=== PATIENT | male | born 1995 | race Caucasian/White ===

== ENCOUNTER 2018-07-16 12:59 | Emergency (ER) | payer OTHER ==
[2018-07-16 13:05] VITALS: BP 148/98; PULSE 117; TEMP 98.6; BMI 25.8
[2018-07-16] MEDS ORDERED: DEXAMETHASONE SOD PHOSPHATE 10 MG/1 ML VIAL IM ONE (13:27)
[2018-07-16] MEDS ORDERED: DEXAMETHASONE SOD PHOSPHATE 10 MG/1 ML VIAL ONE (13:30)
--- NOTE | 2018-07-16 13:31 | PDOC ---
History of Present Illness - General Chief Complaint: Allergic Reaction Stated Complaint: ALLERGIC REACTION Time Seen by Provider: 07/16/18 13:17 History Source: Patient Exam Limitations: Clinical Condition - History of Present Illness Initial Comments: 07/16/18 13:28 Patient with history of anxiety and insomnia present for evaluation of rash to bilateral upper arms, stomach and back status post being prescribed Seroquel and given Seroquel injection s/p presented [facility] for anxiety and insomnia 2 days ago. Patient reports that he started developing rash 24 hours after taking the medication. Patient denies choking sensation, tongue swelling or shortness of breath. Patient reported itchiness to the rash areas. She denies any other symptoms Timing/Duration: other (2 days) Past History - Past Medical History Allergies/Adverse Reactions: Allergies Allergy/AdvReac Type Severity Reaction Status Date / Time peanut Allergy Verified 07/16/18 13:05 Penicillins Allergy Verified 07/16/18 13:05 Home Medications: Ambulatory Orders Famotidine [Pepcid] 20 mg PO BID 5 Days #10 tablet 07/16/18 Hydrocortisone 2.5% Topical Cr [Anusol-Hc -] 1 applic TP BID PRN #1 tube predniSONE [Deltasone -] 20 mg PO BID 5 Days #10 tablet 07/16/18 COPD: No Psychiatric Problems: Yes (shizophrenia) - Immunization History Immunization Up to Date: Yes - Suicide/Smoking/Psychosocial Hx Smoking History: Never smoked Number of Cigarettes Smoked Daily: 0 Hx Alcohol Use: No Substance Use Type: None Review of Systems - Review of Systems Constitutional: No: Weakness HEENTM: Yes: See HPI. No: Double Vision, Throat Swelling, Mouth Swelling Respiratory: No: Symptoms reported, See HPI, Cough, Orthopnea, Shortness of Breath, SOB with Exertion, SOB at Rest, Stridor, Wheezing, Productive cough, Hemoptysis, Other Cardiac (ROS): No: Symptoms Reported, See HPI, Chest Pain, Edema, Irregular Heart Rate, Lightheadedness, Palpitations, Syncope, Chest Tightness, Other ABD/GI: No: Symptoms Reported, See HPI, Abdominal Distended, Abd. Pain w/ defecation, Blood Streaked Bowels, Constipated, Diarrhea, Difficulty Swallowing , Nausea, Poor Appetite, Poor Fluid Intake, Rectal Bleeding, Vomiting, Indigestion, Abdominal cramping, Tarry Stools, Other Integumentary: Yes: Pruritus (over rash area), Rash (b/l upper arm, chest and upper back) All Other Systems: Reviewed and Negative *Physical Exam - Vital Signs Last Vital Signs Temp Pulse Resp BP Pulse Ox 98.6 F 117 H 20 148/98 100 07/16/18 13:02 07/16/18 13:02 07/16/18 13:02 07/16/18 13:02 07/16/18 13:02 - Physical Exam Comments: 07/16/18 13:32 GENERAL: Well developed, well nourished. Awake and alert. No acute distress. HEENT: Normocephalic, atraumatic. PERRLA, EOMI. No conjunctival pallor. Sclera are non- icteric. Moist mucous membranes. Oropharynx is clear. NECK: Supple. Full ROM. No JVD. Carotid pulses 2+ and symmetric, without bruits. No thyromegaly. No lymphadenopathy. CARDIOVASCULAR: Regular rate and rhythm. No murmurs, rubs, or gallops. Distal pulses are 2+ and symmetric. PULMONARY: No evidence of respiratory distress. Lungs clear to auscultation bilaterally. No wheezing, rales or rhonchi. ABDOMINAL: Soft. Non-tender. Non-distended. No rebound or guarding. No organomegaly. Normoactive bowel sounds. SKIN: multiple urticarial rash to b/l UE, left side of abdomen and upper back w/ o excoriations. NEUROLOGICAL: Alert, awake, appropriate. PSYCHIATRIC: Cooperative. Good eye contact. Appropriate mood and affect. General Appearance: Yes: Nourished, Appropriately Dressed. No: Apparent Distress Medical Decision Making - Medical Decision Making 07/16/18 13:33 Patient with history of insomnia and anxiety disorder present with complaint of red itchy rash to bilateral upper arms, anterior chest and upper back area for 2 days status post taking Seroquel medication 2 days ago. Exam significant for multiple urticarial rash to bilateral upper extremities, a left lower abdomen and upper chest area. Decadron 10 mg IM given. Patient be discharged on prednisone and Pepcid with ENT follow-up as needed for dermatitis. Patient be referred to psychiatry for anxiety and insomnia. *DC/Admit/Observation/Transfer Diagnosis at time of Disposition: Allergic dermatitis, Rash Insomnia Qualifiers: Insomnia type: unspecified Qualified Code(s): G47.00 - Insomnia, unspecified - Discharge Dispostion Disposition: HOME Condition at time of disposition: Stable Decision to Admit order: No - Prescriptions Prescriptions: Famotidine [Pepcid] 20 mg PO BID 5 Days #10 tablet Hydrocortisone 2.5% Topical Cr [Anusol-Hc -] 1 applic TP BID PRN #1 tube PRN Reason: rash predniSONE [Deltasone -] 20 mg PO BID 5 Days #10 tablet - Referrals Referrals: Clayton Osorio MD [Primary Care Provider] - Lynn Bal MD [Staff Physician] - Trenton Pate MD [Non Staff, Medical] - - Patient Instructions Printed Discharge Instructions: DI for Adverse Drug Reaction -- Allergic Additional Instructions: take medications as prescribed. follow-up with referred Psychiatrdonell Bal for anxiety and insomnia. follow-up with referred Dermatology as needed for rash - Post Discharge Activity
[2018-07-16] MEDS ORDERED: diphenhydrAMINE HCL 25 MG CAPSULE (FP) PO ONE ×2 (13:45→13:49)
== END 2018-07-16 14:13 | disposition home or self-care (01) ==
LOC: JERFT 12:59
PROC: 3E0233Z Introduction of Anti-inflammatory into Muscle, Percutaneous Approach (ICD-10-PCS; principal; 2018-07-16)
DX: L23.9 Allergic contact dermatitis, unspecified cause (principal); G47.00 Insomnia, unspecified; Z88.0 Allergy status to penicillin; Z91.010 Allergy to peanuts
CPT/HCPCS: 96372; 99281-25; J1100

== ENCOUNTER 2018-07-20 11:00 | Emergency (ER) | payer OTHER ==
[2018-07-20 11:22] VITALS: BP 148/87; PULSE 112; TEMP 98.2; BMI 25.8
--- NOTE | 2018-07-20 12:02 | PDOC ---
History of Present Illness - General Chief Complaint: Psychiatric Stated Complaint: ANXIETY Time Seen by Provider: 07/20/18 12:01 History Source: Patient Exam Limitations: Clinical Condition Past History - Past Medical History Allergies/Adverse Reactions: Allergies Allergy/AdvReac Type Severity Reaction Status Date / Time peanut Allergy Verified 07/20/18 11:18 Penicillins Allergy Verified 07/20/18 11:18 shrimp Allergy Verified 07/20/18 11:18 Home Medications: Ambulatory Orders Famotidine [Pepcid] 20 mg PO BID 5 Days #10 tablet 07/16/18 Hydrocortisone 2.5% Topical Cr [Anusol-Hc -] 1 applic TP BID PRN #1 tube predniSONE [Deltasone -] 20 mg PO BID 5 Days #10 tablet 07/16/18 Benztropine Mesylate [Cogentin -] 0.5 mg PO BID #30 tablet 07/20/18 Haloperidol [Haldol -] 0.5 mg PO BID #30 tablet 07/20/18 COPD: No Psychiatric Problems: Yes (shizophrenia) - Immunization History Immunization Up to Date: Yes - Suicide/Smoking/Psychosocial Hx Smoking History: Never smoked Number of Cigarettes Smoked Daily: 0 Information on smoking cessation initiated: No Hx Alcohol Use: No Drug/Substance Use Hx: No Substance Use Type: None *Physical Exam - Vital Signs Last Vital Signs Temp Pulse Resp BP Pulse Ox 98.2 F 112 H 18 148/87 98 07/20/18 11:19 18 11:19 07/20/18 11:19 07/20/18 11:19 07/20/18 11:19 Medical Decision Making - Medical Decision Making Pt was seen at bedside, also will be seen by attending [ ]. Pt presenting with PE showed [] Considering [vs vs] Ordered work-up including [labs] and [imaging]. Provided [interventions/meds] for improvement of [pain/symptom control]. Will continue to reassess pt and monitor for symptomatic improvement. 07/20/18 12:[address] Mcdonald office ([phone]) to attempt to schedule a sooner appointment (current appointment scheduled for 07/31). Pt takes 100 mg haldol shot once per month, wellbutrin, and .5 mg cogentin BID. Will provide Haldol PO (.5 mg) first dose in the ER, and a short prescription for haldol and cogentin until the pt can see his psychiatrist. 07/20/18 12:43 Sent .5 mg PO haldol BID x15 days and .5 mg PO cogentin BID x15 days to pt pharmacy. 07/20/18 12:53 Provided pt with additional 1 mg ativan for anxiety, as pt stated he is still feeling very anxious. Pt can be discharged to home with follow-up. Pt advised to follow-up with PCP in 1-2 days and has been referred to [referrals]. Strict return precautions provided with pt understanding. 07/20/18 13:53 *DC/Admit/Observation/Transfer Diagnosis at time of Disposition: Anxiety Schizophrenia Qualifiers: Schizophrenia type: unspecified Qualified Code(s): F20.9 - Schizophrenia, unspecified - Discharge Dispostion Disposition: HOME Condition at time of disposition: Improved Decision to Admit order: No - Prescriptions Prescriptions: Benztropine Mesylate [Cogentin -] 0.5 mg PO BID #30 tablet Haloperidol [Haldol -] 0.5 mg PO BID #30 tablet - Referrals Referrals: Robby Mcdonald MD [Non Staff, Medical] - - Patient Instructions Printed Discharge Instructions: DI for Schizophrenia Additional Instructions: You were seen in the ER today for anxiety. Please follow-up with your psychiatrist, Dr. Mcdonald ([phone]) and your primary care doctor within 1-2 days to discuss your visit and make sure your symptoms have improved. Please call Dr. Mcdonald office on Tuesday to confirm your appointment. I have sent Haldol 0.5 mg twice per day, and Cogentin .5 mg twice per day to your pharmacy. Please pick this up after you leave the ER. You received your first dose of Haldol in the ER, so you only need to take it once per night. Please return to the ER if you have any worsening agitation, any thoughts of hurting yourself or others, development of fevers or chills, loss of consciousness, inability to tolerate food or fluids, or any other concerns. - Post Discharge Activity
--- NOTE | 2018-07-20 12:04 | PDOC ---
Attending Attestation - Resident Resident Name: Kristi Owens - HPI HPI: 07/20/18 13:06 Pt presents to the ED complaining of anxiety and insomnia similar to his chronic anxiety. ashwin has a history of schizophrenia and depression and has been lost to psychiatric follow up since December. Has not taken medication for weeks. Was seen at [facility] and started on seroquel. Seen here in the ED for rash after starting seroquel. Now is on no medications. Has attempted to make appointment with his psychiatrist--has appointment for 07/31. Denies HI, SI or active hallucinations. Admits to ETOH use, but states that he is drinking one beer every other day. - Physicial Exam PE: 07/20/18 13:21 Agree with resident exam. Patient is alert and oriented x 3 and in no acute distress. Appears mildly anxious, but able to give complete history, although he is slightly tangential. Appears to have fair to good insight and judgement and is well groomed. No tremor or tongue fasiculations. Tachycardia resolved . - Medical Decision Making 07/20/18 13:24 Pt presents to the ED complaining of anxiety and lack of his chronic psychiatric medications. No active psychotic symptoms. Attempted to obtain earlier psychiatric follow up, but Psychiatrist does not work on . Voicemail left with the clinic. Medication history obtained from the clinic. Will treat with PO haldol and cogentin until psychiatric follow up on 07/31. Patient instructed to return immediately to the Ed for SI, HI, hallucinations, other worsening symptoms/.
[2018-07-20] MEDS ORDERED: diphenhydrAMINE HCL 25 MG CAPSULE (FP) PO ONE ×2 (12:19→12:30)
[2018-07-20] MEDS ORDERED: SODIUM CHLORIDE 1,000 ML IV STA (12:32)
[2018-07-20] MEDS ORDERED: HALOPERIDOL 1 MG TABLET (FP) PO ONE (12:46)
[2018-07-20] MEDS ORDERED: LORazepam 0.5 MG TABLET PO ONE (13:20)
[2018-07-20] MEDS ORDERED: LORazepam 1 MG TABLET PO ONE (13:22)
[2018-07-20] MEDS ORDERED: LORazepam 0.5 MG TABLET ONE (13:23)
--- NOTE | 2018-07-20 14:14 | EKG ---
Test Reason : Blood Pressure : / mmHG Vent. Rate : 092 BPM Atrial Rate : 092 BPM P-R Int : 146 ms QRS Dur : 094 ms QT Int : 334 ms P-R-T Axes : 015 017 023 degrees QTc Int : 413 ms NORMAL SINUS RHYTHM WITH SINUS ARRHYTHMIA POSSIBLE LEFT ATRIAL ENLARGEMENT SEPTAL INFARCT , AGE UNDETERMINED ABNORMAL ECG NO PREVIOUS ECGS AVAILABLE Confirmed by CEZAR HAAS MD ([id number]) on 07/20/2018 2:13:39 PM Referred By: Confirmed By:CEZAR HAAS MD
== END 2018-07-20 14:01 | disposition home or self-care (01) ==
LOC: JER 11:00
DX: F41.9 Anxiety disorder, unspecified (principal); F20.9 Schizophrenia, unspecified
CPT/HCPCS: 93005; 93010; 99282-25

== ENCOUNTER 2018-08-31 11:56 | Emergency (ER) | payer OTHER ==
[2018-08-31 12:05] VITALS: BP 152/89; PULSE 119; TEMP 98.6; BMI 24.3
--- NOTE | 2018-08-31 14:42 | PDOC ---
History of Present Illness - General Chief Complaint: Chest Pain Stated Complaint: CHEST PAIN Time Seen by Provider: 08/31/18 14:27 History Source: Patient Exam Limitations: No Limitations - History of Present Illness Initial Comments: 23 yo M with a hx of schizophrenia and depression presents to the emergency department with 1.5 months of intermittent chest pain described as a "discomfort ". Per the patient, the pain has random onset, feels like a prickling sensation , 10/10, lasts for approximately 1 second before termination with random onset and termination on its own. Denies worsening of pain with exertion and denies the following associative symptoms: diaphoresis, nausea, vomiting, SOB, and radiation of pain to his neck, back, and arms. Concurrently, he complains of a mental fog and has not been compliant with his haldol medication. Denies SI, HI , AH/VH/tactile hallucinations, and ideas of self harm. Denies the following: fever, chills, visual changes, headache, ears/nose/throat pain, abdominal pain, dysuria, hematuria, stiffening of muscles, ataxia, diarrhea, hematochezia, and leg pain/swelling. Pmhx: Refer to above Meds: haldol Allergies: PCN (anaphylaxis) Past History - Past Medical History Allergies/Adverse Reactions: Allergies Allergy/AdvReac Type Severity Reaction Status Date / Time peanut Allergy Verified 08/31/18 12:02 Penicillins Allergy Verified 08/31/18 12:02 shrimp Allergy Verified 08/31/18 12:02 Home Medications: Ambulatory Orders Famotidine [Pepcid] 20 mg PO BID 5 Days #10 tablet 07/16/18 Hydrocortisone 2.5% Topical Cr [Anusol-Hc -] 1 applic TP BID PRN #1 tube predniSONE [Deltasone -] 20 mg PO BID 5 Days #10 tablet 07/16/18 Benztropine Mesylate [Cogentin -] 0.5 mg PO BID #30 tablet 07/20/18 Haloperidol [Haldol -] 0.5 mg PO BID #30 tablet 07/20/18 Cardiac Disorders: No COPD: No Diabetes: No HTN: No Hypercholesterolemia: No Psychiatric Problems: Yes (shizophrenia, depression, anxiety, insomnia) - Surgical History Abdominal Surgery: No Appendectomy: Yes Cardiac Surgery: No - Immunization History Immunization Up to Date: Yes - Suicide/Smoking/Psychosocial Hx Smoking History: Former smoker Have you smoked in the past 12 months: Yes Number of Cigarettes Smoked Daily: 0 If you are a former smoker, when did you quit?: 2 months ago Information on smoking cessation initiated: No Hx Alcohol Use: No Drug/Substance Use Hx: No Substance Use Type: None Review of Systems - Review of Systems Able to Perform ROS?: Yes Is the patient limited Faroese proficient: No Constitutional: No: Chills, Diaphoresis, Fever HEENTM: No: Blurred Vision, Recent change in vision, Ear Pain, Nose Pain, Throat Pain, Mouth Pain Respiratory: No: Cough, Shortness of Breath, SOB with Exertion, Hemoptysis Cardiac (ROS): Yes: Chest Pain. No: Lightheadedness, Palpitations, Syncope, Chest Tightness ABD/GI: No: Constipated, Diarrhea, Nausea, Poor Appetite, Poor Fluid Intake, Rectal Bleeding, Vomiting, Indigestion, Tarry Stools : No: Burning, Dysuria, Urgency Musculoskeletal: No: Back Pain, Joint Pain, Neck Pain Integumentary: No: Bruising, Change in Color, Flushing, Lesions, Lumps, Rash, Sweating Neurological: No: Headache, Numbness, Tingling, Tremors, Ataxia, Dizziness Psychiatric: Yes: Depression, Stressors Endocrine: No: Unexplained Weight Gain Hematologic/Lymphatic: No: Anemia *Physical Exam - Vital Signs Last Vital Signs Temp Pulse Resp BP Pulse Ox 98.6 F 119 H 18 152/89 95 08/31/18 12:03 08/31/18 12:03 08/31/18 12:03 08/31/18 12:03 08/31/18 12:03 - Physical Exam General Appearance: Yes: Nourished, Appropriately Dressed. No: Apparent Distress, Intoxicated HEENT: positive: EOMI, DEBORAH, Normal Voice, Symmetrical, Pharynx Normal, Hearing Grossly Normal. negative: Pale Conjunctivae, Scleral Icterus (R), Scleral Icterus (L), Muffled/Hoarse voice, Nasal Congestion, Sinus Tenderness, Excessive drooling Neck: positive: Trachea midline. negative: Tender, Lymphadenopathy (R), Lymphadenopathy (L), Tender lateral, Tender midline Respiratory/Chest: positive: Lungs Clear, Normal Breath Sounds. negative: Chest Tender, Respiratory Distress, Accessory Muscle Use, Paradoxal Breathing, Crackles, Rales, Rhonchi, Stridor, Wheezing Cardiovascular: positive: Regular Rhythm, S1, S2, Tachycardia. negative: Systolic Murmur Gastrointestinal/Abdominal: positive: Normal Bowel Sounds, Flat, Soft. negative : Tender Lymphatic: negative: Adenopathy Musculoskeletal: positive: Normal Inspection. negative: CVA Tenderness, Vertebral Tenderness Extremity: positive: Normal Capillary Refill, Normal Inspection, Normal Range of Motion. negative: Tender Integumentary: positive: Normal Color, Dry, Warm. negative: Rash, Swelling Neurologic: positive: lab pack chemist II-XII NML intact, Fully Oriented, Alert, Normal Response, Motor Strength 5/5, Depressed Affect Moderate Sedation - Procedure Monitoring Vital Signs: Procedure Monitoring Vital Signs Temperature 98.6 F 08/31/18 12:03 Pulse Rate 119 H 08/31/18 12:03 Respiratory Rate 18 08/31/18 12:03 Blood Pressure 152/89 08/31/18 12:03 O2 Sat by Pulse Oximetry (%) 95 08/31/18 12:03 ED Treatment Course - LABORATORY CBC & Chemistry Diagram: 08/31/18 15:09 08/31/18 15:09 Medical Decision Making - Medical Decision Making 23 yo M with a hx of schizophrenia and depression presents to the emergency department with 1.5 months of intermittent chest pain described as a "discomfort ". Initial vitals: Initial Vital Signs Temp Pulse Resp BP Pulse Ox 98.6 F 119 H 18 152/89 95 08/31/18 12:03 08/31/18 12:03 08/31/18 12:03 08/31/18 12:03 08/31/18 12:03 work up: aCS for atypical chest pain work up. EKG did not show arrhythmia, ST elevations or depressions. Tachycardia sinus. will order trops, cbc, cmp, cxr to rule out ACS causes and acute pathologies (PNA) in the chest. Laboratory Tests 08/31/18 08/31/18 15:09 15:09 WBC 7.6 RBC 5.81 H Hgb 17.3 H Hct 52.7 H MCV 90.7 MCH 29.7 MCHC 32.8 RDW 12.7 Plt Count 390 MPV 7.4 L Absolute Neuts (auto) 4.7 Neutrophils % 62.2 Lymphocytes % 28.7 Monocytes % 7.7 Eosinophils % 0.7 Basophils % 0.7 Nucleated RBC % 0 Sodium 140 Potassium 4.1 Chloride 105 Carbon Dioxide 27 Anion Gap 9 BUN 7 Creatinine 0.7 Creat Clearance w eGFR > 60 Random Glucose 83 Calcium 9.3 Total Bilirubin 0.8 AST 15 ALT 37 Alkaline Phosphatase 74 Creatine Kinase 69 Troponin I < 0.02 Total Protein 7.4 Albumin 4.1 TSH 1.05 Free T4 1.10 CXR shows no acute pathologies. given 1 L of NS and 5 mg of haldol (his home dose). has improvement in pain and his heart rate prior to discharge was 98 bpm. agreed for outpatient follow up with is pMD and psychiatrist within 24-72 hours. I discussed the physical exam findings, ancillary test results, and final diagnoses with the patient. I answered all of the patients questions to their satisfaction. The patient was satisfied with the care received and felt comfortable with the discussed discharge and treatment plan and accepted it. They agreed to follow up with their primary medical physical physician within 24 -72 hours after discharge for follow up care and management. Dispo: Discharge *DC/Admit/Observation/Transfer Diagnosis at time of Disposition: Chest pain Qualifiers: Chest pain type: unspecified Qualified Code(s): R07.9 - Chest pain, unspecified - Discharge Dispostion Disposition: HOME Decision to Admit order: No - Referrals Referrals: Clayton Osorio MD [Primary Care Provider] - Lynn Bal MD [Staff Physician] - - Patient Instructions Printed Discharge Instructions: DI for Atypical Chest Pain Additional Instructions: you were seen in the emergency department for the evaluation of your chest pain. your labs were within normal limits and your chest xray did not show acute pathologies. please follow up with your primary medical doctor within 3 days after discharge. follow up with your psychiatrist within 3 days after discharge for follow up care and management. please return to the emergency department if you have worsening symptoms or new concerning symptoms such as shortness of breath, chest pain with exertion, and passing out. thank you. - Post Discharge Activity
[2018-08-31] MEDS ORDERED: SODIUM CHLORIDE 1,000 ML IV STA (14:45)
[2018-08-31] MEDS ORDERED: HALOPERIDOL LACTATE 5 MG/ML IM ONE (14:45)
[2018-08-31] MEDS ORDERED: HALOPERIDOL LACTATE 5 MG/ML ONE (15:15)
[2018-08-31 15:23] LABS: BASO % 0.7 % (0-2.0); EOS % 0.7 % (0-4.5); HEMATOCRIT 52.7 % (35.4-49); HEMOGLOBIN 17.3 GM/dL (11.7-16.9); LYMPH % 28.7 % (8-40); MCH 29.7 pg (25.7-33.7); MCHC 32.8 g/dl (32.0-35.9); MEAN CELL VOLUME 90.7 fl (80-96); MEAN PLT VOLUME 7.4 fl (7.5-11.1); MONO % 7.7 % (3.8-10.2); NEUT % 62.2 % (42.8-82.8); PLATELET COUNT 390 K/MM3 (134-434); RBC 5.81 M/mm3 (4.00-5.60); RDW 12.7 % (11.9-15.9); WHITE BLOOD COUNT 7.6 K/mm3 (4.0-10.0)
--- NOTE | 2018-08-31 15:33 | PDOC ---
Attending Attestation - HPI HPI: 08/31/18 15:35 The patient is a 23 year old male, with a significant PMH of schizophrenia, depression, who presents to the emergency department with 1 month of intermittent chest discomfort. The patient states the intermittent chest pain is described as a prickly sensation, rated 10/10, last for 1 second before resolving on its own, with no exacerbating or alleviating factors. The patient also states he has not been compliant with his Haldol medication. The patient denies any homicidal ideations, suicidal ideations or hallucinations. The patient denies shortness of breath, headache and dizziness. Denies fever, chills, nausea, vomit, diarrhea and constipation. Denies dysuria, frequency, urgency and hematuria. Allergies: peanut, penicillins, shrimps Documentation prepared by Gideon Rodas, acting as medical appointment scheduler for Sony Reeves MD. - Physicial Exam PE: 08/31/18 15:35 Vitals: Triage Vital signs reviewed General Appearance: no acute distress, well nourished well developed, Neck: Supple; No Nuchal rigidity Chest Wall: Nontender Cardiac: Regular rate and rhythm, no murmurs, no rubs, no gallops, Lungs: Clear to auscultation bilateral, good air movement bilaterally, Abdomen: Soft, nondistended, normal bowel sounds, nontender to palpation Rectal: Exam deferred Extremities: Full range of motion to all extremities, no cyanosis, clubbing, or edema Skin: Warm and dry, no rashes or lesions, no petechiae Psych: (+) Odd affect <Gideon Rodas - Last Filed: 08/31/18 15:34> - Resident Resident Name: Ellis Hutchinson - ED Attending Attestation I have performed the following: I have examined & evaluated the patient, The case was reviewed & discussed with the resident, I agree w/resident's findings & plan, Exceptions are as noted - Medical Decision Making 08/31/18 16:08 Very atypical chest discomfort patient noncompliant with his psychiatric medications however denies any suicidal ideation homicidal ideation or auditory or visual hallucinations does not appear to be acute harm to himself or others EKG nonischemic demonstrates sinus tachycardia no ST elevations or T-wave inversions Status post Haldol IV fluids patient feels much better laboratory analysis within normal limits troponin negative heart score 1. Patient stable for outpatient follow-up with psychiatry as well as in our clinic. <Sony Reeves - Last Filed: 08/31/18 16:08> Heart Score/ECG Review - History History: Slightly suspicious - Electrocardiogram EKG: Normal - Age Age: </= 45 - Risk Factors Based on the list above the patient has:: No risk factors known - Troponin Troponin: </= normal limit - Score Heart Score - Total: 0 <Sony Reeves - Last Filed: 08/31/18 16:08>
[2018-08-31 15:47] LABS: ALBUMIN 4.1 g/dl (3.4-5.0); ALK PHOS 74 U/L (45-117); ANION GAP 9 MMOL/L (8-16); BILIRUBIN,TOTAL 0.8 mg/dL (0.2-1); BLOOD UREA NITROGEN 7 mg/dL (7-18); CALCIUM 9.3 mg/dL (8.5-10.1); CHLORIDE 105 mmol/L (98-107); CO2 27 mmol/L (21-32); CREATININE 0.7 mg/dL (0.55-1.3); GLUCOSE,RANDOM 83 mg/dL (74-106); POTASSIUM 4.1 mmol/L (3.5-5.1); SGOT/AST 15 U/L (15-37); SGPT/ALT 37 U/L (13-61); SODIUM 140 mmol/L (136-145); TOT PROT 7.4 g/dl (6.4-8.2)
--- NOTE | 2018-09-04 16:33 | EKG ---
Test Reason : Blood Pressure : / mmHG Vent. Rate : 106 BPM Atrial Rate : 106 BPM P-R Int : 130 ms QRS Dur : 082 ms QT Int : 312 ms P-R-T Axes : 052 030 027 degrees QTc Int : 414 ms SINUS TACHYCARDIA POSSIBLE LEFT ATRIAL ENLARGEMENT SEPTAL INFARCT (CITED ON OR BEFORE 20-JUL-2018) ABNORMAL ECG WHEN COMPARED WITH ECG OF 20-JUL-2018 12:26, NO SIGNIFICANT CHANGE WAS FOUND Confirmed by DONALDO SANCHEZ, ANGELIQUE ([id number]) on 09/04/2018 4:32:27 PM Referred By: Confirmed By:ANGELIQUE FULTON MD
== END 2018-08-31 16:51 | disposition home or self-care (01) ==
LOC: JER 11:56
PROC: 3E0337Z Introduction of Electrolytic and Water Balance Substance into Peripheral Vein, Percutaneous Approach (ICD-10-PCS; principal; 2018-08-31)
PROC: 3E023GC Introduction of Other Therapeutic Substance into Muscle, Percutaneous Approach (ICD-10-PCS; 2018-08-31)
DX: R07.9 Chest pain, unspecified (principal); F20.9 Schizophrenia, unspecified; F32.9 Major depressive disorder, single episode, unspecified; F41.9 Anxiety disorder, unspecified; G47.00 Insomnia, unspecified; Z91.14 Patient's other noncompliance with medication regimen
CPT/HCPCS: 36415; 71045-TC-FY; 80053; 82550; 84439; 84443; 84484; 85025; 93005; 93010; 99282-25; J7030

== ENCOUNTER 2018-09-02 04:04 | Emergency (ER) | payer OTHER ==
[2018-09-02 04:26] VITALS: TEMP 98.3; BMI 24.3
--- NOTE | 2018-09-02 04:39 | PDOC ---
History of Present Illness - General Chief Complaint: Chest Pain Stated Complaint: CHEST DISCOMFORT Time Seen by Provider: 09/02/18 04:21 History Source: Patient Exam Limitations: No Limitations - History of Present Illness Initial Comments: 09/02/18 04:34 23 YOM with h/o schizophrenia and depression non-adherent to medication regimen , who was BIBEMS for sharp stabbing left anterior chest pain which is non- radiating, occurs in episodes a few times a day and lasts seconds-minutes, ongoing for the past 1-2 months. Was seen here as recently as 08/31/18 for the same thing, had negative cardiac w/u including labs. 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 This provoked him to call 911. He did not take any medications for the symptoms. Has been having similar milder symptoms for the past 1-2 months but not prior to that. He has been having some struggles with his schizophrenia and states the voices he hears in his head are somewhat troubling. He does follow with a regular outpatient doctor for his schizophrenia and is able to make an appointment with them for Tuesday. Denies suicidal or homicidal ideation. States he was drinking tonight. Past History - Past Medical History Allergies/Adverse Reactions: Allergies Allergy/AdvReac Type Severity Reaction Status Date / Time peanut Allergy Verified 09/02/18 04:56 Penicillins Allergy Verified 09/02/18 04:56 shrimp Allergy Verified 09/02/18 04:56 Home Medications: Ambulatory Orders NK [No Known Home Medication] 09/02/18 Cardiac Disorders: No COPD: No Diabetes: No HTN: No Hypercholesterolemia: No Psychiatric Problems: Yes (shizophrenia, depression, anxiety, insomnia) - Surgical History Abdominal Surgery: No Appendectomy: Yes Cardiac Surgery: No - Immunization History Immunization Up to Date: Yes - Suicide/Smoking/Psychosocial Hx Smoking History: Never smoked Have you smoked in the past 12 months: Yes Number of Cigarettes Smoked Daily: 0 If you are a former smoker, when did you quit?: 2 months ago Hx Alcohol Use: Yes (1 bottle cognac/3-4 beers per day) Drug/Substance Use Hx: No Substance Use Type: None Review of Systems - Review of Systems Able to Perform ROS?: Yes Comments:: 09/02/18 04:37 GEN: no fever, chills, malaise, generalized weakness, or weight change HEENT: no ear pain, sore throat, vision change, or eye pain CV: chest pain, no palpitations, lightheadedness, syncope, or edema RESP: no cough, wheezing, or SOB GI: nausea, vomiting, no abdominal pain, diarrhea, constipation, or white/black/ bloody stool : no dysuria, hematuria, incontinence, retention, bleeding, or discharge MSK: no neck/back pain, muscle weakness/pain, or joint swelling/pain NEURO: no headache, seizure, vertigo, numbness, tingling, or focal weakness PSYCH: alcohol use, no other substance use, visual hallucinations, no SI, no HI SKIN: no jaundice, no rash ROS otherwise negative except as noted in HPI *Physical Exam - Vital Signs Last Vital Signs Temp Pulse Resp BP Pulse Ox 98.3 F 105 H 19 143/85 100 09/02/18 04:15 09/02/18 04:15 09/02/18 04:15 09/02/18 04:15 09/02/18 04:15 09/02/18 04:38 GENERAL: flat affect, well-appearing young adult male, A/Ox4, no distress, answers questions appropriately, does not appear intoxicated HEENT: PERRLA, EOMI, moist mucous membranes NECK/BACK: no midline ttp, no spinal stepoff or deformity, no hematoma, full ROM , neck supple CARDIOVASCULAR: slightly tachycardic at the tiem of my exam, normal S1S2, no MGR , strong peripheral pulses, capillary refill <2 seconds, extremities wwp, no edema LUNGS/RESPIRATORY: no respiratory distress, CTAB GI/ABDOMEN: symmetric [id number], normoactive BS, soft, no ttp, no midline pulsatile masses : no CVA tenderness EXTREMITIES: no muscle atrophy, no acute deformity, no edema SKIN: warm and dry, no pallor, no jaundice, no rash, no bruising, no skin breakdown, no cuts, no lesions NEUROLOGICAL: GCS 15, CN II-XII grossly intact, 5/5 strength proximally and distally, no facial droop Heart Score/ECG Review #1 09/02/18 05:30 Sinus rhythm, rate 99, normal axis and intervals, no pathologic ST-T changes Moderate Sedation - Procedure Monitoring Vital Signs: Procedure Monitoring Vital Signs Temperature 98.3 F 09/02/18 04:15 Pulse Rate 105 H 09/02/18 04:15 Respiratory Rate 19 09/02/18 04:15 Blood Pressure 143/85 09/02/18 04:15 O2 Sat by Pulse Oximetry (%) 100 09/02/18 04:15 ED Treatment Course - RADIOLOGY Radiology Studies Ordered: Category Date Time Status CHEST PA & LAT [RAD] Stat Radiology 09/02/18 04:33 Taken Medical Decision Making - Medical Decision Making 09/02/18 04:40 Adult Pt p/w chest pain. Initial Vital Signs Temp Pulse Resp BP Pulse Ox 98.3 F 105 H 19 143/85 100 09/02/18 04:15 09/02/18 04:15 09/02/18 04:15 09/02/18 04:15 09/02/18 04:15 Exam: As noted in Physical Exam section. DDX IBNLT: most likely precordial catch. Less likely any of the following as this has been episodic and ongoing for >1 month: ACS, pericarditis, PTX, PE, gastritis, PUD, pancreatitis, cholecystitis, cholangitis, colitis, bowel perforation, PNA/bronchitis, pleurisy, pleuritis, MVP, musculoskeletal, panic/ anxiety, etc. W/U ordered: EKG CXR TX ordered: None (patient does not want meds at this time) EKG: Reviewed; results as noted in ECG Review section. CXR: Nothing acute 09/02/18 07:00 Patient states he drinks EtOH daily, want to go to detox. Patient to be driven to [facility] by security at 8 am. On last reassessment VS are stable, Pts pain is resolved, and exam is benign. The Pts HEART score indicates they are low risk and do not require admission currently. The Pt is appropriate for discharge with close outpatient follow up. They are comfortable with this plan and will follow up with their primary care provider in 1-3 days. Referral information given for psychiatry clinic. Specific return precautions are discussed and they will come back to the ER if necessary. *DC/Admit/Observation/Transfer Diagnosis at time of Disposition: Chest pain Qualifiers: Chest pain type: unspecified Qualified Code(s): R07.9 - Chest pain, unspecified Schizophrenia Qualifiers: Schizophrenia type: other Qualified Code(s): F20.89 - Other schizophrenia - Discharge Dispostion Disposition: HOME Condition at time of disposition: Stable Decision to Admit order: No - Referrals Referrals: Clayton Osorio MD [Primary Care Provider] - Lynn Bal MD [Staff Physician] - Samuel Moody NP [Nurse Practitioner] - - Patient Instructions Printed Discharge Instructions: DI for Chest Pain Additional Instructions: You were seen in the ER for chest pain. We did an electrocardiogram and a chest x-ray, and we did not find any concerning abnormalities. After our assessment, we do not believe you are having a medical emergency at this time, and we believe you are safe to go home. Take over the counter pain medications for your pain, as instructed on the medication label. Please follow up with your primary care provider in 1-3 days. Call their clinic as soon as possible, tell them you were seen in the ER, and tell them you need an appointment. We are giving you referral information for our psychiatry clinic, and we think they may be able to help you as well if you are looking for a new psychiatrist. If you have any new or worsening symptoms, especially worsening chest pain, jaw pain, shoulder/arm pain, shortness of breath, sweats, nausea, loss of consciousness, palpitations, or other symptoms, please come back to the ER at any time (24 hours a day). If you are having severe or life threatening symptoms , or symptoms that make it unsafe to drive or have someone drive you, please call 911. Please go to [facility] for Detox, this morning at 8 am. - Post Discharge Activity
[2018-09-02] MEDS ORDERED: MAG HYDROX/AL HYDROX/SIMETH 30 ML UNIT-DOSE CUP PO ONE (06:20)
--- NOTE | 2018-09-02 06:25 | PDOC ---
Attending Attestation - Resident Resident Name: SalesTeri - ED Attending Attestation I have performed the following: I have examined & evaluated the patient, The case was reviewed & discussed with the resident, I agree w/resident's findings & plan - HPI HPI: 09/02/18 06:23 Pt is schizophrenic. He tells me that he self medicates daily with alcohol, and that he doesn't eat/ Pt has no job; he completed one year of college and has no job. He lives off of his mother. He is stressed at home. - Physicial Exam PE: 09/02/18 06:25 Agree with resident exam. - Medical Decision Making 09/02/18 06:25 Pt is willing to try detox; he is tachycardic in the ER, likely due to alcohol withdrawal. [place] [facility] [place] their detox program at 8[place].
[2018-09-02] MEDS ORDERED: MAG HYDROX/AL HYDROX/SIMETH 30 ML UNIT-DOSE CUP ONE (07:03)
[2018-09-02 07:40] VITALS: BP 136/60; PULSE 92
--- NOTE | 2018-09-02 13:26 | EKG ---
Test Reason : Blood Pressure : / mmHG Vent. Rate : 099 BPM Atrial Rate : 099 BPM P-R Int : 142 ms QRS Dur : 088 ms QT Int : 322 ms P-R-T Axes : 051 025 023 degrees QTc Int : 413 ms NORMAL SINUS RHYTHM SEPTAL INFARCT (CITED ON OR BEFORE 20-JUL-2018) ABNORMAL ECG WHEN COMPARED WITH ECG OF 31-AUG-2018 12:07, NO SIGNIFICANT CHANGE WAS FOUND Confirmed by SAMINA SANCHEZ, CEZAR ([id number]) on 09/02/2018 1:25:52 PM Referred By: Confirmed By:CEZAR HAAS MD
== END 2018-09-02 07:39 | disposition home or self-care (01) ==
LOC: JER 04:04
DX: R07.9 Chest pain, unspecified (principal); F10.10 Alcohol abuse, uncomplicated; F20.89 Other schizophrenia; F32.9 Major depressive disorder, single episode, unspecified; G47.00 Insomnia, unspecified
CPT/HCPCS: 71046-TC-FY; 93005; 93010; 99282-25

== ENCOUNTER 2018-11-25 14:15 | Emergency (ER) | payer OTHER ==
[2018-11-25 14:31] VITALS: BP 104/68; PULSE 103; TEMP 99.5; BMI 26.4
[2018-11-25] MEDS ORDERED: ACETAMINOPHEN 500 MG TABLET (FP) PO ONE (14:47)
--- NOTE | 2018-11-25 14:49 | PDOC ---
History of Present Illness - General Chief Complaint: Cold Symptoms Stated Complaint: FLU SYMPTOMS Time Seen by Provider: 11/25/18 14:42 - History of Present Illness Initial Comments: 11/25/18 14:46 23-year-old male with flulike symptoms 2 days he has a history of depression. Past History - Past Medical History Allergies/Adverse Reactions: Allergies Allergy/AdvReac Type Severity Reaction Status Date / Time peanut Allergy Verified 11/25/18 14:26 Penicillins Allergy Verified 11/25/18 14:26 shrimp Allergy Verified 11/25/18 14:26 Home Medications: Ambulatory Orders Oseltamivir Phosphate [Tamiflu] 75 mg PO BID #10 capsule 11/25/18 Cardiac Disorders: No COPD: No Diabetes: No HTN: No Hypercholesterolemia: No Psychiatric Problems: Yes (shizophrenia, depression, anxiety, insomnia) - Surgical History Abdominal Surgery: No Appendectomy: Yes Cardiac Surgery: No - Immunization History Immunization Up to Date: Yes - Suicide/Smoking/Psychosocial Hx Smoking History: Current every day smoker Have you smoked in the past 12 months: Yes Number of Cigarettes Smoked Daily: 10 If you are a former smoker, when did you quit?: 2 months ago Information on smoking cessation initiated: No Hx Alcohol Use: No Drug/Substance Use Hx: No Substance Use Type: None Review of Systems - Review of Systems Constitutional: Yes: See HPI, Chills, Fever, Malaise, Night Sweats HEENTM: Yes: Nose Congestion Respiratory: Yes: Cough *Physical Exam - Vital Signs Last Vital Signs Temp Pulse Resp BP Pulse Ox 99.5 F 103 H 16 104/68 97 11/25/18 14:26 11/25/18 14:26 11/25/18 14:26 11/25/18 14:26 11/25/18 14:26 - Physical Exam Comments: 11/25/18 14:47 HEAD: NC/AT EYES: Conjuntiva clear Ears: Canals and TM's normal NOSE: No d/c THROAT: Moist mucous membrances, oral pharanx clear, uvula midline NECK: Supple without adenopathy CARDIAC: S1 S2 LUNGS: CTA Full and Equal breath sounds ABDOMEN: Soft NT ND MS: Full ROM in all joints without edema NEUROLOGIC: No gross sensory or motor deficits, NVID SKIN: Normal color and temperature no lesions or rashes Moderate Sedation - Procedure Monitoring Vital Signs: Procedure Monitoring Vital Signs Temperature 99.5 F 11/25/18 14:26 Pulse Rate 103 H 11/25/18 14:26 Respiratory Rate 16 11/25/18 14:26 Blood Pressure 104/68 11/25/18 14:26 O2 Sat by Pulse Oximetry (%) 97 11/25/18 14:26 Medical Decision Making - Medical Decision Making 11/25/18 14:48 We'll treat for influenza based on symptoms *DC/Admit/Observation/Transfer Diagnosis at time of Disposition: Influenza - Discharge Dispostion Disposition: HOME Condition at time of disposition: Stable Decision to Admit order: No - Prescriptions Prescriptions: Oseltamivir Phosphate [Tamiflu] 75 mg PO BID #10 capsule - Referrals Referrals: Karthikeyan Leal [Non Staff, Medical] - - Patient Instructions Printed Discharge Instructions: Influenza Additional Instructions: Tylenol and Motrin as directed for pain and fever. Follow-up with primary care physician in one to 2 days for further evaluation and treatment options and return to the emergency room for worsening symptoms. Please take the Tamiflu as directed - Post Discharge Activity
== END 2018-11-25 14:52 | disposition home or self-care (01) ==
LOC: JERFT 14:15
DX: J11.1 Influenza due to unidentified influenza virus with other respiratory manifestations (principal); F20.9 Schizophrenia, unspecified; F41.9 Anxiety disorder, unspecified; F32.9 Major depressive disorder, single episode, unspecified; G47.00 Insomnia, unspecified
CPT/HCPCS: 99281-25

== ENCOUNTER 2019-02-16 14:20 | Emergency (ER) | payer OTHER ==
--- NOTE | 2019-02-16 14:44 | PDOC ---
Rapid Medical Evaluation Time Seen by Provider: 02/16/19 14:40 Medical Evaluation: Allergies Allergy/AdvReac Type Severity Reaction Status Date / Time peanut Allergy Verified 11/25/18 14:26 Penicillins Allergy Verified 11/25/18 14:26 shrimp Allergy Verified 11/25/18 14:26 02/16/19 14:41 Patient complaints of: heavy drinking, not taking psych meds, denies si/hi Patient on brief exam: vss, good eye contact, normal body language, mouth appears dry Patient ordered for: labs, ivf, ua, drug tox Patient to proceed to the ED Discharge Disposition - Diagnosis Schizophrenia - Referrals - Patient Instructions - Post Discharge Activity
[2019-02-16] MEDS ORDERED: SODIUM CHLORIDE 1,000 ML IV STA (14:45)
[2019-02-16 14:53] VITALS: BP 122/85; PULSE 81; TEMP 98; BMI 25.8
[2019-02-16] MEDS ORDERED: HALOPERIDOL 5 MG TABLET (FP) PO ONE (15:18)
[2019-02-16] MEDS ORDERED: ALPRAZolam 0.25 MG TABLET PO ONE (15:18)
[2019-02-16] MEDS ORDERED: ALPRAZolam 0.25 MG TABLET ONE (15:24)
--- NOTE | 2019-02-16 15:26 | PDOC ---
History of Present Illness - General Chief Complaint: Psychiatric Stated Complaint: DOESNT FEEL GOOD Time Seen by Provider: 02/16/19 14:40 - History of Present Illness Initial Comments: 02/16/19 15:26 CHIEF COMPLAINT: "I don't feel good" HISTORY OF PRESENT ILLNESS: This is a 24-year-old male with a history of bipolar disorder and schizophrenia, usually on lithium and Haldol although he has not taken them for about 3 days. He reports that he has been drinking more than usual, and had sonny and [employer] last night. Since then, he is been feeling generally ill at ease. He denies suicidal or self harming ideation, homicidal ideation, auditory or visual hallucinations, or any other symptoms. He does not have any specific physical complaints. He does follow with a psychiatrist at [facility] in [place], and saw him 2 days ago. The patient has a supply of medications, but reports that he does not feel there working well for him. He lives with and is accompanied by his mother. REVIEW OF SYSTEMS: GENERAL/CONSTITUTIONAL: No fever or chills. No weakness. No weight change. HEAD, EYES, EARS, NOSE AND THROAT: No change in vision. No ear pain or discharge. No sore throat. CARDIOVASCULAR: No chest pain or palpitations. RESPIRATORY: No cough, wheezing, or shortness of breath. GASTROINTESTINAL: No nausea, vomiting, diarrhea or constipation. GENITOURINARY: No dysuria, frequency, or change in urination. MUSCULOSKELETAL: No joint or muscle swelling or pain. No neck or back pain. SKIN: No rash or easy bruising. NEUROLOGIC: No headache, vertigo, loss of consciousness, or loss of sensation. PSYCHIATRIC: Anxiety, history of BPD/schizophrenia. No SI/HI/age/pH. ENDOCRINE: No increased thirst. No abnormal weight change. HEMATOLOGIC/LYMPHATIC: No anemia, easy bleeding, or history of blood clots. ALLERGIC/IMMUNOLOGIC: No hives or skin allergy. No latex allergy. PHYSICAL EXAM: GENERAL: The patient is awake, alert, and fully oriented, in no acute distress. HEAD: Normal with no signs of trauma. ENT: Pupils equal, round and reactive to light, extraocular movements intact, sclera anicteric, conjunctiva clear. Neck supple. LUNGS: Clear to auscultation bilaterally. Normal excursion. No respiratory distress or use of accessory muscles. CV: RRR, S1/S2, no MRG. Cap refill < 2 sec. ABDOMEN: Soft, non-distended, non-tender. EXTREMITIES: Normal range of motion, no edema. NEUROLOGICAL: Normal speech, normal gait. CN II-XII grossly intact. PSYCH: Normal mood, normal affect. Normal insight and judgment. Answers questions appropriately. SKIN: Warm, dry, normal turgor, no rashes or lesions noted. Past History - Past Medical History Allergies/Adverse Reactions: Allergies Allergy/AdvReac Type Severity Reaction Status Date / Time peanut Allergy Verified 11/25/18 14:26 Penicillins Allergy Verified 11/25/18 14:26 shrimp Allergy Verified 11/25/18 14:26 Home Medications: Ambulatory Orders Haloperidol [Haldol -] 0 mg PO ASDIR 02/16/19 [place] Carbonate [Eskalith -] 0 mg PO ASDIR 02/16/19 Cardiac Disorders: No COPD: No Diabetes: No HTN: No Hypercholesterolemia: No Psychiatric Problems: Yes (shizophrenia, depression, anxiety, insomnia) Other medical history: bipolar - Surgical History Abdominal Surgery: No Appendectomy: Yes Cardiac Surgery: No - Immunization History Immunization Up to Date: Yes - Suicide/Smoking/Psychosocial Hx Smoking History: Current every day smoker Have you smoked in the past 12 months: Yes Number of Cigarettes Smoked Daily: 10 If you are a former smoker, when did you quit?: 2 months ago Information on smoking cessation initiated: Yes Hx Alcohol Use: Yes (daily) Drug/Substance Use Hx: No Substance Use Type: None *Physical Exam - Vital Signs Last Vital Signs Temp Pulse Resp BP Pulse Ox 98 F 81 20 122/85 96 02/16/19 14:40 02/16/19 14:40 02/16/19 14:40 02/16/19 14:40 02/16/19 14:40 ED Treatment Course - LABORATORY CBC & Chemistry Diagram: 02/16/19 15:00 02/16/19 15:00 Medical Decision Making - Medical Decision Making 02/16/19 15:39 A/P: 24-year-old male with history of BPD/schizophrenia, noncompliant with medications for 3 days and experiencing anxiety/malaise after binge drinking. No suicidal ideation or other alarming symptoms or behaviors. 1. Basic labs, urine toxicology 2. Haldol 5 mg PO (home dose) and alprazolam 0.25 mg PO 3. IV fluids 4. Reevaluate Discussed alcohol detox/rehabilitation with patient and he is unwilling to pursue that at this time. 02/16/19 16:42 Patient states that he is feeling much better. Again denies suicidal or self harming ideations. Agrees to follow up with his psychiatrist and discussed medication regimen, and to resume lithium/Haldol in the meantime. Will discharge home accompanied by his mother. Follow-up instructions and return precautions reviewed. *DC/Admit/Observation/Transfer Diagnosis at time of Disposition: Schizophrenia, Bipolar disorder - Discharge Dispostion Disposition: HOME Condition at time of disposition: Improved Decision to Admit order: No - Referrals - Patient Instructions Printed Discharge Instructions: DI for Bipolar Disorder, DI for Schizophrenia Additional Instructions: Resume your [place] and Haldol as discussed. You are being given a very short-term prescription for alprazolam, which your may take as needed for anxiety. You may not use any alcohol with this medication. Follow-up with your psychiatrist at [facility] as soon as possible to discuss your medication regimen. Return here for suicidal thoughts or any other concerning symptoms. - Post Discharge Activity
[2019-02-16 15:33] LABS: BASO % 0.9 % (0-2.0); EOS % 3.9 % (0-4.5); HEMATOCRIT 50.8 % (35.4-49); HEMOGLOBIN 17.6 GM/dL (11.7-16.9); LYMPH % 32.9 % (8-40); MCH 31.5 pg (25.7-33.7); MCHC 34.6 g/dl (32.0-35.9); MEAN PLT VOLUME 7.9 fl (7.5-11.1); MONO % 5.9 % (3.8-10.2); NEUT % 56.4 % (42.8-82.8); PLATELET COUNT 319 K/MM3 (134-434); RBC 5.58 M/mm3 (4.00-5.60); RDW 13.5 % (11.9-15.9); WHITE BLOOD COUNT 5.3 K/mm3 (4.0-10.0)
[2019-02-16 16:01] LABS: EPI CELLS 0.9 /HPF (0-5/HPF); HYALINE CASTS 9 /lpf (0-8); PH,URINE 7.5 (5.0-8.0); URINE APPEARANCE CLEAR; URINE BACTERIA 5.1 /hpf (NEGATIVE); URINE BILIRUBIN NEGATIVE (NEGATIVE); URINE COLOR YELLOW; URINE GLUCOSE (UA) NEGATIVE (NEGATIVE); URINE KETONE NEGATIVE (NEGATIVE); URINE LEUK ESTERASE NEGATIVE (NEGATIVE); URINE NITRITE NEGATIVE (NEGATIVE); URINE PROTEIN 1+ (NEGATIVE); URINE RBC 1 /hpf (0-4); URINE WBC 1 /hpf (0-5)
[2019-02-16 16:29] LABS: ALBUMIN 4.2 g/dl (3.4-5.0); BILIRUBIN,TOTAL 0.7 mg/dL (0.2-1); BLOOD UREA NITROGEN 8.2 mg/dL (7-18); CALCIUM 9.3 mg/dL (8.5-10.1); CREATININE 0.8 mg/dL (0.55-1.3); MAGNESIUM 1.9 mg/dL (1.8-2.4); POTASSIUM 3.9 mmol/L (3.5-5.1); TOT PROT 7.8 g/dl (6.4-8.2)
[2019-02-16 17:19] LABS: COCAINE, UR NEGATIVE ng/ml (CUTOFF=300); METHADONE, UR NEGATIVE ng/ml (CUTOFF=300); OPIATES, URI NEGATIVE ng/ml (CUTOFF=300); PHENCYCLIDINE,URINE NEGATIVE ng/ml (CUTOFF=25); URINE AMPHETAMINES NEGATIVE ng/ml (CUTOFF=500); URINE BARBITURATES NEGATIVE ng/ml (CUTOFF=200); URINE BENZODIAZEPINES NEGATIVE ng/ml (CUTOFF=200)
== END 2019-02-16 17:01 | disposition home or self-care (01) ==
LOC: JER 14:20
PROC: 3E0337Z Introduction of Electrolytic and Water Balance Substance into Peripheral Vein, Percutaneous Approach (ICD-10-PCS; principal; 2019-02-16)
DX: F10.10 Alcohol abuse, uncomplicated (principal); F20.9 Schizophrenia, unspecified; F31.9 Bipolar disorder, unspecified; F41.9 Anxiety disorder, unspecified; Z91.14 Patient's other noncompliance with medication regimen
CPT/HCPCS: 36415; 80053; 80307; 81003; 83735; 85025; 96360; 99283-25; J7030

== ENCOUNTER 2019-02-23 16:14 | Emergency (ER) | payer OTHER ==
[2019-02-23 16:25] VITALS: BP 139/83; PULSE 99; TEMP 98.6; BMI 26.6
--- NOTE | 2019-02-23 16:25 | PDOC ---
Rapid Medical Evaluation Chief Complaint: Psychiatric Time Seen by Provider: 02/23/19 16:21 Medical Evaluation: Allergies Allergy/AdvReac Type Severity Reaction Status Date / Time peanut Allergy Verified 02/23/19 16:21 Penicillins Allergy Verified 02/23/19 16:21 shrimp Allergy Verified 02/23/19 16:21 02/23/19 16:22 I have performed a brief in-person evaluation of this patient. The patient presents with a chief complaint of: Anxiety. H/o schizophrenia, depression and anxiety. Currently on haldol and lithium. No longer has xanax at home. No SI/HI. Admits to "drinking a lot" last night Pertinent physical exam findings: Stable and in NAD I have ordered the following:nothing The patient will proceed to the ED for further evaluation. Discharge Disposition - Diagnosis Anxiety - Referrals - Patient Instructions - Post Discharge Activity
--- NOTE | 2019-02-23 16:34 | PDOC ---
History of Present Illness - General Chief Complaint: Psychiatric Stated Complaint: ANXIETY Time Seen by Provider: 02/23/19 16:21 History Source: Patient Exam Limitations: No Limitations - History of Present Illness Initial Comments: 02/23/19 17:08 Chief complaint: Anxiety Patient 24-year-old male with a history of bipolar, schizophrenia, drinks alcohol daily who states that he has a job interview tomorrow and he is anxious about it. Patient sees psychiatrist at [facility], once monthly but feels he is getting anxious recently. Patient denies feeling suicidal or depressed. Patient denies drinking today, last drank last night. Patient does not appear in any distress. Patient states he takes his medications but he states that he doesn't take them every day. This is been going on for a long time. Patient was recently here last week for similar complaint. GENERAL/CONSTITUTIONAL: No fever, weakness. dizziness HEAD, EYES, EARS, NOSE AND THROAT: No change in vision. No ear pain or discharge. No sore throat. CARDIOVASCULAR: No chest pain RESPIRATORY: No shortness of breath or cough GASTROINTESTINAL: No pain, nausea, vomiting, diarrhea or constipation GENITOURINARY: No dysuria MUSCULOSKELETAL: No neck or back pain SKIN: No rash NEUROLOGIC: No headache, vertigo, loss of consciousness, or loss of sensation. PSYCHIATRIC: no depression or suicidal, +anxiety GENERAL: The patient is awake, alert, and fully oriented, in no acute distress. HEAD: Normal with no signs of trauma. EYES: Pupils equal, round and reactive to light, sclera anicteric, conjunctiva clear. ENT: pharynx: no erythema, no exudate, uvula midline NECK: supple CHEST: clear, nontender, rr ABD: soft, nontender EXTREMITIES: Normal range of motion, no edema. NEUROLOGICAL: normal speech, normal gait. Cranial Nerves II through XII grossly intact, no gross focal abnormalities SKIN: Warm, Dry Past History - Past Medical History Allergies/Adverse Reactions: Allergies Allergy/AdvReac Type Severity Reaction Status Date / Time peanut Allergy Verified 02/23/19 16:21 Penicillins Allergy Verified 02/23/19 16:21 shrimp Allergy Verified 02/23/19 16:21 Home Medications: Ambulatory Orders Haloperidol [Haldol -] 5 mg PO ASDIR 02/16/19 [place] Carbonate [Eskalith -] 300 mg PO ASDIR 02/16/19 Alprazolam [Xanax] 0.25 mg PO ONCE #1 tablet MDD 1 02/23/19 Alprazolam [Xanax] 0.25 mg PO Q8H PRN 02/23/19 Cardiac Disorders: No COPD: No Diabetes: No HTN: No Hypercholesterolemia: No Psychiatric Problems: Yes (shizophrenia, depression, anxiety, insomnia) - Surgical History Abdominal Surgery: No Appendectomy: Yes Cardiac Surgery: No - Immunization History Immunization Up to Date: Yes - Suicide/Smoking/Psychosocial Hx Smoking History: Current every day smoker Have you smoked in the past 12 months: Yes Number of Cigarettes Smoked Daily: 10 If you are a former smoker, when did you quit?: 2 months ago Information on smoking cessation initiated: No Hx Alcohol Use: Yes Drug/Substance Use Hx: No Substance Use Type: None *Physical Exam - Vital Signs Last Vital Signs Temp Pulse Resp BP Pulse Ox 98.6 F 99 H 18 139/83 98 02/23/19 16:22 02/23/19 16:22 02/23/19 16:22 02/23/19 16:22 02/23/19 16:22 Medical Decision Making - Medical Decision Making 02/23/19 17:12 24-year-old male with history of bipolar, schizophrenia, under the care of [facility], seen once a month who came in stating that he is anxious regarding a job interview tomorrow. Patient was here last week for anxiety, given a small prescription for Xanax. Patient last sore his psychiatrist one week prior to his last visit and has not seen him since. Patient appears calm and in control. No signs of withdrawal. Discussed with patient. Will give him 1 pill, patient requesting that he get it for tomorrow morning, prescription sent. Patient given information regarding [facility] and the ability to speak or visit them even if he doesn't have an appointment for any further evaluations. Discussed issues, findings, results, applicable medications and treatments and follow-up. All these were understood and all questions were answered *DC/Admit/Observation/Transfer Diagnosis at time of Disposition: Anxiety - Discharge Dispostion Disposition: HOME - Prescriptions Prescriptions: Alprazolam [Xanax] 0.25 mg PO ONCE #1 tablet MDD 1 - Referrals - Patient Instructions Additional Instructions: you have been given 1 tablet of xanax to take as directed tomorrow follow up with your psychiatrist at [facility] as recommended on Tuesday. you can call there to discuss follow up anytime. return to the er if feeling sick do not drink alcohol. - Post Discharge Activity
== END 2019-02-23 16:50 | disposition home or self-care (01) ==
LOC: JERFT 16:14
DX: F41.9 Anxiety disorder, unspecified (principal); F32.9 Major depressive disorder, single episode, unspecified; F20.9 Schizophrenia, unspecified; F31.9 Bipolar disorder, unspecified
CPT/HCPCS: 99281-25

== ENCOUNTER 2019-09-22 14:22 | Emergency (ER) | payer OTHER ==
[2019-09-22 14:27] VITALS: BMI 27.3
--- NOTE | 2019-09-22 15:26 | PDOC ---
History of Present Illness - General Chief Complaint: Vomiting Blood Stated Complaint: VOMITING BLOOD Time Seen by Provider: 09/22/19 14:52 History Source: Patient Exam Limitations: Clinical Condition - History of Present Illness Initial Comments: 09/22/19 15:24 Patient with past medical history of schizophrenia and bipolar noncompliant with meds and alcohol abuse presented with complaint of blood-tinged vomit since this morning status post drinking 1 pint of vodka last night. Patient reported chronic alcohol abuse and drinks every day. Patient also reported daily marijuana use. Patient reported he was supposed to be taking medication for schizophrenia and bipolar but has not been taking for a while due to marijuana help with his symptoms. Patient reported vomiting 6 times this morning upon week. Denies abdominal pain now, nausea now, shortness of breath, dizziness, palpitation, blurry vision or change in vision. Patient report vomiting this morning and had small tiny blood in the vomit so he called 911 for ambulance to bring him to the emergency room due to not having money for transportation. Denies history of liver problem or vomiting blood. Denies any other symptoms Is this a multiple visit Asthma Patient?: No Timing/Duration: 4-6 hours Past History - Past Medical History Allergies/Adverse Reactions: Allergies Allergy/AdvReac Type Severity Reaction Status Date / Time peanut Allergy Verified 09/22/19 14:26 Penicillins Allergy Verified 09/22/19 14:26 shrimp Allergy Verified 09/22/19 14:26 Home Medications: Ambulatory Orders NK [No Known Home Medication] 09/22/19 Cardiac Disorders: No COPD: No Diabetes: No HTN: No Hypercholesterolemia: No Psychiatric Problems: Yes (shizophrenia, depression, anxiety, insomnia) - Surgical History Abdominal Surgery: No Appendectomy: Yes Cardiac Surgery: No - Immunization History Immunization Up to Date: Yes - Psycho Social/Smoking Cessation Hx Smoking History: Current every day smoker Have you smoked in the past 12 months: Yes Number of Cigarettes Smoked Daily: 10 If you are a former smoker, when did you quit?: 2 months ago Information on smoking cessation initiated: No Hx Alcohol Use: Yes Drug/Substance Use Hx: Yes (MARIJUANA) Substance Use Type: None Review of Systems - Review of Systems Able to Perform ROS?: Yes Is the patient limited Colombian proficient: No Constitutional: No: Chills, Fever, Weakness HEENTM: No: Symptoms Reported, See HPI, Eye Pain, Blurred Vision, Tearing, Recent change in vision, Double Vision, Cataracts, Ear Pain, Ocular Prothesis, Ear Discharge, Nose Pain, Nose Congestion, Tinnitus, Nose Bleeding, Hearing Loss , Throat Pain, Throat Swelling, Mouth Pain, Dental Problems, Difficulty Swallowing, Mouth Swelling, Other Respiratory: No: Symptoms reported, See HPI, Cough, Orthopnea, Shortness of Breath, SOB with Exertion, SOB at Rest, Stridor, Wheezing, Productive cough, Hemoptysis, Other Cardiac (ROS): No: Symptoms Reported, See HPI, Chest Pain, Edema, Irregular Heart Rate, Lightheadedness, Palpitations, Syncope, Chest Tightness, Other ABD/GI: Yes: Symptoms Reported, See HPI, Nausea, Vomiting. No: Blood Streaked Bowels, Constipated, Diarrhea, Difficulty Swallowing, Poor Appetite, Rectal Bleeding, Indigestion, Abdominal cramping : No: Symptoms Reported Musculoskeletal: No: Symptoms Reported Integumentary: No: Symptoms Reported, Bruising Neurological: No: Symptoms reported, Headache, Weakness, Unsteady Gait, Ataxia, Dizziness All Other Systems: Reviewed and Negative *Physical Exam - Vital Signs Last Vital Signs Temp Pulse Resp BP Pulse Ox 98 F 98 H 18 126/87 99 09/22/19 14:23 09/22/19 14:23 09/22/19 14:23 09/22/19 14:23 09/22/19 14:23 - Physical Exam 09/22/19 15:28 GENERAL: Well developed, well nourished. Awake and alert. No acute distress. HEENT: Normocephalic, atraumatic. PERRLA, EOMI. No conjunctival pallor. Sclera are non-icteric. Moist mucous membranes. Oropharynx is clear. NECK: Supple. Full ROM. CARDIOVASCULAR: Regular rate and rhythm. No murmurs, rubs, or gallops. Distal pulses are 2+ and symmetric. PULMONARY: No evidence of respiratory distress. Lungs clear to auscultation bilaterally. No wheezing, rales or rhonchi. ABDOMINAL: Soft. Non-tender. Non-distended. No rebound or guarding. No organomegaly. Normoactive bowel sounds. MUSCULOSKELETAL Normal range of motion at all joints. SKIN: Warm and dry. Normal capillary refill. No rashes. No jaundice. NEUROLOGICAL: Alert, awake, appropriate. Gait is normal without ataxia. PSYCHIATRIC: Cooperative. Good eye contact. Appropriate mood General Appearance: Yes: Nourished, Appropriately Dressed. No: Apparent Distress ED Treatment Course - LABORATORY CBC & Chemistry Diagram: 09/22/19 15:31 09/22/19 15:31 Medical Decision Making - Medical Decision Making 09/22/19 15:26 Patient with past medical history of schizophrenia and bipolar noncompliant with meds and alcohol abuse presented with complaint of blood-tinged vomit since this morning status post drinking 1 pint of vodka last night. Patient reported chronic alcohol abuse and drinks every day. Patient also reported daily marijuana use. Patient reported he was supposed to be taking medication for schizophrenia and bipolar but has not been taking for a while due to marijuana help with his symptoms. Patient reported vomiting 6 times this morning upon week. Denies abdominal pain now, nausea now, shortness of breath, dizziness, palpitation, blurry vision or change in vision. Patient report vomiting this morning and had small tiny blood in the vomit so he called 911 for ambulance to bring him to the emergency room due to not having money for transportation. Denies history of liver problem or vomiting blood. Denies any other symptoms Clinical exam unremarkable with no abdominal tenderness and normal cardio and lung exam. Patient in no acute distress. Normal neuro exam. 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 Basic lab ordered to rule out liver failure acute pathology. Patient requesting water as he feels thirsty. A cup of water given patient and will be used as a p.o. challenge Discharge - Discharge Information Problems reviewed: Yes Clinical Impression/Diagnosis: Christina-Pagan syndrome, Alcohol abuse Condition: Stable Disposition: HOME - Admission No - Follow up/Referral Referrals: Adam Olvera MD [Staff Physician] - - Patient Discharge Instructions Patient Printed Discharge Instructions: DI for Alcohol Abuse, DI for Christina- Pagan Syndrome, Heavy Alcohol Use May Increase Risk Cancer Additional Instructions: Your blood work is normal. Your symptoms was likely caused by tiny blood vessels in the throat from vomiting. Refrain from drinking too much alcohol as it is not good for your health. Increase fluid intake. Follow-up referred alcohol detox and rehab center to help with alcohol abuse - Post Discharge Activity
[2019-09-22 15:51] LABS: BASO % 0.7 % (0-2.0); HEMATOCRIT 56.7 % (35.4-49); HEMOGLOBIN 19.1 GM/dL (11.7-16.9); LYMPH % 34.8 % (8-40); MCH 31.7 pg (25.7-33.7); MCHC 33.7 g/dl (32.0-35.9); MEAN CELL VOLUME 94.1 fl (80-96); MEAN PLT VOLUME 7.9 fl (7.5-11.1); MONO % 6.1 % (3.8-10.2); NEUT % 56.4 % (42.8-82.8); PLATELET COUNT 304 K/MM3 (134-434); RBC 6.02 M/mm3 (4.00-5.60); RDW 13.6 % (11.9-15.9); WHITE BLOOD COUNT 5.3 K/mm3 (4.0-10.0)
[2019-09-22 16:06] LABS: INR 1.08 (0.83-1.09); PROTHROMBIN TIME (PATIENT) 12.8 SEC (9.7-13.0)
--- NOTE | 2019-09-22 16:06 | PDOC ---
*Physical Exam - Vital Signs Last Vital Signs Temp Pulse Resp BP Pulse Ox 98 F 98 H 18 126/87 99 09/22/19 14:23 09/22/19 14:23 09/22/19 14:23 09/22/19 14:23 09/22/19 14:23 - Physical Exam General Appearance: Yes: Nourished, Appropriately Dressed. No: Apparent Distress Gastrointestinal/Abdominal: positive: Normal Bowel Sounds, Flat, Soft. negative : Tender Neurologic: positive: Fully Oriented, Alert, Normal Mood/Affect, Normal Response ED Treatment Course - LABORATORY CBC & Chemistry Diagram: 09/22/19 15:31 09/22/19 15:31 - ADDITIONAL ORDERS Additional order review: Laboratory Results 09/22/19 15:31 PT with INR 12.80 INR 1.08 09/22/19 15:31 RBC 6.02 H MCV 94.1 MCHC 33.7 RDW 13.6 MPV 7.9 Neutrophils % 56.4 Lymphocytes % 34.8 Monocytes % 6.1 Eosinophils % 2.0 Basophils % 0.7 Medical Decision Making - Medical Decision Making 09/22/19 16:26 Sign out received from ANN Drew; patient pending lab results for discharge. Hemoglobin is concentrated indicative of dehydration. Electrolytes are within normal limits. Patient reports feeling better and has no pain at this time. Likely Christina-Pagan tear. Discharge home with supportive therapy I discussed the physical exam findings, ancillary test results and final diagnoses with the patient. I answered all of the patient's questions. The patient was satisfied with the care received and felt comfortable with the discharge plan and treatment plan. The Patient agrees to follow up with the primary care physician/specialist within 24-72 hours. Return precautions were given. Discharge - Discharge Information Problems reviewed: Yes Clinical Impression/Diagnosis: Christina-Pagan syndrome, Alcohol abuse Condition: Stable Disposition: HOME - Follow up/Referral Referrals: Adam Olvera MD [Staff Physician] - - Patient Discharge Instructions Patient Printed Discharge Instructions: DI for Alcohol Abuse, DI for Christina- Pagan Syndrome, Heavy Alcohol Use May Increase Risk Cancer Additional Instructions: Your blood work is normal. Your symptoms was likely caused by tiny blood vessels in the throat from vomiting. Refrain from drinking too much alcohol as it is not good for your health. Increase fluid intake. Follow-up referred alcohol detox and rehab center to help with alcohol abuse - Post Discharge Activity
[2019-09-22 16:08] LABS: ACTIVATED PTT 38.3 SECONDS (25.2-36.5)
[2019-09-22 16:16] LABS: ALBUMIN 4.6 g/dl (3.4-5.0); BILIRUBIN,TOTAL 0.5 mg/dL (0.2-1); BLOOD UREA NITROGEN 6.7 mg/dL (7-18); CALCIUM 10.1 mg/dL (8.5-10.1); CREATININE 0.8 mg/dL (0.55-1.3); POTASSIUM 4.3 mmol/L (3.5-5.1); TOT PROT 8.6 g/dl (6.4-8.2)
[2019-09-22 16:39] VITALS: BP 138/81; PULSE 92; TEMP 97.9
== END 2019-09-22 16:38 | disposition home or self-care (01) ==
LOC: JER 14:22
DX: K22.6 Gastro-esophageal laceration-hemorrhage syndrome (principal); F10.120 Alcohol abuse with intoxication, uncomplicated; F20.9 Schizophrenia, unspecified; F31.9 Bipolar disorder, unspecified; Z91.14 Patient's other noncompliance with medication regimen; F41.9 Anxiety disorder, unspecified; G47.00 Insomnia, unspecified; Z88.0 Allergy status to penicillin; Z91.013 Allergy to seafood; Z91.010 Allergy to peanuts; Y90.9 Presence of alcohol in blood, level not specified
CPT/HCPCS: 36415; 80053; 85025; 85610; 85730; 99283-25

== ENCOUNTER 2019-10-01 09:13 | Emergency (ER) | payer OTHER ==
[2019-10-01 09:48] VITALS: BP 142/96; PULSE 87; TEMP 98.4; BMI 27.3
--- NOTE | 2019-10-01 10:40 | PDOC ---
History of Present Illness - General History Source: Patient - History of Present Illness Initial Comments: 10/01/19 10:38 Patient is a 24-year-old male with a history of schizophrenia and EtOH abuse who presents to the ED with complaint of hearing voices and wanting psychiatric intervention. The patient states he took lithium 300 mg, naltrexone 50 mg and Haldol 10 mg this morning which she has not taken in a year. He states he only took 1 of each medication. He states since he started hearing voices again he decided to take his medications. He denies any suicidal or homicidal ideations. He states the voices are not telling him to hurt himself or others. He states that the voices are reading his thoughts and are being very critical of him. He denies any fevers or chills. He denies any vomiting or diarrhea. He states his medications initially made him feel lousy but now he feels fine. He would like to establish care with a psychiatrist and that is why he came to the ED today. <Christel Flores - Last Filed: 10/01/19 11:19> <Sony Reeves - Last Filed: 10/01/19 14:16> - General Chief Complaint: Vomiting/Diarrhea Stated Complaint: N/V/D Time Seen by Provider: 10/01/19 10:03 Past History - Past Medical History Cardiac Disorders: No COPD: No Diabetes: No HTN: No Hypercholesterolemia: No Psychiatric Problems: Yes (shizophrenia, depression, anxiety, insomnia) - Surgical History Abdominal Surgery: No Appendectomy: Yes Cardiac Surgery: No - Immunization History Immunization Up to Date: Yes - Psycho Social/Smoking Cessation Hx Smoking History: Current every day smoker Have you smoked in the past 12 months: Yes Number of Cigarettes Smoked Daily: 10 If you are a former smoker, when did you quit?: 2 months ago Information on smoking cessation initiated: No Hx Alcohol Use: Yes (weed 2 days ago) Drug/Substance Use Hx: Yes (last time this morning) Substance Use Type: None <Christel Flores - Last Filed: 10/01/19 11:19> <Sony Reeves - Last Filed: 10/01/19 14:16> - Past Medical History Allergies/Adverse Reactions: Allergies Allergy/AdvReac Type Severity Reaction Status Date / Time peanut Allergy Verified 09/22/19 14:26 Penicillins Allergy Verified 09/22/19 14:26 shrimp Allergy Verified 09/22/19 14:26 Home Medications: Ambulatory Orders NK [No Known Home Medication] 09/22/19 Review of Systems - Review of Systems Comments:: 10/01/19 10:40 - Review of Systems Able to Perform ROS?: Yes Constitutional: No: Fever, Chills, Loss of Appetite, Night Sweats, Weakness HEENTM: No: Eye Pain, Vision changes, Ear Pain, Throat Pain, Throat Swelling, Mouth Pain, Difficulty Swallowing Respiratory: No: Cough, Shortness of Breath, Wheezing, Sputum Production Cardiac (ROS): No: Chest Pain, Chest Tightness, Palpitations, Irregular Heart Beat, Edema ABD/GI: No: Nausea, Vomiting, Abdominal Pain, Diarrhea : No Dysuria, No Hematuria, No Frequency, No Urgency, No Vaginal Discharge/ Pain, No Penile Discharge/Pain Musculoskeletal: No: Muscle Pain, Back Pain, Joint Pain, Muscle Weakness, Neck Pain Integumentary: No: Lesions, Rash Neurological: No: Headache, Numbness, Tingling, Weakness, Speech Difficulties Psych: + auditory hallucinations, + h/o schizophrenia, No homicidal or suicidal ideations, + etoh abuse, + marijuana use <Christel Flores - Last Filed: 10/01/19 11:19> *Physical Exam - Vital Signs Last Vital Signs Temp Pulse Resp BP Pulse Ox 98.4 F 87 16 142/96 96 10/01/19 09:44 10/01/19 09:44 10/01/19 09:44 10/01/19 09:44 10/01/19 09:44 - Physical Exam 10/01/19 10:41 - Physical Exam General Appearance: Nourished, Appropriately Dressed, No Distress HEENT: EOMI, Normal Voice, No Pharyngeal Erythema, No Muffled/Hoarse voice, No Tonsillar Exudate, No Tonsillar Erythema, No Nasal Congestion, No Rhinorrhea, Hearing Grossly Normal, TMs Normal, No TM Bulging, No TM Dullness, No TM Erythema Neck: Supple, No Lymphadenopathy (R), No Lymphadenopathy (L), No Rigidity, No Decreased range of motion Respiratory/Chest: Lungs Clear, Normal Breath Sounds. No Respiratory Distress, No Accessory Muscle Use Cardiovascular: Regular Rhythm, Regular Rate, S1, S2 Gastrointestinal/Abdominal: Normal Bowel Sounds, Soft. Non-tender, No Guarding , No Rebound, No Rigidity Musculoskeletal: Normal Inspection. No Decreased Range of Motion Extremity: Normal Capillary Refill, Normal Inspection Integumentary: Normal Color, Dry. No Rash Neurologic: superintendent storage area II-XII NML intact, Fully Oriented, Alert, Normal Mood/Affect, Normal Response Psych: slightly flat affect, no scattered thoughts with a linear thought process , pt is making sense and answering questions appropriately. <Christel Flores - Last Filed: 10/01/19 11:19> - Vital Signs Last Vital Signs Temp Pulse Resp BP Pulse Ox 98.4 F 87 16 142/96 96 10/01/19 09:44 10/01/19 09:44 10/01/19 09:44 10/01/19 09:44 10/01/19 09:44 <Sony Reeves - Last Filed: 10/01/19 14:16> Medical Decision Making - Medical Decision Making 10/01/19 10:35 I have spoken with the ED social service assistant and she will come speak with the patient regarding referral to a psychiatrist. The patient agrees with following up as an outpatient and states he believes this is the best route for him. The patient is a 24-year-old male with a history of schizophrenia who took a dose of his lithium 300 mg, naltrexone 50 milligrams and Haldol 10 mg this morning. He states he would like to be evaluated by a psychiatrist which she has not done in about a year. He is not having any suicidal or homicidal ideations. He is having auditory hallucinations but states they are not telling him to hurt himself or anybody else. The auditory hallucinations are being very critical of him and reading his thoughts. Patient continues to drink a pint of rum daily and he has already this morning. He also smokes marijuana. He smokes cigarettes. At this time, I do not believe the patient requires admission for his schizophrenia. The social service assistant will see him and refer him for outpatient psychiatry. The patient understands and agrees with this treatment and plan and he is stable for discharge. 10/01/19 11:13 The patient may have eloped from the ED prior to speaking with social work. The social service assistant will attempt to call him to help with a referral to psychiatry. 10/01/19 11:20 We have attempted to call the patient many times and have not been able to locate him again. He has eloped from the ED. <Christel Flores - Last Filed: 10/01/19 11:19> - Medical Decision Making 10/01/19 14:15 I reviewed the case of the mid-level practitioner and was available for consultation while in the emergency department <Snoy Reeves - Last Filed: 10/01/19 14:16> Discharge - Discharge Information Problems reviewed: Yes <Christel Flores - Last Filed: 10/01/19 11:19> <Sony Reeves - Last Filed: 10/01/19 14:16> - Discharge Information Clinical Impression/Diagnosis: Auditory hallucinations Condition: Stable Disposition: ELOPED
== END 2019-10-01 11:59 | disposition left against medical advice (07) ==
LOC: JER 09:13
DX: F20.9 Schizophrenia, unspecified (principal); F32.9 Major depressive disorder, single episode, unspecified; F41.8 Other specified anxiety disorders; G47.00 Insomnia, unspecified; F17.210 Nicotine dependence, cigarettes, uncomplicated
CPT/HCPCS: 99281-25

== ENCOUNTER 2019-10-12 10:51 | Emergency (ER) | payer OTHER ==
[2019-10-12 11:05] VITALS: BMI 26.6
[2019-10-12] MEDS ORDERED: ONDANSETRON *ODT* 4 MG TABLET SL ONE (11:15)
[2019-10-12] MEDS ORDERED: ONDANSETRON *ODT* 4 MG TABLET ONE (11:23)
[2019-10-12 11:31] LABS: BASO % 0.6 % (0-2.0); HEMATOCRIT 55.4 % (35.4-49); HEMOGLOBIN 19.1 GM/dL (11.7-16.9); LYMPH % 27.2 % (8-40); MCH 32.2 pg (25.7-33.7); MCHC 34.4 g/dl (32.0-35.9); MEAN CELL VOLUME 93.4 fl (80-96); MEAN PLT VOLUME 7.7 fl (7.5-11.1); MONO % 8.3 % (3.8-10.2); NEUT % 60.9 % (42.8-82.8); PLATELET COUNT 283 K/MM3 (134-434); RBC 5.93 M/mm3 (4.00-5.60); WHITE BLOOD COUNT 5.6 K/mm3 (4.0-10.0)
--- NOTE | 2019-10-12 11:35 | PDOC ---
History of Present Illness - General History Source: Patient Exam Limitations: Clinical Condition - History of Present Illness Initial Comments: 10/12/19 11:31 Patient with past medical history of alcohol abuse seen here multiple times for nausea and vomiting from drinking overnight present with complaint of vomiting green bile this morning. Patient has been seen 3 times the past month for same symptoms and advised on alcohol cessation and referred to GI but patient never follows up. Patient report drinking 2 bottles of alcohol yesterday. Reported no alcohol this morning. Patient reported woke up with vomiting unable to keep food down and has not been eating and has only been drinking alcohol. Patient has been given referral to detox center but patient never follows up. Denies fever, chills, chest pain, palpitation, shortness of breath. Denies any other symptoms Is this a multiple visit Asthma Patient?: No Timing/Duration: intermittent <Renzo Drew - Last Filed: 10/12/19 12:20> <Bipin Magaña - Last Filed: 10/13/19 09:43> - General Chief Complaint: Nausea/Vomiting Stated Complaint: NAUSEA/VOMITING Time Seen by Provider: 10/12/19 11:12 Past History - Past Medical History Cardiac Disorders: No COPD: No Diabetes: No HTN: No Hypercholesterolemia: No Psychiatric Problems: Yes (shizophrenia, depression, anxiety, insomnia) - Surgical History Abdominal Surgery: No Appendectomy: Yes Cardiac Surgery: No - Immunization History Immunization Up to Date: Yes - Psycho Social/Smoking Cessation Hx Smoking History: Current every day smoker Have you smoked in the past 12 months: Yes Number of Cigarettes Smoked Daily: 20 If you are a former smoker, when did you quit?: 2 months ago Information on smoking cessation initiated: No Hx Alcohol Use: Yes (DAILY) [facility] Substance Use Type: None <Renzo Drew - Last Filed: 10/12/19 12:20> <Bipin Magaña - Last Filed: 10/13/19 09:43> - Past Medical History Allergies/Adverse Reactions: Allergies Allergy/AdvReac Type Severity Reaction Status Date / Time peanut Allergy Verified 10/12/19 11:00 Penicillins Allergy Verified 10/12/19 11:00 shrimp Allergy Verified 10/12/19 11:00 Home Medications: Ambulatory Orders Ondansetron [Zofran *Odt*] 4 mg SL Q8H PRN #21 od.tablet 10/12/19 Review of Systems - Review of Systems Able to Perform ROS?: Yes Is the patient limited Grenadian proficient: No Constitutional: No: Chills, Fever, Malaise HEENTM: No: Symptoms Reported, See HPI, Eye Pain, Blurred Vision, Tearing, Recent change in vision, Double Vision, Cataracts, Ear Pain, Ocular Prothesis, Ear Discharge, Nose Pain, Nose Congestion, Tinnitus, Nose Bleeding, Hearing Loss , Throat Pain, Throat Swelling, Mouth Pain, Dental Problems, Difficulty Swallowing, Mouth Swelling, Other Respiratory: No: Symptoms reported, See HPI, Cough, Orthopnea, Shortness of Breath, SOB with Exertion, SOB at Rest, Stridor, Wheezing, Productive cough, Hemoptysis, Other Cardiac (ROS): No: Symptoms Reported, See HPI, Chest Pain, Edema, Irregular Heart Rate, Lightheadedness, Palpitations, Syncope, Chest Tightness, Other ABD/GI: Yes: Symptoms Reported, See HPI, Diarrhea, Nausea, Vomiting, Abdominal cramping (epigastric pain). No: Abdominal Distended, Abd. Pain w/ defecation, Blood Streaked Bowels, Difficulty Swallowing, Poor Appetite, Rectal Bleeding, Indigestion : No: Symptoms Reported Musculoskeletal: No: Symptoms Reported Integumentary: No: Symptoms Reported Neurological: No: Symptoms reported, Headache, Numbness, Weakness, Dizziness All Other Systems: Reviewed and Negative <Renzo Drew - Last Filed: 10/12/19 12:20> *Physical Exam - Vital Signs Last Vital Signs Temp Pulse Resp BP Pulse Ox 98.3 F 108 H 18 134/95 97 10/12/19 11:01 10/12/19 11:01 10/12/19 11:01 10/12/19 11:01 10/12/19 11:01 - Physical Exam 10/12/19 11:34 GENERAL: Well developed, well nourished. Awake and alert. No acute distress. HEENT: Normocephalic, atraumatic. PERRLA, EOMI. No conjunctival pallor. Sclera are non-icteric. Moist mucous membranes. Oropharynx is clear. NECK: Supple. Full ROM. CARDIOVASCULAR: Regular rate and rhythm. No murmurs, rubs, or gallops. Distal pulses are 2+ and symmetric. PULMONARY: No evidence of respiratory distress. Lungs clear to auscultation bilaterally. No wheezing, rales or rhonchi. ABDOMINAL: Soft. Mild tenderness to palpate the epigastric region. Non-distended. No rebound or guarding. No organomegaly. Normoactive bowel sounds. MUSCULOSKELETAL Normal range of motion at all joints. SKIN: Warm and dry. Normal capillary refill. No rashes. No jaundice. No cyanosis NEUROLOGICAL: Alert, awake, appropriate. Gait is normal without ataxia. PSYCHIATRIC: Cooperative. Good eye contact. Appropriate mood General Appearance: Yes: Nourished, Appropriately Dressed. No: Apparent Distress <Renzo Drew - Last Filed: 10/12/19 12:20> - Vital Signs Last Vital Signs Temp Pulse Resp BP Pulse Ox 98.4 F 103 H 16 136/93 99 10/12/19 12:21 10/12/19 12:21 10/12/19 12:21 10/12/19 12:21 10/12/19 12:21 <Bipin Magaña - Last Filed: 10/13/19 09:43> ED Treatment Course - LABORATORY CBC & Chemistry Diagram: 10/12/19 11:23 10/12/19 11:23 <Renzo Drew - Last Filed: 10/12/19 12:20> - LABORATORY CBC & Chemistry Diagram: 10/12/19 11:23 10/12/19 11:23 - ADDITIONAL ORDERS Additional order review: 10/12/19 11:23 RBC 5.93 H MCV 93.4 MCHC 34.4 RDW 13.0 MPV 7.7 Neutrophils % 60.9 Lymphocytes % 27.2 D Monocytes % 8.3 Eosinophils % 3.0 Basophils % 0.6 - Medications Given in the ED: ED Medications Discontinued Medications Generic Name Dose Route Start Last Admin Trade Name Freq PRN Reason Stop Dose Admin Ondansetron HCl 4 mg 10/12/19 11:15 10/12/19 11:44 Zofran Odt - SL 10/12/19 11:16 4 mg ONCE ONE Administration <Bipin Magaña - Last Filed: 10/13/19 09:43> Medical Decision Making - Medical Decision Making 10/12/19 11:32 Patient with past medical history of alcohol abuse seen here multiple times for nausea and vomiting from drinking overnight present with complaint of vomiting green bile this morning. Patient has been seen 3 times the past month for same symptoms and advised on alcohol cessation and referred to GI but patient never follows up. Patient report drinking 2 bottles of alcohol yesterday. Reported no alcohol this morning. Patient reported woke up with vomiting unable to keep food down and has not been eating and has only been drinking alcohol. Patient has been given referral to detox center but patient never follows up. Denies fever, chills, chest pain, palpitation, shortness of breath. Denies any other symptoms Exam significant for patient vomited once while being evaluated with no acute distress. Mild tenderness epigastric region without guarding or rebound. Patient afebrile. Patient not cyanotic even though mildly tachycardic. Patient symptoms likely hangover from alcohol last night. Will do basic labs CBC and chemistry to rule acute abnormality. Zofran 4 mg sublingual ordered for nausea and vomiting. Patient given water to drink to help with hydration. Treat based on lab results 10/12/19 12:16 CBC is unremarkable. Chemistry lab showed mildly elevated AST which is likely caused by patient alcoholic behavior. Patient stable for discharge with GI follow-up. Patient declines referral to alcohol rehab. Patient reports feeling better request to be discharged home. Patient stable for discharge <Renzo Drew - Last Filed: 10/12/19 12:20> - Medical Decision Making The patient was seen and evaluated in conjunction with ANN Drew under my direct supervision, ancillary studies were reviewed. I independently interviewed and evaluated the patient and I agree with the plan as outlined by ANN Drew. 24y M hx of ETOH abuse presents with n/v. Pt endorses several epsiodes of this in carmen past, there was no hemetemsis or melena/bpr. pt noted mildly tachycaric. the pts labs were reviewed and noted for mildly elevated lfts. pt treated symptomatically with zofran PO and tolerating oral intake. Pt feeling improved and was dc with outpatient management. pt counsoled on etoh abuse and declines rehab. <Bipin Magaña - Last Filed: 10/13/19 09:43> Discharge - Discharge Information Problems reviewed: Yes - Admission No <Renzo Drew - Last Filed: 10/12/19 12:20> <Bipin Magaña - Last Filed: 10/13/19 09:43> - Discharge Information Clinical Impression/Diagnosis: Alcohol abuse, Epigastric burning sensation Nausea & vomiting Qualifiers: Vomiting type: bilious vomiting Qualified Code(s): R11.14 - Bilious vomiting Condition: Stable Disposition: HOME - Additional Discharge Information Prescriptions: Ondansetron [Zofran *Odt*] 4 mg SL Q8H PRN #21 od.tablet PRN Reason: vomiting - Follow up/Referral Referrals: Akira Zepeda MD [Staff Physician] - - Patient Discharge Instructions Patient Printed Discharge Instructions: DI for Alcohol Abuse Additional Instructions: Your blood work shows no acute abnormality. Take prescribed indications prescribed for vomiting. Increase fluid intake. Follow-up with referred GI doctor as discussed as it is important you follow-up as instructed
[2019-10-12 11:58] LABS: BILIRUBIN,TOTAL 0.6 mg/dL (0.2-1); BLOOD UREA NITROGEN 4.3 mg/dL (7-18); CALCIUM 9.7 mg/dL (8.5-10.1); CREATININE 0.8 mg/dL (0.55-1.3)
[2019-10-12 12:22] VITALS: BP 136/93; PULSE 103; TEMP 98.4
== END 2019-10-12 12:29 | disposition home or self-care (01) ==
LOC: JER 10:51
DX: R10.13 Epigastric pain (principal); F10.10 Alcohol abuse, uncomplicated; R11.14 Bilious vomiting; Z88.0 Allergy status to penicillin; Z91.013 Allergy to seafood; Z91.010 Allergy to peanuts
CPT/HCPCS: 36415; 80053; 83690; 85025; 99282-25; Q0162

== ENCOUNTER 2019-10-24 11:00 | Emergency (ER) | payer OTHER ==
[2019-10-24 11:17] VITALS: BP 147/90; PULSE 88; TEMP 98.6; BMI 26.6
[2019-10-24] MEDS ORDERED: ALPRAZolam 1 MG TABLET PO PRN (12:31)
--- NOTE | 2019-10-24 12:37 | PDOC ---
History of Present Illness - General History Source: Patient Exam Limitations: No Limitations - History of Present Illness Initial Comments: 10/24/19 12:32 Patient is a 24-year-old male who presents to the ED stating that he felt very anxious this morning. He states his anxiety was very high earlier today. The patient has a history of anxiety and schizophrenia. He states that he was having trouble calming down and that is why he came to the emergency department. He denies auditory or visual hallucinations. He denies homicidal or suicidal ideations. The patient has a history of EtOH abuse and drinks about a pint of Bacardi daily. He states he drank yesterday and drink a pint of Bacardi and of 40 ounce of beer. He states he only had one regular sized peer today. He does admit to feeling much better at this time. <Christel Flores - Last Filed: 10/24/19 12:32> <Sony Reeves - Last Filed: 10/24/19 15:30> - General Chief Complaint: Lightheaded Stated Complaint: FEVER/VOMITING Time Seen by Provider: 10/24/19 12:14 Past History - Past Medical History Cardiac Disorders: No COPD: No Diabetes: No HTN: No Hypercholesterolemia: No Psychiatric Problems: Yes (shizophrenia, depression, anxiety, insomnia) - Surgical History Abdominal Surgery: No Appendectomy: Yes Cardiac Surgery: No - Immunization History Immunization Up to Date: Yes - Psycho Social/Smoking Cessation Hx Smoking History: Current every day smoker Have you smoked in the past 12 months: Yes Number of Cigarettes Smoked Daily: 7 If you are a former smoker, when did you quit?: 2 months ago Information on smoking cessation initiated: No Hx Alcohol Use: Yes Drug/Substance Use Hx: No Substance Use Type: None <Christel Flores - Last Filed: 10/24/19 12:32> <Sony Reeves - Last Filed: 10/24/19 15:30> - Past Medical History Allergies/Adverse Reactions: Allergies Allergy/AdvReac Type Severity Reaction Status Date / Time peanut Allergy Verified 10/24/19 11:17 Penicillins Allergy Verified 10/24/19 11:17 shrimp Allergy Verified 10/24/19 11:17 Home Medications: Ambulatory Orders NK [No Known Home Medication] 10/24/19 Review of Systems - Review of Systems Comments:: 10/24/19 12:33 - Review of Systems Able to Perform ROS?: Yes Constitutional: No: Fever, Chills, Loss of Appetite, Night Sweats, Weakness HEENTM: No: Eye Pain, Vision changes, Ear Pain, Throat Pain, Throat Swelling, Mouth Pain, Difficulty Swallowing Respiratory: No: Cough, Shortness of Breath, Wheezing, Sputum Production Cardiac (ROS): No: Chest Pain, Chest Tightness, Palpitations, Irregular Heart Beat, Edema ABD/GI: No: Nausea, Vomiting, Abdominal Pain, Diarrhea : No Dysuria, No Hematuria, No Frequency, No Urgency, No Vaginal Discharge/ Pain, No Penile Discharge/Pain Musculoskeletal: No: Muscle Pain, Back Pain, Joint Pain, Muscle Weakness, Neck Pain Integumentary: No: Lesions, Rash Psych: Positive anxiety, positive schizophrenia, no visual or auditory hallucinations, no homicidal or suicidal ideations. Neurological: No: Headache, Numbness, Tingling, Weakness, Speech Difficulties <Christel Flores - Last Filed: 10/24/19 12:32> *Physical Exam - Vital Signs Last Vital Signs Temp Pulse Resp BP Pulse Ox 98.6 F 88 16 147/90 95 10/24/19 11:14 10/24/19 11:14 10/24/19 11:14 10/24/19 11:14 10/24/19 11:14 - Physical Exam 10/24/19 12:34 - Physical Exam General Appearance: Nourished, Appropriately Dressed, No Distress HEENT: EOMI, Normal Voice, No Pharyngeal Erythema, No Muffled/Hoarse voice, No Tonsillar Exudate, No Tonsillar Erythema, No Nasal Congestion, No Rhinorrhea, Hearing Grossly Normal, TMs Normal, No TM Bulging, No TM Dullness, No TM Erythema Neck: Supple, No Lymphadenopathy (R), No Lymphadenopathy (L), No Rigidity, No Decreased range of motion Respiratory/Chest: Lungs Clear, Normal Breath Sounds. No Respiratory Distress, No Accessory Muscle Use Cardiovascular: Regular Rhythm, Regular Rate, S1, S2 Gastrointestinal/Abdominal: Normal Bowel Sounds, Soft. Non-tender, No Guarding , No Rebound, No Rigidity Musculoskeletal: Normal Inspection. No Decreased Range of Motion Extremity: Normal Capillary Refill, Normal Inspection Integumentary: Normal Color, Dry. No Rash Psych: Patient having fluid and clear sentences. He is speaking to me with his head down and having trouble making eye contact. The patient appears anxious in the ED. The patient's making sense and following commands appropriately. Neurologic: chip separator II-XII NML intact, Fully Oriented, Alert, Normal Mood/Affect, Normal Response <Christel Flores - Last Filed: 10/24/19 12:32> - Vital Signs Last Vital Signs Temp Pulse Resp BP Pulse Ox 98.6 F 88 16 147/90 95 10/24/19 11:14 10/24/19 11:14 10/24/19 11:14 10/24/19 11:14 10/24/19 11:14 <Sony Reeves - Last Filed: 10/24/19 15:30> ED Treatment Course - Medications Given in the ED: ED Medications Discontinued Medications Generic Name Dose Route Start Last Admin Trade Name Freq PRN Reason Stop Dose Admin Alprazolam 0.5 mg 10/24/19 12:31 10/24/19 12:50 Xanax PO 0.5 mg ONCE PRN Administration ANXIETY <Sony Reeves - Last Filed: 10/24/19 15:30> Medical Decision Making - Medical Decision Making 10/24/19 12:36 Assessment: Patient is a 24-year-old male with an acute anxiety attack. Plan: The patient has a history of schizophrenia but is not having any auditory or visual hallucinations. He is not homicidal or suicidal. I have offered the patient detox for his EtOH abuse but he has declined at this time. The patient was referred to psychiatry at his last ER visit but states he never followed up because he was doing okay. I have encouraged the patient to again follow-up with psychiatry and he states he understands and he will. The patient was given a low dose of Xanax in the emergency department to help with his anxiety. He has been encouraged to follow-up with his primary doctor within 1 to 2 days for repeat evaluation. The patient is stable for discharge and he understands and agrees with this treatment plan. <Christel Flores - Last Filed: 10/24/19 12:32> - Medical Decision Making 10/24/19 15:30 I reviewed the case of the mid-level practitioner and was available for consultation while in the emergency department <Sony Reeves - Last Filed: 10/24/19 15:30> Discharge - Discharge Information Problems reviewed: Yes <Christel Flores - Last Filed: 10/24/19 12:32> <Sony Reeves - Last Filed: 10/24/19 15:30> - Discharge Information Clinical Impression/Diagnosis: Anxiety Condition: Stable Disposition: HOME - Follow up/Referral Referrals: Clayton Osorio MD [Primary Care Provider] - 2 Days - Patient Discharge Instructions Patient Printed Discharge Instructions: DI for Anxiety -- Adult Additional Instructions: Get plenty of rest and drink plenty of fluids. You should consider detox for your alcohol abuse. If at any point you are feeling like you want to hurt yourself or anyone else return to the emergency department immediately. If you begin to have visual or auditory hallucinations return to the emergency department immediately. Follow-up with your primary doctor within 1 to 2 days for repeat evaluation. Follow-up with psychiatry as soon as possible. - Post Discharge Activity
[2019-10-24] MEDS ORDERED: ALPRAZolam 0.25 MG TABLET ONE (12:47)
--- NOTE | 2019-10-24 15:36 | EKG ---
Test Reason : Blood Pressure : / mmHG Vent. Rate : 091 BPM Atrial Rate : 091 BPM P-R Int : 128 ms QRS Dur : 094 ms QT Int : 350 ms P-R-T Axes : 040 006 024 degrees QTc Int : 430 ms NORMAL SINUS RHYTHM SEPTAL INFARCT (CITED ON OR BEFORE 20-JUL-2018) ABNORMAL ECG Confirmed by MD KEVEN, JORDAN ([id number]) on 10/24/2019 3:35:51 PM Referred By: Confirmed By:JORDAN BACA MD
== END 2019-10-24 12:50 | disposition home or self-care (01) ==
LOC: JER 11:00
DX: F41.9 Anxiety disorder, unspecified (principal); F10.10 Alcohol abuse, uncomplicated; F20.9 Schizophrenia, unspecified; Z88.0 Allergy status to penicillin; Z91.013 Allergy to seafood; Z91.010 Allergy to peanuts
CPT/HCPCS: 93005; 93010; 99283-25

== ENCOUNTER 2019-11-08 08:43 | Emergency (ER) | payer OTHER ==
[2019-11-08 08:50] VITALS: BP 147/91; PULSE 114; TEMP 98.4; BMI 26.6
--- NOTE | 2019-11-08 09:10 | PDOC ---
History of Present Illness - General Chief Complaint: Pain, Acute Stated Complaint: CHEST/ABD PAIN Time Seen by Provider: 11/08/19 09:09 History Source: Patient Exam Limitations: No Limitations - History of Present Illness Initial Comments: 24 year old male with PMH schizophrenia, anxiety, depression, ETOH use presented to ED for chest pain siunce 0800 AM today and hematemesis x2 months. He reported his pain is left sided, sharp, nonpleuritic, no alleviating or aggravating fac tors. He reported he increased his ETOH intake for the pain without relief of symptoms. He also complain of epigastric pain and 15 episodes of brown/blood vomiting daily over the last couple of months. Pt also complained of chronic diarrhea. Pt last drank x1 hour ago. Pt reported he is not interested in Detox today or in psychiatric evaluation. Pt denied lower extremity swelling, calf pain, recent travel, recent surgery, hx malignancy, hx DVT/PE, hemoptysis. Pt reported intermittent dark stools x2 months. ETOH - Bacardi (every day, 1 gallon of bacardi over 2 days, "until I black out"). Drugs - admitted to marijuana daily use ROS General: denied fever, chills, generalized weakness. HEENT: denied sore throat, rhinorrhea, ear pain. Cardiovascular: admitted to chest pain. denied palpitations, syncope, diaphoresis. Respiratory: denied shortness of breath, cough, sputum production, hemoptysis. Gastrointestinal: admitted to nausea, vomiting, diarrhea, blood in stool. denied abdominal pain, constipation. Genitourinary: denied dysuria, increased urinary frequency, hematuria, urinary incontinence, flank pain. Back: denied back pain. Musculoskeletal: denied joint pain, muscle pain, joint swelling. Neurological: denied dizziness, numbness, tingling, weakness. Integumentary: denied rash, laceration, abrasion. Hematologic/Lymphatic: denied bruising or bleeding. PE Constitutional: Well-nourished, Well-developed, appearing stated age. clean. well kept. HEENT: head is normocephalic, atraumatic. EOMI. PERRLA. Neck: supple. Full ROM. Cardiovascular: tachycardic. regular heart rhythm. Normal S1 and S2. no murmurs. no pericardial friction rub. Respiratory: clear to auscultation bilaterally. no crackles, rhonchi or wheezing. no stridor. Gastrointestinal: soft, flat, nontender. normal bowel sounds. no rebound, guarding, or masses. mcdaniel negative. Extremities: peripheral pulses intact and equal. no lower extremity edema noted. Neurological: CN 2-12 grossly intact. moves all four extremities. Psych: awake, alert, oriented x3. follows commands. answers questions appropriately. Past History - Past Medical History Allergies/Adverse Reactions: Allergies Allergy/AdvReac Type Severity Reaction Status Date / Time peanut Allergy Verified 11/08/19 10:04 Penicillins Allergy Verified 11/08/19 10:04 shrimp Allergy Verified 11/08/19 10:04 Home Medications: Ambulatory Orders Famotidine [Pepcid -] 20 mg PO BID #14 tablet 11/08/19 - Surgical History Abdominal Surgery: No Appendectomy: Yes Cardiac Surgery: No - Immunization History Immunization Up to Date: Yes - Psycho Social/Smoking Cessation Hx Smoking History: Current every day smoker Have you smoked in the past 12 months: No Number of Cigarettes Smoked Daily: 7 If you are a former smoker, when did you quit?: 2 months ago Information on smoking cessation initiated: No Hx Alcohol Use: Yes Drug/Substance Use Hx: Yes Substance Use Type: None *Physical Exam - Vital Signs Last Vital Signs Temp Pulse Resp BP Pulse Ox 98.4 F 114 H 18 147/91 100 11/08/19 08:45 11/08/19 08:45 11/08/19 08:45 11/08/19 08:45 11/08/19 08:45 ED Treatment Course - LABORATORY CBC & Chemistry Diagram: 11/08/19 09:50 11/08/19 09:50 Medical Decision Making - Medical Decision Making 24 year old male with above PMH presented to ED for left sided chest pain since 0800 AM today. Initial Vital Signs Temp Pulse Resp BP Pulse Ox 98.4 F 114 H 18 147/91 100 11/08/19 08:45 11/08/19 08:45 11/08/19 08:45 11/08/19 08:45 11/08/19 08:45 Afebrile. Tachycardic. No tachypnea. Hypertensive. No hypoxia on room air. Labs ordered: CBC, CMP, coags, T&S, troponin, lipase Imaging ordered: CXR Medications ordered: normal saline bolus 1000 cc once, pepcid 20 mg IV once, zofran 4 mg IV once EKG: rate 92, regular rhythm, normal axis, normal intervals, no acute ST changes. CXR report: Carole Dhaliwal Name: [facility] Phys: Shayla Presley RESIDENT : 1995 Age: 24 Sex: M [facility] Acct: [id number] Loc: [address] Exam Date: 11/08/19 Status: LIZA Perez [id number] Unit Number: [id number] EXAM#: TYPE/EXAM: RESULT: [id number] RAD/CHEST X-RAY PORTABLE* Chest: Chest pain. Hematemesis A single view of the chest is been submitted. Since 09/02/2018 there is no change of an adverse nature. There are clear lungs, normal mediastinum sharp angles. The bones and soft tissues are intact. An acute process is not seen. Impression: No acute chest pathology. No significant change since 09/02/2018. Reported By: Seng Jenkins MD 11/08/1933 11/08/19 11:05 Pt reported resolution of chest pain. 11/08/19 11:43 Laboratory Last Values WBC 3.8 K/mm3 (4.0-10.0) L 11/08/19 09:50 RBC 5.59 M/mm3 (4.00-5.60) 11/08/19 09:50 Hgb 17.5 GM/dL (11.7-16.9) H 11/08/19 09:50 Hct 51.1 % (35.4-49) H 11/08/19 09:50 MCV 91.4 fl (80-96) 11/08/19 09:50 MCH 31.4 pg (25.7-33.7) 11/08/19 09:50 MCHC 34.3 g/dl (32.0-35.9) 11/08/19 09:50 RDW 13.3 % (11.9-15.9) 11/08/19 09:50 Plt Count 298 K/MM3 (134-434) 11/08/19 09:50 MPV 7.6 fl (7.5-11.1) 03/05/20 09:50 Absolute Neuts (auto) 2.0 K/mm3 (1.5-8.0) 11/08/19 09:50 Neutrophils % 53.5 % (42.8-82.8) 11/08/19 09:50 Lymphocytes % 34.5 % (8-40) D 11/08/19 09:50 Monocytes % 7.8 % (3.8-10.2) 11/08/19 09:50 Eosinophils % 2.6 % (0-4.5) 11/08/19 09:50 Basophils % 1.6 % (0-2.0) 11/08/19 09:50 Nucleated RBC % 0 % (0-0) 11/08/19 09:50 PT with INR 12.00 SEC (9.7-13.0) 11/08/19 09:50 INR 1.02 (0.83-1.09) 11/08/19 09:50 PTT (Actin FS) 34.4 SECONDS (25.2-36.5) 11/08/19 09:50 VBG pH 7.43 (7.31-7.41) H 11/08/19 09:50 POC VBG pCO2 44.5 mmHg (38-52) 11/08/19 09:50 POC VBG pO2 < 49 mmHg (28-48) H 11/08/19 09:50 VBG HCO3 29.0 mmol/L (23-29) 11/08/19 09:50 VBG O2 Sat (Harriet) 75.0 % (70-80) 11/08/19 09:50 VBG Base Excess 4.3 meq/l (-2-2) H 11/08/19 09:50 Sodium 137 mmol/L (136-145) 11/08/19 09:50 Potassium 4.3 mmol/L (3.5-5.1) 11/08/19 09:50 Chloride 100 mmol/L (98-107) 11/08/19 09:50 Carbon Dioxide 29 mmol/L (21-32) 11/08/19 09:50 Anion Gap 9 MMOL/L (8-16) 11/08/19 09:50 BUN 6.4 mg/dL (7-18) L 11/08/19 09:50 Creatinine 0.7 mg/dL (0.55-1.3) 11/08/19 09:50 Est GFR (CKD-EPI)AfAm 153.09 11/08/19 09:50 Est GFR (CKD-EPI)NonAf 132.09 11/08/19 09:50 Random Glucose 98 mg/dL (74-106) 11/08/19 09:50 Calcium 9.3 mg/dL (8.5-10.1) 11/08/19 09:50 Total Bilirubin 0.7 mg/dL (0.2-1) 11/08/19 09:50 AST 157 U/L (15-37) H 11/08/19 09:50 ALT 88 U/L (13-61) H 11/08/19 09:50 Alkaline Phosphatase 109 U/L (45-117) 11/08/19 09:50 Troponin I < 0.02 ng/ml (0.00-0.05) 11/08/19 09:50 Total Protein 7.9 g/dl (6.4-8.2) 11/08/19 09:50 Albumin 4.0 g/dl (3.4-5.0) 11/08/19 09:50 Lipase 137 U/L (73-393) 11/08/19 09:50 Beta-Hydroxybutyrate 1.3 mg/dL (0.2-2.8) 11/08/19 09:50 Salicylates < 1.7 mg/dL (2.8-20) L 11/08/19 09:50 Acetaminophen --noresult-- 11/08/19 09:50 Alcohol, Quantitative 178.9 mg/dL (0.0-5.0) H 11/08/19 09:50 No leukocytosis. Hemoconcentration -IVF given No acidosis No electrolyte abnormalities No CELSO Mild transaminitis, consistent with ETOH use, AST?ALT Troponin undetectable ETOH positive Lipase negative, epigastrium nontender Pt reported complete resolution of symptoms. Pt unable to provide stool sample, refused guiaic. Pt requesting discharge. Pt to be discharged with pepcid prescription. Pt refused detox. Pt reported he has outpatient psychiatrist. Discharge - Discharge Information Problems reviewed: Yes Clinical Impression/Diagnosis: Chest pain Condition: Improved Disposition: HOME - Admission No - Additional Discharge Information Prescriptions: Famotidine [Pepcid -] 20 mg PO BID #14 tablet - Follow up/Referral Referrals: Clayton Osorio MD [Primary Care Provider] - - Patient Discharge Instructions Patient Printed Discharge Instructions: DI for Gastroesophageal Reflux Disease (GERD), DI for Alcohol Abuse, GERD Diet Additional Instructions: Follow up with your primary care doctor within 3 days regarding your ER visit. Your care is not complete until you follow up. Bring all paperwork given to you today. Bring all medication bottles you are taking. I have prescribed you pepcid to decrease your stomach acid. Take as advised on label. Follow the GERD diet - educational information included in discharge paperwork. Please seek psychiatric evaluation. Please seek detox or rehab services for your alcohol use. If you stop using alcohol on your own cold turkey you could become very sick or even . Please detox with professional help. Return to the Emergency Department for increasing pain, chest pain, shortness of breath, intractable vomiting, fever, lightheadedness, seizures or any other new, worsening or concerning symptoms. [facility] is a [facility] in [place], [place] -Address: [address] [place] [address], [id number] - -Intake Line: -Website: [email or web address] - Post Discharge Activity Work/Back to School Note: Back to Work
[2019-11-08] MEDS ORDERED: SODIUM CHLORIDE 1,000 ML IV STA (09:15)
[2019-11-08] MEDS ORDERED: ONDANSETRON 4 MG/2 ML VIAL IVPUSH ONE (09:34)
[2019-11-08] MEDS ORDERED: FAMOTIDINE 20 MG/50 ML IVPB 20 MG/50 ML MG IVPB ONE ×2 (09:34→10:16)
[2019-11-08 10:16] LABS: VENOUS PC02 44.5 mmHg (38-52); VENOUS PH 7.43 (7.31-7.41)
[2019-11-08] MEDS ORDERED: ONDANSETRON 4 MG/2 ML VIAL ONE (10:16)
[2019-11-08 10:18] LABS: VENOUS PO2 < 49 mmHg (28-48)
[2019-11-08 10:19] LABS: BASO % 1.6 % (0-2.0); EOS % 2.6 % (0-4.5); HEMATOCRIT 51.1 % (35.4-49); HEMOGLOBIN 17.5 GM/dL (11.7-16.9); LYMPH % 34.5 % (8-40); MCH 31.4 pg (25.7-33.7); MCHC 34.3 g/dl (32.0-35.9); MEAN CELL VOLUME 91.4 fl (80-96); MEAN PLT VOLUME 7.6 fl (7.5-11.1); MONO % 7.8 % (3.8-10.2); NEUT % 53.5 % (42.8-82.8); PLATELET COUNT 298 K/MM3 (134-434); RBC 5.59 M/mm3 (4.00-5.60); RDW 13.3 % (11.9-15.9); WHITE BLOOD COUNT 3.8 K/mm3 (4.0-10.0)
[2019-11-08 10:32] LABS: INR 1.02 (0.83-1.09)
--- NOTE | 2019-11-08 10:34 | PDOC ---
Documentation entered by Zaina Verdin SCRIBE, acting as scribe for Bipin Magaña MD. Bipin Magaña MD: This documentation has been prepared by the Velvet bryant Nirvannie, SCRIBE, under my direction and personally reviewed by me in its entirety. I confirm that the documentation accurately reflects all work, treatment, procedures, and medical decision making performed by me. Attending Attestation - Resident Resident Name: Shayla Presley - ED Attending Attestation I have performed the following: I have examined & evaluated the patient, The case was reviewed & discussed with the resident, I agree w/resident's findings & plan, Exceptions are as noted - HPI HPI: 11/08/19 09:33 The patient is a 24 year old male, with a significant past medical history of schizophrenia, anxiety, depression, ETOH abuse (last use this morning), who presents to the emergency department with 1.5 hours of sharp, left-sided chest pain/epigastric pain - Patient notes that the pain feels like somebody poking him constantly. Patient notes increased alcohol consumption without, relief prompting his arrival to the ED. Patient notes an associated chronic (last couple of months) epigastric discomfort, 15 episodes of brownish/blood emesis and diarrhea. Pt notes sometimes the stool is brown sometimes black. He denies any palpitations, diaphoresis, fevers, jenkins, or chills. He denies any recent dysuria, frequency, urgency or hematuria. Allergies: Peanut, penicillins, shrimp Social History: pack a day smoker, marijuana, etoh - 1L of Bacardi / day Primary Care Physician: Dr. Osorio - Physicial Exam PE: 11/08/19 10:31 GENERAL: The patient is awake, alert, and fully oriented, Nontoxic - in no acute distress. HEAD: Normocephalic, atraumatic. EYES: extraocular movements intact, sclera anicteric, conjunctiva clear. ENT: Normal voice, Moist mucous membranes. atremulous NECK: Normal range of motion, supple LUNGS: Breath sounds equal, clear to auscultation bilaterally. No wheezes, no rhonchi, no rales. HEART: Slightly tachycardic, normal S1 and S2 without murmur, rub or gallop. ABDOMEN: Soft, nontender, No guarding, no rebound. No CVA tenderness EXTREMITIES: Normal range of motion, no edema. NEUROLOGICAL: No facial assymetry, Normal speech, PSYCH: Normal mood, normal affect. SKIN: Warm, Dry, normal turgor, - Medical Decision Making 11/08/19 09:30 Differential for the patient's symptoms includes alcohol withdrawal, pancreatitis, gastritis, AKA Will obtain blood work, will hydrate the patient will give Pepcid, Maalox Will reassess 11/08/19 12:30 pts labs reviewed pt was ao x 3, ambulatory with normal gait, feeling better and eloped prior to discharge Heart Score/ECG Review - ECG Impressions Comment:: 11/08/19 10:32 Twelve-lead EKG was performed and reviewed by me. There is normal sinus rhythm with a normal rate. Rate of 92 The axis is normal. The intervals are normal. There is normal R wave progression There are no ST or T wave abnormalities. Impression: Normal twelve-lead EKG
[2019-11-08 10:35] LABS: ACTIVATED PTT 34.4 SECONDS (25.2-36.5)
[2019-11-08 11:42] LABS: ALK PHOS 109 U/L (45-117); ANION GAP 9 MMOL/L (8-16); BILIRUBIN,TOTAL 0.7 mg/dL (0.2-1); BLOOD UREA NITROGEN 6.4 mg/dL (7-18); CALCIUM 9.3 mg/dL (8.5-10.1); CHLORIDE 100 mmol/L (98-107); CO2 29 mmol/L (21-32); CREATININE 0.7 mg/dL (0.55-1.3); GLUCOSE,RANDOM 98 mg/dL (74-106); LIPASE 137 U/L (73-393); POTASSIUM 4.3 mmol/L (3.5-5.1); SGOT/AST 157 U/L (15-37); SGPT/ALT 88 U/L (13-61); SODIUM 137 mmol/L (136-145); TOT PROT 7.9 g/dl (6.4-8.2)
--- NOTE | 2019-11-08 13:59 | EKG ---
Test Reason : Blood Pressure : / mmHG Vent. Rate : 092 BPM Atrial Rate : 092 BPM P-R Int : 146 ms QRS Dur : 092 ms QT Int : 340 ms P-R-T Axes : -06 021 032 degrees QTc Int : 420 ms NORMAL SINUS RHYTHM NORMAL ECG WHEN COMPARED WITH ECG OF 24-OCT-2019 11:22, NO SIGNIFICANT CHANGE WAS FOUND Confirmed by CEZAR HAAS MD ([id number]) on 11/08/2019 1:58:37 PM Referred By: Confirmed By:CEZAR HAAS MD
== END 2019-11-08 12:13 | disposition home or self-care (01) ==
LOC: JER 08:43
PROC: 3E0337Z Introduction of Electrolytic and Water Balance Substance into Peripheral Vein, Percutaneous Approach (ICD-10-PCS; principal; 2019-11-08)
PROC: 3E033GC Introduction of Other Therapeutic Substance into Peripheral Vein, Percutaneous Approach (ICD-10-PCS; 2019-11-08)
PROC: 3E033GC Introduction of Other Therapeutic Substance into Peripheral Vein, Percutaneous Approach (ICD-10-PCS; 2019-11-08)
DX: R07.9 Chest pain, unspecified (principal); F10.10 Alcohol abuse, uncomplicated; F41.8 Other specified anxiety disorders; F32.9 Major depressive disorder, single episode, unspecified; F20.9 Schizophrenia, unspecified; F12.90 Cannabis use, unspecified, uncomplicated; R19.7 Diarrhea, unspecified; Z88.0 Allergy status to penicillin; Z91.013 Allergy to seafood; Z91.010 Allergy to peanuts
CPT/HCPCS: 36415; 71045-TC-FY; 80053; 80307; 82010; 82803; 83690; 84484; 85025; 85610; 85730; 86850; 86900; 86901; 93005; 93010; 96361; 96365; 96375; 99285-25; J7030

== ENCOUNTER 2020-10-08 10:46 | Emergency (ER) | payer OTHER ==
[2020-10-08 11:04] VITALS: BP 133/91; PULSE 88; BMI 29.5
[2020-10-08 11:08] VITALS: TEMP 98.3
[2020-10-08] MEDS ORDERED: risperiDONE 2 MG TABLET PO ONE (14:10)
[2020-10-08] MEDS ORDERED: risperiDONE 0.5 MG TABLET ONE (14:18)
[2020-10-08 14:37] LABS: COCAINE, UR NEGATIVE ng/ml (CUTOFF=300); OPIATES, URI NEGATIVE ng/ml (CUTOFF=300); PHENCYCLIDINE,URINE NEGATIVE ng/ml (CUTOFF=25); URINE AMPHETAMINES NEGATIVE ng/ml (CUTOFF=500); URINE BARBITURATES NEGATIVE ng/ml (CUTOFF=200); URINE BENZODIAZEPINES NEGATIVE ng/ml (CUTOFF=200)
[2020-10-08 14:47] LABS: METHADONE, UR NEGATIVE ng/ml (CUTOFF=300)
== END 2020-10-08 15:06 | disposition home or self-care (01) ==
LOC: JER 10:46
DX: F20.9 Schizophrenia, unspecified (principal)
CPT/HCPCS: 80307; 99283-25

== ENCOUNTER 2020-12-10 02:06 | Emergency (ER) | payer OTHER ==
[2020-12-10 02:17] VITALS: BP 131/82; PULSE 100; TEMP 98.3; BMI 30.4
[2020-12-10] MEDS ORDERED: LACTATED RINGERS SOLUTION 1000 ML INFUS.BAG IV ONE (02:30)
[2020-12-10 03:03] LABS: BASO % 0.7 % (0-2.0); EOS % 3.9 % (0-4.5); HEMATOCRIT 52.4 % (35.4-49); HEMOGLOBIN 17.7 GM/dL (11.7-16.9); LYMPH % 43.4 % (8-40); MCHC 33.7 g/dl (32.0-35.9); MEAN PLT VOLUME 7.7 fl (7.5-11.1); MONO % 7.2 % (3.8-10.2); NEUT % 44.8 % (42.8-82.8); PLATELET COUNT 383 K/MM3 (134-434); RBC 5.88 M/mm3 (4.00-5.60); RDW 15.8 % (11.9-15.9); WHITE BLOOD COUNT 5.6 K/mm3 (4.0-10.0)
[2020-12-10 03:23] LABS: CHLORIDE 100 mmol/L (98-107); SODIUM 121 mmol/L (136-145)
[2020-12-10 03:25] LABS: ALBUMIN 3.7 g/dl (3.4-5.0); BLOOD UREA NITROGEN 6.1 mg/dL (7-18); CALCIUM 8.4 mg/dL (8.5-10.1); CO2 28 mmol/L (21-32); GLUCOSE,RANDOM 107 mg/dL (74-106); MAGNESIUM 2.6 mg/dL (1.8-2.4)
[2020-12-10 03:28] LABS: CREATININE 0.8 mg/dL (0.55-1.3); PHOSPHOROUS 4.5 mg/dL (2.5-4.9)
[2020-12-10 03:30] LABS: TOT PROT 9.5 g/dl (6.4-8.2)
[2020-12-10 03:31] LABS: ALK PHOS 125 U/L (45-117)
[2020-12-10 04:26] LABS: ANION GAP -8 MMOL/L (8-16)
[2020-12-10 04:49] LABS: CALCIUM 8.9 mg/dL (8.5-10.1)
[2020-12-10 04:50] LABS: ALBUMIN 3.5 g/dl (3.4-5.0); BLOOD UREA NITROGEN 6.2 mg/dL (7-18)
[2020-12-10 04:53] LABS: CREATININE 0.7 mg/dL (0.55-1.3)
[2020-12-10 04:54] LABS: BILIRUBIN,TOTAL 0.8 mg/dL (0.2-1)
[2020-12-10 05:49] LABS: TOT PROT 7.2 g/dl (6.4-8.2)
== END 2020-12-10 06:23 | disposition home or self-care (01) ==
LOC: JER 02:06
DX: F20.9 Schizophrenia, unspecified (principal); F10.10 Alcohol abuse, uncomplicated
CPT/HCPCS: 36415; 80053; 80307; 83735; 84100; 85025; 99283-25

== ENCOUNTER 2020-12-13 19:05 | Emergency (ER) | payer OTHER ==
[2020-12-13 19:56] VITALS: BP 141/95; PULSE 108; TEMP 98.8; BMI 29.6
[2020-12-13 21:37] LABS: BASO % 0.8 % (0-2.0); EOS % 5.2 % (0-4.5); HEMATOCRIT 48.2 % (35.4-49); HEMOGLOBIN 16.4 GM/dL (11.7-16.9); LYMPH % 29.8 % (8-40); MCH 30.3 pg (25.7-33.7); MEAN PLT VOLUME 8.1 fl (7.5-11.1); MONO % 6.9 % (3.8-10.2); NEUT % 57.3 % (42.8-82.8); PLATELET COUNT 350 K/MM3 (134-434); RBC 5.42 M/mm3 (4.00-5.60); RDW 14.5 % (11.9-15.9); WHITE BLOOD COUNT 8.7 K/mm3 (4.0-10.0)
[2020-12-13 21:57] LABS: CHLORIDE 98 mmol/L (98-107); POTASSIUM 3.3 mmol/L (3.5-5.1); SODIUM 134 mmol/L (136-145)
[2020-12-13 21:58] LABS: ALBUMIN 4.1 g/dl (3.4-5.0)
[2020-12-13 21:59] LABS: ANION GAP 8 MMOL/L (8-16); BLOOD UREA NITROGEN 4.4 mg/dL (7-18); CO2 28 mmol/L (21-32); GLUCOSE,RANDOM 121 mg/dL (74-106); LIPASE 74 U/L (73-393)
[2020-12-13 22:02] LABS: SGOT/AST 51 U/L (15-37); SGPT/ALT 40 U/L (13-61)
[2020-12-13 22:03] LABS: BILIRUBIN,TOTAL 1.4 mg/dL (0.2-1); CREATININE 0.7 mg/dL (0.55-1.3)
[2020-12-13 22:04] LABS: ALK PHOS 117 U/L (45-117)
[2020-12-13] MEDS ORDERED: POTASSIUM CHLORIDE TABS 20 MEQ TABLET.ER (FP) PO ONE ×2 (22:17→22:28)
[2020-12-13] MEDS ORDERED: SODIUM CHLORIDE 0.9% 500 ML INFUS.BAG IV ONE (22:21)
[2020-12-13] MEDS ORDERED: MAGNESIUM SULF 50% (8.12 MEQ/2 ML-1 GM VIAL) IVPB ONE (22:22)
[2020-12-13] MEDS ORDERED: MAGNESIUM SULFATE IN WATER 2 GM/50 ML IVPB IVPB ONE (22:27)
== END 2020-12-13 23:37 | disposition home or self-care (01) ==
LOC: JER 19:05
PROC: 3E033GC Introduction of Other Therapeutic Substance into Peripheral Vein, Percutaneous Approach (ICD-10-PCS; principal; 2020-12-13)
DX: E80.6 Other disorders of bilirubin metabolism (principal); F10.10 Alcohol abuse, uncomplicated
CPT/HCPCS: 36415; 71046-TC-FY; 80053; 80307; 83690; 85025; 93005; 93010; 99285-25; C9803; U0003; U0005

== ENCOUNTER 2021-03-06 05:44 | Emergency (ER) | payer OTHER ==
[2021-03-06 06:06] VITALS: BMI 27.7
[2021-03-06 07:53] VITALS: BP 133/91; PULSE 93; TEMP 98.2
== END 2021-03-06 09:19 | disposition home or self-care (01) ==
LOC: JER 05:44
DX: F10.10 Alcohol abuse, uncomplicated (principal)
CPT/HCPCS: 99282-25

== ENCOUNTER 2021-03-06 09:21 | Inpatient (IN) | payer OTHER ==
[2021-03-06 10:44] VITALS: BMI 28.7
[2021-03-06] MEDS ORDERED: METHOCARBAMOL 500 MG TABLET PO PRN (12:17)
[2021-03-06] MEDS ORDERED: MENTHOL/PHENOL 1 EACH UD MM PRN (12:17)
[2021-03-06] MEDS ORDERED: ONDANSETRON *ODT* 4 MG TABLET SL PRN (12:17)
[2021-03-06] MEDS ORDERED: MAGNESIUM CITRATE 300 ML BOTTLE PO PRN (12:17)
[2021-03-06] MEDS ORDERED: BISMUTH SUBSALICYLATE 524 MG/30 ML PO PRN (12:17)
[2021-03-06] MEDS ORDERED: MAGNESIUM HYDROX 2400MG/30ML ORAL SUSPENSION 30 ML CUP PO PRN (12:17)
[2021-03-06] MEDS ORDERED: diazePAM 5 MG TABLET PO PRN (12:17)
[2021-03-06] MEDS ORDERED: IBUPROFEN 400 MG TABLET (FP) PO PRN (12:17)
[2021-03-06] MEDS ORDERED: MAG HYDROX/AL HYDROX/SIMETH 30 ML UNIT-DOSE CUP PO PRN (12:17)
[2021-03-06] MEDS ORDERED: ACETAMINOPHEN 325 MG TABLET (FP) PO PRN ×2 (12:17)
[2021-03-06] MEDS: hydrOXYzine PAMOATE 25 MG CAPSULE (FP) PO SCH ×3 (14:35→22:17)
[2021-03-06] MEDS: PRENATAL VITAMINS W/ FOLIC ACID TABLET (FP) PO SCH (14:43)
[2021-03-06] MEDS: diazePAM 5 MG TABLET PO SCH ×3 (14:43→22:17)
[2021-03-06] MEDS ORDERED: MELATONIN 5 MG TABLETS PO PRN (15:09)
[2021-03-06] MEDS: NICOTINE POLACRILEX 2 MG GUM BUC PRN (16:22)
[2021-03-06] MEDS ORDERED: MELATONIN 5 MG TABLETS PO SCH (22:00)
[2021-03-06] MEDS ORDERED: THIAMINE HCL 100 MG TABLET (FP) PO SCH (22:00)
[2021-03-07] MEDS: diazePAM 5 MG TABLET PO SCH ×2 (06:22→10:29)
[2021-03-07] MEDS: hydrOXYzine PAMOATE 25 MG CAPSULE (FP) PO SCH ×3 (06:22→13:16)
[2021-03-07 09:28] VITALS: BP 123/78; PULSE 72; TEMP 97.3
[2021-03-07] MEDS ORDERED: NICOTINE 14 MG/24 HOURS TOPICAL PATCH TD SCH (10:00)
[2021-03-07] MEDS: PRENATAL VITAMINS W/ FOLIC ACID TABLET (FP) PO SCH (10:29)
[2021-03-07] MEDS: NICOTINE POLACRILEX 2 MG GUM BUC PRN (10:30)
[2021-03-08] MEDS ORDERED: diazePAM 5 MG TABLET PO SCH (06:00)
[2021-03-09] MEDS ORDERED: diazePAM 5 MG TABLET PO SCH (06:00)
[2021-03-10] MEDS ORDERED: diazePAM 5 MG TABLET PO ONE (06:00)
== END 2021-03-07 13:36 | disposition left against medical advice (07) | DRG 951 ==
LOC: YASAS 09:21 → Y3N 12:29
PROVIDERS: ADMIT Allergy & Immunology; ATTEND Allergy & Immunology
PROC: HZ2ZZZZ Detoxification Services for Substance Abuse Treatment (ICD-10-PCS; principal; 2021-03-06)
DX: F17.210 Nicotine dependence, cigarettes, uncomplicated (principal); F41.9 Anxiety disorder, unspecified; F32.9 Major depressive disorder, single episode, unspecified; F43.20 Adjustment disorder, unspecified; F19.24 Other psychoactive substance dependence with psychoactive substance-induced mood disorder; R00.0 Tachycardia, unspecified; Z88.8 Allergy status to other drugs, medicaments and biological substances; Z91.010 Allergy to peanuts; Z91.013 Allergy to seafood
CPT/HCPCS: 93005; 93010; C9803; U0003; U0005

== ENCOUNTER 2021-03-15 23:49 | Emergency (ER) | payer OTHER ==
[2021-03-16 00:44] VITALS: BP 141/89; PULSE 105; TEMP 97.9; BMI 28.5
[2021-03-16] MEDS ORDERED: ONDANSETRON 4 MG/2 ML VIAL IVPUSH ONE (01:24)
[2021-03-16] MEDS ORDERED: SODIUM CHLORIDE 0.9% 500 ML INFUS.BAG IV ONE (01:24)
[2021-03-16] MEDS ORDERED: ONDANSETRON 4 MG/2 ML VIAL ONE (01:56)
[2021-03-16 02:01] LABS: BASO % 1.8 % (0-2.0); EOS % 3.5 % (0-4.5); HEMATOCRIT 46.4 % (35.4-49); HEMOGLOBIN 16.1 GM/dL (11.7-16.9); LYMPH % 44.8 % (8-40); MCHC 34.6 g/dl (32.0-35.9); MEAN CELL VOLUME 92.5 fl (80-96); MEAN PLT VOLUME 7.1 fl (7.5-11.1); NEUT % 45.9 % (42.8-82.8); PLATELET COUNT 351 10^3/uL (134-434); RBC 5.01 M/mm3 (4.00-5.60); RDW 13.9 % (11.9-15.9); WHITE BLOOD COUNT 6.1 K/mm3 (4.0-10.0)
[2021-03-16 02:22] LABS: CALCIUM 8.8 mg/dL (8.5-10.1)
[2021-03-16 02:23] LABS: ALBUMIN 3.6 g/dl (3.4-5.0)
[2021-03-16 02:26] LABS: CREATININE 0.6 mg/dL (0.55-1.3)
[2021-03-16 02:27] LABS: BILIRUBIN,TOTAL 0.5 mg/dL (0.2-1)
[2021-03-16 02:28] LABS: TOT PROT 7.1 g/dl (6.4-8.2)
[2021-03-16] MEDS ORDERED: chlordiazePOXIDE HCL 25 MG CAPSULE PO ONE (04:12)
[2021-03-16] MEDS ORDERED: chlordiazePOXIDE HCL 10 MG CAPSULE ONE (04:16)
[2021-03-16] MEDS ORDERED: chlordiazePOXIDE 5 MG CAPSULE ONE (04:16)
[2021-03-16] MEDS ORDERED: LORazepam 0.5 MG TABLET PO ONE (04:17)
[2021-03-16] MEDS ORDERED: LORazepam 0.5 MG TABLET ONE (04:19)
== END 2021-03-16 05:16 | disposition home or self-care (01) ==
LOC: JER 23:49
PROC: 3E033GC Introduction of Other Therapeutic Substance into Peripheral Vein, Percutaneous Approach (ICD-10-PCS; principal; 2021-03-15)
DX: F10.920 Alcohol use, unspecified with intoxication, uncomplicated (principal); R11.2 Nausea with vomiting, unspecified
CPT/HCPCS: 36415; 80053; 85025; 93005; 93010; 99284-25

== ENCOUNTER 2021-03-18 16:49 | Emergency (ER) | payer OTHER ==
[2021-03-18 17:23] VITALS: TEMP 98.6; BMI 27.7
[2021-03-18] MEDS ORDERED: SODIUM CHLORIDE 1,000 ML IV STA (18:31)
[2021-03-18] MEDS ORDERED: ONDANSETRON 4 MG/2 ML VIAL IVPUSH ONE (18:31)
[2021-03-18] MEDS ORDERED: FOLIC ACID INJECTION - 1 MG, THIAMINE HCL 100 MG, MULTIVIT INJECTION ADULT 10 ML in SOD... IVPB ONE (18:31)
[2021-03-18] MEDS ORDERED: ONDANSETRON 4 MG/2 ML VIAL ONE (18:37)
[2021-03-18 19:11] LABS: EOS % 3.6 % (0-4.5); HEMATOCRIT 46.2 % (35.4-49); HEMOGLOBIN 15.9 GM/dL (11.7-16.9); LYMPH % 36.4 % (8-40); MCH 31.9 pg (25.7-33.7); MCHC 34.4 g/dl (32.0-35.9); MEAN PLT VOLUME 7.5 fl (7.5-11.1); MONO % 5.3 % (3.8-10.2); NEUT % 53.7 % (42.8-82.8); PLATELET COUNT 333 10^3/uL (134-434); RBC 4.97 M/mm3 (4.00-5.60); RDW 13.9 % (11.9-15.9); WHITE BLOOD COUNT 5.7 K/mm3 (4.0-10.0)
[2021-03-18 19:28] LABS: CHLORIDE 104 mmol/L (98-107); SODIUM 139 mmol/L (136-145)
[2021-03-18 19:30] LABS: CALCIUM 8.9 mg/dL (8.5-10.1)
[2021-03-18 19:31] LABS: ALBUMIN 3.7 g/dl (3.4-5.0); ANION GAP 8 MMOL/L (8-16); CO2 28 mmol/L (21-32); GLUCOSE,RANDOM 105 mg/dL (74-106)
[2021-03-18 19:34] LABS: CREATININE 0.6 mg/dL (0.55-1.3); SGOT/AST 51 U/L (15-37); SGPT/ALT 48 U/L (13-61)
[2021-03-18 19:35] LABS: BILIRUBIN,TOTAL 0.5 mg/dL (0.2-1); TOT PROT 7.1 g/dl (6.4-8.2)
[2021-03-18 19:37] LABS: ALK PHOS 101 U/L (45-117)
[2021-03-18] MEDS ORDERED: chlordiazePOXIDE HCL 25 MG CAPSULE PO ONE (20:21)
[2021-03-18] MEDS ORDERED: chlordiazePOXIDE 5 MG CAPSULE ONE (20:25)
[2021-03-18] MEDS ORDERED: chlordiazePOXIDE HCL 10 MG CAPSULE ONE (20:26)
[2021-03-18 20:59] VITALS: BP 130/95; PULSE 98
== END 2021-03-18 20:59 | disposition home or self-care (01) ==
LOC: JER 16:49
PROC: 3E033GC Introduction of Other Therapeutic Substance into Peripheral Vein, Percutaneous Approach (ICD-10-PCS; principal; 2021-03-18)
PROC: 3E033GC Introduction of Other Therapeutic Substance into Peripheral Vein, Percutaneous Approach (ICD-10-PCS; 2021-03-18)
PROC: 3E0337Z Introduction of Electrolytic and Water Balance Substance into Peripheral Vein, Percutaneous Approach (ICD-10-PCS; 2021-03-18)
DX: F10.10 Alcohol abuse, uncomplicated (principal)
CPT/HCPCS: 36415; 80053; 80307; 85025; 99284-25

== ENCOUNTER 2021-03-28 11:17 | Emergency (ER) | payer OTHER ==
[2021-03-28 11:28] VITALS: BP 128/92; PULSE 96; TEMP 98.3; BMI 27.7
[2021-03-28] MEDS ORDERED: SODIUM CHLORIDE 0.9% 500 ML INFUS.BAG IV ONE (11:36)
[2021-03-28] MEDS ORDERED: FAMOTIDINE 20 MG TABLET PO ONE (11:49)
[2021-03-28] MEDS ORDERED: MAG HYDROX/AL HYDROX/SIMETH 30 ML UNIT-DOSE CUP PO ONE (11:50)
[2021-03-28] MEDS ORDERED: ONDANSETRON 4 MG/2 ML VIAL IVPUSH ONE (11:51)
[2021-03-28] MEDS ORDERED: FAMOTIDINE 20 MG TABLET ONE (12:02)
[2021-03-28] MEDS ORDERED: MAG HYDROX/AL HYDROX/SIMETH 30 ML UNIT-DOSE CUP ONE (12:02)
[2021-03-28] MEDS ORDERED: ONDANSETRON 4 MG/2 ML VIAL ONE (12:03)
[2021-03-28 12:11] LABS: BASO % 1.1 % (0-2.0); EOS % 4.7 % (0-4.5); HEMOGLOBIN 16.5 GM/dL (11.7-16.9); LYMPH % 45.6 % (8-40); MCH 32.6 pg (25.7-33.7); MCHC 34.5 g/dl (32.0-35.9); MEAN CELL VOLUME 94.6 fl (80-96); MEAN PLT VOLUME 7.4 fl (7.5-11.1); MONO % 5.7 % (3.8-10.2); NEUT % 42.9 % (42.8-82.8); PLATELET COUNT 343 10^3/uL (134-434); RBC 5.07 M/mm3 (4.00-5.60); RDW 13.3 % (11.9-15.9); WHITE BLOOD COUNT 5.3 K/mm3 (4.0-10.0)
[2021-03-28 12:18] LABS: ALBUMIN 3.5 g/dl (3.4-5.0); BLOOD UREA NITROGEN 5.8 mg/dL (7-18); CALCIUM 8.8 mg/dL (8.5-10.1)
[2021-03-28 12:21] LABS: CREATININE 0.7 mg/dL (0.55-1.3)
[2021-03-28 12:22] LABS: BILIRUBIN,TOTAL 0.4 mg/dL (0.2-1)
[2021-03-28 12:23] LABS: TOT PROT 6.9 g/dl (6.4-8.2)
== END 2021-03-28 13:10 | disposition home or self-care (01) ==
LOC: JER 11:17
DX: F10.10 Alcohol abuse, uncomplicated (principal); R11.10 Vomiting, unspecified
CPT/HCPCS: 36415; 80053; 83690; 85025; 93005; 93010; 99284-25; C9803; U0003; U0005

== ENCOUNTER 2021-03-28 14:02 | Inpatient (IN) | payer OTHER ==
[2021-03-28 16:04] VITALS: BMI 27.7
[2021-03-28] MEDS ORDERED: ACETAMINOPHEN 325 MG TABLET (FP) PO PRN ×2 (17:32)
[2021-03-28] MEDS ORDERED: MENTHOL/PHENOL 1 EACH UD MM PRN (17:32)
[2021-03-28] MEDS ORDERED: IBUPROFEN 400 MG TABLET (FP) PO PRN (17:32)
[2021-03-28] MEDS ORDERED: BISMUTH SUBSALICYLATE 524 MG/30 ML PO PRN (17:32)
[2021-03-28] MEDS ORDERED: ONDANSETRON *ODT* 4 MG TABLET SL PRN (17:32)
[2021-03-28] MEDS ORDERED: MAGNESIUM HYDROX 2400MG/30ML ORAL SUSPENSION 30 ML CUP PO PRN (17:32)
[2021-03-28] MEDS ORDERED: MAGNESIUM CITRATE 300 ML BOTTLE PO PRN (17:32)
[2021-03-28] MEDS ORDERED: MAG HYDROX/AL HYDROX/SIMETH 30 ML UNIT-DOSE CUP PO PRN (17:32)
[2021-03-28] MEDS: diazePAM 5 MG TABLET PO PRN (19:39)
[2021-03-28] MEDS: hydrOXYzine PAMOATE 25 MG CAPSULE (FP) PO SCH ×2 (19:40→22:12)
[2021-03-28] MEDS: NICOTINE POLACRILEX 2 MG GUM BUC PRN (19:50)
[2021-03-28] MEDS ORDERED: MELATONIN 5 MG TABLETS PO SCH (22:00)
[2021-03-28] MEDS ORDERED: THIAMINE HCL 100 MG TABLET (FP) PO SCH (22:00)
[2021-03-28] MEDS: diazePAM 5 MG TABLET PO SCH (22:12)
[2021-03-28] MEDS: METHOCARBAMOL 500 MG TABLET PO PRN (22:47)
[2021-03-29] MEDS: diazePAM 5 MG TABLET PO PRN ×2 (02:48→14:34)
[2021-03-29] MEDS: hydrOXYzine PAMOATE 25 MG CAPSULE (FP) PO SCH ×3 (06:34→14:34)
[2021-03-29] MEDS: diazePAM 5 MG TABLET PO SCH ×2 (06:34→10:24)
[2021-03-29] MEDS: NICOTINE POLACRILEX 2 MG GUM BUC PRN (09:27)
[2021-03-29] MEDS: METHOCARBAMOL 500 MG TABLET PO PRN (09:30)
[2021-03-29] MEDS ORDERED: NICOTINE 7 MG/24 HOURS TOPICAL PATCH TD SCH (10:00)
[2021-03-29] MEDS ORDERED: PRENATAL VITAMINS W/ FOLIC ACID TABLET (FP) PO SCH (10:00)
[2021-03-29 14:58] LABS: HEMATOCRIT 44.6 % (35.4-49); HEMOGLOBIN 15.3 GM/dL (11.7-16.9); MCH 32.6 pg (25.7-33.7); MCHC 34.3 g/dl (32.0-35.9); MEAN CELL VOLUME 95.1 fl (80-96); MEAN PLT VOLUME 8.4 fl (7.5-11.1); PLATELET COUNT 305 10^3/uL (134-434); RBC 4.69 M/mm3 (4.00-5.60); RDW 13.4 % (11.9-15.9); WHITE BLOOD COUNT 5.8 K/mm3 (4.0-10.0)
[2021-03-29 15:02] LABS: CALCIUM 9.2 mg/dL (8.5-10.1)
[2021-03-29 15:03] LABS: ALBUMIN 3.2 g/dl (3.4-5.0); BLOOD UREA NITROGEN 3.5 mg/dL (7-18)
[2021-03-29 15:06] LABS: CREATININE 0.7 mg/dL (0.55-1.3)
[2021-03-29 15:07] LABS: BILIRUBIN,TOTAL 0.7 mg/dL (0.2-1)
[2021-03-29 15:08] LABS: TOT PROT 6.4 g/dl (6.4-8.2)
[2021-03-29 16:18] LABS: HIV INTERPRETATION NEGATIVE (NEGATIVE)
[2021-03-29 18:58] VITALS: BP 133/91; PULSE 84; TEMP 97.1
[2021-03-30] MEDS ORDERED: diazePAM 5 MG TABLET PO SCH (06:00)
[2021-03-31] MEDS ORDERED: diazePAM 5 MG TABLET PO SCH (06:00)
[2021-04-01] MEDS ORDERED: diazePAM 5 MG TABLET PO ONE (06:00)
== END 2021-03-29 18:20 | disposition left against medical advice (07) | DRG 894 ==
LOC: YASAS 14:02 → Y3N 18:05
PROVIDERS: ADMIT Allergy & Immunology; ATTEND Allergy & Immunology
PROC: HZ2ZZZZ Detoxification Services for Substance Abuse Treatment (ICD-10-PCS; principal; 2021-03-28)
DX: F10.230 Alcohol dependence with withdrawal, uncomplicated (principal); F17.210 Nicotine dependence, cigarettes, uncomplicated; F25.9 Schizoaffective disorder, unspecified; F10.282 Alcohol dependence with alcohol-induced sleep disorder; F19.24 Other psychoactive substance dependence with psychoactive substance-induced mood disorder; F32.9 Major depressive disorder, single episode, unspecified; F41.9 Anxiety disorder, unspecified; G47.00 Insomnia, unspecified; Z88.0 Allergy status to penicillin; Z91.013 Allergy to seafood
CPT/HCPCS: 36415; 80053; 85027; 86780; 87389; C9803; Q0162; U0003; U0005

== ENCOUNTER 2021-08-10 09:44 | Emergency (ER) | payer OTHER ==
[2021-08-10 09:59] VITALS: TEMP 97.5; BMI 27.7
[2021-08-10] MEDS ORDERED: LACTATED RINGERS SOLUTION 1000 ML INFUS.BAG IV ONE ×2 (11:18→12:58)
[2021-08-10] MEDS ORDERED: ACETAMINOPHEN 1000 MG/100 ML VIAL IVPB ONE (11:18)
[2021-08-10] MEDS ORDERED: ONDANSETRON 4 MG/2 ML VIAL IVPUSH ONE (11:18)
[2021-08-10] MEDS ORDERED: FAMOTIDINE 20 MG/50 ML IVPB 20 MG/50 ML MG IVPB ONE (11:19)
[2021-08-10] MEDS ORDERED: MAG HYDROX/AL HYDROX/SIMETH 30 ML UNIT-DOSE CUP PO ONE (11:19)
[2021-08-10] MEDS ORDERED: ACETAMINOPHEN INJECTION 100 ML IVPB ONE (11:39)
[2021-08-10] MEDS ORDERED: ONDANSETRON 4 MG/2 ML VIAL ONE (11:39)
[2021-08-10] MEDS ORDERED: MAG HYDROX/AL HYDROX/SIMETH 30 ML UNIT-DOSE CUP ONE (11:39)
[2021-08-10 12:06] LABS: HEMATOCRIT 52.7 % (35.4-49); HEMOGLOBIN 17.7 GM/dL (11.7-16.9); LYMPH % 24.6 % (8-40); MCH 28.3 pg (25.7-33.7); MCHC 33.6 g/dl (32.0-35.9); MEAN CELL VOLUME 84.4 fl (80-96); MEAN PLT VOLUME 7.5 fl (7.5-11.1); MONO % 9.5 % (3.8-10.2); NEUT % 59.9 % (42.8-82.8); PLATELET COUNT 362 10^3/uL (134-434); RBC 6.25 M/mm3 (4.00-5.60); RDW 17.3 % (11.9-15.9); WHITE BLOOD COUNT 5.3 K/mm3 (4.0-10.0)
[2021-08-10 12:23] LABS: CALCIUM 9.9 mg/dL (8.5-10.1)
[2021-08-10 12:24] LABS: ALBUMIN 4.1 g/dl (3.4-5.0); BLOOD UREA NITROGEN 8.3 mg/dL (7-18)
[2021-08-10 12:27] LABS: CREATININE 0.8 mg/dL (0.55-1.3)
[2021-08-10 12:29] LABS: BILIRUBIN,TOTAL 2.2 mg/dL (0.2-1); TOT PROT 8.1 g/dl (6.4-8.2)
[2021-08-10] MEDS ORDERED: FAMOTIDINE 20 MG TABLET ONE (12:45)
[2021-08-10] MEDS ORDERED: FAMOTIDINE 10 MG TABLET PO ONE (12:45)
[2021-08-10 13:26] VITALS: BP 134/95; PULSE 87
== END 2021-08-10 13:40 | disposition home or self-care (01) ==
LOC: JER 09:44
PROC: 3E0333Z Introduction of Anti-inflammatory into Peripheral Vein, Percutaneous Approach (ICD-10-PCS; principal; 2021-08-10)
PROC: 3E033GC Introduction of Other Therapeutic Substance into Peripheral Vein, Percutaneous Approach (ICD-10-PCS; 2021-08-10)
DX: R11.2 Nausea with vomiting, unspecified (principal)
CPT/HCPCS: 36415; 80053; 83690; 85025; 93005; 93010; 99284-25; J0131

== ENCOUNTER 2021-10-14 17:03 | Emergency (ER) | payer OTHER ==
[2021-10-14 17:30] VITALS: BP 136/87; TEMP 98; BMI 21.4
[2021-10-14] MEDS ORDERED: SODIUM CHLORIDE 1,000 ML IV STA (17:52)
[2021-10-14] MEDS ORDERED: FAMOTIDINE 20 MG TABLET PO ONE (17:52)
[2021-10-14] MEDS ORDERED: FAMOTIDINE 20 MG TABLET ONE (17:59)
[2021-10-14] MEDS ORDERED: ONDANSETRON 4 MG/2 ML VIAL IVPUSH ONE (18:10)
[2021-10-14] MEDS ORDERED: ACETAMINOPHEN 1000 MG/100 ML BAG IVPB ONE (18:10)
[2021-10-14] MEDS ORDERED: ACETAMINOPHEN INJECTION 100 ML IVPB ONE (18:13)
[2021-10-14] MEDS ORDERED: ONDANSETRON 4 MG/2 ML VIAL ONE (18:13)
[2021-10-14 18:38] LABS: EOS % 7.2 % (0-4.5); HEMATOCRIT 52.7 % (35.4-49); LYMPH % 30.2 % (8-40); MCH 30.3 pg (25.7-33.7); MCHC 34.2 g/dl (32.0-35.9); MEAN CELL VOLUME 88.5 fl (80-96); MEAN PLT VOLUME 7.5 fl (7.5-11.1); MONO % 8.3 % (3.8-10.2); NEUT % 53.3 % (42.8-82.8); PLATELET COUNT 302 10^3/uL (134-434); RBC 5.96 M/mm3 (4.00-5.60); RDW 16.8 % (11.9-15.9); WHITE BLOOD COUNT 4.5 K/mm3 (4.0-10.0)
[2021-10-14 19:01] LABS: BLOOD UREA NITROGEN 4.6 mg/dL (7-18); CALCIUM 9.4 mg/dL (8.5-10.1)
[2021-10-14 19:04] LABS: CREATININE 0.7 mg/dL (0.55-1.3)
[2021-10-14 19:06] LABS: BILIRUBIN,TOTAL 1.1 mg/dL (0.2-1); TOT PROT 7.7 g/dl (6.4-8.2)
[2021-10-14] MEDS ORDERED: diazePAM CARPU-JECT 10 MG/2 ML DISP.SYRIN IVPUSH ONE (19:15)
[2021-10-14] MEDS ORDERED: LORazepam 2 MG/ML SDV VIAL IVPUSH ONE (19:28)
[2021-10-14 20:27] LABS: EPI CELLS 11 /uL (0-25.1); HYALINE CASTS 3 /uL (0-3.1); PH,URINE 8.5 (5.0-8.0); URINE APPEARANCE CLEAR; URINE BACTERIA 9 /uL (0-1359); URINE BILIRUBIN 1+ (NEGATIVE); URINE COLOR DK YELLOW; URINE GLUCOSE (UA) NEGATIVE (NEGATIVE); URINE KETONE TRACE (NEGATIVE); URINE LEUK ESTERASE NEGATIVE (NEGATIVE); URINE NITRITE NEGATIVE (NEGATIVE); URINE PROTEIN 2+ (NEGATIVE); URINE RBC 3 /uL (0-23.9); URINE WBC 5 /uL (0-25.8)
[2021-10-14 20:45] VITALS: PULSE 106
[2021-10-14 21:17] LABS: COCAINE, UR NEGATIVE (NEGATIVE); METHADONE, UR NEGATIVE (NEGATIVE); OPIATES, URI NEGATIVE (NEGATIVE); PHENCYCLIDINE,URINE NEGATIVE (NEGATIVE); URINE AMPHETAMINES NEGATIVE (NEGATIVE); URINE BARBITURATES NEGATIVE (NEGATIVE); URINE BENZODIAZEPINES NEGATIVE (NEGATIVE)
== END 2021-10-14 20:48 | disposition home or self-care (01) ==
LOC: JER 17:03
PROC: 3E033NZ Introduction of Analgesics, Hypnotics, Sedatives into Peripheral Vein, Percutaneous Approach (ICD-10-PCS; principal; 2021-10-14)
PROC: 3E0337Z Introduction of Electrolytic and Water Balance Substance into Peripheral Vein, Percutaneous Approach (ICD-10-PCS; 2021-10-14)
PROC: 3E033GC Introduction of Other Therapeutic Substance into Peripheral Vein, Percutaneous Approach (ICD-10-PCS; 2021-10-14)
PROC: 3E033GC Introduction of Other Therapeutic Substance into Peripheral Vein, Percutaneous Approach (ICD-10-PCS; 2021-10-14)
PROC: 3E033GC Introduction of Other Therapeutic Substance into Peripheral Vein, Percutaneous Approach (ICD-10-PCS; 2021-10-14)
DX: F10.10 Alcohol abuse, uncomplicated (principal); E86.0 Dehydration
CPT/HCPCS: 36415; 80053; 80307; 81003; 83690; 85025; 96365; 96374; 96375; 99285-25

== ENCOUNTER 2021-11-18 22:10 | Inpatient (IN) | payer OTHER ==
[2021-11-19] MEDS ORDERED: FAMOTIDINE 20 MG/50 ML IVPB 20 MG/50 ML MG IVPB ONE ×2 (00:21→00:33)
[2021-11-19] MEDS ORDERED: LORazepam 2 MG/ML SDV VIAL IVPUSH ONE (00:21)
[2021-11-19] MEDS ORDERED: SODIUM CHLORIDE 0.9% 500 ML INFUS.BAG IV ONE (00:41)
[2021-11-19] MEDS ORDERED: ONDANSETRON 4 MG/2 ML VIAL IVPUSH ONE (00:42)
[2021-11-19] MEDS ORDERED: KETOROLAC TROMETHAMINE 30 MG/1 ML VIAL IVPUSH ONE (00:47)
[2021-11-19] MEDS ORDERED: KETOROLAC TROMETHAMINE 30 MG/1 ML VIAL ONE (00:58)
[2021-11-19] MEDS ORDERED: ONDANSETRON 4 MG/2 ML VIAL ONE (00:58)
[2021-11-19 01:06] LABS: EPI CELLS 32 /uL (0-25.1); HYALINE CASTS 66 /uL (0-3.1); PH,URINE 5.5 (5.0-8.0); URINE APPEARANCE CLOUDY; URINE BACTERIA 8 /uL (0-1359); URINE BILIRUBIN 2+ (NEGATIVE); URINE COLOR DK YELLOW; URINE GLUCOSE (UA) NEGATIVE (NEGATIVE); URINE KETONE 4+ (NEGATIVE); URINE LEUK ESTERASE TRACE (NEGATIVE); URINE NITRITE NEGATIVE (NEGATIVE); URINE PROTEIN 2+ (NEGATIVE); URINE RBC 2 /uL (0-23.9); URINE WBC 15 /uL (0-25.8)
[2021-11-19 01:26] LABS: CHLORIDE 93 mmol/L (98-107); SODIUM 127 mmol/L (136-145)
[2021-11-19 01:28] LABS: BASO % 0.3 % (0-2.0); CALCIUM 9.9 mg/dL (8.5-10.1); EOS % 3.6 % (0-4.5); GLUCOSE,RANDOM 117 mg/dL (74-106); HEMATOCRIT 51.1 % (35.4-49); HEMOGLOBIN 17.6 GM/dL (11.7-16.9); LYMPH % 25.9 % (8-40); MCHC 34.4 g/dl (32.0-35.9); MEAN CELL VOLUME 90.2 fl (80-96); MEAN PLT VOLUME 8.5 fl (7.5-11.1); MONO % 6.5 % (3.8-10.2); NEUT % 63.7 % (42.8-82.8); PLATELET COUNT 265 10^3/uL (134-434); RBC 5.67 M/mm3 (4.00-5.60); RDW 14.8 % (11.9-15.9); WHITE BLOOD COUNT 6.8 K/mm3 (4.0-10.0)
[2021-11-19 01:29] LABS: ALBUMIN 4.2 g/dl (3.4-5.0); BLOOD UREA NITROGEN 13.2 mg/dL (7-18); CO2 26 mmol/L (21-32)
[2021-11-19 01:32] LABS: CREATININE 1.1 mg/dL (0.55-1.3)
[2021-11-19 01:33] LABS: BILIRUBIN,TOTAL 1.8 mg/dL (0.2-1); TOT PROT 9.2 g/dl (6.4-8.2)
[2021-11-19 01:34] LABS: ALK PHOS 104 U/L (45-117)
[2021-11-19 01:38] LABS: ANION GAP 8 MMOL/L (8-16); LIPASE 1802 U/L (73-393); SGOT/AST 136 U/L (15-37); SGPT/ALT 48 U/L (13-61)
[2021-11-19 02:26] LABS: CALCIUM 9.7 mg/dL (8.5-10.1)
[2021-11-19 02:27] LABS: ALBUMIN 4.4 g/dl (3.4-5.0); BLOOD UREA NITROGEN 13.7 mg/dL (7-18)
[2021-11-19 02:31] LABS: BILIRUBIN,TOTAL 1.7 mg/dL (0.2-1); TOT PROT 8.1 g/dl (6.4-8.2)
[2021-11-19] MEDS ORDERED: morphine SULFATE 4 MG/ML VIAL IVPUSH PRN (03:16)
[2021-11-19] MEDS ORDERED: TRIMETHOBENZAMIDE HCL 200MG/2ML INJ IM PRN (03:19)
[2021-11-19] MEDS ORDERED: oxyCODONE HCL 5 MG TABLET PO SCH (03:30)
[2021-11-19] MEDS ORDERED: oxyCODONE HCL 5 MG TABLET ONE (04:20)
[2021-11-19] MEDS ORDERED: oxyCODONE HCL 5 MG TABLET PO PRN (04:28)
[2021-11-19] MEDS: LACTATED RINGERS SOLUTION 1,000 ML/1,000 ML INFUS.BAG IV SCH ×4 (04:30→21:40)
[2021-11-19] MEDS ORDERED: LORazepam 1 MG TABLET PO PRN (04:33)
[2021-11-19] MEDS ORDERED: LORazepam 1 MG TABLET ONE (05:21)
[2021-11-19] MEDS: LORazepam 1 MG TABLET PO SCH ×4 (05:35→22:45)
[2021-11-19 06:48] VITALS: BMI 23.8
[2021-11-19 07:18] LABS: BASO % 0.4 % (0-2.0); EOS % 6.8 % (0-4.5); HEMATOCRIT 46.2 % (35.4-49); LYMPH % 28.1 % (8-40); MCH 31.6 pg (25.7-33.7); MCHC 34.8 g/dl (32.0-35.9); MEAN CELL VOLUME 90.9 fl (80-96); MEAN PLT VOLUME 8.3 fl (7.5-11.1); NEUT % 57.7 % (42.8-82.8); PLATELET COUNT 203 10^3/uL (134-434); RBC 5.08 M/mm3 (4.00-5.60); RDW 14.8 % (11.9-15.9); WHITE BLOOD COUNT 6.7 K/mm3 (4.0-10.0)
[2021-11-19 07:37] LABS: CALCIUM 9.2 mg/dL (8.5-10.1)
[2021-11-19 07:38] LABS: ALBUMIN 3.8 g/dl (3.4-5.0); BLOOD UREA NITROGEN 13.2 mg/dL (7-18); MAGNESIUM 2.2 mg/dL (1.8-2.4)
[2021-11-19 07:41] LABS: CREATININE 0.8 mg/dL (0.55-1.3); PHOSPHOROUS 3.8 mg/dL (2.5-4.9)
[2021-11-19 07:42] LABS: BILIRUBIN,TOTAL 1.6 mg/dL (0.2-1)
[2021-11-19] MEDS: ENOXAPARIN NA (PORCINE) 40 MG/0.4 ML DISP.SYRIN SQ SCH (09:58)
[2021-11-19] MEDS: THIAMINE HCL 100 MG TABLET (FP) PO SCH (09:58)
[2021-11-19] MEDS: FOLIC ACID 1 MG TABLET (FP) PO SCH (09:58)
[2021-11-19] MEDS: NYSTATIN 500,000 UNITS/5 ML SUSPENSION PO SCH ×2 (12:01→17:39)
[2021-11-19] MEDS: NICOTINE 7 MG/24 HOURS TOPICAL PATCH TD SCH (13:22)
[2021-11-19 14:55] LABS: HIV INTERPRETATION NEGATIVE (NEGATIVE)
[2021-11-20] MEDS: NYSTATIN 500,000 UNITS/5 ML SUSPENSION PO SCH ×3 (00:49→11:25)
[2021-11-20] MEDS: LACTATED RINGERS SOLUTION 1,000 ML/1,000 ML INFUS.BAG IV SCH ×4 (02:14→15:50)
[2021-11-20] MEDS: LORazepam 1 MG TABLET PO SCH ×4 (05:55→22:14)
[2021-11-20 09:43] LABS: HEMATOCRIT 41.9 % (35.4-49); HEMOGLOBIN 14.5 GM/dL (11.7-16.9); MCH 31.5 pg (25.7-33.7); MCHC 34.6 g/dl (32.0-35.9); MEAN CELL VOLUME 90.9 fl (80-96); MEAN PLT VOLUME 8.5 fl (7.5-11.1); PLATELET COUNT 164 10^3/uL (134-434); RBC 4.61 M/mm3 (4.00-5.60); RDW 14.5 % (11.9-15.9); WHITE BLOOD COUNT 5.5 K/mm3 (4.0-10.0)
[2021-11-20] MEDS: FOLIC ACID 1 MG TABLET (FP) PO SCH (10:08)
[2021-11-20] MEDS: ENOXAPARIN NA (PORCINE) 40 MG/0.4 ML DISP.SYRIN SQ SCH (10:08)
[2021-11-20] MEDS: THIAMINE HCL 100 MG TABLET (FP) PO SCH (10:08)
[2021-11-20] MEDS: NICOTINE 7 MG/24 HOURS TOPICAL PATCH TD SCH (10:09)
[2021-11-20 10:24] LABS: CALCIUM 8.8 mg/dL (8.5-10.1)
[2021-11-20 10:25] LABS: ALBUMIN 3.2 g/dl (3.4-5.0); BLOOD UREA NITROGEN 3.6 mg/dL (7-18)
[2021-11-20 10:28] LABS: CREATININE 0.5 mg/dL (0.55-1.3)
[2021-11-20 10:29] LABS: TOT PROT 5.9 g/dl (6.4-8.2)
[2021-11-20 10:30] LABS: BILIRUBIN,TOTAL 1.2 mg/dL (0.2-1)
[2021-11-20] MEDS ORDERED: POTASSIUM CHLORIDE TABS 20 MEQ TABLET.ER (FP) PO ONE (11:30)
[2021-11-20] MEDS ORDERED: NICOTINE POLACRILEX 2 MG GUM BUC PRN (16:25)
[2021-11-20] MEDS ORDERED: oxyCODONE HCL 5 MG TABLET PO PRN (17:21)
[2021-11-21] MEDS ORDERED: LORazepam 0.5 MG TABLET PO PRN
[2021-11-21] MEDS ORDERED: MELATONIN 5 MG TABLETS PO ONE (00:36)
[2021-11-21] MEDS: LACTATED RINGERS SOLUTION 1,000 ML/1,000 ML INFUS.BAG IV SCH ×2 (02:08→04:40)
[2021-11-21] MEDS: LORazepam 0.5 MG TABLET PO SCH ×2 (05:07→11:04)
[2021-11-21 08:20] LABS: CHLORIDE 108 mmol/L (98-107); SODIUM 141 mmol/L (136-145)
[2021-11-21 08:29] LABS: ALBUMIN 2.9 g/dl (3.4-5.0); ANION GAP 6 MMOL/L (8-16); CALCIUM 8.5 mg/dL (8.5-10.1); CO2 27 mmol/L (21-32); GLUCOSE,RANDOM 95 mg/dL (74-106)
[2021-11-21 08:32] LABS: CREATININE 0.5 mg/dL (0.55-1.3); SGOT/AST 81 U/L (15-37); SGPT/ALT 49 U/L (13-61)
[2021-11-21 08:34] LABS: BILIRUBIN,TOTAL 0.8 mg/dL (0.2-1); TOT PROT 5.7 g/dl (6.4-8.2)
[2021-11-21 08:35] LABS: ALK PHOS 76 U/L (45-117)
[2021-11-21 08:46] LABS: HEMATOCRIT 40.9 % (35.4-49); HEMOGLOBIN 13.7 GM/dL (11.7-16.9); RBC 4.45 M/mm3 (4.00-5.60); WHITE BLOOD COUNT 4.8 K/mm3 (4.0-10.0)
[2021-11-21 08:47] LABS: BLOOD UREA NITROGEN 1.1 mg/dL (7-18); MCH 30.8 pg (25.7-33.7); MCHC 33.5 g/dl (32.0-35.9); MEAN PLT VOLUME 9.1 fl (7.5-11.1); PLATELET COUNT 169 10^3/uL (134-434); RDW 14.2 % (11.9-15.9)
[2021-11-21] MEDS: FOLIC ACID 1 MG TABLET (FP) PO SCH (10:57)
[2021-11-21] MEDS: THIAMINE HCL 100 MG TABLET (FP) PO SCH (10:57)
[2021-11-21] MEDS: ENOXAPARIN NA (PORCINE) 40 MG/0.4 ML DISP.SYRIN SQ SCH (10:57)
[2021-11-21] MEDS: NICOTINE 7 MG/24 HOURS TOPICAL PATCH TD SCH (10:58)
[2021-11-21 11:05] LABS: LIPASE 1062 U/L (73-393)
[2021-11-21] MEDS ORDERED: LACTATED RINGERS SOLUTION 1,000 ML/1,000 ML INFUS.BAG IV SCH (12:22)
[2021-11-21 16:13] VITALS: BP 141/99; PULSE 94; TEMP 98.1
[2021-11-22] MEDS ORDERED: LORazepam 0.5 MG TABLET PO ONE (05:00)
== END 2021-11-21 18:38 | disposition home or self-care (01) | DRG 439 ==
LOC: JER 22:10 → JERBED 11-19 03:12 → J8W 11-19 05:53
PROVIDERS: ADMIT Internal Medicine; ATTEND Internal Medicine
DX: K85.20 Alcohol induced acute pancreatitis without necrosis or infection (principal); K82.1 Hydrops of gallbladder; B37.0 Candidal stomatitis; E87.1 Hypo-osmolality and hyponatremia; F10.230 Alcohol dependence with withdrawal, uncomplicated; F32.A Depression, unspecified; F41.9 Anxiety disorder, unspecified; K44.9 Diaphragmatic hernia without obstruction or gangrene; K76.0 Fatty (change of) liver, not elsewhere classified; N28.1 Cyst of kidney, acquired; G47.00 Insomnia, unspecified; F17.210 Nicotine dependence, cigarettes, uncomplicated; E86.1 Hypovolemia; R74.01 Elevation of levels of liver transaminase levels; N28.89 Other specified disorders of kidney and ureter
CPT/HCPCS: 36415; 74177-TC; 76705-TC; 80053; 80061; 80307; 81003; 83690; 83735; 84100; 84478; 85025; 85027; 87086; 87186; 87389; 93005; 93010; 99285-25; C9803-CS; U0003; U0005

== ENCOUNTER 2021-12-13 01:45 | Emergency (ER) | payer OTHER ==
[2021-12-13 01:56] VITALS: TEMP 97.3; BMI 23.6
[2021-12-13] MEDS ORDERED: SODIUM CHLORIDE 0.9% 500 ML INFUS.BAG IV ONE ×2 (02:06→04:29)
[2021-12-13] MEDS ORDERED: FAMOTIDINE 20 MG/50 ML IVPB 20 MG/50 ML MG IVPB ONE ×2 (02:08→02:23)
[2021-12-13] MEDS ORDERED: ONDANSETRON 4 MG/2 ML VIAL IVPUSH ONE (02:08)
[2021-12-13] MEDS ORDERED: MAG HYDROX/AL HYDROX/SIMETH 30 ML UNIT-DOSE CUP PO ONE (02:09)
[2021-12-13] MEDS ORDERED: LORazepam 2 MG/ML SDV VIAL IVPUSH ONE (02:11)
[2021-12-13] MEDS ORDERED: THIAMINE HCL 200 MG/2 ML VIAL IVPB ONE (02:12)
[2021-12-13] MEDS ORDERED: FOLIC ACID 1 MG TABLET (FP) PO ONE (02:12)
[2021-12-13] MEDS ORDERED: ONDANSETRON 4 MG/2 ML VIAL ONE (02:23)
[2021-12-13] MEDS ORDERED: FOLIC ACID 1 MG TABLET (FP) ONE (02:23)
[2021-12-13] MEDS ORDERED: MAG HYDROX/AL HYDROX/SIMETH 30 ML UNIT-DOSE CUP ONE (02:23)
[2021-12-13] MEDS ORDERED: THIAMINE HCL 200 MG/2 ML VIAL ONE (02:23)
[2021-12-13 02:36] LABS: BASO % 1.1 % (0-2.0); EOS % 12.4 % (0-4.5); HEMATOCRIT 51.3 % (35.4-49); HEMOGLOBIN 17.6 GM/dL (11.7-16.9); LYMPH % 50.4 % (8-40); MCHC 34.2 g/dl (32.0-35.9); MEAN CELL VOLUME 90.8 fl (80-96); MEAN PLT VOLUME 7.6 fl (7.5-11.1); MONO % 9.8 % (3.8-10.2); NEUT % 26.3 % (42.8-82.8); PLATELET COUNT 325 10^3/uL (134-434); RBC 5.66 M/mm3 (4.00-5.60); RDW 13.9 % (11.9-15.9); WHITE BLOOD COUNT 4.9 K/mm3 (4.0-10.0)
[2021-12-13 02:55] LABS: CALCIUM 8.7 mg/dL (8.5-10.1)
[2021-12-13 02:56] LABS: ALBUMIN 3.8 g/dl (3.4-5.0); BLOOD UREA NITROGEN 4.4 mg/dL (7-18); MAGNESIUM 2.2 mg/dL (1.8-2.4)
[2021-12-13 02:59] LABS: CREATININE 0.7 mg/dL (0.55-1.3); PHOSPHOROUS 3.1 mg/dL (2.5-4.9)
[2021-12-13 03:00] LABS: BILIRUBIN,TOTAL 0.8 mg/dL (0.2-1); TOT PROT 7.5 g/dl (6.4-8.2)
[2021-12-13] MEDS ORDERED: chlordiazePOXIDE HCL 25 MG CAPSULE PO ONE (03:35)
[2021-12-13] MEDS ORDERED: BUPRENORPHINE/NALOXONE 4 MG/1 MG FILM PACKET SL ONE (03:37)
[2021-12-13] MEDS ORDERED: BUPRENORPHINE/NALOXONE 2 MG/0.5 MG FILM PACKET ONE (03:58)
[2021-12-13 04:08] VITALS: BP 137/94; PULSE 95
== END 2021-12-13 04:50 | disposition home or self-care (01) ==
LOC: JER 01:45
PROC: 3E033GC Introduction of Other Therapeutic Substance into Peripheral Vein, Percutaneous Approach (ICD-10-PCS; principal; 2021-12-13)
DX: F10.10 Alcohol abuse, uncomplicated (principal)
CPT/HCPCS: 36415; 80053; 83690; 83735; 84100; 85025; 99284-25

== ENCOUNTER 2021-12-13 08:22 | Inpatient (IN) | payer OTHER ==
[2021-12-13 08:55] VITALS: BMI 24.9
[2021-12-13] MEDS ORDERED: chlordiazePOXIDE HCL 25 MG CAPSULE PO PRN (09:50)
[2021-12-13] MEDS ORDERED: ACETAMINOPHEN 325 MG TABLET (FP) PO PRN (09:50)
[2021-12-13] MEDS ORDERED: LOPERAMIDE HCL 2 MG CAPSULE PO PRN (09:50)
[2021-12-13] MEDS ORDERED: DICYCLOMINE HCL 10 MG CAPSULE PO PRN (09:50)
[2021-12-13] MEDS ORDERED: MAGNESIUM HYDROX 2400MG/30ML ORAL SUSPENSION 30 ML CUP PO PRN (09:50)
[2021-12-13] MEDS ORDERED: IBUPROFEN 400 MG TABLET (FP) PO PRN (09:50)
[2021-12-13] MEDS ORDERED: BENZOCAINE/MENTHOL (CHLORASEPTIC ) LOZENGE MM PRN (09:50)
[2021-12-13] MEDS ORDERED: MAG HYDROX/AL HYDROX/SIMETH 30 ML UNIT-DOSE CUP PO PRN (09:50)
[2021-12-13] MEDS ORDERED: MAGNESIUM CITRATE 300 ML BOTTLE PO PRN (09:50)
[2021-12-13] MEDS ORDERED: ONDANSETRON *ODT* 4 MG TABLET SL PRN (09:50)
[2021-12-13] MEDS: PRENATAL VITAMINS W/ FOLIC ACID TABLET (FP) PO SCH (11:05)
[2021-12-13] MEDS: chlordiazePOXIDE HCL 25 MG CAPSULE PO SCH ×3 (11:05→22:09)
[2021-12-13] MEDS: hydrOXYzine PAMOATE 25 MG CAPSULE (FP) PO SCH ×4 (11:05→22:09)
[2021-12-13] MEDS: NICOTINE 10 MG CARTRIDGE (INHALER) IH PRN (15:21)
[2021-12-13] MEDS: ACETAMINOPHEN 325 MG TABLET (FP) PO PRN (17:53)
[2021-12-13] MEDS: THIAMINE HCL 100 MG TABLET (FP) PO SCH (22:09)
[2021-12-13] MEDS: MELATONIN 5 MG TABLETS PO SCH (22:09)
[2021-12-14] MEDS: chlordiazePOXIDE HCL 25 MG CAPSULE PO SCH ×4 (06:02→22:31)
[2021-12-14] MEDS: NICOTINE 10 MG CARTRIDGE (INHALER) IH PRN (06:02)
[2021-12-14] MEDS: hydrOXYzine PAMOATE 25 MG CAPSULE (FP) PO SCH ×5 (06:02→22:30)
[2021-12-14] MEDS: BISMUTH SUBSALICYLATE 524 MG/30 ML PO PRN (08:35)
[2021-12-14] MEDS: PRENATAL VITAMINS W/ FOLIC ACID TABLET (FP) PO SCH (10:17)
[2021-12-14] MEDS: MELATONIN 5 MG TABLETS PO SCH (22:30)
[2021-12-14] MEDS: THIAMINE HCL 100 MG TABLET (FP) PO SCH (22:30)
[2021-12-15] MEDS: chlordiazePOXIDE HCL 25 MG CAPSULE PO SCH ×4 (05:33→22:27)
[2021-12-15] MEDS: hydrOXYzine PAMOATE 25 MG CAPSULE (FP) PO SCH ×5 (05:33→22:27)
[2021-12-15] MEDS: NICOTINE POLACRILEX 2 MG GUM BUC PRN ×4 (05:36→22:32)
[2021-12-15 08:06] LABS: SARS-CoV-2 NAA Not Detected (Not Detected)
[2021-12-15] MEDS: PRENATAL VITAMINS W/ FOLIC ACID TABLET (FP) PO SCH (10:33)
[2021-12-15] MEDS: METHOCARBAMOL 500 MG TABLET PO PRN ×2 (10:35→22:29)
[2021-12-15] MEDS: ACETAMINOPHEN 325 MG TABLET (FP) PO PRN (17:38)
[2021-12-15] MEDS: MELATONIN 5 MG TABLETS PO SCH (22:27)
[2021-12-15] MEDS: THIAMINE HCL 100 MG TABLET (FP) PO SCH (22:27)
[2021-12-16] MEDS ORDERED: chlordiazePOXIDE HCL 10 MG CAPSULE PO PRN
[2021-12-16] MEDS: ACETAMINOPHEN 325 MG TABLET (FP) PO PRN ×2 (06:17→13:41)
[2021-12-16] MEDS: hydrOXYzine PAMOATE 25 MG CAPSULE (FP) PO SCH ×5 (06:17→22:01)
[2021-12-16] MEDS: chlordiazePOXIDE HCL 10 MG CAPSULE PO SCH ×4 (06:17→22:02)
[2021-12-16] MEDS: NICOTINE POLACRILEX 2 MG GUM BUC PRN ×4 (06:20→18:02)
[2021-12-16] MEDS: METHOCARBAMOL 500 MG TABLET PO PRN (06:20)
[2021-12-16] MEDS: PRENATAL VITAMINS W/ FOLIC ACID TABLET (FP) PO SCH (10:32)
[2021-12-16] MEDS: BISMUTH SUBSALICYLATE 524 MG/30 ML PO PRN (15:56)
[2021-12-16] MEDS: MELATONIN 5 MG TABLETS PO SCH (22:02)
[2021-12-16] MEDS: THIAMINE HCL 100 MG TABLET (FP) PO SCH (22:02)
[2021-12-17] MEDS: METHOCARBAMOL 500 MG TABLET PO PRN ×2 (00:22→18:03)
[2021-12-17] MEDS: hydrOXYzine PAMOATE 25 MG CAPSULE (FP) PO SCH ×5 (05:48→22:40)
[2021-12-17] MEDS: chlordiazePOXIDE HCL 10 MG CAPSULE PO SCH ×2 (05:49→18:03)
[2021-12-17] MEDS: ACETAMINOPHEN 325 MG TABLET (FP) PO PRN ×2 (05:52→15:46)
[2021-12-17] MEDS: PRENATAL VITAMINS W/ FOLIC ACID TABLET (FP) PO SCH (09:49)
[2021-12-17] MEDS: NICOTINE POLACRILEX 2 MG GUM BUC PRN (09:50)
[2021-12-17 09:57] LABS: BASO % 0.4 % (0-2.0); EOS % 13.9 % (0-4.5); HEMATOCRIT 46.1 % (35.4-49); HEMOGLOBIN 15.4 GM/dL (11.7-16.9); LYMPH % 31.6 % (8-40); MCH 31.4 pg (25.7-33.7); MCHC 33.5 g/dl (32.0-35.9); MEAN CELL VOLUME 93.7 fl (80-96); MEAN PLT VOLUME 8.8 fl (7.5-11.1); MONO % 4.6 % (3.8-10.2); NEUT % 49.5 % (42.8-82.8); PLATELET COUNT 190 10^3/uL (134-434); RBC 4.92 M/mm3 (4.00-5.60); RDW 13.8 % (11.9-15.9); WHITE BLOOD COUNT 6.4 K/mm3 (4.0-10.0)
[2021-12-17 10:14] LABS: ALBUMIN 3.4 g/dl (3.4-5.0); BLOOD UREA NITROGEN 10.3 mg/dL (7-18)
[2021-12-17 10:17] LABS: CREATININE 0.6 mg/dL (0.55-1.3)
[2021-12-17 10:18] LABS: BILIRUBIN,TOTAL 0.5 mg/dL (0.2-1)
[2021-12-17] MEDS: NICOTINE 10 MG CARTRIDGE (INHALER) IH PRN ×2 (15:44→22:41)
[2021-12-17] MEDS: NICOTINE POLACRILEX 4 MG GUM BUC PRN ×2 (18:11→20:30)
[2021-12-17] MEDS: MELATONIN 5 MG TABLETS PO SCH (22:40)
[2021-12-17] MEDS: THIAMINE HCL 100 MG TABLET (FP) PO SCH (22:40)
[2021-12-18] MEDS: ACETAMINOPHEN 325 MG TABLET (FP) PO PRN ×2 (00:17→10:41)
[2021-12-18] MEDS: NICOTINE 10 MG CARTRIDGE (INHALER) IH PRN ×2 (02:49→06:11)
[2021-12-18] MEDS ORDERED: chlordiazePOXIDE HCL 10 MG CAPSULE PO ONE (05:00)
[2021-12-18] MEDS: hydrOXYzine PAMOATE 25 MG CAPSULE (FP) PO SCH ×2 (05:06→10:42)
[2021-12-18 09:14] VITALS: BP 124/79; PULSE 93; TEMP 97.6
[2021-12-18] MEDS: PRENATAL VITAMINS W/ FOLIC ACID TABLET (FP) PO SCH (10:42)
== END 2021-12-18 12:59 | disposition other institution (70) | DRG 897 ==
LOC: YASAS 08:22 → Y3N 10:35
PROVIDERS: ADMIT Allergy & Immunology; ATTEND Allergy & Immunology
PROC: HZ2ZZZZ Detoxification Services for Substance Abuse Treatment (ICD-10-PCS; principal; 2021-12-13)
DX: F10.230 Alcohol dependence with withdrawal, uncomplicated (principal); F12.20 Cannabis dependence, uncomplicated; F17.210 Nicotine dependence, cigarettes, uncomplicated; F10.282 Alcohol dependence with alcohol-induced sleep disorder; F25.9 Schizoaffective disorder, unspecified; F42.9 Obsessive-compulsive disorder, unspecified; F32.A Depression, unspecified; F43.21 Adjustment disorder with depressed mood; Z28.310 Unvaccinated for COVID-19; Z87.19 Personal history of other diseases of the digestive system; Z88.0 Allergy status to penicillin; Z91.013 Allergy to seafood; Z91.010 Allergy to peanuts; Z56.0 Unemployment, unspecified
CPT/HCPCS: 36415; 80048; 80053; 85025; 86780; 87811; C9803-CS; Q0162; U0003; U0005

== ENCOUNTER 2021-12-18 12:49 | Inpatient (IN) | payer OTHER ==
[2021-12-18] MEDS ORDERED: P-EPHED 60MG/TRIPROLIDI 2.5MG TABLET PO PRN (14:26)
[2021-12-18] MEDS ORDERED: MAGNESIUM HYDROX 2400MG/30ML ORAL SUSPENSION 30 ML CUP PO PRN (14:26)
[2021-12-18] MEDS ORDERED: BENZOCAINE/MENTHOL (CHLORASEPTIC ) LOZENGE MM PRN (14:26)
[2021-12-18] MEDS ORDERED: LOPERAMIDE HCL 2 MG CAPSULE PO PRN (14:26)
[2021-12-18] MEDS ORDERED: guaiFENesin 200 MG/10 ML 10 ML UNIT-DOSE CUPS PO PRN (14:26)
[2021-12-18] MEDS ORDERED: MAGNESIUM CITRATE 300 ML BOTTLE PO PRN (14:26)
[2021-12-18] MEDS ORDERED: MAG HYDROX/AL HYDROX/SIMETH 30 ML UNIT-DOSE CUP PO PRN (14:26)
[2021-12-18] MEDS: hydrOXYzine PAMOATE 25 MG CAPSULE (FP) PO PRN ×2 (14:59→19:13)
[2021-12-18] MEDS: NICOTINE 10 MG CARTRIDGE (INHALER) IH PRN ×2 (18:07→21:43)
[2021-12-18] MEDS: ACETAMINOPHEN 325 MG TABLET (FP) PO PRN (21:40)
[2021-12-18] MEDS: THIAMINE HCL 100 MG TABLET (FP) PO SCH (21:40)
[2021-12-18] MEDS: MELATONIN 5 MG TABLETS PO SCH (21:40)
[2021-12-19] MEDS: NICOTINE 10 MG CARTRIDGE (INHALER) IH PRN ×4 (07:21→22:28)
[2021-12-19] MEDS ORDERED: NICOTINE 7 MG/24 HOURS TOPICAL PATCH TD SCH (10:00)
[2021-12-19] MEDS: hydrOXYzine PAMOATE 25 MG CAPSULE (FP) PO PRN ×3 (10:25→21:34)
[2021-12-19] MEDS: PRENATAL VITAMINS W/ FOLIC ACID TABLET (FP) PO SCH (10:25)
[2021-12-19] MEDS: ACETAMINOPHEN 325 MG TABLET (FP) PO PRN ×3 (10:26→22:27)
[2021-12-19] MEDS: NICOTINE POLACRILEX 4 MG GUM BUC PRN ×3 (13:34→21:36)
[2021-12-19] MEDS: IBUPROFEN 400 MG TABLET (FP) PO PRN ×2 (13:36→21:34)
[2021-12-19] MEDS: METHOCARBAMOL 500 MG TABLET PO PRN ×2 (13:36→21:34)
[2021-12-19] MEDS: MELATONIN 5 MG TABLETS PO SCH (21:34)
[2021-12-19] MEDS: THIAMINE HCL 100 MG TABLET (FP) PO SCH (21:35)
[2021-12-20] MEDS: hydrOXYzine PAMOATE 25 MG CAPSULE (FP) PO PRN ×4 (01:34→21:15)
[2021-12-20] MEDS: PRENATAL VITAMINS W/ FOLIC ACID TABLET (FP) PO SCH (10:09)
[2021-12-20] MEDS: IBUPROFEN 400 MG TABLET (FP) PO PRN (10:09)
[2021-12-20] MEDS: METHOCARBAMOL 500 MG TABLET PO PRN ×3 (10:10→21:15)
[2021-12-20] MEDS: NICOTINE 10 MG CARTRIDGE (INHALER) IH PRN ×3 (10:10→18:11)
[2021-12-20] MEDS: NICOTINE POLACRILEX 4 MG GUM BUC PRN ×3 (10:12→14:30)
[2021-12-20] MEDS: ACETAMINOPHEN 325 MG TABLET (FP) PO PRN ×2 (14:29→21:16)
[2021-12-20] MEDS: MELATONIN 5 MG TABLETS PO SCH (21:14)
[2021-12-20] MEDS: THIAMINE HCL 100 MG TABLET (FP) PO SCH (21:15)
[2021-12-21] MEDS: NICOTINE 10 MG CARTRIDGE (INHALER) IH PRN ×3 (00:05→17:27)
[2021-12-21] MEDS: METHOCARBAMOL 500 MG TABLET PO PRN ×3 (03:50→17:01)
[2021-12-21] MEDS: ACETAMINOPHEN 325 MG TABLET (FP) PO PRN (03:50)
[2021-12-21] MEDS: NICOTINE POLACRILEX 4 MG GUM BUC PRN ×2 (06:07→10:14)
[2021-12-21 07:17] VITALS: BP 125/87; PULSE 91; TEMP 97.8
[2021-12-21] MEDS: hydrOXYzine PAMOATE 25 MG CAPSULE (FP) PO PRN ×2 (10:10→14:23)
[2021-12-21] MEDS: PRENATAL VITAMINS W/ FOLIC ACID TABLET (FP) PO SCH (10:10)
[2021-12-21] MEDS: IBUPROFEN 400 MG TABLET (FP) PO PRN (10:11)
[2021-12-21] MEDS ORDERED: QUEtiapine FUMARATE 50 MG TABLET PO SCH (22:00)
[2021-12-22 10:09] LABS: SARS-CoV-2 NAA Not Detected (Not Detected)
== END 2021-12-21 18:48 | disposition left against medical advice (07) | DRG 894 ==
LOC: YASAS 12:49 → Y5N 12:51
PROVIDERS: ADMIT Allergy & Immunology; ATTEND Allergy & Immunology
PROC: HZ2ZZZZ Detoxification Services for Substance Abuse Treatment (ICD-10-PCS; principal; 2021-12-18)
DX: F10.20 Alcohol dependence, uncomplicated (principal); F12.20 Cannabis dependence, uncomplicated; F17.210 Nicotine dependence, cigarettes, uncomplicated; F10.282 Alcohol dependence with alcohol-induced sleep disorder; F25.9 Schizoaffective disorder, unspecified; F31.9 Bipolar disorder, unspecified; Z87.19 Personal history of other diseases of the digestive system; Z88.0 Allergy status to penicillin; Z91.010 Allergy to peanuts; Z91.013 Allergy to seafood
CPT/HCPCS: C9803-CS; U0003; U0005

== ENCOUNTER 2022-01-07 11:37 | Emergency (ER) | payer OTHER ==
[2022-01-07 11:52] VITALS: BP 130/107; TEMP 97.8; BMI 21.7
[2022-01-07] MEDS ORDERED: ONDANSETRON 4 MG TABLET PO ONE (12:30)
[2022-01-07] MEDS ORDERED: LORazepam 2 MG TABLET PO ONE (12:30)
[2022-01-07] MEDS ORDERED: ACETAMINOPHEN 500 MG TABLET (FP) PO ONE (12:30)
[2022-01-07] MEDS ORDERED: ACETAMINOPHEN 325 MG TABLET (FP) ONE (12:35)
[2022-01-07] MEDS ORDERED: LORazepam 1 MG TABLET ONE (12:35)
[2022-01-07] MEDS ORDERED: ONDANSETRON 8 MG TABLET (FP) PO ONE (12:35)
[2022-01-07 12:54] VITALS: PULSE 93
== END 2022-01-07 13:44 | disposition short-term general hospital (02) ==
LOC: JER 11:37
DX: F10.230 Alcohol dependence with withdrawal, uncomplicated (principal)
CPT/HCPCS: 99283-25

== ENCOUNTER 2022-01-07 14:15 | Inpatient (IN) | payer OTHER ==
[2022-01-07] MEDS ORDERED: ACETAMINOPHEN 325 MG TABLET (FP) PO PRN (15:24)
[2022-01-07] MEDS ORDERED: MAGNESIUM HYDROX 2400MG/30ML ORAL SUSPENSION 30 ML CUP PO PRN (15:24)
[2022-01-07] MEDS ORDERED: chlordiazePOXIDE HCL 25 MG CAPSULE PO PRN (15:24)
[2022-01-07] MEDS ORDERED: ONDANSETRON *ODT* 4 MG TABLET SL PRN (15:24)
[2022-01-07] MEDS ORDERED: LOPERAMIDE HCL 2 MG CAPSULE PO PRN (15:24)
[2022-01-07] MEDS ORDERED: BENZOCAINE/MENTHOL (CHLORASEPTIC ) LOZENGE MM PRN (15:24)
[2022-01-07] MEDS ORDERED: MAGNESIUM CITRATE 300 ML BOTTLE PO PRN (15:24)
[2022-01-07] MEDS ORDERED: DICYCLOMINE HCL 10 MG CAPSULE PO PRN (15:24)
[2022-01-07] MEDS ORDERED: BISMUTH SUBSALICYLATE 524 MG/30 ML PO PRN (15:24)
[2022-01-07] MEDS ORDERED: MAG HYDROX/AL HYDROX/SIMETH 30 ML UNIT-DOSE CUP PO PRN (15:24)
[2022-01-07 15:46] VITALS: BMI 24.5
[2022-01-07] MEDS: PRENATAL VITAMINS W/ FOLIC ACID TABLET (FP) PO SCH (17:38)
[2022-01-07] MEDS: chlordiazePOXIDE HCL 25 MG CAPSULE PO SCH ×2 (17:38→22:10)
[2022-01-07] MEDS: hydrOXYzine PAMOATE 25 MG CAPSULE (FP) PO SCH ×2 (17:38→22:10)
[2022-01-07] MEDS: ACETAMINOPHEN 325 MG TABLET (FP) PO PRN (17:41)
[2022-01-07] MEDS: NICOTINE POLACRILEX 4 MG GUM BUC PRN ×2 (17:43→22:13)
[2022-01-07] MEDS: IBUPROFEN 400 MG TABLET (FP) PO PRN (19:58)
[2022-01-07] MEDS: THIAMINE HCL 100 MG TABLET (FP) PO SCH (22:10)
[2022-01-07] MEDS: MELATONIN 5 MG TABLETS PO SCH (22:10)
[2022-01-07] MEDS: METHOCARBAMOL 500 MG TABLET PO PRN (22:32)
[2022-01-08] MEDS: NICOTINE POLACRILEX 4 MG GUM BUC PRN ×4 (00:37→22:28)
[2022-01-08] MEDS: ACETAMINOPHEN 325 MG TABLET (FP) PO PRN ×3 (00:38→18:09)
[2022-01-08] MEDS: IBUPROFEN 400 MG TABLET (FP) PO PRN (02:38)
[2022-01-08] MEDS: chlordiazePOXIDE HCL 25 MG CAPSULE PO SCH ×2 (05:14→10:33)
[2022-01-08] MEDS: hydrOXYzine PAMOATE 25 MG CAPSULE (FP) PO SCH ×5 (07:15→22:25)
[2022-01-08] MEDS ORDERED: diazePAM 5 MG TABLET PO PRN (08:07)
[2022-01-08 09:46] LABS: HEMATOCRIT 49.8 % (35.4-49); HEMOGLOBIN 16.7 GM/dL (11.7-16.9); MCH 30.9 pg (25.7-33.7); MCHC 33.4 g/dl (32.0-35.9); MEAN CELL VOLUME 92.3 fl (80-96); MEAN PLT VOLUME 8.1 fl (7.5-11.1); PLATELET COUNT 274 10^3/uL (134-434); RDW 13.9 % (11.9-15.9); WHITE BLOOD COUNT 4.4 K/mm3 (4.0-10.0)
[2022-01-08 09:57] LABS: CREATININE 0.9 mg/dL (0.55-1.3)
[2022-01-08 09:59] LABS: TOT PROT 7.5 g/dl (6.4-8.2)
[2022-01-08 10:06] LABS: ALBUMIN 4.2 g/dl (3.4-5.0); BLOOD UREA NITROGEN 5.3 mg/dL (7-18); CALCIUM 9.5 mg/dL (8.5-10.1)
[2022-01-08 10:13] LABS: BILIRUBIN,TOTAL 2.5 mg/dL (0.2-1)
[2022-01-08] MEDS: PRENATAL VITAMINS W/ FOLIC ACID TABLET (FP) PO SCH (10:31)
[2022-01-08] MEDS ORDERED: LORazepam 1 MG TABLET PO PRN (10:38)
[2022-01-08] MEDS: LORazepam 2 MG TABLET PO SCH ×3 (10:58→22:25)
[2022-01-08] MEDS: METHOCARBAMOL 500 MG TABLET PO PRN ×2 (12:02→18:11)
[2022-01-08] MEDS: NICOTINE 10 MG CARTRIDGE (INHALER) IH PRN (18:54)
[2022-01-08] MEDS ORDERED: POTASSIUM CHLORIDE ORAL LIQUID 20 MEQ/15 ML PO ONE (19:11)
[2022-01-08] MEDS: THIAMINE HCL 100 MG TABLET (FP) PO SCH (22:25)
[2022-01-08] MEDS: MELATONIN 5 MG TABLETS PO SCH (22:25)
[2022-01-09] MEDS ORDERED: chlordiazePOXIDE HCL 25 MG CAPSULE PO SCH (05:00)
[2022-01-09] MEDS: LORazepam 2 MG TABLET PO SCH ×5 (05:22→22:20)
[2022-01-09] MEDS: hydrOXYzine PAMOATE 25 MG CAPSULE (FP) PO SCH ×6 (05:24→22:21)
[2022-01-09] MEDS: NICOTINE 10 MG CARTRIDGE (INHALER) IH PRN ×4 (05:25→22:24)
[2022-01-09] MEDS: METHOCARBAMOL 500 MG TABLET PO PRN ×3 (05:47→22:22)
[2022-01-09] MEDS: ACETAMINOPHEN 325 MG TABLET (FP) PO PRN ×3 (05:47→18:44)
[2022-01-09] MEDS: IBUPROFEN 400 MG TABLET (FP) PO PRN ×2 (07:16→15:42)
[2022-01-09] MEDS: PRENATAL VITAMINS W/ FOLIC ACID TABLET (FP) PO SCH (11:41)
[2022-01-09 14:08] LABS: SARS-CoV-2 NAA Not Detected (Not Detected)
[2022-01-09] MEDS: NICOTINE POLACRILEX 4 MG GUM BUC PRN (20:16)
[2022-01-09] MEDS: THIAMINE HCL 100 MG TABLET (FP) PO SCH (22:21)
[2022-01-09] MEDS: MELATONIN 5 MG TABLETS PO SCH (22:21)
[2022-01-10] MEDS ORDERED: chlordiazePOXIDE HCL 10 MG CAPSULE PO PRN
[2022-01-10] MEDS ORDERED: chlordiazePOXIDE HCL 10 MG CAPSULE PO SCH (05:00)
[2022-01-10] MEDS: hydrOXYzine PAMOATE 25 MG CAPSULE (FP) PO SCH ×5 (06:43→18:10)
[2022-01-10] MEDS: METHOCARBAMOL 500 MG TABLET PO PRN ×2 (06:43→15:25)
[2022-01-10] MEDS: LORazepam 1 MG TABLET PO SCH ×3 (06:43→18:10)
[2022-01-10] MEDS: IBUPROFEN 400 MG TABLET (FP) PO PRN (06:44)
[2022-01-10] MEDS: NICOTINE 10 MG CARTRIDGE (INHALER) IH PRN ×2 (06:45→11:28)
[2022-01-10] MEDS: PRENATAL VITAMINS W/ FOLIC ACID TABLET (FP) PO SCH (10:30)
[2022-01-10] MEDS: NICOTINE POLACRILEX 4 MG GUM BUC PRN ×2 (11:28→15:24)
[2022-01-10 16:58] VITALS: BP 121/81; PULSE 97; TEMP 97.7
[2022-01-11] MEDS ORDERED: LORazepam 0.5 MG TABLET PO PRN
[2022-01-11] MEDS ORDERED: chlordiazePOXIDE HCL 10 MG CAPSULE PO SCH (05:00)
[2022-01-11] MEDS ORDERED: LORazepam 0.5 MG TABLET PO SCH (05:00)
[2022-01-12] MEDS ORDERED: LORazepam 0.5 MG TABLET PO ONE (05:00)
[2022-01-12] MEDS ORDERED: chlordiazePOXIDE HCL 10 MG CAPSULE PO ONE (05:00)
== END 2022-01-10 17:50 | disposition left against medical advice (07) | DRG 894 ==
LOC: YASAS 14:15 → Y3N 16:43
PROVIDERS: ADMIT Allergy & Immunology; ATTEND Allergy & Immunology
PROC: HZ2ZZZZ Detoxification Services for Substance Abuse Treatment (ICD-10-PCS; principal; 2022-01-07)
DX: F10.230 Alcohol dependence with withdrawal, uncomplicated (principal); F12.20 Cannabis dependence, uncomplicated; F17.210 Nicotine dependence, cigarettes, uncomplicated; F25.9 Schizoaffective disorder, unspecified; F19.24 Other psychoactive substance dependence with psychoactive substance-induced mood disorder; E80.6 Other disorders of bilirubin metabolism; G47.00 Insomnia, unspecified; R73.9 Hyperglycemia, unspecified; R74.01 Elevation of levels of liver transaminase levels; R74.8 Abnormal levels of other serum enzymes; Z87.19 Personal history of other diseases of the digestive system; Z91.14 Patient's other noncompliance with medication regimen; Z28.310 Unvaccinated for COVID-19; Z88.0 Allergy status to penicillin; Z91.010 Allergy to peanuts; Z91.013 Allergy to seafood
CPT/HCPCS: 36415; 80051; 80053; 85027; 86780; C9803-CS; Q0162; U0003; U0005

== ENCOUNTER 2022-01-12 21:37 | Emergency (ER) | payer OTHER ==
[2022-01-12 21:43] VITALS: BP 134/78; TEMP 98.2; BMI 25.4
[2022-01-12 22:34] VITALS: PULSE 98
== END 2022-01-12 23:14 | disposition home or self-care (01) ==
LOC: JER 21:37
DX: F10.10 Alcohol abuse, uncomplicated (principal)
CPT/HCPCS: 99283-25

== ENCOUNTER 2022-01-12 23:32 | Inpatient (IN) | payer OTHER ==
[2022-01-13] MEDS ORDERED: ACETAMINOPHEN 325 MG TABLET (FP) PO PRN (00:01)
[2022-01-13] MEDS ORDERED: MAGNESIUM HYDROX 2400MG/30ML ORAL SUSPENSION 30 ML CUP PO PRN (00:01)
[2022-01-13] MEDS ORDERED: BISMUTH SUBSALICYLATE 524 MG/30 ML PO PRN (00:01)
[2022-01-13] MEDS ORDERED: BENZOCAINE/MENTHOL (CHLORASEPTIC ) LOZENGE MM PRN (00:01)
[2022-01-13] MEDS ORDERED: DICYCLOMINE HCL 10 MG CAPSULE PO PRN (00:01)
[2022-01-13] MEDS ORDERED: guaiFENesin 200 MG/10 ML 10 ML UNIT-DOSE CUPS PO PRN (00:01)
[2022-01-13] MEDS ORDERED: LOPERAMIDE HCL 2 MG CAPSULE PO PRN (00:01)
[2022-01-13] MEDS ORDERED: ONDANSETRON *ODT* 4 MG TABLET SL PRN (00:01)
[2022-01-13] MEDS ORDERED: MAG HYDROX/AL HYDROX/SIMETH 30 ML UNIT-DOSE CUP PO PRN (00:01)
[2022-01-13] MEDS ORDERED: P-EPHED 60MG/TRIPROLIDI 2.5MG TABLET PO PRN (00:01)
[2022-01-13] MEDS ORDERED: MAGNESIUM CITRATE 300 ML BOTTLE PO PRN (00:01)
[2022-01-13 00:57] VITALS: BMI 25.4
[2022-01-13] MEDS: hydrOXYzine PAMOATE 25 MG CAPSULE (FP) PO PRN ×3 (02:41→18:02)
[2022-01-13] MEDS: METHOCARBAMOL 500 MG TABLET PO PRN ×3 (03:09→18:04)
[2022-01-13] MEDS: ACETAMINOPHEN 325 MG TABLET (FP) PO PRN ×2 (04:45→18:29)
[2022-01-13] MEDS ORDERED: LORazepam 1 MG TABLET PO PRN ×2 (08:51→09:20)
[2022-01-13] MEDS: NICOTINE POLACRILEX 2 MG GUM BUC PRN ×3 (10:08→18:05)
[2022-01-13] MEDS: NICOTINE 21 MG/24 HOURS TOPICAL PATCH TD SCH (10:11)
[2022-01-13] MEDS: PRENATAL VITAMINS W/ FOLIC ACID TABLET (FP) PO SCH (10:11)
[2022-01-13] MEDS: LORazepam 2 MG TABLET PO SCH ×3 (10:11→22:25)
[2022-01-13] MEDS ORDERED: LORazepam 2 MG TABLET PO SCH (11:00)
[2022-01-13 15:01] LABS: HEMATOCRIT 44.8 % (35.4-49); HEMOGLOBIN 14.8 GM/dL (11.7-16.9); MCH 30.9 pg (25.7-33.7); MEAN CELL VOLUME 93.7 fl (80-96); MEAN PLT VOLUME 8.3 fl (7.5-11.1); PLATELET COUNT 194 10^3/uL (134-434); RBC 4.78 M/mm3 (4.00-5.60); RDW 13.9 % (11.9-15.9); WHITE BLOOD COUNT 4.7 K/mm3 (4.0-10.0)
[2022-01-13] MEDS: IBUPROFEN 400 MG TABLET (FP) PO PRN ×2 (15:08→22:29)
[2022-01-13 15:32] LABS: ALBUMIN 3.6 g/dl (3.4-5.0); BLOOD UREA NITROGEN 8.6 mg/dL (7-18); CALCIUM 8.9 mg/dL (8.5-10.1)
[2022-01-13 15:35] LABS: CREATININE 0.6 mg/dL (0.55-1.3)
[2022-01-13 15:36] LABS: BILIRUBIN,TOTAL 0.4 mg/dL (0.2-1); TOT PROT 6.7 g/dl (6.4-8.2)
[2022-01-13] MEDS ORDERED: MELATONIN 5 MG TABLETS PO SCH (22:00)
[2022-01-13] MEDS: THIAMINE HCL 100 MG TABLET (FP) PO SCH (22:25)
[2022-01-13] MEDS: QUEtiapine FUMARATE 25 MG TABLET PO SCH (22:25)
[2022-01-14] MEDS ORDERED: LORazepam 1 MG TABLET PO SCH (05:00)
[2022-01-14] MEDS: LORazepam 2 MG TABLET PO SCH ×4 (05:03→22:29)
[2022-01-14] MEDS: ACETAMINOPHEN 325 MG TABLET (FP) PO PRN ×3 (05:05→18:19)
[2022-01-14] MEDS: METHOCARBAMOL 500 MG TABLET PO PRN ×2 (05:06→22:32)
[2022-01-14] MEDS: PRENATAL VITAMINS W/ FOLIC ACID TABLET (FP) PO SCH (10:56)
[2022-01-14] MEDS: NICOTINE POLACRILEX 4 MG GUM BUC PRN ×2 (10:57→18:18)
[2022-01-14] MEDS: NICOTINE 21 MG/24 HOURS TOPICAL PATCH TD SCH (10:57)
[2022-01-14] MEDS: NICOTINE 10 MG CARTRIDGE (INHALER) IH PRN ×2 (10:58→22:35)
[2022-01-14] MEDS: QUEtiapine FUMARATE 25 MG TABLET PO SCH (22:29)
[2022-01-14] MEDS: THIAMINE HCL 100 MG TABLET (FP) PO SCH (22:29)
[2022-01-14] MEDS: IBUPROFEN 400 MG TABLET (FP) PO PRN (22:33)
[2022-01-15] MEDS ORDERED: LORazepam 0.5 MG TABLET PO PRN
[2022-01-15] MEDS ORDERED: LORazepam 0.5 MG TABLET PO SCH (05:00)
[2022-01-15] MEDS: LORazepam 1 MG TABLET PO SCH ×4 (05:24→22:06)
[2022-01-15] MEDS: ACETAMINOPHEN 325 MG TABLET (FP) PO PRN ×4 (05:25→23:06)
[2022-01-15] MEDS: NICOTINE POLACRILEX 4 MG GUM BUC PRN ×3 (05:26→19:45)
[2022-01-15] MEDS: PRENATAL VITAMINS W/ FOLIC ACID TABLET (FP) PO SCH (11:10)
[2022-01-15] MEDS: NICOTINE 21 MG/24 HOURS TOPICAL PATCH TD SCH (11:10)
[2022-01-15] MEDS: hydrOXYzine PAMOATE 25 MG CAPSULE (FP) PO PRN ×3 (15:38→22:06)
[2022-01-15] MEDS: THIAMINE HCL 100 MG TABLET (FP) PO SCH (22:06)
[2022-01-15] MEDS: QUEtiapine FUMARATE 25 MG TABLET PO SCH (22:06)
[2022-01-16] MEDS ORDERED: LORazepam 0.5 MG TABLET PO PRN
[2022-01-16] MEDS: IBUPROFEN 400 MG TABLET (FP) PO PRN ×2 (01:11→15:33)
[2022-01-16] MEDS: METHOCARBAMOL 500 MG TABLET PO PRN ×3 (01:11→22:50)
[2022-01-16] MEDS ORDERED: LORazepam 0.5 MG TABLET PO ONE (05:00)
[2022-01-16] MEDS: LORazepam 0.5 MG TABLET PO SCH ×4 (08:35→22:47)
[2022-01-16] MEDS: NICOTINE 21 MG/24 HOURS TOPICAL PATCH TD SCH (10:05)
[2022-01-16] MEDS: PRENATAL VITAMINS W/ FOLIC ACID TABLET (FP) PO SCH (10:05)
[2022-01-16] MEDS: NICOTINE POLACRILEX 4 MG GUM BUC PRN ×3 (10:05→22:53)
[2022-01-16] MEDS: ACETAMINOPHEN 325 MG TABLET (FP) PO PRN ×3 (10:08→22:50)
[2022-01-16] MEDS: NICOTINE 10 MG CARTRIDGE (INHALER) IH PRN ×3 (10:10→22:51)
[2022-01-16] MEDS: hydrOXYzine PAMOATE 25 MG CAPSULE (FP) PO PRN ×3 (11:03→22:50)
[2022-01-16] MEDS: THIAMINE HCL 100 MG TABLET (FP) PO SCH (22:47)
[2022-01-16] MEDS: QUEtiapine FUMARATE 25 MG TABLET PO SCH (22:47)
[2022-01-17] MEDS ORDERED: LORazepam 0.5 MG TABLET PO ONE (05:00)
[2022-01-17 06:17] VITALS: TEMP 97.3
[2022-01-17] MEDS: METHOCARBAMOL 500 MG TABLET PO PRN (07:46)
[2022-01-17] MEDS: IBUPROFEN 400 MG TABLET (FP) PO PRN (07:47)
[2022-01-17 09:19] VITALS: BP 144/98; PULSE 78
[2022-01-17] MEDS: PRENATAL VITAMINS W/ FOLIC ACID TABLET (FP) PO SCH (10:32)
[2022-01-17] MEDS: NICOTINE 21 MG/24 HOURS TOPICAL PATCH TD SCH (10:32)
[2022-01-17 14:07] LABS: SARS-CoV-2 NAA Not Detected (Not Detected)
== END 2022-01-17 10:22 | disposition home or self-care (01) | DRG 897 ==
LOC: YASAS 23:32 → Y6N 01-13 01:41
PROVIDERS: ADMIT Allergy & Immunology; ATTEND Surgery
PROC: HZ2ZZZZ Detoxification Services for Substance Abuse Treatment (ICD-10-PCS; principal; 2022-01-13)
DX: F10.230 Alcohol dependence with withdrawal, uncomplicated (principal); F12.20 Cannabis dependence, uncomplicated; F17.213 Nicotine dependence, cigarettes, with withdrawal; F19.251 Other psychoactive substance dependence with psychoactive substance-induced psychotic disorder with hallucinations; F31.9 Bipolar disorder, unspecified; F10.282 Alcohol dependence with alcohol-induced sleep disorder; F20.9 Schizophrenia, unspecified; F19.24 Other psychoactive substance dependence with psychoactive substance-induced mood disorder; G47.00 Insomnia, unspecified; K21.9 Gastro-esophageal reflux disease without esophagitis; Z28.310 Unvaccinated for COVID-19; Z88.0 Allergy status to penicillin; Z91.010 Allergy to peanuts; Z91.013 Allergy to seafood
CPT/HCPCS: 36415; 80053; 85027; 86780; C9803-CS; U0003; U0005

== ENCOUNTER 2022-02-09 00:26 | Emergency (ER) | payer OTHER ==
[2022-02-09 01:04] VITALS: BP 139/84; PULSE 114; TEMP 98.4; BMI 26.6
[2022-02-09] MEDS ORDERED: ACETAMINOPHEN 1000 MG/100 ML BAG IVPB ONE (02:44)
[2022-02-09] MEDS ORDERED: SODIUM CHLORIDE 0.9% 500 ML INFUS.BAG IV ONE (02:51)
[2022-02-09] MEDS ORDERED: PANTOPRAZOLE SODIUM 40 MG VIAL IVPUSH ONE (02:53)
[2022-02-09] MEDS ORDERED: ACETAMINOPHEN INJECTION 100 ML IVPB ONE (03:33)
[2022-02-09 03:59] LABS: BASO % 0.3 % (0-2.0); EOS % 5.4 % (0-4.5); HEMATOCRIT 50.7 % (35.4-49); HEMOGLOBIN 17.2 GM/dL (11.7-16.9); LYMPH % 49.8 % (8-40); MCH 30.5 pg (25.7-33.7); MCHC 33.8 g/dl (32.0-35.9); MEAN CELL VOLUME 90.2 fl (80-96); MEAN PLT VOLUME 7.1 fl (7.5-11.1); MONO % 6.3 % (3.8-10.2); NEUT % 38.2 % (42.8-82.8); PLATELET COUNT 347 10^3/uL (134-434); RBC 5.62 M/mm3 (4.00-5.60); RDW 13.2 % (11.9-15.9); WHITE BLOOD COUNT 4.5 K/mm3 (4.0-10.0)
[2022-02-09 04:07] LABS: INR 1.03 (0.83-1.09); PROTHROMBIN TIME (PATIENT) 11.8 SEC (9.7-13.0)
[2022-02-09 04:09] LABS: ACTIVATED PTT 35.1 SECONDS (25.2-36.5)
[2022-02-09 04:19] LABS: CALCIUM 9.5 mg/dL (8.5-10.1)
[2022-02-09 04:20] LABS: ALBUMIN 4.1 g/dl (3.4-5.0); BLOOD UREA NITROGEN 6.4 mg/dL (7-18)
[2022-02-09 04:22] LABS: CREATININE 0.7 mg/dL (0.55-1.3)
[2022-02-09 04:24] LABS: BILIRUBIN,TOTAL 1.6 mg/dL (0.2-1); TOT PROT 7.9 g/dl (6.4-8.2)
[2022-02-09] MEDS ORDERED: LORazepam 1 MG TABLET PO ONE (05:25)
[2022-02-09] MEDS ORDERED: LORazepam 1 MG TABLET ONE (05:38)
== END 2022-02-09 05:49 | disposition home or self-care (01) ==
LOC: JER 00:26
PROC: 3E033GC Introduction of Other Therapeutic Substance into Peripheral Vein, Percutaneous Approach (ICD-10-PCS; principal; 2022-02-09)
DX: R11.10 Vomiting, unspecified (principal); R19.7 Diarrhea, unspecified; F10.29 Alcohol dependence with unspecified alcohol-induced disorder
CPT/HCPCS: 36415; 71046-TC-FY; 80053; 84484; 85025; 85610; 85730; 86850; 86900; 86901; 93005; 93010; 99285-25; C9803-CS; U0003; U0005

== ENCOUNTER 2022-02-09 06:11 | Inpatient (IN) | payer OTHER ==
[2022-02-09 06:58] VITALS: BMI 25.5
[2022-02-09] MEDS ORDERED: ACETAMINOPHEN 325 MG TABLET (FP) PO PRN (09:27)
[2022-02-09] MEDS ORDERED: LOPERAMIDE HCL 2 MG CAPSULE PO PRN (09:27)
[2022-02-09] MEDS ORDERED: BENZOCAINE/MENTHOL (CHLORASEPTIC ) LOZENGE MM PRN (09:27)
[2022-02-09] MEDS ORDERED: MAGNESIUM HYDROX 2400MG/30ML ORAL SUSPENSION 30 ML CUP PO PRN (09:27)
[2022-02-09] MEDS ORDERED: BISMUTH SUBSALICYLATE 262 MG/15 ML BTL PO PRN (09:27)
[2022-02-09] MEDS ORDERED: IBUPROFEN 600 MG TABLET (FP) PO PRN (09:27)
[2022-02-09] MEDS ORDERED: ONDANSETRON *ODT* 4 MG TABLET SL PRN (09:27)
[2022-02-09] MEDS ORDERED: MAG HYDROX/AL HYDROX/SIMETH 30 ML UNIT-DOSE CUP PO PRN (09:27)
[2022-02-09] MEDS ORDERED: DICYCLOMINE HCL 10 MG CAPSULE PO PRN (09:27)
[2022-02-09] MEDS ORDERED: MAGNESIUM CITRATE 300 ML BOTTLE PO PRN (09:27)
[2022-02-09] MEDS ORDERED: hydrOXYzine PAMOATE 25 MG CAPSULE (FP) PO ONE (10:01)
[2022-02-09] MEDS: hydrOXYzine PAMOATE 25 MG CAPSULE (FP) PO SCH ×4 (10:03→22:19)
[2022-02-09] MEDS: PRENATAL VITAMINS W/ FOLIC ACID TABLET (FP) PO SCH (10:04)
[2022-02-09] MEDS: ACETAMINOPHEN 325 MG TABLET (FP) PO PRN ×2 (10:34→17:55)
[2022-02-09] MEDS: chlordiazePOXIDE HCL 25 MG CAPSULE PO PRN (19:55)
[2022-02-09] MEDS: IBUPROFEN 400 MG TABLET (FP) PO PRN (20:34)
[2022-02-09] MEDS: MELATONIN 5 MG TABLETS PO SCH (22:19)
[2022-02-09] MEDS: THIAMINE HCL 100 MG TABLET (FP) PO SCH (22:19)
[2022-02-09] MEDS: chlordiazePOXIDE HCL 25 MG CAPSULE PO SCH (22:20)
[2022-02-09] MEDS: METHOCARBAMOL 500 MG TABLET PO PRN (22:24)
[2022-02-09] MEDS: NICOTINE 10 MG CARTRIDGE (INHALER) IH PRN (22:27)
[2022-02-10] MEDS: ACETAMINOPHEN 325 MG TABLET (FP) PO PRN ×2 (01:13→09:16)
[2022-02-10] MEDS: chlordiazePOXIDE HCL 25 MG CAPSULE PO PRN ×2 (01:14→13:47)
[2022-02-10] MEDS: METHOCARBAMOL 500 MG TABLET PO PRN ×3 (04:50→17:10)
[2022-02-10] MEDS: chlordiazePOXIDE HCL 25 MG CAPSULE PO SCH ×4 (05:29→22:17)
[2022-02-10] MEDS: hydrOXYzine PAMOATE 25 MG CAPSULE (FP) PO SCH ×5 (05:30→21:08)
[2022-02-10] MEDS: PRENATAL VITAMINS W/ FOLIC ACID TABLET (FP) PO SCH (10:14)
[2022-02-10 10:51] LABS: HEMATOCRIT 49.3 % (35.4-49); MCH 30.2 pg (25.7-33.7); MCHC 32.5 g/dl (32.0-35.9); MEAN CELL VOLUME 92.7 fl (80-96); MEAN PLT VOLUME 7.8 fl (7.5-11.1); PLATELET COUNT 342 10^3/uL (134-434); RBC 5.31 M/mm3 (4.00-5.60); RDW 13.4 % (11.9-15.9); WHITE BLOOD COUNT 3.4 K/mm3 (4.0-10.0)
[2022-02-10 11:06] LABS: CALCIUM 9.1 mg/dL (8.5-10.1)
[2022-02-10 11:07] LABS: BLOOD UREA NITROGEN 8.1 mg/dL (7-18)
[2022-02-10 11:10] LABS: CREATININE 0.7 mg/dL (0.55-1.3)
[2022-02-10 11:12] LABS: BILIRUBIN,TOTAL 1.9 mg/dL (0.2-1); TOT PROT 7.4 g/dl (6.4-8.2)
[2022-02-10] MEDS: NICOTINE 10 MG CARTRIDGE (INHALER) IH PRN ×2 (17:07→22:19)
[2022-02-10] MEDS: THIAMINE HCL 100 MG TABLET (FP) PO SCH (21:08)
[2022-02-10] MEDS: MELATONIN 5 MG TABLETS PO SCH (22:18)
[2022-02-11] MEDS: ACETAMINOPHEN 325 MG TABLET (FP) PO PRN ×2 (01:41→11:13)
[2022-02-11] MEDS: chlordiazePOXIDE HCL 25 MG CAPSULE PO PRN (01:41)
[2022-02-11] MEDS: METHOCARBAMOL 500 MG TABLET PO PRN ×3 (01:41→18:01)
[2022-02-11] MEDS: chlordiazePOXIDE HCL 25 MG CAPSULE PO SCH ×4 (06:00→16:35)
[2022-02-11] MEDS: hydrOXYzine PAMOATE 25 MG CAPSULE (FP) PO SCH ×5 (06:00→17:00)
[2022-02-11] MEDS: PRENATAL VITAMINS W/ FOLIC ACID TABLET (FP) PO SCH (11:11)
[2022-02-11] MEDS: NICOTINE 10 MG CARTRIDGE (INHALER) IH PRN (11:15)
[2022-02-11] MEDS ORDERED: NICOTINE POLACRILEX 2 MG GUM BC PRN (12:52)
[2022-02-11] MEDS: IBUPROFEN 400 MG TABLET (FP) PO PRN (18:01)
[2022-02-11 20:37] VITALS: BP 136/97; PULSE 101; TEMP 97.7
[2022-02-12] MEDS ORDERED: chlordiazePOXIDE HCL 10 MG CAPSULE PO PRN
[2022-02-12] MEDS ORDERED: chlordiazePOXIDE HCL 10 MG CAPSULE PO SCH (05:00)
[2022-02-13] MEDS ORDERED: chlordiazePOXIDE HCL 10 MG CAPSULE PO SCH (05:00)
[2022-02-14] MEDS ORDERED: chlordiazePOXIDE HCL 10 MG CAPSULE PO ONE (05:00)
== END 2022-02-11 20:35 | disposition left against medical advice (07) | DRG 894 ==
LOC: YASAS 06:11 → Y6N 10:04
PROVIDERS: ADMIT Allergy & Immunology; ATTEND Surgery
PROC: HZ2ZZZZ Detoxification Services for Substance Abuse Treatment (ICD-10-PCS; principal; 2022-02-09)
DX: F10.230 Alcohol dependence with withdrawal, uncomplicated (principal); F12.20 Cannabis dependence, uncomplicated; F17.210 Nicotine dependence, cigarettes, uncomplicated; F41.1 Generalized anxiety disorder; K21.9 Gastro-esophageal reflux disease without esophagitis; Z28.310 Unvaccinated for COVID-19; Z88.0 Allergy status to penicillin; Z91.010 Allergy to peanuts; Z91.013 Allergy to seafood
CPT/HCPCS: 36415; 80053; 82247; 82947; 83036; 84450; 85027; 86780; 87811; 93005; 93010; C9803-CS; Q0162; U0003; U0005

== ENCOUNTER 2022-02-19 19:11 | Emergency (ER) | payer OTHER ==
[2022-02-19 19:15] VITALS: BP 136/95; PULSE 66; BMI 26.6
[2022-02-19] MEDS ORDERED: FAMOTIDINE 10 MG TABLET PO ONE (20:52)
[2022-02-19] MEDS ORDERED: ACETAMINOPHEN 325 MG TABLET (FP) PO ONE (20:52)
[2022-02-19] MEDS ORDERED: MAG HYDROX/AL HYDROX/SIMETH 30 ML UNIT-DOSE CUP PO ONE (20:52)
[2022-02-19] MEDS ORDERED: ONDANSETRON *ODT* 4 MG TABLET SL ONE (20:52)
[2022-02-19] MEDS ORDERED: ONDANSETRON *ODT* 4 MG TABLET ONE (20:58)
[2022-02-19] MEDS ORDERED: ACETAMINOPHEN 325 MG TABLET (FP) ONE (20:58)
[2022-02-19] MEDS ORDERED: FAMOTIDINE 10 MG TABLET ONE (20:58)
[2022-02-19] MEDS ORDERED: MAG HYDROX/AL HYDROX/SIMETH 30 ML UNIT-DOSE CUP ONE (20:59)
[2022-02-19] MEDS ORDERED: amLODIPine BESYLATE 10 MG TABLET (FP) ONE (21:47)
== END 2022-02-19 21:52 | disposition home or self-care (01) ==
LOC: JER 19:11
DX: F10.20 Alcohol dependence, uncomplicated (principal); R10.13 Epigastric pain
CPT/HCPCS: 71046-TC-FY; 99283-25; Q0162

== ENCOUNTER 2022-02-19 22:50 | Inpatient (IN) | payer OTHER ==
[2022-02-19] MEDS ORDERED: MAGNESIUM CITRATE 300 ML BOTTLE PO PRN (23:48)
[2022-02-19] MEDS ORDERED: BISMUTH SUBSALICYLATE 524 MG/30 ML PO PRN (23:48)
[2022-02-19] MEDS ORDERED: LOPERAMIDE HCL 2 MG CAPSULE PO PRN (23:48)
[2022-02-19] MEDS ORDERED: MAGNESIUM HYDROX 2400MG/30ML ORAL SUSPENSION 30 ML CUP PO PRN (23:48)
[2022-02-19] MEDS ORDERED: chlordiazePOXIDE HCL 25 MG CAPSULE PO PRN (23:48)
[2022-02-19] MEDS ORDERED: ONDANSETRON *ODT* 4 MG TABLET SL PRN (23:48)
[2022-02-19] MEDS ORDERED: IBUPROFEN 600 MG TABLET (FP) PO PRN (23:48)
[2022-02-19] MEDS ORDERED: DICYCLOMINE HCL 10 MG CAPSULE PO PRN (23:48)
[2022-02-19] MEDS ORDERED: BENZOCAINE/MENTHOL (CHLORASEPTIC ) LOZENGE MM PRN (23:48)
[2022-02-20 00:05] VITALS: BMI 26.6
[2022-02-20] MEDS ORDERED: chlordiazePOXIDE HCL 25 MG CAPSULE ONE ×3 (02:26→10:00)
[2022-02-20] MEDS: chlordiazePOXIDE HCL 25 MG CAPSULE PO SCH ×7 (02:27→22:08)
[2022-02-20] MEDS: ACETAMINOPHEN 325 MG TABLET (FP) PO PRN ×3 (02:28→17:46)
[2022-02-20] MEDS ORDERED: MAG HYDROX/AL HYDROX/SIMETH 30 ML UNIT-DOSE CUP ONE (03:42)
[2022-02-20] MEDS: MAG HYDROX/AL HYDROX/SIMETH 30 ML UNIT-DOSE CUP PO PRN (03:44)
[2022-02-20] MEDS ORDERED: IBUPROFEN 400 MG TABLET (FP) PO ONE (06:16)
[2022-02-20] MEDS ORDERED: hydrOXYzine PAMOATE 25 MG CAPSULE (FP) PO ONE ×2 (06:16→10:00)
[2022-02-20] MEDS: IBUPROFEN 400 MG TABLET (FP) PO PRN ×2 (06:17→19:33)
[2022-02-20] MEDS: hydrOXYzine PAMOATE 25 MG CAPSULE (FP) PO SCH ×5 (06:17→22:08)
[2022-02-20] MEDS: NICOTINE POLACRILEX 2 MG GUM BUC PRN ×2 (08:12→22:11)
[2022-02-20] MEDS ORDERED: ACETAMINOPHEN 325 MG TABLET (FP) ONE ×2 (09:05→09:07)
[2022-02-20 10:26] LABS: CALCIUM 9.7 mg/dL (8.5-10.1)
[2022-02-20 10:27] LABS: ALBUMIN 4.1 g/dl (3.4-5.0); BLOOD UREA NITROGEN 9.9 mg/dL (7-18)
[2022-02-20 10:29] LABS: HEMATOCRIT 44.9 % (35.4-49); HEMOGLOBIN 15.4 GM/dL (11.7-16.9); MCH 31.3 pg (25.7-33.7); MCHC 34.4 g/dl (32.0-35.9); MEAN CELL VOLUME 91.2 fl (80-96); PLATELET COUNT 326 10^3/uL (134-434); RBC 4.93 M/mm3 (4.00-5.60); RDW 13.4 % (11.9-15.9); WHITE BLOOD COUNT 6.3 K/mm3 (4.0-10.0)
[2022-02-20 10:30] LABS: CREATININE 0.8 mg/dL (0.55-1.3)
[2022-02-20 10:31] LABS: TOT PROT 7.4 g/dl (6.4-8.2)
[2022-02-20 10:32] LABS: BILIRUBIN,TOTAL 1.6 mg/dL (0.2-1)
[2022-02-20] MEDS: NICOTINE 21 MG/24 HOURS TOPICAL PATCH TD SCH (10:44)
[2022-02-20] MEDS: PRENATAL VITAMINS W/ FOLIC ACID TABLET (FP) PO SCH (10:45)
[2022-02-20] MEDS: METHOCARBAMOL 500 MG TABLET PO PRN ×2 (14:15→20:35)
[2022-02-20] MEDS: NICOTINE 10 MG CARTRIDGE (INHALER) IH PRN ×2 (18:11→22:12)
[2022-02-20] MEDS: QUEtiapine FUMARATE 50 MG TABLET PO SCH (22:08)
[2022-02-20] MEDS: THIAMINE HCL 100 MG TABLET (FP) PO SCH (22:08)
[2022-02-20] MEDS: MELATONIN 5 MG TABLETS PO SCH (22:09)
[2022-02-21] MEDS ORDERED: chlordiazePOXIDE HCL 10 MG CAPSULE PO PRN
[2022-02-21] MEDS: chlordiazePOXIDE HCL 10 MG CAPSULE PO SCH ×2 (05:14→10:32)
[2022-02-21] MEDS: hydrOXYzine PAMOATE 25 MG CAPSULE (FP) PO SCH ×5 (05:14→22:31)
[2022-02-21] MEDS: ACETAMINOPHEN 325 MG TABLET (FP) PO PRN ×2 (05:16→17:48)
[2022-02-21] MEDS: NICOTINE 21 MG/24 HOURS TOPICAL PATCH TD SCH (10:32)
[2022-02-21] MEDS: PRENATAL VITAMINS W/ FOLIC ACID TABLET (FP) PO SCH (10:32)
[2022-02-21] MEDS: MAG HYDROX/AL HYDROX/SIMETH 30 ML UNIT-DOSE CUP PO PRN (12:06)
[2022-02-21] MEDS: METHOCARBAMOL 500 MG TABLET PO PRN (13:59)
[2022-02-21] MEDS: HYDROCORTISONE 1% TOPICAL CREAM 30 GM TUBE TP SCH (13:59)
[2022-02-21] MEDS: NICOTINE 10 MG CARTRIDGE (INHALER) IH PRN ×2 (14:01→22:33)
[2022-02-21] MEDS: LORazepam 0.5 MG TABLET PO PRN ×2 (15:17→23:46)
[2022-02-21] MEDS ORDERED: LORazepam 0.5 MG TABLET PO SCH ×2 (17:00→22:00)
[2022-02-21] MEDS: THIAMINE HCL 100 MG TABLET (FP) PO SCH (22:30)
[2022-02-21] MEDS: QUEtiapine FUMARATE 50 MG TABLET PO SCH (22:31)
[2022-02-21] MEDS: MELATONIN 5 MG TABLETS PO SCH (22:31)
[2022-02-21] MEDS: NICOTINE POLACRILEX 2 MG GUM BUC PRN (23:45)
[2022-02-22] MEDS: METHOCARBAMOL 500 MG TABLET PO PRN ×2 (01:43→10:21)
[2022-02-22] MEDS ORDERED: chlordiazePOXIDE HCL 10 MG CAPSULE PO SCH (05:00)
[2022-02-22] MEDS ORDERED: LORazepam 0.5 MG TABLET PO SCH (05:00)
[2022-02-22] MEDS: hydrOXYzine PAMOATE 25 MG CAPSULE (FP) PO SCH ×2 (06:31→10:20)
[2022-02-22] MEDS: MAG HYDROX/AL HYDROX/SIMETH 30 ML UNIT-DOSE CUP PO PRN (07:26)
[2022-02-22] MEDS: ACETAMINOPHEN 325 MG TABLET (FP) PO PRN (08:59)
[2022-02-22 09:22] VITALS: BP 131/77; PULSE 88; TEMP 96.9
[2022-02-22] MEDS: HYDROCORTISONE 1% TOPICAL CREAM 30 GM TUBE TP SCH (10:19)
[2022-02-22] MEDS: NICOTINE 21 MG/24 HOURS TOPICAL PATCH TD SCH (10:20)
[2022-02-22] MEDS: PRENATAL VITAMINS W/ FOLIC ACID TABLET (FP) PO SCH (10:20)
[2022-02-23] MEDS ORDERED: LORazepam 0.5 MG TABLET PO ONE (05:00)
[2022-02-23] MEDS ORDERED: chlordiazePOXIDE HCL 10 MG CAPSULE PO ONE (05:00)
== END 2022-02-22 12:04 | disposition home or self-care (01) | DRG 897 ==
LOC: YASAS 22:50 → Y6N 02-20 12:33 → UNDOADMIN 02-20 12:33 → Y6N 02-22 00:29 → UNDODISIN 02-22 12:04
PROVIDERS: ADMIT Allergy & Immunology; ATTEND Surgery
PROC: HZ2ZZZZ Detoxification Services for Substance Abuse Treatment (ICD-10-PCS; principal; 2022-02-20)
DX: F10.230 Alcohol dependence with withdrawal, uncomplicated (principal); F12.20 Cannabis dependence, uncomplicated; F17.210 Nicotine dependence, cigarettes, uncomplicated; F10.282 Alcohol dependence with alcohol-induced sleep disorder; F25.9 Schizoaffective disorder, unspecified; F41.1 Generalized anxiety disorder; K21.9 Gastro-esophageal reflux disease without esophagitis; R74.8 Abnormal levels of other serum enzymes; Z28.310 Unvaccinated for COVID-19; Z88.0 Allergy status to penicillin; Z91.013 Allergy to seafood
CPT/HCPCS: 36415; 80053; 85027; 86780; C9803-CS; U0003; U0005

== ENCOUNTER 2022-03-08 09:28 | Emergency (ER) | payer OTHER ==
[2022-03-08] MEDS ORDERED: ACETAMINOPHEN 325 MG TABLET (FP) PO ONE (09:55)
[2022-03-08] MEDS ORDERED: LACTATED RINGERS SOLUTION 1000 ML INFUS.BAG IV ONE (09:57)
[2022-03-08] MEDS ORDERED: ACETAMINOPHEN 325 MG TABLET (FP) ONE (10:08)
[2022-03-08 10:10] VITALS: BMI 22.6
[2022-03-08] MEDS ORDERED: ONDANSETRON 4 MG/2 ML VIAL IVPUSH ONE (10:15)
[2022-03-08 10:23] LABS: EOS % 1.3 % (0-4.5); HEMOGLOBIN 16.1 GM/dL (11.7-16.9); LYMPH % 54.9 % (8-40); MCH 31.2 pg (25.7-33.7); MCHC 34.2 g/dl (32.0-35.9); MEAN CELL VOLUME 91.2 fl (80-96); MEAN PLT VOLUME 6.5 fl (7.5-11.1); MONO % 4.1 % (3.8-10.2); NEUT % 38.7 % (42.8-82.8); PLATELET COUNT 546 10^3/uL (134-434); RBC 5.15 M/mm3 (4.00-5.60); RDW 13.9 % (11.9-15.9); WHITE BLOOD COUNT 5.1 K/mm3 (4.0-10.0)
[2022-03-08 10:57] LABS: ALBUMIN 3.8 g/dl (3.4-5.0); BLOOD UREA NITROGEN 7.5 mg/dL (7-18); CALCIUM 8.6 mg/dL (8.5-10.1)
[2022-03-08 11:00] LABS: CREATININE 0.7 mg/dL (0.55-1.3)
[2022-03-08] MEDS ORDERED: ONDANSETRON 4 MG/2 ML VIAL ONE (11:00)
[2022-03-08 11:02] LABS: TOT PROT 7.3 g/dl (6.4-8.2)
[2022-03-08 11:09] LABS: BILIRUBIN,TOTAL 0.3 mg/dL (0.2-1)
[2022-03-08 11:10] LABS: MAGNESIUM 2.4 mg/dL (1.8-2.4)
[2022-03-08] MEDS ORDERED: KETOROLAC TROMETHAMINE 15 MG/ML VIAL IVPUSH ONE (11:25)
[2022-03-08 11:30] VITALS: PULSE 85; TEMP 97.8
[2022-03-08] MEDS ORDERED: chlordiazePOXIDE HCL 25 MG CAPSULE PO ONE (11:30)
[2022-03-08] MEDS ORDERED: KETOROLAC TROMETHAMINE 15 MG/ML VIAL ONE (11:32)
[2022-03-08] MEDS ORDERED: chlordiazePOXIDE HCL 25 MG CAPSULE ONE (11:42)
[2022-03-08 11:53] VITALS: BP 133/92
== END 2022-03-08 12:02 | disposition home or self-care (01) ==
LOC: JER 09:28
PROC: 3E0333Z Introduction of Anti-inflammatory into Peripheral Vein, Percutaneous Approach (ICD-10-PCS; principal; 2022-03-08)
PROC: 3E033GC Introduction of Other Therapeutic Substance into Peripheral Vein, Percutaneous Approach (ICD-10-PCS; 2022-03-08)
DX: F10.20 Alcohol dependence, uncomplicated (principal)
CPT/HCPCS: 36415; 80053; 83735; 85025; 99284-25

== ENCOUNTER 2022-03-08 13:15 | Inpatient (IN) | payer OTHER ==
[2022-03-08 14:24] VITALS: BMI 25.1
[2022-03-08] MEDS ORDERED: MAGNESIUM CITRATE 300 ML BOTTLE PO PRN (15:28)
[2022-03-08] MEDS ORDERED: ONDANSETRON *ODT* 4 MG TABLET SL PRN (15:28)
[2022-03-08] MEDS ORDERED: ACETAMINOPHEN 325 MG TABLET (FP) PO PRN (15:28)
[2022-03-08] MEDS ORDERED: DICYCLOMINE HCL 10 MG CAPSULE PO PRN (15:28)
[2022-03-08] MEDS ORDERED: LOPERAMIDE HCL 2 MG CAPSULE PO PRN (15:28)
[2022-03-08] MEDS ORDERED: MAG HYDROX/AL HYDROX/SIMETH 30 ML UNIT-DOSE CUP PO PRN (15:28)
[2022-03-08] MEDS ORDERED: MAGNESIUM HYDROX 2400MG/30ML ORAL SUSPENSION 30 ML CUP PO PRN (15:28)
[2022-03-08] MEDS ORDERED: BENZOCAINE/MENTHOL (CHLORASEPTIC ) LOZENGE MM PRN (15:28)
[2022-03-08] MEDS ORDERED: BISMUTH SUBSALICYLATE 524 MG/30 ML PO PRN (15:28)
[2022-03-08] MEDS: ACETAMINOPHEN 325 MG TABLET (FP) PO PRN ×2 (15:56→22:28)
[2022-03-08] MEDS: PRENATAL VITAMINS W/ FOLIC ACID TABLET (FP) PO SCH (15:58)
[2022-03-08] MEDS: chlordiazePOXIDE HCL 25 MG CAPSULE PO PRN (17:37)
[2022-03-08] MEDS: IBUPROFEN 400 MG TABLET (FP) PO PRN (17:37)
[2022-03-08] MEDS: hydrOXYzine PAMOATE 25 MG CAPSULE (FP) PO SCH ×2 (17:39→21:00)
[2022-03-08] MEDS: NICOTINE 10 MG CARTRIDGE (INHALER) IH PRN (18:30)
[2022-03-08] MEDS: IBUPROFEN 600 MG TABLET (FP) PO PRN (20:12)
[2022-03-08] MEDS ORDERED: MELATONIN 5 MG TABLETS PO SCH (22:00)
[2022-03-08] MEDS: chlordiazePOXIDE HCL 25 MG CAPSULE PO SCH (22:28)
[2022-03-08] MEDS: THIAMINE HCL 100 MG TABLET (FP) PO SCH (22:28)
[2022-03-08] MEDS: METHOCARBAMOL 500 MG TABLET PO PRN (22:30)
[2022-03-09] MEDS: chlordiazePOXIDE HCL 25 MG CAPSULE PO PRN ×2 (03:08→19:35)
[2022-03-09] MEDS: ACETAMINOPHEN 325 MG TABLET (FP) PO PRN ×3 (03:28→17:44)
[2022-03-09] MEDS: hydrOXYzine PAMOATE 25 MG CAPSULE (FP) PO SCH ×5 (06:48→22:28)
[2022-03-09] MEDS: chlordiazePOXIDE HCL 25 MG CAPSULE PO SCH ×4 (06:49→23:22)
[2022-03-09] MEDS: METHOCARBAMOL 500 MG TABLET PO PRN ×2 (06:51→22:28)
[2022-03-09] MEDS: PRENATAL VITAMINS W/ FOLIC ACID TABLET (FP) PO SCH (10:21)
[2022-03-09] MEDS: NICOTINE 10 MG CARTRIDGE (INHALER) IH PRN ×2 (10:31→17:45)
[2022-03-09 12:19] LABS: HEMATOCRIT 42.4 % (35.4-49); HEMOGLOBIN 14.3 GM/dL (11.7-16.9); MCHC 33.8 g/dl (32.0-35.9); MEAN CELL VOLUME 91.7 fl (80-96); MEAN PLT VOLUME 7.7 fl (7.5-11.1); PLATELET COUNT 409 10^3/uL (134-434); RBC 4.62 M/mm3 (4.00-5.60); RDW 13.3 % (11.9-15.9); WHITE BLOOD COUNT 4.5 K/mm3 (4.0-10.0)
[2022-03-09 12:20] LABS: CALCIUM 8.9 mg/dL (8.5-10.1)
[2022-03-09 12:21] LABS: BLOOD UREA NITROGEN 10.8 mg/dL (7-18)
[2022-03-09 12:22] LABS: ALBUMIN 3.3 g/dl (3.4-5.0); CREATININE 0.8 mg/dL (0.55-1.3)
[2022-03-09 12:23] LABS: BILIRUBIN,TOTAL 0.7 mg/dL (0.2-1); TOT PROT 6.4 g/dl (6.4-8.2)
[2022-03-09] MEDS: IBUPROFEN 600 MG TABLET (FP) PO PRN (12:43)
[2022-03-09] MEDS ORDERED: QUEtiapine FUMARATE 50 MG TABLET PO PRN (22:00)
[2022-03-09] MEDS: IBUPROFEN 400 MG TABLET (FP) PO PRN (22:28)
[2022-03-09] MEDS: THIAMINE HCL 100 MG TABLET (FP) PO SCH (22:28)
[2022-03-10] MEDS ORDERED: chlordiazePOXIDE HCL 25 MG CAPSULE PO SCH (05:00)
[2022-03-10] MEDS: hydrOXYzine PAMOATE 25 MG CAPSULE (FP) PO SCH (05:44)
[2022-03-10] MEDS: METHOCARBAMOL 500 MG TABLET PO PRN (05:45)
[2022-03-10 09:50] VITALS: BP 122/80; PULSE 83; TEMP 98.1
[2022-03-10] MEDS: IBUPROFEN 600 MG TABLET (FP) PO PRN (09:52)
[2022-03-11] MEDS ORDERED: chlordiazePOXIDE HCL 10 MG CAPSULE PO PRN
[2022-03-11] MEDS ORDERED: chlordiazePOXIDE HCL 10 MG CAPSULE PO SCH (05:00)
[2022-03-12] MEDS ORDERED: chlordiazePOXIDE HCL 10 MG CAPSULE PO SCH (05:00)
[2022-03-13] MEDS ORDERED: chlordiazePOXIDE HCL 10 MG CAPSULE PO ONE (05:00)
== END 2022-03-10 10:12 | disposition left against medical advice (07) | DRG 894 ==
LOC: YASAS 13:15 → Y3N 14:13 → Y6N 14:17
PROVIDERS: ADMIT Allergy & Immunology; ATTEND Surgery
PROC: HZ2ZZZZ Detoxification Services for Substance Abuse Treatment (ICD-10-PCS; principal; 2022-03-08)
DX: F10.230 Alcohol dependence with withdrawal, uncomplicated (principal); F12.20 Cannabis dependence, uncomplicated; F17.210 Nicotine dependence, cigarettes, uncomplicated; F25.9 Schizoaffective disorder, unspecified; F10.24 Alcohol dependence with alcohol-induced mood disorder; F41.1 Generalized anxiety disorder; Z28.310 Unvaccinated for COVID-19; Z88.0 Allergy status to penicillin; Z91.010 Allergy to peanuts; Z91.013 Allergy to seafood
CPT/HCPCS: 36415; 80053; 85027; 86780; C9803-CS; U0003; U0005

== ENCOUNTER 2022-03-15 19:24 | Emergency (ER) | payer OTHER ==
[2022-03-15 19:46] VITALS: BP 116/82; PULSE 95; TEMP 98.3; BMI 25.1
[2022-03-15] MEDS ORDERED: chlordiazePOXIDE HCL 25 MG CAPSULE PO ONE (23:52)
[2022-03-15] MEDS ORDERED: chlordiazePOXIDE HCL 25 MG CAPSULE ONE (23:56)
[2022-03-16] MEDS ORDERED: ACETAMINOPHEN 500 MG TABLET (FP) PO ONE
[2022-03-16] MEDS ORDERED: ACETAMINOPHEN 500 MG TABLET (FP) ONE
== END 2022-03-16 00:25 | disposition home or self-care (01) ==
LOC: JER 19:24
DX: F10.239 Alcohol dependence with withdrawal, unspecified (principal)
CPT/HCPCS: 99283-25

== ENCOUNTER 2022-03-16 00:36 | Inpatient (IN) | payer OTHER ==
[2022-03-16 02:18] VITALS: BMI 24.3
[2022-03-16] MEDS ORDERED: LOPERAMIDE HCL 2 MG CAPSULE PO PRN (02:26)
[2022-03-16] MEDS ORDERED: BISMUTH SUBSALICYLATE 524 MG/30 ML PO PRN (02:26)
[2022-03-16] MEDS ORDERED: MAGNESIUM CITRATE 300 ML BOTTLE PO PRN (02:26)
[2022-03-16] MEDS ORDERED: IBUPROFEN 600 MG TABLET (FP) PO PRN (02:26)
[2022-03-16] MEDS ORDERED: MAG HYDROX/AL HYDROX/SIMETH 30 ML UNIT-DOSE CUP PO PRN (02:26)
[2022-03-16] MEDS ORDERED: IBUPROFEN 400 MG TABLET (FP) PO PRN (02:26)
[2022-03-16] MEDS ORDERED: BENZOCAINE/MENTHOL (CHLORASEPTIC ) LOZENGE MM PRN (02:26)
[2022-03-16] MEDS ORDERED: ONDANSETRON *ODT* 4 MG TABLET SL PRN (02:26)
[2022-03-16] MEDS ORDERED: ACETAMINOPHEN 325 MG TABLET (FP) PO PRN (02:26)
[2022-03-16] MEDS ORDERED: chlordiazePOXIDE HCL 25 MG CAPSULE PO PRN (02:26)
[2022-03-16] MEDS ORDERED: DICYCLOMINE HCL 10 MG CAPSULE PO PRN (02:26)
[2022-03-16] MEDS ORDERED: MAGNESIUM HYDROX 2400MG/30ML ORAL SUSPENSION 30 ML CUP PO PRN (02:26)
[2022-03-16] MEDS: chlordiazePOXIDE HCL 25 MG CAPSULE PO SCH ×4 (05:25→23:36)
[2022-03-16] MEDS: hydrOXYzine PAMOATE 25 MG CAPSULE (FP) PO PRN (05:26)
[2022-03-16] MEDS: METHOCARBAMOL 500 MG TABLET PO PRN ×2 (05:26→13:42)
[2022-03-16] MEDS: NICOTINE 10 MG CARTRIDGE (INHALER) IH PRN ×2 (06:30→18:56)
[2022-03-16] MEDS: NICOTINE 21 MG/24 HOURS TOPICAL PATCH TD SCH (10:57)
[2022-03-16] MEDS: PRENATAL VITAMINS W/ FOLIC ACID TABLET (FP) PO SCH (10:59)
[2022-03-16] MEDS: ACETAMINOPHEN 325 MG TABLET (FP) PO PRN ×2 (13:42→18:53)
[2022-03-16] MEDS: MELATONIN 5 MG TABLETS PO SCH (23:36)
[2022-03-16] MEDS: THIAMINE HCL 100 MG TABLET (FP) PO SCH (23:36)
[2022-03-17] MEDS: chlordiazePOXIDE HCL 25 MG CAPSULE PO SCH ×4 (05:18→22:21)
[2022-03-17] MEDS: METHOCARBAMOL 500 MG TABLET PO PRN ×3 (05:19→22:20)
[2022-03-17] MEDS: NICOTINE 10 MG CARTRIDGE (INHALER) IH PRN ×3 (05:19→20:26)
[2022-03-17] MEDS: ACETAMINOPHEN 325 MG TABLET (FP) PO PRN ×2 (05:20→22:20)
[2022-03-17] MEDS: NICOTINE 21 MG/24 HOURS TOPICAL PATCH TD SCH (10:09)
[2022-03-17] MEDS: PRENATAL VITAMINS W/ FOLIC ACID TABLET (FP) PO SCH (10:09)
[2022-03-17] MEDS: hydrOXYzine PAMOATE 25 MG CAPSULE (FP) PO PRN ×3 (10:11→22:19)
[2022-03-17 11:08] LABS: HEMATOCRIT 44.3 % (35.4-49); HEMOGLOBIN 14.9 GM/dL (11.7-16.9); MCH 30.8 pg (25.7-33.7); MCHC 33.6 g/dl (32.0-35.9); MEAN CELL VOLUME 91.7 fl (80-96); MEAN PLT VOLUME 8.1 fl (7.5-11.1); PLATELET COUNT 241 10^3/uL (134-434); RBC 4.84 M/mm3 (4.00-5.60); WHITE BLOOD COUNT 4.7 K/mm3 (4.0-10.0)
[2022-03-17 12:56] LABS: CALCIUM 9.2 mg/dL (8.5-10.1)
[2022-03-17 12:57] LABS: ALBUMIN 3.8 g/dl (3.4-5.0)
[2022-03-17 13:01] LABS: BILIRUBIN,TOTAL 1.7 mg/dL (0.2-1); CREATININE 0.7 mg/dL (0.55-1.3); TOT PROT 6.8 g/dl (6.4-8.2)
[2022-03-17] MEDS: THIAMINE HCL 100 MG TABLET (FP) PO SCH (22:19)
[2022-03-17] MEDS: MELATONIN 5 MG TABLETS PO SCH (22:19)
[2022-03-18] MEDS ORDERED: chlordiazePOXIDE HCL 10 MG CAPSULE PO PRN
[2022-03-18] MEDS: chlordiazePOXIDE HCL 10 MG CAPSULE PO SCH ×4 (05:19→22:13)
[2022-03-18] MEDS: METHOCARBAMOL 500 MG TABLET PO PRN ×3 (05:21→22:27)
[2022-03-18] MEDS: ACETAMINOPHEN 325 MG TABLET (FP) PO PRN ×3 (05:21→22:13)
[2022-03-18] MEDS: NICOTINE 10 MG CARTRIDGE (INHALER) IH PRN ×2 (05:22→22:16)
[2022-03-18] MEDS: NICOTINE 21 MG/24 HOURS TOPICAL PATCH TD SCH (11:41)
[2022-03-18] MEDS: PRENATAL VITAMINS W/ FOLIC ACID TABLET (FP) PO SCH (11:41)
[2022-03-18] MEDS: hydrOXYzine PAMOATE 25 MG CAPSULE (FP) PO PRN (11:44)
[2022-03-18] MEDS: MELATONIN 5 MG TABLETS PO SCH (22:12)
[2022-03-18] MEDS: THIAMINE HCL 100 MG TABLET (FP) PO SCH (22:13)
[2022-03-18] MEDS: QUEtiapine FUMARATE 50 MG TABLET PO SCH (22:13)
[2022-03-19] MEDS: chlordiazePOXIDE HCL 10 MG CAPSULE PO SCH ×2 (05:23→18:12)
[2022-03-19] MEDS: METHOCARBAMOL 500 MG TABLET PO PRN ×2 (05:25→18:11)
[2022-03-19] MEDS: PRENATAL VITAMINS W/ FOLIC ACID TABLET (FP) PO SCH (10:14)
[2022-03-19] MEDS: NICOTINE 21 MG/24 HOURS TOPICAL PATCH TD SCH (10:14)
[2022-03-19] MEDS: hydrOXYzine PAMOATE 25 MG CAPSULE (FP) PO PRN ×2 (12:05→22:31)
[2022-03-19] MEDS: ACETAMINOPHEN 325 MG TABLET (FP) PO PRN ×2 (12:06→18:14)
[2022-03-19] MEDS: THIAMINE HCL 100 MG TABLET (FP) PO SCH (22:30)
[2022-03-19] MEDS: QUEtiapine FUMARATE 50 MG TABLET PO SCH (22:30)
[2022-03-19] MEDS: MELATONIN 5 MG TABLETS PO SCH (22:30)
[2022-03-19] MEDS: NICOTINE 10 MG CARTRIDGE (INHALER) IH PRN (22:34)
[2022-03-20] MEDS ORDERED: chlordiazePOXIDE HCL 10 MG CAPSULE PO ONE (05:00)
[2022-03-20] MEDS: ACETAMINOPHEN 325 MG TABLET (FP) PO PRN (08:54)
[2022-03-20] MEDS: METHOCARBAMOL 500 MG TABLET PO PRN (08:55)
[2022-03-20 09:51] VITALS: BP 125/70; PULSE 66; TEMP 98.6
== END 2022-03-20 10:16 | disposition home or self-care (01) | DRG 897 ==
LOC: YASAS 00:36 → UNDOADMIN 02:10 → Y3N 02:10
PROVIDERS: ADMIT Allergy & Immunology; ATTEND Psychiatry & Neurology Psychiatry
PROC: HZ2ZZZZ Detoxification Services for Substance Abuse Treatment (ICD-10-PCS; principal; 2022-03-16)
DX: F10.230 Alcohol dependence with withdrawal, uncomplicated (principal); F17.210 Nicotine dependence, cigarettes, uncomplicated; F10.24 Alcohol dependence with alcohol-induced mood disorder; F20.9 Schizophrenia, unspecified; F31.9 Bipolar disorder, unspecified; F41.1 Generalized anxiety disorder; R74.8 Abnormal levels of other serum enzymes; Z88.0 Allergy status to penicillin; Z91.013 Allergy to seafood; Z28.310 Unvaccinated for COVID-19
CPT/HCPCS: 36415; 80053; 85027; 86780; C9803-CS; U0003; U0005

== ENCOUNTER 2022-05-11 12:33 | Emergency (ER) | payer OTHER ==
[2022-05-11 12:59] VITALS: BP 137/95; PULSE 94; RESP 18; TEMP 98.1; BMI 26.6
[2022-05-11] MEDS ORDERED: ONDANSETRON 4 MG/2 ML VIAL IVPUSH ONE (13:41)
[2022-05-11] MEDS ORDERED: SODIUM CHLORIDE 0.9% 500 ML INFUS.BAG IV ONE (13:41)
[2022-05-11] MEDS ORDERED: KETOROLAC TROMETHAMINE 30 MG/1 ML VIAL IVPUSH ONE (13:42)
[2022-05-11] MEDS ORDERED: ACETAMINOPHEN 500 MG TABLET (FP) PO ONE (13:42)
[2022-05-11] MEDS ORDERED: FAMOTIDINE 20 MG/50 ML IVPB 20 MG/50 ML MG IVPB ONE (13:42)
[2022-05-11] MEDS ORDERED: FAMOTIDINE 10 MG/ML VIAL IVPB ONE (13:49)
[2022-05-11] MEDS ORDERED: ONDANSETRON 4 MG/2 ML VIAL ONE (13:49)
[2022-05-11] MEDS ORDERED: KETOROLAC TROMETHAMINE 30 MG/1 ML VIAL ONE (13:49)
[2022-05-11] MEDS ORDERED: ACETAMINOPHEN 325 MG TABLET (FP) ONE (14:29)
[2022-05-11 14:30] LABS: BASO % 1.5 % (0-2.0); EOS % 3.8 % (0-4.5); HEMATOCRIT 50.4 % (35.4-49); HEMOGLOBIN 16.8 GM/dL (11.7-16.9); LYMPH % 52.8 % (8-40); MCH 30.3 pg (25.7-33.7); MCHC 33.4 g/dl (32.0-35.9); MEAN CELL VOLUME 90.8 fl (80-96); MEAN PLT VOLUME 7.5 fl (7.5-11.1); MONO % 3.6 % (3.8-10.2); NEUT % 38.3 % (42.8-82.8); PLATELET COUNT 419 10^3/uL (134-434); RBC 5.55 M/mm3 (4.00-5.60); RDW 13.2 % (11.9-15.9); WHITE BLOOD COUNT 3.4 K/mm3 (4.0-10.0)
[2022-05-11 14:36] LABS: INR 1.31 (0.83-1.09); PROTHROMBIN TIME (PATIENT) 15.1 SEC (9.7-13.0)
[2022-05-11 14:49] LABS: BLOOD UREA NITROGEN 7.9 mg/dL (7-18)
[2022-05-11 14:50] LABS: ALBUMIN 3.8 g/dl (3.4-5.0); CALCIUM 9.2 mg/dL (8.5-10.1)
[2022-05-11 14:52] LABS: CREATININE 0.7 mg/dL (0.55-1.3)
[2022-05-11 14:54] LABS: BILIRUBIN,TOTAL 0.9 mg/dL (0.2-1); TOT PROT 7.7 g/dl (6.4-8.2)
== END 2022-05-11 16:39 | disposition short-term general hospital (02) ==
LOC: JER 12:33
PROC: 3E033GC Introduction of Other Therapeutic Substance into Peripheral Vein, Percutaneous Approach (ICD-10-PCS; principal; 2022-05-11)
DX: K21.9 Gastro-esophageal reflux disease without esophagitis (principal)
CPT/HCPCS: 36415; 80053; 83690; 85025; 85610; 99284-25

== ENCOUNTER 2022-05-11 16:02 | Inpatient (IN) | payer OTHER ==
[2022-05-11 20:44] VITALS: BMI 25.8
[2022-05-11] MEDS ORDERED: ACETAMINOPHEN 325 MG TABLET (FP) PO PRN (21:17)
[2022-05-11] MEDS ORDERED: BISMUTH SUBSALICYLATE 524 MG/30 ML PO PRN (21:17)
[2022-05-11] MEDS ORDERED: chlordiazePOXIDE HCL 25 MG CAPSULE PO PRN (21:17)
[2022-05-11] MEDS ORDERED: MAGNESIUM CITRATE 300 ML BOTTLE PO PRN (21:17)
[2022-05-11] MEDS ORDERED: ONDANSETRON *ODT* 4 MG TABLET SL PRN (21:17)
[2022-05-11] MEDS ORDERED: LOPERAMIDE HCL 2 MG CAPSULE PO PRN (21:17)
[2022-05-11] MEDS ORDERED: DICYCLOMINE HCL 10 MG CAPSULE PO PRN (21:17)
[2022-05-11] MEDS ORDERED: MAG HYDROX/AL HYDROX/SIMETH 30 ML UNIT-DOSE CUP PO PRN (21:17)
[2022-05-11] MEDS ORDERED: IBUPROFEN 400 MG TABLET (FP) PO PRN (21:17)
[2022-05-11] MEDS ORDERED: BENZOCAINE/MENTHOL (CHLORASEPTIC ) LOZENGE MM PRN (21:17)
[2022-05-11] MEDS ORDERED: MAGNESIUM HYDROX 2400MG/30ML ORAL SUSPENSION 30 ML CUP PO PRN (21:17)
[2022-05-11] MEDS ORDERED: ACETAMINOPHEN 325 MG TABLET (FP) ONE (22:23)
[2022-05-11] MEDS ORDERED: chlordiazePOXIDE HCL 25 MG CAPSULE ONE (22:58)
[2022-05-11] MEDS: chlordiazePOXIDE HCL 25 MG CAPSULE PO SCH (23:00)
[2022-05-12] MEDS: MELATONIN 5 MG TABLETS PO SCH ×2 (01:20→22:06)
[2022-05-12] MEDS: THIAMINE HCL 100 MG TABLET (FP) PO SCH ×2 (01:20→22:06)
[2022-05-12] MEDS: chlordiazePOXIDE HCL 25 MG CAPSULE PO SCH ×4 (05:52→22:07)
[2022-05-12] MEDS: ACETAMINOPHEN 325 MG TABLET (FP) PO PRN (05:53)
[2022-05-12] MEDS: NICOTINE POLACRILEX 2 MG GUM BUC PRN ×2 (05:55→10:31)
[2022-05-12] MEDS: METHOCARBAMOL 500 MG TABLET PO PRN ×2 (09:20→22:07)
[2022-05-12] MEDS: NICOTINE 21 MG/24 HOURS TOPICAL PATCH TD SCH (10:25)
[2022-05-12] MEDS: PRENATAL VITAMINS W/ FOLIC ACID TABLET (FP) PO SCH (10:29)
[2022-05-12] MEDS ORDERED: NICOTINE 10 MG CARTRIDGE (INHALER) IH PRN (10:50)
[2022-05-12] MEDS ORDERED: QUEtiapine FUMARATE 50 MG TABLET PO PRN (12:05)
[2022-05-12] MEDS: IBUPROFEN 600 MG TABLET (FP) PO PRN ×2 (17:33→22:09)
[2022-05-13] MEDS: chlordiazePOXIDE HCL 25 MG CAPSULE PO SCH ×2 (05:35→10:46)
[2022-05-13] MEDS: ACETAMINOPHEN 325 MG TABLET (FP) PO PRN ×2 (05:36→10:46)
[2022-05-13] MEDS: METHOCARBAMOL 500 MG TABLET PO PRN (07:36)
[2022-05-13 09:51] VITALS: BP 143/77; PULSE 71; RESP 17; TEMP 96.2
[2022-05-13] MEDS: NICOTINE 21 MG/24 HOURS TOPICAL PATCH TD SCH (10:46)
[2022-05-13] MEDS: PRENATAL VITAMINS W/ FOLIC ACID TABLET (FP) PO SCH (10:46)
[2022-05-14] MEDS ORDERED: chlordiazePOXIDE HCL 10 MG CAPSULE PO PRN
[2022-05-14] MEDS ORDERED: chlordiazePOXIDE HCL 10 MG CAPSULE PO SCH (05:00)
[2022-05-15] MEDS ORDERED: chlordiazePOXIDE HCL 10 MG CAPSULE PO SCH (05:00)
[2022-05-16] MEDS ORDERED: chlordiazePOXIDE HCL 10 MG CAPSULE PO ONE (05:00)
== END 2022-05-13 11:56 | disposition left against medical advice (07) | DRG 894 ==
LOC: YASAS 16:02 → Y6N 05-12 01:03
PROVIDERS: ADMIT Allergy & Immunology; ATTEND Surgery
PROC: HZ2ZZZZ Detoxification Services for Substance Abuse Treatment (ICD-10-PCS; principal; 2022-05-12)
DX: F10.230 Alcohol dependence with withdrawal, uncomplicated (principal); F12.20 Cannabis dependence, uncomplicated; F17.210 Nicotine dependence, cigarettes, uncomplicated; F10.282 Alcohol dependence with alcohol-induced sleep disorder; F25.9 Schizoaffective disorder, unspecified; F41.9 Anxiety disorder, unspecified; K21.9 Gastro-esophageal reflux disease without esophagitis; Z87.19 Personal history of other diseases of the digestive system; Z88.0 Allergy status to penicillin; Z91.013 Allergy to seafood
CPT/HCPCS: 36415; 86780; C9803-CS; U0003; U0005

== ENCOUNTER 2022-05-20 02:03 | Inpatient (IN) | payer OTHER ==
[2022-05-20] MEDS ORDERED: FAMOTIDINE 20 MG/50 ML IVPB 20 MG/50 ML MG IVPB ONE ×2 (02:47→03:15)
[2022-05-20] MEDS ORDERED: SODIUM CHLORIDE 0.9% 500 ML INFUS.BAG IV ONE ×2 (02:47→04:39)
[2022-05-20] MEDS ORDERED: ONDANSETRON 4 MG/2 ML VIAL IVPUSH ONE (02:47)
[2022-05-20] MEDS ORDERED: ACETAMINOPHEN 1000 MG/100 ML BAG IVPB ONE (02:48)
[2022-05-20] MEDS ORDERED: LORazepam 2 MG/ML SDV VIAL IVPUSH ONE (03:00)
[2022-05-20] MEDS ORDERED: ONDANSETRON 4 MG/2 ML VIAL ONE (03:15)
[2022-05-20] MEDS ORDERED: ACETAMINOPHEN INJECTION 100 ML IVPB ONE (03:15)
[2022-05-20 03:17] LABS: BASO % 1.4 % (0-2.0); EOS % 9.1 % (0-4.5); HEMATOCRIT 46.5 % (35.4-49); LYMPH % 37.8 % (8-40); MCHC 34.4 g/dl (32.0-35.9); MEAN CELL VOLUME 90.1 fl (80-96); MEAN PLT VOLUME 7.6 fl (7.5-11.1); NEUT % 48.7 % (42.8-82.8); PLATELET COUNT 254 10^3/uL (134-434); RBC 5.16 M/mm3 (4.00-5.60); WHITE BLOOD COUNT 8.4 K/mm3 (4.0-10.0)
[2022-05-20 03:43] LABS: CALCIUM 9.1 mg/dL (8.5-10.1)
[2022-05-20 03:45] LABS: ALBUMIN 3.9 g/dl (3.4-5.0); MAGNESIUM 2.1 mg/dL (1.8-2.4)
[2022-05-20 03:48] LABS: CREATININE 0.7 mg/dL (0.55-1.3)
[2022-05-20 03:49] LABS: BILIRUBIN,TOTAL 1.4 mg/dL (0.2-1); TOT PROT 7.3 g/dl (6.4-8.2)
[2022-05-20] MEDS ORDERED: morphine CARPU-JECT 4 MG/1 ML DISP.SYRIN IVPUSH ONE (04:38)
[2022-05-20] MEDS ORDERED: morphine SULFATE 4 MG/ML VIAL ONE (04:47)
[2022-05-20] MEDS ORDERED: LORazepam 1 MG TABLET PO PRN (06:33)
[2022-05-20] MEDS ORDERED: LORazepam 1 MG TABLET ONE (06:58)
[2022-05-20] MEDS: LORazepam 1 MG TABLET PO SCH ×4 (07:00→22:19)
[2022-05-20] MEDS ORDERED: FOLIC ACID INJECTION - 1 MG, THIAMINE HCL 100 MG, MULTIVIT INJECTION ADULT 10 ML in SOD... IVPB ONE ×2 (07:30→12:00)
[2022-05-20] MEDS ORDERED: LACTATED RINGERS SOLUTION 1,000 ML/1,000 ML INFUS.BAG IV SCH (07:45)
[2022-05-20] MEDS: FOLIC ACID 1 MG TABLET (FP) PO SCH (09:56)
[2022-05-20] MEDS: THIAMINE HCL 100 MG TABLET (FP) PO SCH (09:56)
[2022-05-20] MEDS: NICOTINE 14 MG/24 HOURS TOPICAL PATCH TD SCH (09:57)
[2022-05-20] MEDS: ACETAMINOPHEN 325 MG TABLET (FP) PO PRN ×2 (10:00→17:25)
[2022-05-20] MEDS: ENOXAPARIN NA (PORCINE) 40 MG/0.4 ML DISP.SYRIN SQ SCH (10:06)
[2022-05-20 11:27] LABS: BASO % 0.7 % (0-2.0); EOS % 11.5 % (0-4.5); HEMATOCRIT 40.3 % (35.4-49); LYMPH % 43.6 % (8-40); MCH 31.7 pg (25.7-33.7); MCHC 34.8 g/dl (32.0-35.9); MEAN CELL VOLUME 91.2 fl (80-96); MEAN PLT VOLUME 7.8 fl (7.5-11.1); MONO % 3.8 % (3.8-10.2); NEUT % 40.4 % (42.8-82.8); PLATELET COUNT 210 10^3/uL (134-434); RBC 4.42 M/mm3 (4.00-5.60); RDW 13.1 % (11.9-15.9); WHITE BLOOD COUNT 5.8 K/mm3 (4.0-10.0)
[2022-05-20 11:38] LABS: CHLORIDE 106 mmol/L (98-107); SODIUM 142 mmol/L (136-145)
[2022-05-20 11:39] VITALS: BMI 21.4
[2022-05-20 11:41] LABS: MAGNESIUM 1.7 mg/dL (1.8-2.4)
[2022-05-20 11:44] LABS: SGPT/ALT 19 U/L (13-61)
[2022-05-20 11:45] LABS: CALCIUM 8.1 mg/dL (8.5-10.1); CREATININE 0.6 mg/dL (0.55-1.3); SGOT/AST 24 U/L (15-37)
[2022-05-20 11:46] LABS: ALBUMIN 3.3 g/dl (3.4-5.0); ANION GAP 11 MMOL/L (8-16); BLOOD UREA NITROGEN 7.2 mg/dL (7-18); CO2 25 mmol/L (21-32); GLUCOSE,RANDOM 63 mg/dL (74-106)
[2022-05-20 11:48] LABS: BILIRUBIN,DIRECT 0.3 mg/dL (0.0-0.2)
[2022-05-20 11:49] LABS: PHOSPHOROUS 3.8 mg/dL (2.5-4.9)
[2022-05-20 11:51] LABS: ALK PHOS 70 U/L (45-117); BILIRUBIN,TOTAL 0.7 mg/dL (0.2-1)
[2022-05-20] MEDS ORDERED: oxyCODONE HCL 5 MG TABLET PO PRN (13:20)
[2022-05-20] MEDS: LACTATED RINGERS SOLUTION 1,000 ML/1,000 ML INFUS.BAG IV SCH (14:32)
[2022-05-20] MEDS ORDERED: MAG HYDROX/AL HYDROX/SIMETH 30 ML UNIT-DOSE CUP PO ONE ×2 (17:57→19:15)
[2022-05-20] MEDS: oxyCODONE HCL 5 MG TABLET PO PRN ×2 (18:37→22:19)
[2022-05-21] MEDS: ACETAMINOPHEN 325 MG TABLET (FP) PO PRN ×3 (01:02→22:03)
[2022-05-21] MEDS: LORazepam 1 MG TABLET PO SCH ×4 (04:59→22:03)
[2022-05-21 05:14] VITALS: RESP 18
[2022-05-21] MEDS: THIAMINE HCL 100 MG TABLET (FP) PO SCH (09:32)
[2022-05-21] MEDS: NICOTINE 14 MG/24 HOURS TOPICAL PATCH TD SCH (09:33)
[2022-05-21] MEDS: FOLIC ACID 1 MG TABLET (FP) PO SCH (09:33)
[2022-05-21] MEDS: ENOXAPARIN NA (PORCINE) 40 MG/0.4 ML DISP.SYRIN SQ SCH (09:33)
[2022-05-21] MEDS ORDERED: CYCLOBENZAPRINE HCL 5 MG TABLET PO SCH (10:00)
[2022-05-21 11:27] LABS: BASO % 0.3 % (0-2.0); EOS % 7.4 % (0-4.5); HEMATOCRIT 40.6 % (35.4-49); HEMOGLOBIN 13.8 GM/dL (11.7-16.9); LYMPH % 18.2 % (8-40); MCH 30.5 pg (25.7-33.7); MCHC 33.9 g/dl (32.0-35.9); MEAN CELL VOLUME 89.9 fl (80-96); MEAN PLT VOLUME 8.1 fl (7.5-11.1); NEUT % 68.1 % (42.8-82.8); PLATELET COUNT 205 10^3/uL (134-434); RBC 4.52 M/mm3 (4.00-5.60); RDW 12.8 % (11.9-15.9); WHITE BLOOD COUNT 6.3 K/mm3 (4.0-10.0)
[2022-05-21 11:54] LABS: CALCIUM 8.3 mg/dL (8.5-10.1)
[2022-05-21 11:55] LABS: ALBUMIN 3.3 g/dl (3.4-5.0); BLOOD UREA NITROGEN 3.4 mg/dL (7-18)
[2022-05-21 11:58] LABS: CREATININE 0.6 mg/dL (0.55-1.3)
[2022-05-21 11:59] LABS: TOT PROT 6.2 g/dl (6.4-8.2)
[2022-05-21] MEDS: LACTATED RINGERS SOLUTION 1,000 ML/1,000 ML INFUS.BAG IV SCH (12:30)
[2022-05-22] MEDS ORDERED: LORazepam 0.5 MG TABLET PO PRN
[2022-05-22] MEDS: ACETAMINOPHEN 325 MG TABLET (FP) PO PRN ×2 (04:45→20:35)
[2022-05-22] MEDS: LORazepam 0.5 MG TABLET PO SCH ×4 (05:00→22:41)
[2022-05-22] MEDS: CYCLOBENZAPRINE HCL 10 MG TABLET (FP) PO SCH ×3 (08:58→21:05)
[2022-05-22] MEDS: ENOXAPARIN NA (PORCINE) 40 MG/0.4 ML DISP.SYRIN SQ SCH (09:00)
[2022-05-22] MEDS: THIAMINE HCL 100 MG TABLET (FP) PO SCH (09:00)
[2022-05-22] MEDS: NICOTINE 14 MG/24 HOURS TOPICAL PATCH TD SCH (09:00)
[2022-05-22] MEDS: FOLIC ACID 1 MG TABLET (FP) PO SCH (09:00)
[2022-05-22] MEDS ORDERED: MAGNESIUM OXIDE 400 MG TABLET (FP) PO ONE (10:00)
[2022-05-22 11:39] LABS: BASO % 0.4 % (0-2.0); EOS % 10.9 % (0-4.5); HEMATOCRIT 41.1 % (35.4-49); HEMOGLOBIN 13.8 GM/dL (11.7-16.9); LYMPH % 30.3 % (8-40); MCH 30.5 pg (25.7-33.7); MCHC 33.6 g/dl (32.0-35.9); MEAN CELL VOLUME 90.9 fl (80-96); MEAN PLT VOLUME 8.3 fl (7.5-11.1); MONO % 6.8 % (3.8-10.2); NEUT % 51.6 % (42.8-82.8); PLATELET COUNT 195 10^3/uL (134-434); RBC 4.52 M/mm3 (4.00-5.60); RDW 13.1 % (11.9-15.9); WHITE BLOOD COUNT 4.9 K/mm3 (4.0-10.0)
[2022-05-22 12:04] LABS: CHLORIDE 103 mmol/L (98-107); SODIUM 137 mmol/L (136-145)
[2022-05-22] MEDS ORDERED: ACETAMINOPHEN 325 MG TABLET (FP) PO PRN (12:05)
[2022-05-22 12:09] LABS: ANION GAP 6 MMOL/L (8-16); CALCIUM 8.2 mg/dL (8.5-10.1); CO2 29 mmol/L (21-32); GLUCOSE,RANDOM 95 mg/dL (74-106)
[2022-05-22 12:10] LABS: LIPASE 1031 U/L (73-393); MAGNESIUM 1.7 mg/dL (1.8-2.4)
[2022-05-22 12:11] LABS: CREATININE 0.5 mg/dL (0.55-1.3); PHOSPHOROUS 1.5 mg/dL (2.5-4.9)
[2022-05-22 12:24] LABS: BLOOD UREA NITROGEN 2.1 mg/dL (7-18)
[2022-05-22] MEDS: FAMOTIDINE 10 MG TABLET PO SCH (12:35)
[2022-05-22 13:32] LABS: URINE APPEARANCE CLEAR; URINE BILIRUBIN NEGATIVE (NEGATIVE); URINE COLOR YELLOW; URINE GLUCOSE (UA) NEGATIVE (NEGATIVE); URINE KETONE NEGATIVE (NEGATIVE); URINE LEUK ESTERASE NEGATIVE (NEGATIVE); URINE NITRITE NEGATIVE (NEGATIVE); URINE PROTEIN NEGATIVE (NEGATIVE); URINE UROBILINOGEN 0.2 mg/dL (0.2-1.0)
[2022-05-22] MEDS: LACTATED RINGERS SOLUTION 1,000 ML/1,000 ML INFUS.BAG IV SCH ×2 (14:00→18:10)
[2022-05-22] MEDS ORDERED: MAG HYDROX/AL HYDROX/SIMETH -MYLANTA- ORAL SUSPENSION PO SCH (18:00)
[2022-05-22] MEDS: oxyCODONE HCL 5 MG TABLET PO PRN (18:53)
[2022-05-22] MEDS: MAG HYDROX/AL HYDROX/SIMETH 30 ML UNIT-DOSE CUP PO SCH (21:04)
[2022-05-23] MEDS: MAG HYDROX/AL HYDROX/SIMETH 30 ML UNIT-DOSE CUP PO SCH ×4 (00:42→17:05)
[2022-05-23] MEDS: oxyCODONE HCL 5 MG TABLET PO PRN ×3 (01:29→20:49)
[2022-05-23] MEDS ORDERED: LORazepam 0.5 MG TABLET PO ONE ×2 (05:00→22:03)
[2022-05-23] MEDS: CYCLOBENZAPRINE HCL 10 MG TABLET (FP) PO SCH ×3 (05:50→21:32)
[2022-05-23] MEDS: ENOXAPARIN NA (PORCINE) 40 MG/0.4 ML DISP.SYRIN SQ SCH (10:18)
[2022-05-23] MEDS: FAMOTIDINE 10 MG TABLET PO SCH (10:19)
[2022-05-23] MEDS: NICOTINE 14 MG/24 HOURS TOPICAL PATCH TD SCH (10:19)
[2022-05-23] MEDS: THIAMINE HCL 100 MG TABLET (FP) PO SCH (10:19)
[2022-05-23] MEDS: FOLIC ACID 1 MG TABLET (FP) PO SCH (10:19)
[2022-05-23 10:41] LABS: BASO % 0.7 % (0-2.0); EOS % 11.6 % (0-4.5); HEMATOCRIT 42.1 % (35.4-49); HEMOGLOBIN 14.6 GM/dL (11.7-16.9); LYMPH % 39.9 % (8-40); MCH 31.7 pg (25.7-33.7); MCHC 34.7 g/dl (32.0-35.9); MEAN CELL VOLUME 91.5 fl (80-96); MEAN PLT VOLUME 8.3 fl (7.5-11.1); MONO % 8.1 % (3.8-10.2); NEUT % 39.7 % (42.8-82.8); PLATELET COUNT 219 10^3/uL (134-434); RDW 13.1 % (11.9-15.9); WHITE BLOOD COUNT 5.5 K/mm3 (4.0-10.0)
[2022-05-23 11:03] LABS: ALBUMIN 3.6 g/dl (3.4-5.0); PHOSPHOROUS 2.6 mg/dL (2.5-4.9)
[2022-05-23 11:04] LABS: BILIRUBIN,TOTAL 0.5 mg/dL (0.2-1); MAGNESIUM 2.2 mg/dL (1.8-2.4); TOT PROT 7.1 g/dl (6.4-8.2)
[2022-05-23 11:06] LABS: BLOOD UREA NITROGEN 5.2 mg/dL (7-18)
[2022-05-23 11:09] LABS: CREATININE 0.5 mg/dL (0.55-1.3)
[2022-05-23] MEDS: ACETAMINOPHEN 325 MG TABLET (FP) PO PRN ×2 (12:05→20:49)
[2022-05-23] MEDS: LACTATED RINGERS SOLUTION 1,000 ML/1,000 ML INFUS.BAG IV SCH (13:17)
[2022-05-23] MEDS: MELATONIN 5 MG TABLETS PO PRN (22:14)
[2022-05-24] MEDS: MAG HYDROX/AL HYDROX/SIMETH 30 ML UNIT-DOSE CUP PO SCH ×4 (00:12→18:41)
[2022-05-24] MEDS: LACTATED RINGERS SOLUTION 1,000 ML/1,000 ML INFUS.BAG IV SCH (00:14)
[2022-05-24] MEDS: CYCLOBENZAPRINE HCL 10 MG TABLET (FP) PO SCH ×3 (06:21→21:41)
[2022-05-24] MEDS: ACETAMINOPHEN 325 MG TABLET (FP) PO PRN ×2 (06:35→13:00)
[2022-05-24 10:23] LABS: BASO % 0.6 % (0-2.0); EOS % 12.1 % (0-4.5); HEMATOCRIT 41.7 % (35.4-49); HEMOGLOBIN 14.2 GM/dL (11.7-16.9); LYMPH % 39.2 % (8-40); MCH 31.3 pg (25.7-33.7); MEAN CELL VOLUME 92.2 fl (80-96); MEAN PLT VOLUME 8.3 fl (7.5-11.1); MONO % 8.1 % (3.8-10.2); PLATELET COUNT 233 10^3/uL (134-434); RBC 4.53 M/mm3 (4.00-5.60); RDW 13.4 % (11.9-15.9); WHITE BLOOD COUNT 5.9 K/mm3 (4.0-10.0)
[2022-05-24] MEDS: ENOXAPARIN NA (PORCINE) 40 MG/0.4 ML DISP.SYRIN SQ SCH (10:37)
[2022-05-24] MEDS: THIAMINE HCL 100 MG TABLET (FP) PO SCH (10:37)
[2022-05-24] MEDS: FAMOTIDINE 10 MG TABLET PO SCH (10:37)
[2022-05-24] MEDS: FOLIC ACID 1 MG TABLET (FP) PO SCH (10:37)
[2022-05-24] MEDS: NICOTINE 14 MG/24 HOURS TOPICAL PATCH TD SCH (10:37)
[2022-05-24 10:38] LABS: ALBUMIN 3.4 g/dl (3.4-5.0); BLOOD UREA NITROGEN 4.9 mg/dL (7-18); CALCIUM 9.4 mg/dL (8.5-10.1)
[2022-05-24 10:41] LABS: CREATININE 0.6 mg/dL (0.55-1.3)
[2022-05-24 10:42] LABS: BILIRUBIN,TOTAL 0.4 mg/dL (0.2-1); TOT PROT 6.8 g/dl (6.4-8.2)
[2022-05-24] MEDS ORDERED: hydrOXYzine HCL 10 MG/5 ML LIQUID BULK BOTTLE PO ONE (20:00)
[2022-05-24] MEDS: MELATONIN 5 MG TABLETS PO PRN (21:42)
[2022-05-25] MEDS: MAG HYDROX/AL HYDROX/SIMETH 30 ML UNIT-DOSE CUP PO SCH ×2 (00:33→06:21)
[2022-05-25] MEDS ORDERED: MELATONIN 5 MG TABLETS PO ONE (01:53)
[2022-05-25] MEDS: ACETAMINOPHEN 325 MG TABLET (FP) PO PRN (05:04)
[2022-05-25 06:14] VITALS: BP 130/88; PULSE 93; TEMP 99.1
[2022-05-25] MEDS: CYCLOBENZAPRINE HCL 10 MG TABLET (FP) PO SCH (06:21)
[2022-05-25] MEDS: FOLIC ACID 1 MG TABLET (FP) PO SCH (09:04)
[2022-05-25] MEDS: ENOXAPARIN NA (PORCINE) 40 MG/0.4 ML DISP.SYRIN SQ SCH (09:04)
[2022-05-25] MEDS: NICOTINE 14 MG/24 HOURS TOPICAL PATCH TD SCH (09:05)
[2022-05-25] MEDS: THIAMINE HCL 100 MG TABLET (FP) PO SCH (09:05)
== END 2022-05-25 10:15 | disposition home or self-care (01) | DRG 439 ==
LOC: JER 02:03 → JERBED 04:18 → INTOOBSV 04:18 → UNDOADMOB 04:18 → JERBED 04:19 → OBSVTOIN 06:24 → INTOOBSV 06:24 → J6S 07:58
PROVIDERS: ADMIT Internal Medicine; ATTEND Internal Medicine
PROC: HZ2ZZZZ Detoxification Services for Substance Abuse Treatment (ICD-10-PCS; principal; 2022-05-20)
DX: K85.20 Alcohol induced acute pancreatitis without necrosis or infection (principal); F10.939 Alcohol use, unspecified with withdrawal, unspecified; K92.1 Melena; E78.1 Pure hyperglyceridemia
CPT/HCPCS: 36415; 74177-TC; 74178-TC; 74183-TC; 80048; 80053; 80061; 80307; 81003; 82105; 82248; 83690; 83735; 84100; 85025; 86140; 86301; 93005; 93010; 99285-25; A9579; C9803-CS; G0378; Q9967; U0003; U0005

== ENCOUNTER 2022-06-09 06:55 | Emergency (ER) | payer OTHER ==
[2022-06-09 07:20] VITALS: TEMP 98.3; BMI 25.4
[2022-06-09] MEDS ORDERED: FOLIC ACID INJECTION - 1 MG, THIAMINE HCL 100 MG, MULTIVIT INJECTION ADULT 10 ML in SOD... IVPB ONE (07:47)
[2022-06-09] MEDS ORDERED: ONDANSETRON 4 MG/2 ML VIAL IVPUSH ONE (07:48)
[2022-06-09] MEDS ORDERED: ACETAMINOPHEN 1000 MG/100 ML BAG IVPB ONE ×2 (07:48→09:18)
[2022-06-09] MEDS ORDERED: ONDANSETRON 4 MG/2 ML VIAL ONE (07:50)
[2022-06-09] MEDS ORDERED: ACETAMINOPHEN INJECTION 100 ML IVPB ONE (07:50)
[2022-06-09 08:28] LABS: HEMATOCRIT 47.6 % (35.4-49); HEMOGLOBIN 16.4 GM/dL (11.7-16.9); MCH 31.3 pg (25.7-33.7); MCHC 34.4 g/dl (32.0-35.9); MEAN CELL VOLUME 91.1 fl (80-96); MEAN PLT VOLUME 6.9 fl (7.5-11.1); PLATELET COUNT 602 10^3/uL (134-434); RBC 5.22 M/mm3 (4.00-5.60); RDW 13.5 % (11.9-15.9)
[2022-06-09 08:48] LABS: CALCIUM 9.4 mg/dL (8.5-10.1)
[2022-06-09 08:49] LABS: ALBUMIN 4.1 g/dl (3.4-5.0); BLOOD UREA NITROGEN 5.4 mg/dL (7-18)
[2022-06-09 08:53] LABS: BILIRUBIN,TOTAL 0.3 mg/dL (0.2-1); CREATININE 0.8 mg/dL (0.55-1.3); TOT PROT 7.9 g/dl (6.4-8.2)
[2022-06-09 10:22] LABS: ANISOCYTOSIS 0; HELMET CELLS 0; HOWELL-JOLLY BODIES 0; MACROCYTOSIS 0; OVALOCYTE 0; ROULEAU 0; SICKELED CELLS 0; TARGET CELLS 0; TEAR DROP CELLS 0; TOXIC GRANULATION 0
[2022-06-09] MEDS ORDERED: chlordiazePOXIDE HCL 25 MG CAPSULE PO ONE (11:28)
[2022-06-09] MEDS ORDERED: SODIUM CHLORIDE 0.9% 500 ML INFUS.BAG IV ONE (11:29)
[2022-06-09] MEDS ORDERED: chlordiazePOXIDE HCL 25 MG CAPSULE ONE (11:31)
[2022-06-09] MEDS ORDERED: IBUPROFEN 600 MG TABLET (FP) PO ONE (12:18)
[2022-06-09] MEDS ORDERED: IBUPROFEN 400 MG TABLET (FP) PO ONE (12:37)
[2022-06-09 12:44] VITALS: BP 120/87; PULSE 85; RESP 14
[2022-06-09] MEDS ORDERED: ACETAMINOPHEN 325 MG TABLET (FP) ONE (15:35)
== END 2022-06-09 15:43 | disposition home or self-care (01) ==
LOC: JER 06:55
PROC: 3E0333Z Introduction of Anti-inflammatory into Peripheral Vein, Percutaneous Approach (ICD-10-PCS; principal; 2022-06-09)
PROC: 3E033GC Introduction of Other Therapeutic Substance into Peripheral Vein, Percutaneous Approach (ICD-10-PCS; 2022-06-09)
PROC: 3E033GC Introduction of Other Therapeutic Substance into Peripheral Vein, Percutaneous Approach (ICD-10-PCS; 2022-06-09)
DX: F10.10 Alcohol abuse, uncomplicated (principal)
CPT/HCPCS: 36415; 80053; 80307; 83690; 85025; 99284-25

== ENCOUNTER 2022-06-09 16:09 | Inpatient (IN) | payer OTHER ==
[2022-06-09 16:51] VITALS: BMI 24.0
[2022-06-09] MEDS ORDERED: MAGNESIUM HYDROX 2400MG/30ML ORAL SUSPENSION 30 ML CUP PO PRN (17:36)
[2022-06-09] MEDS ORDERED: ONDANSETRON *ODT* 4 MG TABLET SL PRN (17:36)
[2022-06-09] MEDS ORDERED: DICYCLOMINE HCL 10 MG CAPSULE PO PRN (17:36)
[2022-06-09] MEDS ORDERED: MAGNESIUM CITRATE 300 ML BOTTLE PO PRN (17:36)
[2022-06-09] MEDS ORDERED: ACETAMINOPHEN 325 MG TABLET (FP) PO PRN (17:36)
[2022-06-09] MEDS ORDERED: BISMUTH SUBSALICYLATE 524 MG/30 ML PO PRN (17:36)
[2022-06-09] MEDS ORDERED: LOPERAMIDE HCL 2 MG CAPSULE PO PRN (17:36)
[2022-06-09] MEDS ORDERED: MAG HYDROX/AL HYDROX/SIMETH 30 ML UNIT-DOSE CUP PO PRN (17:36)
[2022-06-09] MEDS ORDERED: BENZOCAINE/MENTHOL (CHLORASEPTIC ) LOZENGE MM PRN (17:36)
[2022-06-09] MEDS ORDERED: NALOXONE HCL (KLOXXADO) 8 MG SPRAY NS PRN (17:36)
[2022-06-09] MEDS ORDERED: IBUPROFEN 600 MG TABLET (FP) PO ONE (18:05)
[2022-06-09] MEDS: IBUPROFEN 600 MG TABLET (FP) PO PRN (18:06)
[2022-06-09] MEDS ORDERED: hydrOXYzine PAMOATE 25 MG CAPSULE (FP) PO ONE (19:16)
[2022-06-09] MEDS: hydrOXYzine PAMOATE 25 MG CAPSULE (FP) PO SCH ×2 (19:23→22:07)
[2022-06-09] MEDS: ACETAMINOPHEN 325 MG TABLET (FP) PO PRN (20:37)
[2022-06-09] MEDS: PRENATAL VITAMINS W/ FOLIC ACID TABLET (FP) PO SCH ×2 (20:40→20:41)
[2022-06-09] MEDS: NICOTINE 10 MG CARTRIDGE (INHALER) IH PRN (21:33)
[2022-06-09] MEDS: diazePAM 5 MG TABLET PO SCH (22:07)
[2022-06-09] MEDS: THIAMINE HCL 100 MG TABLET (FP) PO SCH (22:07)
[2022-06-09] MEDS: MELATONIN 5 MG TABLETS PO SCH (22:08)
[2022-06-09] MEDS: METHOCARBAMOL 500 MG TABLET PO PRN (22:09)
[2022-06-10] MEDS: diazePAM 5 MG TABLET PO PRN (00:52)
[2022-06-10] MEDS: IBUPROFEN 600 MG TABLET (FP) PO PRN ×2 (00:53→13:14)
[2022-06-10] MEDS: hydrOXYzine PAMOATE 25 MG CAPSULE (FP) PO SCH ×5 (07:28→22:33)
[2022-06-10] MEDS: diazePAM 5 MG TABLET PO SCH ×4 (07:28→22:33)
[2022-06-10] MEDS: IBUPROFEN 400 MG TABLET (FP) PO PRN (07:30)
[2022-06-10] MEDS: METHOCARBAMOL 500 MG TABLET PO PRN (11:06)
[2022-06-10] MEDS: PRENATAL VITAMINS W/ FOLIC ACID TABLET (FP) PO SCH (11:06)
[2022-06-10] MEDS: NICOTINE 10 MG CARTRIDGE (INHALER) IH PRN (11:08)
[2022-06-10] MEDS: NICOTINE POLACRILEX 2 MG GUM BUC PRN ×2 (11:08→19:16)
[2022-06-10] MEDS: FENOFIBRIC ACID 45 MG CAP PO SCH (16:05)
[2022-06-10] MEDS: THIAMINE HCL 100 MG TABLET (FP) PO SCH (22:33)
[2022-06-10] MEDS: MELATONIN 5 MG TABLETS PO SCH (22:33)
[2022-06-11] MEDS: METHOCARBAMOL 500 MG TABLET PO PRN ×3 (04:12→22:33)
[2022-06-11] MEDS: diazePAM 5 MG TABLET PO PRN ×2 (04:12→10:04)
[2022-06-11] MEDS: IBUPROFEN 600 MG TABLET (FP) PO PRN (04:13)
[2022-06-11] MEDS: hydrOXYzine PAMOATE 25 MG CAPSULE (FP) PO SCH ×5 (06:33→22:32)
[2022-06-11] MEDS: diazePAM 5 MG TABLET PO SCH ×3 (06:34→22:32)
[2022-06-11] MEDS: ACETAMINOPHEN 325 MG TABLET (FP) PO PRN (06:34)
[2022-06-11] MEDS: NICOTINE 10 MG CARTRIDGE (INHALER) IH PRN ×3 (07:44→22:35)
[2022-06-11] MEDS: NICOTINE POLACRILEX 2 MG GUM BUC PRN ×2 (07:45→11:38)
[2022-06-11] MEDS: PRENATAL VITAMINS W/ FOLIC ACID TABLET (FP) PO SCH (10:03)
[2022-06-11] MEDS: FENOFIBRIC ACID 45 MG CAP PO SCH (10:03)
[2022-06-11] MEDS: THIAMINE HCL 100 MG TABLET (FP) PO SCH (22:32)
[2022-06-11] MEDS: MELATONIN 5 MG TABLETS PO SCH (22:32)
[2022-06-12] MEDS: NICOTINE POLACRILEX 2 MG GUM BUC PRN ×3 (01:45→15:10)
[2022-06-12] MEDS: diazePAM 5 MG TABLET PO PRN (03:04)
[2022-06-12] MEDS: diazePAM 5 MG TABLET PO SCH ×2 (05:43→18:11)
[2022-06-12] MEDS: hydrOXYzine PAMOATE 25 MG CAPSULE (FP) PO SCH ×5 (05:43→22:23)
[2022-06-12] MEDS: METHOCARBAMOL 500 MG TABLET PO PRN ×2 (05:47→22:23)
[2022-06-12] MEDS: ACETAMINOPHEN 325 MG TABLET (FP) PO PRN (09:21)
[2022-06-12] MEDS: PRENATAL VITAMINS W/ FOLIC ACID TABLET (FP) PO SCH (10:31)
[2022-06-12] MEDS: FENOFIBRIC ACID 45 MG CAP PO SCH (10:32)
[2022-06-12 12:10] LABS: HEMATOCRIT 44.3 % (35.4-49); HEMOGLOBIN 14.4 GM/dL (11.7-16.9); MCH 30.2 pg (25.7-33.7); MCHC 32.4 g/dl (32.0-35.9); MEAN CELL VOLUME 93.2 fl (80-96); MEAN PLT VOLUME 8.1 fl (7.5-11.1); PLATELET COUNT 361 10^3/uL (134-434); RBC 4.76 M/mm3 (4.00-5.60); RDW 13.8 % (11.9-15.9)
[2022-06-12 12:18] LABS: ALBUMIN 3.6 g/dl (3.4-5.0); BLOOD UREA NITROGEN 7.6 mg/dL (7-18); CALCIUM 9.5 mg/dL (8.5-10.1)
[2022-06-12 12:21] LABS: CREATININE 0.6 mg/dL (0.55-1.3)
[2022-06-12 12:24] LABS: BILIRUBIN,TOTAL 0.5 mg/dL (0.2-1); TOT PROT 6.9 g/dl (6.4-8.2)
[2022-06-12] MEDS: IBUPROFEN 400 MG TABLET (FP) PO PRN (14:19)
[2022-06-12] MEDS: NICOTINE 10 MG CARTRIDGE (INHALER) IH PRN (15:10)
[2022-06-12] MEDS: THIAMINE HCL 100 MG TABLET (FP) PO SCH (22:23)
[2022-06-12] MEDS: MELATONIN 5 MG TABLETS PO SCH (22:23)
[2022-06-13] MEDS ORDERED: diazePAM 5 MG TABLET PO ONE (06:00)
[2022-06-13] MEDS: hydrOXYzine PAMOATE 25 MG CAPSULE (FP) PO SCH ×5 (06:24→22:55)
[2022-06-13] MEDS: METHOCARBAMOL 500 MG TABLET PO PRN ×2 (06:27→22:57)
[2022-06-13] MEDS: NICOTINE POLACRILEX 2 MG GUM BUC PRN ×2 (08:05→13:05)
[2022-06-13] MEDS: FENOFIBRIC ACID 45 MG CAP PO SCH (10:19)
[2022-06-13] MEDS: PRENATAL VITAMINS W/ FOLIC ACID TABLET (FP) PO SCH (10:19)
[2022-06-13] MEDS: ACETAMINOPHEN 325 MG TABLET (FP) PO PRN (10:20)
[2022-06-13] MEDS: NICOTINE 10 MG CARTRIDGE (INHALER) IH PRN (10:21)
[2022-06-13] MEDS ORDERED: cloNIDine HCL 0.1 MG TABLET PO PRN (17:31)
[2022-06-13] MEDS: THIAMINE HCL 100 MG TABLET (FP) PO SCH (22:55)
[2022-06-13] MEDS: MELATONIN 5 MG TABLETS PO SCH (22:55)
[2022-06-13] MEDS: IBUPROFEN 600 MG TABLET (FP) PO PRN (22:56)
[2022-06-14] MEDS: hydrOXYzine PAMOATE 25 MG CAPSULE (FP) PO SCH (05:45)
[2022-06-14] MEDS: METHOCARBAMOL 500 MG TABLET PO PRN (05:45)
[2022-06-14] MEDS: NICOTINE 10 MG CARTRIDGE (INHALER) IH PRN (05:48)
[2022-06-14] MEDS: NICOTINE POLACRILEX 2 MG GUM BUC PRN (05:49)
[2022-06-14 09:07] VITALS: BP 143/91; PULSE 97; RESP 18; TEMP 98.6
== END 2022-06-14 09:52 | disposition home or self-care (01) | DRG 897 ==
LOC: YASAS 16:09 → Y3N 19:36
PROVIDERS: ADMIT Allergy & Immunology; ATTEND Surgery
PROC: HZ2ZZZZ Detoxification Services for Substance Abuse Treatment (ICD-10-PCS; principal; 2022-06-09)
DX: F10.230 Alcohol dependence with withdrawal, uncomplicated (principal); F17.210 Nicotine dependence, cigarettes, uncomplicated; F10.282 Alcohol dependence with alcohol-induced sleep disorder; F25.9 Schizoaffective disorder, unspecified; F41.1 Generalized anxiety disorder; F32.A Depression, unspecified; K21.9 Gastro-esophageal reflux disease without esophagitis; R94.5 Abnormal results of liver function studies; Z88.0 Allergy status to penicillin; Z91.013 Allergy to seafood
CPT/HCPCS: 36415; 80053; 85027; 87811; C9803-CS; Q0162; U0003; U0005

== ENCOUNTER 2022-06-18 21:24 | Inpatient (IN) | payer OTHER ==
[2022-06-18 22:13] VITALS: BMI 24.2
[2022-06-18] MEDS ORDERED: LOPERAMIDE HCL 2 MG CAPSULE PO PRN (22:18)
[2022-06-18] MEDS ORDERED: ONDANSETRON *ODT* 4 MG TABLET SL PRN (22:18)
[2022-06-18] MEDS ORDERED: DICYCLOMINE HCL 10 MG CAPSULE PO PRN (22:18)
[2022-06-18] MEDS ORDERED: P-EPHED 60MG/TRIPROLIDI 2.5MG TABLET PO PRN (22:18)
[2022-06-18] MEDS ORDERED: ACETAMINOPHEN 325 MG TABLET (FP) PO PRN (22:18)
[2022-06-18] MEDS ORDERED: BENZOCAINE/MENTHOL (CHLORASEPTIC ) LOZENGE MM PRN (22:18)
[2022-06-18] MEDS ORDERED: MAGNESIUM CITRATE 300 ML BOTTLE PO PRN (22:18)
[2022-06-18] MEDS ORDERED: BISMUTH SUBSALICYLATE 524 MG/30 ML PO PRN (22:18)
[2022-06-18] MEDS ORDERED: guaiFENesin 200 MG/10 ML 10 ML UNIT-DOSE CUPS PO PRN (22:18)
[2022-06-19] MEDS: hydrOXYzine PAMOATE 25 MG CAPSULE (FP) PO PRN ×4 (02:10→17:37)
[2022-06-19] MEDS: ACETAMINOPHEN 325 MG TABLET (FP) PO PRN ×2 (03:02→09:19)
[2022-06-19] MEDS: PRENATAL VITAMINS W/ FOLIC ACID TABLET (FP) PO SCH (09:18)
[2022-06-19] MEDS: METHOCARBAMOL 500 MG TABLET PO PRN (09:18)
[2022-06-19] MEDS: NICOTINE POLACRILEX 4 MG GUM BUC PRN ×2 (09:23→18:34)
[2022-06-19] MEDS: NICOTINE 10 MG CARTRIDGE (INHALER) IH PRN (19:24)
[2022-06-19] MEDS: THIAMINE HCL 100 MG TABLET (FP) PO SCH (21:48)
[2022-06-20] MEDS: hydrOXYzine PAMOATE 25 MG CAPSULE (FP) PO PRN ×3 (09:48→21:50)
[2022-06-20] MEDS: PRENATAL VITAMINS W/ FOLIC ACID TABLET (FP) PO SCH (09:48)
[2022-06-20] MEDS: METHOCARBAMOL 500 MG TABLET PO PRN ×2 (09:49→22:43)
[2022-06-20] MEDS: NICOTINE POLACRILEX 4 MG GUM BUC PRN (19:54)
[2022-06-20] MEDS: MELATONIN 5 MG TABLETS PO PRN (21:50)
[2022-06-20] MEDS: THIAMINE HCL 100 MG TABLET (FP) PO SCH (21:50)
[2022-06-21] MEDS: NICOTINE 10 MG CARTRIDGE (INHALER) IH PRN ×2 (04:07→09:44)
[2022-06-21] MEDS: PRENATAL VITAMINS W/ FOLIC ACID TABLET (FP) PO SCH (09:42)
[2022-06-21] MEDS: hydrOXYzine PAMOATE 25 MG CAPSULE (FP) PO PRN ×2 (09:44→21:47)
[2022-06-21] MEDS: METHOCARBAMOL 500 MG TABLET PO PRN ×2 (09:44→21:49)
[2022-06-21] MEDS: NICOTINE POLACRILEX 4 MG GUM BUC PRN (13:43)
[2022-06-21] MEDS: THIAMINE HCL 100 MG TABLET (FP) PO SCH (21:47)
[2022-06-21] MEDS: MELATONIN 5 MG TABLETS PO PRN (21:48)
[2022-06-22] MEDS: METHOCARBAMOL 500 MG TABLET PO PRN ×2 (09:10→21:20)
[2022-06-22] MEDS: IBUPROFEN 400 MG TABLET (FP) PO PRN (09:11)
[2022-06-22] MEDS: hydrOXYzine PAMOATE 25 MG CAPSULE (FP) PO PRN ×2 (09:11→21:21)
[2022-06-22] MEDS: PRENATAL VITAMINS W/ FOLIC ACID TABLET (FP) PO SCH (09:13)
[2022-06-22] MEDS: NICOTINE 10 MG CARTRIDGE (INHALER) IH PRN (09:53)
[2022-06-22] MEDS: NICOTINE POLACRILEX 4 MG GUM BUC PRN (14:06)
[2022-06-22] MEDS: MELATONIN 5 MG TABLETS PO PRN (21:20)
[2022-06-22] MEDS: THIAMINE HCL 100 MG TABLET (FP) PO SCH (21:20)
[2022-06-23] MEDS: hydrOXYzine PAMOATE 25 MG CAPSULE (FP) PO PRN (06:25)
[2022-06-23] MEDS: IBUPROFEN 400 MG TABLET (FP) PO PRN (06:26)
[2022-06-23] MEDS: NICOTINE 10 MG CARTRIDGE (INHALER) IH PRN ×2 (06:27→18:24)
[2022-06-23] MEDS: NICOTINE POLACRILEX 4 MG GUM BUC PRN (08:28)
[2022-06-23] MEDS: PRENATAL VITAMINS W/ FOLIC ACID TABLET (FP) PO SCH (11:30)
[2022-06-23] MEDS: hydrOXYzine PAMOATE 50 MG CAPSULE (FP) PO PRN ×2 (15:08→21:21)
[2022-06-23] MEDS: MELATONIN 5 MG TABLETS PO PRN (21:20)
[2022-06-23] MEDS: METHOCARBAMOL 500 MG TABLET PO PRN (21:20)
[2022-06-23] MEDS: THIAMINE HCL 100 MG TABLET (FP) PO SCH (21:20)
[2022-06-23] MEDS: QUEtiapine FUMARATE 50 MG TABLET PO SCH (21:21)
[2022-06-24] MEDS: hydrOXYzine PAMOATE 50 MG CAPSULE (FP) PO PRN ×3 (06:35→21:08)
[2022-06-24] MEDS: NICOTINE 10 MG CARTRIDGE (INHALER) IH PRN ×2 (06:35→12:35)
[2022-06-24] MEDS: PRENATAL VITAMINS W/ FOLIC ACID TABLET (FP) PO SCH (09:45)
[2022-06-24] MEDS: METHOCARBAMOL 500 MG TABLET PO PRN ×2 (09:45→21:08)
[2022-06-24] MEDS: ACETAMINOPHEN 325 MG TABLET (FP) PO PRN (12:37)
[2022-06-24] MEDS: THIAMINE HCL 100 MG TABLET (FP) PO SCH (21:07)
[2022-06-24] MEDS: MELATONIN 5 MG TABLETS PO PRN (21:07)
[2022-06-24] MEDS: QUEtiapine FUMARATE 50 MG TABLET PO SCH (21:08)
[2022-06-25] MEDS: PRENATAL VITAMINS W/ FOLIC ACID TABLET (FP) PO SCH (09:45)
[2022-06-25] MEDS: hydrOXYzine PAMOATE 50 MG CAPSULE (FP) PO PRN ×3 (09:47→21:07)
[2022-06-25] MEDS: IBUPROFEN 600 MG TABLET (FP) PO PRN (09:48)
[2022-06-25] MEDS: NICOTINE 10 MG CARTRIDGE (INHALER) IH PRN ×2 (09:49→16:32)
[2022-06-25] MEDS: NICOTINE POLACRILEX 4 MG GUM BUC PRN ×2 (09:50→21:13)
[2022-06-25] MEDS: MAGNESIUM HYDROX 2400MG/30ML ORAL SUSPENSION 30 ML CUP PO PRN (16:32)
[2022-06-25] MEDS: THIAMINE HCL 100 MG TABLET (FP) PO SCH (21:07)
[2022-06-25] MEDS: MELATONIN 5 MG TABLETS PO PRN (21:07)
[2022-06-25] MEDS: QUEtiapine FUMARATE 50 MG TABLET PO SCH (21:07)
[2022-06-25] MEDS: METHOCARBAMOL 500 MG TABLET PO SCH (21:08)
[2022-06-26] MEDS: NICOTINE 10 MG CARTRIDGE (INHALER) IH PRN ×3 (06:06→21:23)
[2022-06-26] MEDS: hydrOXYzine PAMOATE 50 MG CAPSULE (FP) PO PRN ×3 (06:07→21:24)
[2022-06-26] MEDS: PRENATAL VITAMINS W/ FOLIC ACID TABLET (FP) PO SCH (09:09)
[2022-06-26] MEDS: IBUPROFEN 600 MG TABLET (FP) PO PRN (09:10)
[2022-06-26] MEDS: METHOCARBAMOL 500 MG TABLET PO SCH ×2 (09:10→21:23)
[2022-06-26] MEDS: NICOTINE POLACRILEX 4 MG GUM BUC PRN ×2 (10:08→13:07)
[2022-06-26] MEDS: MAGNESIUM HYDROX 2400MG/30ML ORAL SUSPENSION 30 ML CUP PO PRN (13:06)
[2022-06-26] MEDS: MELATONIN 5 MG TABLETS PO PRN (21:22)
[2022-06-26] MEDS: THIAMINE HCL 100 MG TABLET (FP) PO SCH (21:22)
[2022-06-26] MEDS: QUEtiapine FUMARATE 50 MG TABLET PO SCH (21:23)
[2022-06-27] MEDS: METHOCARBAMOL 500 MG TABLET PO SCH ×2 (09:37→21:23)
[2022-06-27] MEDS: NICOTINE 10 MG CARTRIDGE (INHALER) IH PRN ×2 (09:37→16:15)
[2022-06-27] MEDS: PRENATAL VITAMINS W/ FOLIC ACID TABLET (FP) PO SCH (09:37)
[2022-06-27] MEDS: NICOTINE POLACRILEX 4 MG GUM BUC PRN (12:42)
[2022-06-27] MEDS: IBUPROFEN 600 MG TABLET (FP) PO PRN (14:24)
[2022-06-27] MEDS: hydrOXYzine PAMOATE 50 MG CAPSULE (FP) PO PRN ×3 (14:26→21:22)
[2022-06-27] MEDS: IBUPROFEN 400 MG TABLET (FP) PO PRN (18:36)
[2022-06-27] MEDS: THIAMINE HCL 100 MG TABLET (FP) PO SCH (21:21)
[2022-06-27] MEDS: MELATONIN 5 MG TABLETS PO PRN (21:21)
[2022-06-27] MEDS: QUEtiapine FUMARATE 50 MG TABLET PO SCH (21:23)
[2022-06-28] MEDS: hydrOXYzine PAMOATE 50 MG CAPSULE (FP) PO PRN ×2 (06:40→19:37)
[2022-06-28] MEDS: IBUPROFEN 400 MG TABLET (FP) PO PRN (08:17)
[2022-06-28] MEDS: NICOTINE 10 MG CARTRIDGE (INHALER) IH PRN (09:00)
[2022-06-28] MEDS: PRENATAL VITAMINS W/ FOLIC ACID TABLET (FP) PO SCH (09:01)
[2022-06-28] MEDS: METHOCARBAMOL 500 MG TABLET PO SCH (09:01)
[2022-06-28] MEDS: NICOTINE POLACRILEX 4 MG GUM BUC PRN ×3 (10:17→21:27)
[2022-06-28] MEDS: ACETAMINOPHEN 325 MG TABLET (FP) PO PRN (16:29)
[2022-06-28] MEDS: QUEtiapine FUMARATE 50 MG TABLET PO SCH (21:08)
[2022-06-28] MEDS: METHOCARBAMOL 500 MG TABLET PO PRN (21:08)
[2022-06-28] MEDS: MELATONIN 5 MG TABLETS PO PRN (21:08)
[2022-06-28] MEDS: THIAMINE HCL 100 MG TABLET (FP) PO SCH (21:08)
[2022-06-28] MEDS: IBUPROFEN 600 MG TABLET (FP) PO PRN (21:09)
[2022-06-28] MEDS: MAG HYDROX/AL HYDROX/SIMETH 30 ML UNIT-DOSE CUP PO PRN (21:38)
[2022-06-29] MEDS: hydrOXYzine PAMOATE 50 MG CAPSULE (FP) PO PRN ×4 (06:17→21:22)
[2022-06-29] MEDS: MAG HYDROX/AL HYDROX/SIMETH 30 ML UNIT-DOSE CUP PO PRN (06:19)
[2022-06-29] MEDS: NICOTINE 10 MG CARTRIDGE (INHALER) IH PRN ×4 (06:20→21:42)
[2022-06-29] MEDS: PRENATAL VITAMINS W/ FOLIC ACID TABLET (FP) PO SCH (10:19)
[2022-06-29] MEDS: METHOCARBAMOL 500 MG TABLET PO PRN ×2 (10:20→21:22)
[2022-06-29] MEDS: IBUPROFEN 600 MG TABLET (FP) PO PRN (10:21)
[2022-06-29] MEDS: MAGNESIUM HYDROX 2400MG/30ML ORAL SUSPENSION 30 ML CUP PO PRN (10:56)
[2022-06-29] MEDS: NICOTINE POLACRILEX 4 MG GUM BUC PRN ×3 (10:58→21:24)
[2022-06-29] MEDS: ACETAMINOPHEN 325 MG TABLET (FP) PO PRN (13:12)
[2022-06-29] MEDS: MELATONIN 5 MG TABLETS PO PRN (21:22)
[2022-06-29] MEDS: QUEtiapine FUMARATE 50 MG TABLET PO SCH (21:22)
[2022-06-29] MEDS: THIAMINE HCL 100 MG TABLET (FP) PO SCH (21:22)
[2022-06-29] MEDS: IBUPROFEN 400 MG TABLET (FP) PO PRN (21:23)
[2022-06-30] MEDS: hydrOXYzine PAMOATE 50 MG CAPSULE (FP) PO PRN ×4 (06:38→21:15)
[2022-06-30] MEDS: PRENATAL VITAMINS W/ FOLIC ACID TABLET (FP) PO SCH (09:45)
[2022-06-30] MEDS: METHOCARBAMOL 500 MG TABLET PO PRN ×2 (09:46→21:16)
[2022-06-30] MEDS: MAG HYDROX/AL HYDROX/SIMETH 30 ML UNIT-DOSE CUP PO PRN (09:46)
[2022-06-30] MEDS: IBUPROFEN 600 MG TABLET (FP) PO PRN (09:46)
[2022-06-30] MEDS: NICOTINE 10 MG CARTRIDGE (INHALER) IH PRN ×3 (09:48→19:37)
[2022-06-30] MEDS: NICOTINE POLACRILEX 4 MG GUM BUC PRN ×2 (10:02→15:32)
[2022-06-30 11:28] LABS: ALBUMIN 3.9 g/dl (3.4-5.0); BASO % 1.1 % (0-2.0); CALCIUM 9.7 mg/dL (8.5-10.1); EOS % 6.2 % (0-4.5); HEMATOCRIT 44.6 % (35.4-49); HEMOGLOBIN 14.9 GM/dL (11.7-16.9); LYMPH % 35.8 % (8-40); MCH 30.8 pg (25.7-33.7); MCHC 33.3 g/dl (32.0-35.9); MEAN CELL VOLUME 92.5 fl (80-96); MEAN PLT VOLUME 7.5 fl (7.5-11.1); MONO % 7.1 % (3.8-10.2); NEUT % 49.8 % (42.8-82.8); PLATELET COUNT 378 10^3/uL (134-434); RBC 4.83 M/mm3 (4.00-5.60); RDW 13.5 % (11.9-15.9); WHITE BLOOD COUNT 5.6 K/mm3 (4.0-10.0)
[2022-06-30 11:29] LABS: BLOOD UREA NITROGEN 4.6 mg/dL (7-18)
[2022-06-30 11:32] LABS: CREATININE 0.7 mg/dL (0.55-1.3)
[2022-06-30 11:33] LABS: BILIRUBIN,TOTAL 0.3 mg/dL (0.2-1); TOT PROT 6.8 g/dl (6.4-8.2)
[2022-06-30] MEDS: NALTREXONE HCL 50 MG TABLET PO SCH (14:13)
[2022-06-30] MEDS: THIAMINE HCL 100 MG TABLET (FP) PO SCH (21:14)
[2022-06-30] MEDS: MELATONIN 5 MG TABLETS PO PRN (21:15)
[2022-06-30] MEDS: QUEtiapine FUMARATE 100 MG TABLET (FP) PO SCH (21:16)
[2022-07-01] MEDS: NALTREXONE HCL 50 MG TABLET PO SCH (10:32)
[2022-07-01] MEDS: PRENATAL VITAMINS W/ FOLIC ACID TABLET (FP) PO SCH (10:32)
[2022-07-01] MEDS: hydrOXYzine PAMOATE 50 MG CAPSULE (FP) PO PRN ×2 (10:35→21:05)
[2022-07-01] MEDS: METHOCARBAMOL 500 MG TABLET PO PRN ×2 (10:36→21:06)
[2022-07-01] MEDS: IBUPROFEN 600 MG TABLET (FP) PO PRN (10:36)
[2022-07-01] MEDS: NICOTINE 10 MG CARTRIDGE (INHALER) IH PRN ×3 (10:37→18:52)
[2022-07-01] MEDS: NICOTINE POLACRILEX 4 MG GUM BUC PRN ×2 (12:45→21:07)
[2022-07-01] MEDS: MAGNESIUM HYDROX 2400MG/30ML ORAL SUSPENSION 30 ML CUP PO PRN (13:08)
[2022-07-01] MEDS: THIAMINE HCL 100 MG TABLET (FP) PO SCH (21:05)
[2022-07-01] MEDS: MELATONIN 5 MG TABLETS PO PRN (21:05)
[2022-07-01] MEDS: QUEtiapine FUMARATE 100 MG TABLET (FP) PO SCH (21:06)
[2022-07-02] MEDS: PRENATAL VITAMINS W/ FOLIC ACID TABLET (FP) PO SCH (09:49)
[2022-07-02] MEDS: NICOTINE 10 MG CARTRIDGE (INHALER) IH PRN ×3 (09:52→18:02)
[2022-07-02] MEDS: hydrOXYzine PAMOATE 50 MG CAPSULE (FP) PO PRN ×3 (09:52→21:17)
[2022-07-02] MEDS: MAGNESIUM HYDROX 2400MG/30ML ORAL SUSPENSION 30 ML CUP PO PRN (09:52)
[2022-07-02] MEDS: IBUPROFEN 600 MG TABLET (FP) PO PRN (09:53)
[2022-07-02] MEDS: METHOCARBAMOL 500 MG TABLET PO PRN ×2 (09:53→21:20)
[2022-07-02] MEDS: NICOTINE POLACRILEX 4 MG GUM BUC PRN ×2 (10:48→13:53)
[2022-07-02] MEDS: ACETAMINOPHEN 325 MG TABLET (FP) PO PRN (13:50)
[2022-07-02] MEDS: NALTREXONE HCL 50 MG TABLET PO SCH (15:19)
[2022-07-02] MEDS: THIAMINE HCL 100 MG TABLET (FP) PO SCH (21:17)
[2022-07-02] MEDS: QUEtiapine FUMARATE 100 MG TABLET (FP) PO SCH (21:17)
[2022-07-02] MEDS: MELATONIN 5 MG TABLETS PO PRN (21:18)
[2022-07-03] MEDS: IBUPROFEN 400 MG TABLET (FP) PO PRN ×2 (08:34→18:50)
[2022-07-03] MEDS: PRENATAL VITAMINS W/ FOLIC ACID TABLET (FP) PO SCH (10:29)
[2022-07-03] MEDS: NALTREXONE HCL 50 MG TABLET PO SCH (10:30)
[2022-07-03] MEDS: NICOTINE 10 MG CARTRIDGE (INHALER) IH PRN ×3 (10:32→21:12)
[2022-07-03] MEDS: hydrOXYzine PAMOATE 50 MG CAPSULE (FP) PO PRN ×2 (12:44→21:11)
[2022-07-03] MEDS: METHOCARBAMOL 500 MG TABLET PO PRN ×2 (12:44→21:12)
[2022-07-03] MEDS: NICOTINE POLACRILEX 4 MG GUM BUC PRN (12:47)
[2022-07-03] MEDS: ACETAMINOPHEN 325 MG TABLET (FP) PO PRN (14:38)
[2022-07-03] MEDS: MAGNESIUM HYDROX 2400MG/30ML ORAL SUSPENSION 30 ML CUP PO PRN (14:39)
[2022-07-03] MEDS: QUEtiapine FUMARATE 100 MG TABLET (FP) PO SCH (21:11)
[2022-07-03] MEDS: THIAMINE HCL 100 MG TABLET (FP) PO SCH (21:11)
[2022-07-03] MEDS: MELATONIN 5 MG TABLETS PO PRN (21:11)
[2022-07-04] MEDS: hydrOXYzine PAMOATE 50 MG CAPSULE (FP) PO PRN ×3 (07:28→21:05)
[2022-07-04] MEDS: PRENATAL VITAMINS W/ FOLIC ACID TABLET (FP) PO SCH (09:23)
[2022-07-04] MEDS: MAGNESIUM HYDROX 2400MG/30ML ORAL SUSPENSION 30 ML CUP PO PRN (09:26)
[2022-07-04] MEDS: METHOCARBAMOL 500 MG TABLET PO PRN ×2 (09:26→21:05)
[2022-07-04] MEDS: IBUPROFEN 400 MG TABLET (FP) PO PRN ×2 (09:26→15:21)
[2022-07-04] MEDS: NALTREXONE HCL 50 MG TABLET PO SCH (11:03)
[2022-07-04] MEDS: NICOTINE 10 MG CARTRIDGE (INHALER) IH PRN ×3 (11:06→19:52)
[2022-07-04] MEDS: NICOTINE POLACRILEX 4 MG GUM BUC PRN (17:36)
[2022-07-04] MEDS: MELATONIN 5 MG TABLETS PO PRN (21:05)
[2022-07-04] MEDS: QUEtiapine FUMARATE 100 MG TABLET (FP) PO SCH (21:05)
[2022-07-04] MEDS: THIAMINE HCL 100 MG TABLET (FP) PO SCH (21:05)
[2022-07-05 06:59] VITALS: BP 109/67; PULSE 96; RESP 18; TEMP 97.5
[2022-07-05] MEDS: NALTREXONE HCL 50 MG TABLET PO SCH (10:10)
[2022-07-05] MEDS: IBUPROFEN 400 MG TABLET (FP) PO PRN (10:10)
[2022-07-05] MEDS: PRENATAL VITAMINS W/ FOLIC ACID TABLET (FP) PO SCH (10:10)
[2022-07-05] MEDS: NICOTINE 10 MG CARTRIDGE (INHALER) IH PRN (10:46)
== END 2022-07-05 10:52 | disposition home or self-care (01) | DRG 895 ==
LOC: YASAS 21:24 → Y3W 06-19 01:51
PROVIDERS: ADMIT Surgery; ATTEND Psychiatry & Neurology Pain Medicine
PROC: HZ42ZZZ Group Counseling for Substance Abuse Treatment, Cognitive-Behavioral (ICD-10-PCS; principal; 2022-06-19)
DX: F10.20 Alcohol dependence, uncomplicated (principal); F12.20 Cannabis dependence, uncomplicated; F17.210 Nicotine dependence, cigarettes, uncomplicated; F10.282 Alcohol dependence with alcohol-induced sleep disorder; F25.9 Schizoaffective disorder, unspecified; F41.1 Generalized anxiety disorder; F32.A Depression, unspecified; Z87.19 Personal history of other diseases of the digestive system; Z88.0 Allergy status to penicillin; Z91.010 Allergy to peanuts; Z91.013 Allergy to seafood
CPT/HCPCS: 36415; 80053; 85025; 86803; C9803-CS; U0003; U0005

== ENCOUNTER 2022-07-16 05:52 | Emergency (ER) | payer OTHER ==
[2022-07-16 05:56] VITALS: TEMP 98; BMI 25.1
[2022-07-16] MEDS ORDERED: LACTATED RINGERS SOLUTION 1000 ML INFUS.BAG IV ONE (06:26)
[2022-07-16] MEDS ORDERED: ACETAMINOPHEN 1000 MG/100 ML BAG IVPB ONE (06:27)
[2022-07-16] MEDS ORDERED: ONDANSETRON 4 MG/2 ML VIAL IVPUSH ONE (06:27)
[2022-07-16] MEDS ORDERED: FAMOTIDINE 20 MG/50 ML IVPB 20 MG/50 ML MG IVPB ONE ×2 (06:27→06:32)
[2022-07-16] MEDS ORDERED: ACETAMINOPHEN INJECTION 100 ML IVPB ONE (06:31)
[2022-07-16] MEDS ORDERED: ONDANSETRON 4 MG/2 ML VIAL ONE (06:31)
[2022-07-16 07:02] LABS: BASO % 1.1 % (0-2.0); EOS % 5.6 % (0-4.5); HEMATOCRIT 49.1 % (35.4-49); HEMOGLOBIN 16.7 GM/dL (11.7-16.9); LYMPH % 52.2 % (8-40); MCH 30.3 pg (25.7-33.7); MCHC 34.1 g/dl (32.0-35.9); MEAN CELL VOLUME 88.9 fl (80-96); MEAN PLT VOLUME 7.3 fl (7.5-11.1); MONO % 3.3 % (3.8-10.2); NEUT % 37.8 % (42.8-82.8); PLATELET COUNT 452 10^3/uL (134-434); RBC 5.52 M/mm3 (4.00-5.60); RDW 13.5 % (11.9-15.9); WHITE BLOOD COUNT 5.3 K/mm3 (4.0-10.0)
[2022-07-16 07:29] LABS: CALCIUM 9.4 mg/dL (8.5-10.1)
[2022-07-16 07:31] LABS: ALBUMIN 3.9 g/dl (3.4-5.0); BLOOD UREA NITROGEN 12.9 mg/dL (7-18)
[2022-07-16 07:34] LABS: CREATININE 0.7 mg/dL (0.55-1.3)
[2022-07-16 07:35] LABS: BILIRUBIN,TOTAL 0.9 mg/dL (0.2-1); TOT PROT 7.3 g/dl (6.4-8.2)
[2022-07-16] MEDS ORDERED: METOCLOPRAMIDE HCL INJECTION 10 MG/2 ML VIAL IVPUSH ONE (08:00)
[2022-07-16] MEDS ORDERED: METOCLOPRAMIDE HCL INJECTION 10 MG/2 ML VIAL ONE (08:19)
[2022-07-16] MEDS ORDERED: IBUPROFEN 200 MG TABLET PO ONE (09:04)
[2022-07-16] MEDS ORDERED: chlordiazePOXIDE HCL 25 MG CAPSULE PO ONE (09:08)
[2022-07-16] MEDS ORDERED: chlordiazePOXIDE HCL 25 MG CAPSULE ONE (09:30)
[2022-07-16 09:33] VITALS: BP 137/84; PULSE 94; RESP 20
== END 2022-07-16 09:33 | disposition home or self-care (01) ==
LOC: JER 05:52
DX: F10.20 Alcohol dependence, uncomplicated (principal)
CPT/HCPCS: 36415; 80053; 83690; 85025; 99284-25

== ENCOUNTER 2022-07-16 10:55 | Inpatient (IN) | payer OTHER ==
[2022-07-16 11:32] VITALS: BMI 25.1
[2022-07-16] MEDS ORDERED: LOPERAMIDE HCL 2 MG CAPSULE PO PRN (12:32)
[2022-07-16] MEDS ORDERED: chlordiazePOXIDE HCL 25 MG CAPSULE PO PRN (12:32)
[2022-07-16] MEDS ORDERED: ACETAMINOPHEN 325 MG TABLET (FP) PO PRN (12:32)
[2022-07-16] MEDS ORDERED: BISMUTH SUBSALICYLATE 524 MG/30 ML PO PRN (12:32)
[2022-07-16] MEDS ORDERED: BENZOCAINE/MENTHOL (CHLORASEPTIC ) LOZENGE MM PRN (12:32)
[2022-07-16] MEDS ORDERED: MAGNESIUM HYDROX 2400MG/30ML ORAL SUSPENSION 30 ML CUP PO PRN (12:32)
[2022-07-16] MEDS ORDERED: NALOXONE HCL (KLOXXADO) 8 MG SPRAY NS PRN (12:32)
[2022-07-16] MEDS ORDERED: ONDANSETRON *ODT* 4 MG TABLET SL PRN (12:32)
[2022-07-16] MEDS ORDERED: DICYCLOMINE HCL 10 MG CAPSULE PO PRN (12:32)
[2022-07-16] MEDS ORDERED: MAG HYDROX/AL HYDROX/SIMETH 30 ML UNIT-DOSE CUP PO PRN (12:32)
[2022-07-16] MEDS ORDERED: chlordiazePOXIDE HCL 25 MG CAPSULE PO ONE (12:32)
[2022-07-16] MEDS: METHOCARBAMOL 500 MG TABLET PO PRN ×2 (13:01→22:23)
[2022-07-16] MEDS: IBUPROFEN 400 MG TABLET (FP) PO PRN (13:02)
[2022-07-16] MEDS: NICOTINE 10 MG CARTRIDGE (INHALER) IH PRN ×2 (14:29→22:25)
[2022-07-16] MEDS: PRENATAL VITAMINS W/ FOLIC ACID TABLET (FP) PO SCH (14:29)
[2022-07-16 17:00] LABS: HEMATOCRIT 42.8 % (35.4-49); HEMOGLOBIN 14.5 GM/dL (11.7-16.9); MCH 30.4 pg (25.7-33.7); MEAN CELL VOLUME 89.4 fl (80-96); MEAN PLT VOLUME 7.2 fl (7.5-11.1); PLATELET COUNT 376 10^3/uL (134-434); RBC 4.78 M/mm3 (4.00-5.60); RDW 13.7 % (11.9-15.9); WHITE BLOOD COUNT 4.8 K/mm3 (4.0-10.0)
[2022-07-16 17:02] LABS: CALCIUM 9.2 mg/dL (8.5-10.1)
[2022-07-16 17:03] LABS: BLOOD UREA NITROGEN 12.7 mg/dL (7-18)
[2022-07-16 17:04] LABS: ALBUMIN 3.8 g/dl (3.4-5.0)
[2022-07-16 17:06] LABS: CREATININE 0.7 mg/dL (0.55-1.3)
[2022-07-16 17:08] LABS: BILIRUBIN,TOTAL 1.1 mg/dL (0.2-1); TOT PROT 6.7 g/dl (6.4-8.2)
[2022-07-16] MEDS: chlordiazePOXIDE HCL 25 MG CAPSULE PO SCH ×2 (17:42→22:23)
[2022-07-16] MEDS: ACETAMINOPHEN 325 MG TABLET (FP) PO PRN (17:44)
[2022-07-16] MEDS: MELATONIN 5 MG TABLETS PO SCH (22:22)
[2022-07-16] MEDS: THIAMINE HCL 100 MG TABLET (FP) PO SCH (22:22)
[2022-07-16] MEDS: hydrOXYzine PAMOATE 25 MG CAPSULE (FP) PO PRN (22:22)
[2022-07-17] MEDS: chlordiazePOXIDE HCL 25 MG CAPSULE PO SCH ×4 (05:18→22:29)
[2022-07-17] MEDS: METHOCARBAMOL 500 MG TABLET PO PRN ×2 (05:20→22:34)
[2022-07-17] MEDS: PRENATAL VITAMINS W/ FOLIC ACID TABLET (FP) PO SCH (10:34)
[2022-07-17] MEDS: IBUPROFEN 600 MG TABLET (FP) PO PRN (11:31)
[2022-07-17] MEDS: NICOTINE 10 MG CARTRIDGE (INHALER) IH PRN ×3 (12:54→22:34)
[2022-07-17] MEDS: ACETAMINOPHEN 325 MG TABLET (FP) PO PRN (13:48)
[2022-07-17] MEDS ORDERED: QUEtiapine FUMARATE 50 MG TABLET PO SCH (22:00)
[2022-07-17] MEDS: MELATONIN 5 MG TABLETS PO SCH (22:29)
[2022-07-17] MEDS: THIAMINE HCL 100 MG TABLET (FP) PO SCH (22:29)
[2022-07-18] MEDS: chlordiazePOXIDE HCL 25 MG CAPSULE PO SCH ×4 (06:00→22:22)
[2022-07-18] MEDS: METHOCARBAMOL 500 MG TABLET PO PRN ×2 (06:40→22:22)
[2022-07-18] MEDS: IBUPROFEN 600 MG TABLET (FP) PO PRN (06:40)
[2022-07-18] MEDS: hydrOXYzine PAMOATE 25 MG CAPSULE (FP) PO PRN (10:32)
[2022-07-18] MEDS: PRENATAL VITAMINS W/ FOLIC ACID TABLET (FP) PO SCH (10:34)
[2022-07-18] MEDS: ACETAMINOPHEN 325 MG TABLET (FP) PO PRN (14:26)
[2022-07-18] MEDS: NICOTINE 10 MG CARTRIDGE (INHALER) IH PRN ×2 (17:50→22:24)
[2022-07-18] MEDS: THIAMINE HCL 100 MG TABLET (FP) PO SCH (22:22)
[2022-07-18] MEDS: MELATONIN 5 MG TABLETS PO SCH (22:22)
[2022-07-18] MEDS: QUEtiapine FUMARATE 50 MG TABLET PO SCH (22:22)
[2022-07-19] MEDS ORDERED: chlordiazePOXIDE HCL 10 MG CAPSULE PO PRN
[2022-07-19] MEDS: ACETAMINOPHEN 325 MG TABLET (FP) PO PRN ×2 (03:38→22:24)
[2022-07-19] MEDS: chlordiazePOXIDE HCL 10 MG CAPSULE PO SCH ×4 (06:00→22:21)
[2022-07-19] MEDS: PRENATAL VITAMINS W/ FOLIC ACID TABLET (FP) PO SCH (10:09)
[2022-07-19] MEDS: METHOCARBAMOL 500 MG TABLET PO PRN ×2 (10:09→22:21)
[2022-07-19] MEDS: NICOTINE 10 MG CARTRIDGE (INHALER) IH PRN ×3 (10:12→22:22)
[2022-07-19] MEDS: IBUPROFEN 600 MG TABLET (FP) PO PRN (17:54)
[2022-07-19] MEDS: THIAMINE HCL 100 MG TABLET (FP) PO SCH (22:20)
[2022-07-19] MEDS: QUEtiapine FUMARATE 50 MG TABLET PO SCH (22:20)
[2022-07-19] MEDS: MELATONIN 5 MG TABLETS PO SCH (22:20)
[2022-07-19] MEDS: hydrOXYzine PAMOATE 25 MG CAPSULE (FP) PO PRN (22:21)
[2022-07-20] MEDS: IBUPROFEN 600 MG TABLET (FP) PO PRN ×2 (03:12→10:06)
[2022-07-20] MEDS: chlordiazePOXIDE HCL 10 MG CAPSULE PO SCH ×2 (06:36→17:24)
[2022-07-20] MEDS: METHOCARBAMOL 500 MG TABLET PO PRN ×2 (06:37→22:36)
[2022-07-20] MEDS: hydrOXYzine PAMOATE 25 MG CAPSULE (FP) PO PRN ×2 (10:06→22:36)
[2022-07-20] MEDS: PRENATAL VITAMINS W/ FOLIC ACID TABLET (FP) PO SCH (10:06)
[2022-07-20] MEDS ORDERED: BENZOCAINE 20 % GEL TUBE MM PRN (14:01)
[2022-07-20] MEDS: NICOTINE 10 MG CARTRIDGE (INHALER) IH PRN ×2 (17:26→22:37)
[2022-07-20] MEDS: MELATONIN 5 MG TABLETS PO SCH (22:35)
[2022-07-20] MEDS: QUEtiapine FUMARATE 50 MG TABLET PO SCH (22:35)
[2022-07-20] MEDS: THIAMINE HCL 100 MG TABLET (FP) PO SCH (22:37)
[2022-07-21] MEDS: IBUPROFEN 400 MG TABLET (FP) PO PRN (01:29)
[2022-07-21] MEDS ORDERED: chlordiazePOXIDE HCL 10 MG CAPSULE PO ONE (05:00)
[2022-07-21 09:11] VITALS: BP 128/83; PULSE 98; RESP 16; TEMP 96.6
== END 2022-07-21 09:16 | disposition home or self-care (01) | DRG 897 ==
LOC: YASAS 10:55 → Y3N 13:35
PROVIDERS: ADMIT Allergy & Immunology; ATTEND Surgery
PROC: HZ2ZZZZ Detoxification Services for Substance Abuse Treatment (ICD-10-PCS; principal; 2022-07-16)
DX: F10.230 Alcohol dependence with withdrawal, uncomplicated (principal); F19.282 Other psychoactive substance dependence with psychoactive substance-induced sleep disorder; M87.19 Osteonecrosis due to drugs, multiple sites; F17.210 Nicotine dependence, cigarettes, uncomplicated; F25.9 Schizoaffective disorder, unspecified; F32.A Depression, unspecified; R94.5 Abnormal results of liver function studies; Z87.19 Personal history of other diseases of the digestive system; Z88.0 Allergy status to penicillin; Z91.013 Allergy to seafood
CPT/HCPCS: 36415; 80053; 85027; 86780; 87811; C9803-CS; Q0162; U0003; U0005

== ENCOUNTER 2022-07-28 14:22 | Emergency (ER) | payer OTHER ==
[2022-07-28 14:44] VITALS: BP 140/90; PULSE 99; RESP 18; TEMP 98; BMI 27.3
[2022-07-28] MEDS ORDERED: IBUPROFEN 400 MG TABLET (FP) PO ONE ×2 (14:51→14:57)
[2022-07-28] MEDS ORDERED: chlordiazePOXIDE HCL 25 MG CAPSULE PO ONE (14:51)
[2022-07-28] MEDS ORDERED: chlordiazePOXIDE HCL 25 MG CAPSULE ONE (14:56)
[2022-07-28] MEDS ORDERED: ONDANSETRON *ODT* 4 MG TABLET SL ONE (14:59)
== END 2022-07-28 15:13 | disposition home or self-care (01) ==
LOC: JER 14:22
DX: F10.10 Alcohol abuse, uncomplicated (principal)
CPT/HCPCS: 99283-25; Q0162

== ENCOUNTER 2022-07-28 17:01 | Inpatient (IN) | payer OTHER ==
[2022-07-28 18:33] VITALS: BMI 24.2
[2022-07-28] MEDS ORDERED: BENZOCAINE/MENTHOL (CHLORASEPTIC ) LOZENGE MM PRN (18:56)
[2022-07-28] MEDS ORDERED: DICYCLOMINE HCL 10 MG CAPSULE PO PRN (18:56)
[2022-07-28] MEDS ORDERED: ONDANSETRON *ODT* 4 MG TABLET SL PRN (18:56)
[2022-07-28] MEDS ORDERED: BISMUTH SUBSALICYLATE 524 MG/30 ML PO PRN (18:56)
[2022-07-28] MEDS ORDERED: MAGNESIUM HYDROX 2400MG/30ML ORAL SUSPENSION 30 ML CUP PO PRN (18:56)
[2022-07-28] MEDS ORDERED: POLYETHYLENE GLYCOL (HEALTHYLAX) 3350 17 GM PACKET PO PRN (18:56)
[2022-07-28] MEDS ORDERED: NICOTINE POLACRILEX 2 MG GUM BUC PRN (18:56)
[2022-07-28] MEDS ORDERED: IBUPROFEN 400 MG TABLET (FP) PO PRN (18:56)
[2022-07-28] MEDS ORDERED: LOPERAMIDE HCL 2 MG CAPSULE PO PRN (18:56)
[2022-07-28] MEDS ORDERED: ACETAMINOPHEN 325 MG TABLET (FP) PO PRN (18:56)
[2022-07-28] MEDS ORDERED: NALOXONE HCL (KLOXXADO) 8 MG SPRAY NS PRN (18:56)
[2022-07-28] MEDS ORDERED: ACETAMINOPHEN 325 MG TABLET (FP) ONE (19:32)
[2022-07-28] MEDS ORDERED: diphenhydrAMINE HCL 25 MG CAPSULE (FP) PO ONE (19:32)
[2022-07-28] MEDS ORDERED: chlordiazePOXIDE HCL 25 MG CAPSULE ONE (19:32)
[2022-07-28] MEDS: chlordiazePOXIDE HCL 25 MG CAPSULE PO SCH ×2 (19:43→22:09)
[2022-07-28] MEDS: PRENATAL VITAMINS W/ FOLIC ACID TABLET (FP) PO SCH (20:29)
[2022-07-28] MEDS: IBUPROFEN 600 MG TABLET (FP) PO PRN (20:47)
[2022-07-28] MEDS: NICOTINE 10 MG CARTRIDGE (INHALER) IH PRN (20:48)
[2022-07-28] MEDS: MELATONIN 5 MG TABLETS PO SCH (22:10)
[2022-07-28] MEDS: THIAMINE HCL 100 MG TABLET (FP) PO SCH (22:10)
[2022-07-28] MEDS: METHOCARBAMOL 500 MG TABLET PO PRN (22:10)
[2022-07-29] MEDS: ACETAMINOPHEN 325 MG TABLET (FP) PO PRN (01:29)
[2022-07-29] MEDS: NICOTINE 10 MG CARTRIDGE (INHALER) IH PRN (01:29)
[2022-07-29] MEDS: chlordiazePOXIDE HCL 25 MG CAPSULE PO SCH ×2 (05:41→10:07)
[2022-07-29] MEDS: IBUPROFEN 600 MG TABLET (FP) PO PRN (05:43)
[2022-07-29] MEDS: METHOCARBAMOL 500 MG TABLET PO PRN ×2 (05:44→17:11)
[2022-07-29] MEDS: MAG HYDROX/AL HYDROX/SIMETH 30 ML UNIT-DOSE CUP PO PRN (09:14)
[2022-07-29] MEDS: PRENATAL VITAMINS W/ FOLIC ACID TABLET (FP) PO SCH (10:07)
[2022-07-29 10:18] LABS: HEMATOCRIT 41.9 % (35.4-49); HEMOGLOBIN 14.1 GM/dL (11.7-16.9); MCH 30.1 pg (25.7-33.7); MCHC 33.5 g/dl (32.0-35.9); MEAN CELL VOLUME 89.7 fl (80-96); MEAN PLT VOLUME 7.1 fl (7.5-11.1); PLATELET COUNT 351 10^3/uL (134-434); RBC 4.67 M/mm3 (4.00-5.60); RDW 13.6 % (11.9-15.9); WHITE BLOOD COUNT 5.4 K/mm3 (4.0-10.0)
[2022-07-29 10:26] LABS: CALCIUM 9.4 mg/dL (8.5-10.1)
[2022-07-29 10:27] LABS: ALBUMIN 3.8 g/dl (3.4-5.0); BLOOD UREA NITROGEN 13.7 mg/dL (7-18)
[2022-07-29 10:30] LABS: BILIRUBIN,TOTAL 1.8 mg/dL (0.2-1); CREATININE 0.8 mg/dL (0.55-1.3)
[2022-07-29] MEDS ORDERED: LORazepam 1 MG TABLET PO PRN (11:28)
[2022-07-29] MEDS: LORazepam 2 MG TABLET PO SCH ×3 (12:19→22:07)
[2022-07-29] MEDS: THIAMINE HCL 100 MG TABLET (FP) PO SCH (22:08)
[2022-07-29] MEDS: MELATONIN 5 MG TABLETS PO SCH (22:08)
[2022-07-29] MEDS: QUEtiapine FUMARATE 50 MG TABLET PO SCH (22:08)
[2022-07-30] MEDS ORDERED: chlordiazePOXIDE HCL 25 MG CAPSULE PO SCH (05:00)
[2022-07-30] MEDS: LORazepam 1 MG TABLET PO SCH ×4 (05:29→22:08)
[2022-07-30] MEDS: PRENATAL VITAMINS W/ FOLIC ACID TABLET (FP) PO SCH (10:11)
[2022-07-30] MEDS: METHOCARBAMOL 500 MG TABLET PO PRN (10:12)
[2022-07-30] MEDS: IBUPROFEN 600 MG TABLET (FP) PO PRN ×2 (10:13→22:10)
[2022-07-30] MEDS: NICOTINE 10 MG CARTRIDGE (INHALER) IH PRN ×3 (12:17→22:10)
[2022-07-30] MEDS: ACETAMINOPHEN 325 MG TABLET (FP) PO PRN (17:25)
[2022-07-30] MEDS: THIAMINE HCL 100 MG TABLET (FP) PO SCH (22:07)
[2022-07-30] MEDS: MELATONIN 5 MG TABLETS PO SCH (22:07)
[2022-07-30] MEDS: QUEtiapine FUMARATE 50 MG TABLET PO SCH (22:07)
[2022-07-30] MEDS: MAG HYDROX/AL HYDROX/SIMETH 30 ML UNIT-DOSE CUP PO PRN (22:11)
[2022-07-31] MEDS ORDERED: LORazepam 0.5 MG TABLET PO PRN
[2022-07-31] MEDS ORDERED: chlordiazePOXIDE HCL 10 MG CAPSULE PO SCH (05:00)
[2022-07-31] MEDS: LORazepam 0.5 MG TABLET PO SCH ×4 (05:23→22:03)
[2022-07-31] MEDS: PRENATAL VITAMINS W/ FOLIC ACID TABLET (FP) PO SCH (10:09)
[2022-07-31] MEDS: METHOCARBAMOL 500 MG TABLET PO PRN ×2 (10:11→17:27)
[2022-07-31] MEDS: IBUPROFEN 600 MG TABLET (FP) PO PRN (10:11)
[2022-07-31] MEDS: NICOTINE 10 MG CARTRIDGE (INHALER) IH PRN ×2 (15:03→22:05)
[2022-07-31] MEDS: ACETAMINOPHEN 325 MG TABLET (FP) PO PRN (15:05)
[2022-07-31] MEDS: MELATONIN 5 MG TABLETS PO SCH (22:03)
[2022-07-31] MEDS: THIAMINE HCL 100 MG TABLET (FP) PO SCH (22:03)
[2022-07-31] MEDS: QUEtiapine FUMARATE 50 MG TABLET PO SCH (22:03)
[2022-08-01] MEDS ORDERED: chlordiazePOXIDE HCL 10 MG CAPSULE PO SCH (05:00)
[2022-08-01] MEDS ORDERED: LORazepam 0.5 MG TABLET PO ONE (05:00)
[2022-08-01] MEDS: METHOCARBAMOL 500 MG TABLET PO PRN (05:33)
[2022-08-01 09:02] VITALS: BP 142/90; PULSE 80; RESP 18; TEMP 98
[2022-08-01] MEDS: MAG HYDROX/AL HYDROX/SIMETH 30 ML UNIT-DOSE CUP PO PRN (09:31)
[2022-08-01] MEDS: PRENATAL VITAMINS W/ FOLIC ACID TABLET (FP) PO SCH (10:10)
[2022-08-01] MEDS: NICOTINE 10 MG CARTRIDGE (INHALER) IH PRN (10:10)
[2022-08-02] MEDS ORDERED: chlordiazePOXIDE HCL 10 MG CAPSULE PO ONE (05:00)
== END 2022-08-01 12:43 | disposition other institution (70) | DRG 897 ==
LOC: YASAS 17:01 → Y3N 19:34
PROVIDERS: ADMIT Allergy & Immunology; ATTEND Surgery
PROC: HZ2ZZZZ Detoxification Services for Substance Abuse Treatment (ICD-10-PCS; principal; 2022-07-28)
DX: F10.230 Alcohol dependence with withdrawal, uncomplicated (principal); F17.210 Nicotine dependence, cigarettes, uncomplicated; F10.282 Alcohol dependence with alcohol-induced sleep disorder; F10.24 Alcohol dependence with alcohol-induced mood disorder; F25.9 Schizoaffective disorder, unspecified; F41.1 Generalized anxiety disorder; F32.A Depression, unspecified; K21.9 Gastro-esophageal reflux disease without esophagitis; Z87.19 Personal history of other diseases of the digestive system; Z88.0 Allergy status to penicillin; Z91.010 Allergy to peanuts; Z91.013 Allergy to seafood
CPT/HCPCS: 36415; 80053; 85027; 86780; C9803-CS; Q0162; U0003; U0005

== ENCOUNTER 2022-08-01 12:49 | Inpatient (IN) | payer OTHER ==
[2022-08-01] MEDS ORDERED: LOPERAMIDE HCL 2 MG CAPSULE PO PRN (13:24)
[2022-08-01] MEDS ORDERED: POLYETHYLENE GLYCOL (HEALTHYLAX) 3350 17 GM PACKET PO PRN (13:24)
[2022-08-01] MEDS ORDERED: P-EPHED 60MG/TRIPROLIDI 2.5MG TABLET PO PRN (13:24)
[2022-08-01] MEDS ORDERED: guaiFENesin 200 MG/10 ML 10 ML UNIT-DOSE CUPS PO PRN (13:24)
[2022-08-01] MEDS ORDERED: BENZOCAINE/MENTHOL (CHLORASEPTIC ) LOZENGE MM PRN (13:24)
[2022-08-01] MEDS ORDERED: NICOTINE POLACRILEX 4 MG GUM BUC PRN (13:24)
[2022-08-01] MEDS ORDERED: NICOTINE 21 MG/24 HOURS TOPICAL PATCH TD PRN (13:24)
[2022-08-01] MEDS: hydrOXYzine PAMOATE 25 MG CAPSULE (FP) PO PRN (13:55)
[2022-08-01] MEDS: MAG HYDROX/AL HYDROX/SIMETH 30 ML UNIT-DOSE CUP PO PRN ×2 (13:56→21:29)
[2022-08-01 14:21] VITALS: RESP 18
[2022-08-01] MEDS: MAGNESIUM HYDROX 2400MG/30ML ORAL SUSPENSION 30 ML CUP PO PRN (18:02)
[2022-08-01] MEDS: THIAMINE HCL 100 MG TABLET (FP) PO SCH (21:27)
[2022-08-01] MEDS: MELATONIN 5 MG TABLETS PO SCH (21:27)
[2022-08-01] MEDS: QUEtiapine FUMARATE 50 MG TABLET PO SCH (21:28)
[2022-08-01] MEDS: METHOCARBAMOL 500 MG TABLET PO PRN (21:28)
[2022-08-01] MEDS: NICOTINE 10 MG CARTRIDGE (INHALER) IH PRN (21:29)
[2022-08-01] MEDS ORDERED: QUEtiapine FUMARATE 50 MG TABLET PO SCH (22:00)
[2022-08-02] MEDS: hydrOXYzine PAMOATE 25 MG CAPSULE (FP) PO PRN ×2 (00:34→09:40)
[2022-08-02] MEDS: PRENATAL VITAMINS W/ FOLIC ACID TABLET (FP) PO SCH (09:38)
[2022-08-02] MEDS: METHOCARBAMOL 500 MG TABLET PO PRN ×2 (09:40→21:23)
[2022-08-02] MEDS ORDERED: hydrOXYzine PAMOATE 25 MG CAPSULE (FP) PO PRN (15:32)
[2022-08-02] MEDS: hydrOXYzine PAMOATE 50 MG CAPSULE (FP) PO PRN ×2 (16:35→23:11)
[2022-08-02] MEDS: NICOTINE 10 MG CARTRIDGE (INHALER) IH PRN (19:58)
[2022-08-02] MEDS: ACETAMINOPHEN 325 MG TABLET (FP) PO PRN (20:00)
[2022-08-02] MEDS: MELATONIN 5 MG TABLETS PO SCH (21:21)
[2022-08-02] MEDS: QUEtiapine FUMARATE 50 MG TABLET PO SCH (21:21)
[2022-08-02] MEDS: THIAMINE HCL 100 MG TABLET (FP) PO SCH (21:21)
[2022-08-02] MEDS: MAG HYDROX/AL HYDROX/SIMETH 30 ML UNIT-DOSE CUP PO PRN (21:22)
[2022-08-03] MEDS: METHOCARBAMOL 500 MG TABLET PO PRN ×4 (02:06→21:22)
[2022-08-03] MEDS: ACETAMINOPHEN 325 MG TABLET (FP) PO PRN ×2 (07:30→17:21)
[2022-08-03] MEDS: PRENATAL VITAMINS W/ FOLIC ACID TABLET (FP) PO SCH (10:02)
[2022-08-03] MEDS: hydrOXYzine PAMOATE 50 MG CAPSULE (FP) PO PRN ×2 (10:03→21:21)
[2022-08-03] MEDS: NICOTINE 10 MG CARTRIDGE (INHALER) IH PRN ×3 (10:04→21:26)
[2022-08-03] MEDS ORDERED: risperiDONE 1 MG TABLET PO ONE (11:49)
[2022-08-03] MEDS: risperiDONE 1 MG TABLET PO SCH (21:20)
[2022-08-03] MEDS: QUEtiapine FUMARATE 50 MG TABLET PO SCH (21:20)
[2022-08-03] MEDS: MELATONIN 5 MG TABLETS PO SCH (21:21)
[2022-08-03] MEDS: THIAMINE HCL 100 MG TABLET (FP) PO SCH (21:22)
[2022-08-04] MEDS: hydrOXYzine PAMOATE 50 MG CAPSULE (FP) PO PRN ×3 (06:30→21:37)
[2022-08-04] MEDS: ACETAMINOPHEN 325 MG TABLET (FP) PO PRN ×2 (06:31→13:52)
[2022-08-04] MEDS: NICOTINE 10 MG CARTRIDGE (INHALER) IH PRN ×2 (06:33→09:35)
[2022-08-04] MEDS: PRENATAL VITAMINS W/ FOLIC ACID TABLET (FP) PO SCH (09:04)
[2022-08-04] MEDS: risperiDONE 1 MG TABLET PO SCH ×2 (09:04→22:04)
[2022-08-04] MEDS: IBUPROFEN 400 MG TABLET (FP) PO PRN ×2 (09:04→19:07)
[2022-08-04] MEDS: METHOCARBAMOL 500 MG TABLET PO PRN ×2 (13:53→21:36)
[2022-08-04] MEDS: MELATONIN 5 MG TABLETS PO SCH (21:35)
[2022-08-04] MEDS: THIAMINE HCL 100 MG TABLET (FP) PO SCH (21:35)
[2022-08-04] MEDS: QUEtiapine FUMARATE 50 MG TABLET PO SCH (21:36)
[2022-08-05] MEDS: hydrOXYzine PAMOATE 50 MG CAPSULE (FP) PO PRN (06:16)
[2022-08-05] MEDS: METHOCARBAMOL 500 MG TABLET PO PRN ×2 (06:16→21:14)
[2022-08-05] MEDS: PRENATAL VITAMINS W/ FOLIC ACID TABLET (FP) PO SCH (09:28)
[2022-08-05] MEDS: QUEtiapine FUMARATE 100 MG TABLET (FP) PO SCH ×2 (09:29→21:14)
[2022-08-05] MEDS: NICOTINE 10 MG CARTRIDGE (INHALER) IH PRN ×3 (09:29→22:49)
[2022-08-05] MEDS: risperiDONE 1 MG TABLET PO SCH (12:23)
[2022-08-05] MEDS: MAG HYDROX/AL HYDROX/SIMETH 30 ML UNIT-DOSE CUP PO PRN (14:09)
[2022-08-05] MEDS: MELATONIN 5 MG TABLETS PO SCH (21:13)
[2022-08-05] MEDS: THIAMINE HCL 100 MG TABLET (FP) PO SCH (21:14)
[2022-08-05] MEDS: ACETAMINOPHEN 325 MG TABLET (FP) PO PRN (22:48)
[2022-08-06] MEDS: hydrOXYzine PAMOATE 50 MG CAPSULE (FP) PO PRN ×3 (00:29→21:09)
[2022-08-06] MEDS: NICOTINE 10 MG CARTRIDGE (INHALER) IH PRN ×3 (07:53→22:34)
[2022-08-06] MEDS ORDERED: NALTREXONE HCL 50 MG TABLET PO SCH (10:00)
[2022-08-06] MEDS: PRENATAL VITAMINS W/ FOLIC ACID TABLET (FP) PO SCH (10:07)
[2022-08-06] MEDS: QUEtiapine FUMARATE 100 MG TABLET (FP) PO SCH ×2 (10:07→21:08)
[2022-08-06] MEDS: METHOCARBAMOL 500 MG TABLET PO PRN ×2 (10:57→21:08)
[2022-08-06] MEDS: IBUPROFEN 400 MG TABLET (FP) PO PRN (13:57)
[2022-08-06] MEDS: MAGNESIUM HYDROX 2400MG/30ML ORAL SUSPENSION 30 ML CUP PO PRN (15:17)
[2022-08-06] MEDS: ACETAMINOPHEN 325 MG TABLET (FP) PO PRN (19:13)
[2022-08-06] MEDS: MELATONIN 5 MG TABLETS PO SCH (21:05)
[2022-08-06] MEDS: THIAMINE HCL 100 MG TABLET (FP) PO SCH (21:08)
[2022-08-06] MEDS: HYDROCORTISONE 2.5% TOPICAL CREAM 30 GM TUBE TP SCH (22:34)
[2022-08-07] MEDS: QUEtiapine FUMARATE 100 MG TABLET (FP) PO SCH ×2 (10:05→21:14)
[2022-08-07] MEDS: NALTREXONE HCL 50 MG TABLET PO SCH (10:05)
[2022-08-07] MEDS: PRENATAL VITAMINS W/ FOLIC ACID TABLET (FP) PO SCH (10:05)
[2022-08-07] MEDS: METHOCARBAMOL 500 MG TABLET PO PRN ×2 (10:07→21:16)
[2022-08-07] MEDS: NICOTINE 10 MG CARTRIDGE (INHALER) IH PRN ×2 (10:08→17:31)
[2022-08-07] MEDS: HYDROCORTISONE 2.5% TOPICAL CREAM 30 GM TUBE TP SCH ×2 (10:08→21:15)
[2022-08-07] MEDS: hydrOXYzine PAMOATE 50 MG CAPSULE (FP) PO PRN ×2 (10:45→17:31)
[2022-08-07] MEDS: MAGNESIUM HYDROX 2400MG/30ML ORAL SUSPENSION 30 ML CUP PO PRN (11:04)
[2022-08-07] MEDS: MAG HYDROX/AL HYDROX/SIMETH 30 ML UNIT-DOSE CUP PO PRN (18:51)
[2022-08-07] MEDS: IBUPROFEN 400 MG TABLET (FP) PO PRN (19:42)
[2022-08-07] MEDS: MELATONIN 5 MG TABLETS PO SCH (21:14)
[2022-08-07] MEDS: THIAMINE HCL 100 MG TABLET (FP) PO SCH (21:14)
[2022-08-08] MEDS: NICOTINE 10 MG CARTRIDGE (INHALER) IH PRN ×4 (06:55→23:16)
[2022-08-08] MEDS: hydrOXYzine PAMOATE 50 MG CAPSULE (FP) PO PRN ×3 (06:55→23:15)
[2022-08-08] MEDS: PRENATAL VITAMINS W/ FOLIC ACID TABLET (FP) PO SCH ×2 (10:12→14:14)
[2022-08-08] MEDS: HYDROCORTISONE 2.5% TOPICAL CREAM 30 GM TUBE TP SCH ×2 (10:12→23:16)
[2022-08-08] MEDS: NALTREXONE HCL 50 MG TABLET PO SCH (10:13)
[2022-08-08] MEDS: METHOCARBAMOL 500 MG TABLET PO PRN ×2 (10:14→23:15)
[2022-08-08] MEDS: QUEtiapine FUMARATE 100 MG TABLET (FP) PO SCH ×2 (10:14→23:15)
[2022-08-08] MEDS: IBUPROFEN 400 MG TABLET (FP) PO PRN (14:11)
[2022-08-08] MEDS: MELATONIN 5 MG TABLETS PO SCH (23:16)
[2022-08-08] MEDS: THIAMINE HCL 100 MG TABLET (FP) PO SCH (23:16)
[2022-08-09] MEDS: IBUPROFEN 400 MG TABLET (FP) PO PRN (10:02)
[2022-08-09] MEDS: hydrOXYzine PAMOATE 50 MG CAPSULE (FP) PO PRN ×3 (10:03→21:12)
[2022-08-09] MEDS: NICOTINE 10 MG CARTRIDGE (INHALER) IH PRN ×3 (10:04→19:48)
[2022-08-09] MEDS: PRENATAL VITAMINS W/ FOLIC ACID TABLET (FP) PO SCH (10:17)
[2022-08-09] MEDS: HYDROCORTISONE 2.5% TOPICAL CREAM 30 GM TUBE TP SCH ×2 (10:17→22:35)
[2022-08-09] MEDS: NALTREXONE HCL 50 MG TABLET PO SCH (10:17)
[2022-08-09] MEDS: QUEtiapine FUMARATE 100 MG TABLET (FP) PO SCH ×2 (10:17→21:12)
[2022-08-09] MEDS: ACETAMINOPHEN 325 MG TABLET (FP) PO PRN (15:54)
[2022-08-09] MEDS: MELATONIN 5 MG TABLETS PO SCH (21:11)
[2022-08-09] MEDS: METHOCARBAMOL 500 MG TABLET PO PRN (21:11)
[2022-08-09] MEDS: THIAMINE HCL 100 MG TABLET (FP) PO SCH (21:11)
[2022-08-10] MEDS: IBUPROFEN 400 MG TABLET (FP) PO PRN (08:28)
[2022-08-10] MEDS: HYDROCORTISONE 2.5% TOPICAL CREAM 30 GM TUBE TP SCH ×2 (10:05→21:04)
[2022-08-10] MEDS: PRENATAL VITAMINS W/ FOLIC ACID TABLET (FP) PO SCH (10:05)
[2022-08-10] MEDS: METHOCARBAMOL 500 MG TABLET PO PRN ×2 (10:17→21:03)
[2022-08-10] MEDS: QUEtiapine FUMARATE 50 MG TABLET PO SCH (10:17)
[2022-08-10] MEDS: hydrOXYzine PAMOATE 50 MG CAPSULE (FP) PO PRN ×2 (10:17→21:03)
[2022-08-10] MEDS: NALTREXONE HCL 50 MG TABLET PO SCH (10:18)
[2022-08-10] MEDS: ACETAMINOPHEN 325 MG TABLET (FP) PO PRN (13:06)
[2022-08-10] MEDS: NICOTINE 10 MG CARTRIDGE (INHALER) IH PRN (13:31)
[2022-08-10] MEDS: THIAMINE HCL 100 MG TABLET (FP) PO SCH (21:03)
[2022-08-10] MEDS: MELATONIN 5 MG TABLETS PO SCH (21:03)
[2022-08-10] MEDS ORDERED: QUEtiapine FUMARATE 50 MG TABLET PO SCH (22:00)
[2022-08-10] MEDS ORDERED: QUEtiapine FUMARATE 100 MG TABLET (FP) PO SCH ×2 (22:00)
[2022-08-11] MEDS: hydrOXYzine PAMOATE 50 MG CAPSULE (FP) PO PRN (06:22)
[2022-08-11] MEDS: METHOCARBAMOL 500 MG TABLET PO PRN (06:23)
[2022-08-11] MEDS: NICOTINE 10 MG CARTRIDGE (INHALER) IH PRN (06:23)
[2022-08-11 06:57] VITALS: BP 136/72; PULSE 75; TEMP 97.7
[2022-08-11] MEDS: PRENATAL VITAMINS W/ FOLIC ACID TABLET (FP) PO SCH (09:03)
[2022-08-11] MEDS: NALTREXONE HCL 50 MG TABLET PO SCH (09:03)
[2022-08-11] MEDS: QUEtiapine FUMARATE 50 MG TABLET PO SCH (09:03)
[2022-08-11] MEDS: HYDROCORTISONE 2.5% TOPICAL CREAM 30 GM TUBE TP SCH (09:03)
== END 2022-08-11 09:43 | disposition home or self-care (01) | DRG 895 ==
LOC: YASAS 12:49 → Y3W 12:50
PROVIDERS: ADMIT Allergy & Immunology; ATTEND Psychiatry & Neurology Pain Medicine
PROC: HZ42ZZZ Group Counseling for Substance Abuse Treatment, Cognitive-Behavioral (ICD-10-PCS; principal; 2022-08-01)
DX: F10.20 Alcohol dependence, uncomplicated (principal); F12.20 Cannabis dependence, uncomplicated; F17.210 Nicotine dependence, cigarettes, uncomplicated; F25.9 Schizoaffective disorder, unspecified; F10.282 Alcohol dependence with alcohol-induced sleep disorder; F10.24 Alcohol dependence with alcohol-induced mood disorder; F41.8 Other specified anxiety disorders; K64.9 Unspecified hemorrhoids; Z88.0 Allergy status to penicillin; Z91.013 Allergy to seafood
CPT/HCPCS: J2794

== ENCOUNTER 2022-08-17 09:53 | Emergency (ER) | payer OTHER ==
[2022-08-17 10:16] VITALS: BP 119/87; PULSE 103; RESP 18; TEMP 98.1; BMI 23.6
[2022-08-17] MEDS ORDERED: chlordiazePOXIDE HCL 25 MG CAPSULE PO ONE (10:52)
[2022-08-17] MEDS ORDERED: IBUPROFEN 600 MG TABLET (FP) PO ONE ×2 (10:52→10:57)
[2022-08-17] MEDS ORDERED: ONDANSETRON *ODT* 4 MG TABLET SL ONE (10:53)
[2022-08-17] MEDS ORDERED: chlordiazePOXIDE HCL 25 MG CAPSULE ONE (10:57)
[2022-08-17] MEDS ORDERED: ONDANSETRON *ODT* 4 MG TABLET ONE (10:57)
[2022-08-17] MEDS ORDERED: LORazepam 2 MG TABLET PO ONE (11:44)
[2022-08-17] MEDS ORDERED: LORazepam 1 MG TABLET ONE (11:54)
== END 2022-08-17 12:26 | disposition home or self-care (01) ==
LOC: JER 09:53
DX: F10.20 Alcohol dependence, uncomplicated (principal)
CPT/HCPCS: 99283-25; Q0162

== ENCOUNTER 2022-08-17 14:12 | Inpatient (IN) | payer OTHER ==
[2022-08-17 15:51] VITALS: BMI 24.9
[2022-08-17] MEDS ORDERED: BISMUTH SUBSALICYLATE 524 MG/30 ML PO PRN (16:50)
[2022-08-17] MEDS ORDERED: ACETAMINOPHEN 325 MG TABLET (FP) PO PRN (16:50)
[2022-08-17] MEDS ORDERED: LOPERAMIDE HCL 2 MG CAPSULE PO PRN (16:50)
[2022-08-17] MEDS ORDERED: chlordiazePOXIDE HCL 25 MG CAPSULE PO PRN (16:50)
[2022-08-17] MEDS ORDERED: NALOXONE HCL (KLOXXADO) 8 MG SPRAY NS PRN (16:50)
[2022-08-17] MEDS ORDERED: BENZOCAINE/MENTHOL (CHLORASEPTIC ) LOZENGE MM PRN (16:50)
[2022-08-17] MEDS ORDERED: DICYCLOMINE HCL 10 MG CAPSULE PO PRN (16:50)
[2022-08-17] MEDS ORDERED: ONDANSETRON *ODT* 4 MG TABLET SL PRN (16:50)
[2022-08-17] MEDS ORDERED: MAGNESIUM HYDROX 2400MG/30ML ORAL SUSPENSION 30 ML CUP PO PRN (16:50)
[2022-08-17] MEDS ORDERED: POLYETHYLENE GLYCOL (HEALTHYLAX) 3350 17 GM PACKET PO PRN (16:50)
[2022-08-17] MEDS ORDERED: MAG HYDROX/AL HYDROX/SIMETH 30 ML UNIT-DOSE CUP PO PRN (16:50)
[2022-08-17] MEDS: chlordiazePOXIDE HCL 25 MG CAPSULE PO SCH ×2 (17:49→22:16)
[2022-08-17] MEDS: NICOTINE 10 MG CARTRIDGE (INHALER) IH PRN (17:54)
[2022-08-17] MEDS: IBUPROFEN 400 MG TABLET (FP) PO PRN (18:37)
[2022-08-17] MEDS: THIAMINE HCL 100 MG TABLET (FP) PO SCH (22:16)
[2022-08-17] MEDS: hydrOXYzine PAMOATE 25 MG CAPSULE (FP) PO PRN (22:18)
[2022-08-17] MEDS: MELATONIN 5 MG TABLETS PO SCH (22:18)
[2022-08-17] MEDS: METHOCARBAMOL 500 MG TABLET PO PRN (22:18)
[2022-08-18] MEDS: chlordiazePOXIDE HCL 25 MG CAPSULE PO SCH ×4 (05:43→22:39)
[2022-08-18] MEDS: IBUPROFEN 600 MG TABLET (FP) PO PRN (05:45)
[2022-08-18] MEDS: PRENATAL VITAMINS W/ FOLIC ACID TABLET (FP) PO SCH (10:09)
[2022-08-18] MEDS: ACETAMINOPHEN 325 MG TABLET (FP) PO PRN ×2 (10:12→18:22)
[2022-08-18] MEDS: IBUPROFEN 400 MG TABLET (FP) PO PRN (12:08)
[2022-08-18] MEDS: QUEtiapine FUMARATE 50 MG TABLET PO SCH (16:55)
[2022-08-18] MEDS: METHOCARBAMOL 500 MG TABLET PO PRN (18:23)
[2022-08-18] MEDS: MELATONIN 5 MG TABLETS PO SCH (22:29)
[2022-08-18] MEDS: THIAMINE HCL 100 MG TABLET (FP) PO SCH (22:30)
[2022-08-18] MEDS: QUEtiapine FUMARATE 100 MG TABLET (FP) PO SCH (22:30)
[2022-08-19] MEDS: chlordiazePOXIDE HCL 25 MG CAPSULE PO SCH ×4 (04:56→22:21)
[2022-08-19] MEDS: ACETAMINOPHEN 325 MG TABLET (FP) PO PRN (04:58)
[2022-08-19 10:23] LABS: HEMATOCRIT 47.3 % (35.4-49); HEMOGLOBIN 15.4 GM/dL (11.7-16.9); MCH 29.8 pg (25.7-33.7); MCHC 32.6 g/dl (32.0-35.9); MEAN CELL VOLUME 91.6 fl (80-96); MEAN PLT VOLUME 7.6 fl (7.5-11.1); PLATELET COUNT 410 10^3/uL (134-434); RBC 5.17 M/mm3 (4.00-5.60); RDW 13.6 % (11.9-15.9); WHITE BLOOD COUNT 5.7 K/mm3 (4.0-10.0)
[2022-08-19] MEDS: METHOCARBAMOL 500 MG TABLET PO PRN (10:30)
[2022-08-19] MEDS: PRENATAL VITAMINS W/ FOLIC ACID TABLET (FP) PO SCH (10:31)
[2022-08-19] MEDS: IBUPROFEN 400 MG TABLET (FP) PO PRN (10:31)
[2022-08-19] MEDS: QUEtiapine FUMARATE 50 MG TABLET PO SCH (10:31)
[2022-08-19 10:37] LABS: ALBUMIN 3.9 g/dl (3.4-5.0)
[2022-08-19 10:40] LABS: CREATININE 0.9 mg/dL (0.55-1.3)
[2022-08-19 10:41] LABS: TOT PROT 7.6 g/dl (6.4-8.2)
[2022-08-19 10:42] LABS: BILIRUBIN,TOTAL 0.9 mg/dL (0.2-1)
[2022-08-19] MEDS: NICOTINE 10 MG CARTRIDGE (INHALER) IH PRN (17:40)
[2022-08-19] MEDS: THIAMINE HCL 100 MG TABLET (FP) PO SCH (22:21)
[2022-08-19] MEDS: MELATONIN 5 MG TABLETS PO SCH (22:21)
[2022-08-19] MEDS: QUEtiapine FUMARATE 100 MG TABLET (FP) PO SCH (22:21)
[2022-08-19] MEDS: IBUPROFEN 600 MG TABLET (FP) PO PRN (22:24)
[2022-08-20] MEDS ORDERED: chlordiazePOXIDE HCL 10 MG CAPSULE PO PRN
[2022-08-20] MEDS: chlordiazePOXIDE HCL 10 MG CAPSULE PO SCH ×4 (05:35→22:12)
[2022-08-20] MEDS: QUEtiapine FUMARATE 50 MG TABLET PO SCH ×2 (10:20→22:12)
[2022-08-20] MEDS: PRENATAL VITAMINS W/ FOLIC ACID TABLET (FP) PO SCH (10:20)
[2022-08-20] MEDS: ACETAMINOPHEN 325 MG TABLET (FP) PO PRN (10:22)
[2022-08-20] MEDS: IBUPROFEN 400 MG TABLET (FP) PO PRN (12:53)
[2022-08-20] MEDS: METHOCARBAMOL 500 MG TABLET PO PRN ×2 (12:55→22:14)
[2022-08-20] MEDS: NICOTINE 10 MG CARTRIDGE (INHALER) IH PRN (14:38)
[2022-08-20] MEDS: MELATONIN 5 MG TABLETS PO SCH (22:12)
[2022-08-20] MEDS: THIAMINE HCL 100 MG TABLET (FP) PO SCH (22:12)
[2022-08-21] MEDS: chlordiazePOXIDE HCL 10 MG CAPSULE PO SCH ×2 (05:39→17:47)
[2022-08-21] MEDS: METHOCARBAMOL 500 MG TABLET PO PRN ×2 (05:41→21:42)
[2022-08-21] MEDS: IBUPROFEN 600 MG TABLET (FP) PO PRN (05:41)
[2022-08-21] MEDS: NICOTINE 10 MG CARTRIDGE (INHALER) IH PRN ×3 (05:41→21:44)
[2022-08-21] MEDS: PRENATAL VITAMINS W/ FOLIC ACID TABLET (FP) PO SCH (10:39)
[2022-08-21] MEDS: QUEtiapine FUMARATE 50 MG TABLET PO SCH ×2 (10:39→21:42)
[2022-08-21] MEDS: ACETAMINOPHEN 325 MG TABLET (FP) PO PRN (10:42)
[2022-08-21] MEDS: IBUPROFEN 400 MG TABLET (FP) PO PRN (17:47)
[2022-08-21] MEDS: MELATONIN 5 MG TABLETS PO SCH (21:42)
[2022-08-21] MEDS: THIAMINE HCL 100 MG TABLET (FP) PO SCH (21:42)
[2022-08-21] MEDS: hydrOXYzine PAMOATE 25 MG CAPSULE (FP) PO PRN (21:42)
[2022-08-22] MEDS ORDERED: chlordiazePOXIDE HCL 10 MG CAPSULE PO ONE (05:00)
[2022-08-22] MEDS: METHOCARBAMOL 500 MG TABLET PO PRN (05:47)
[2022-08-22] MEDS: IBUPROFEN 600 MG TABLET (FP) PO PRN (05:47)
[2022-08-22] MEDS: NICOTINE 10 MG CARTRIDGE (INHALER) IH PRN (06:22)
[2022-08-22 09:10] VITALS: BP 141/97; PULSE 97; RESP 16; TEMP 98
[2022-08-22] MEDS: QUEtiapine FUMARATE 50 MG TABLET PO SCH (09:28)
[2022-08-22] MEDS: PRENATAL VITAMINS W/ FOLIC ACID TABLET (FP) PO SCH (09:28)
== END 2022-08-22 10:11 | disposition home or self-care (01) | DRG 897 ==
LOC: YASAS 14:12 → Y3N 17:06
PROVIDERS: ADMIT Allergy & Immunology; ATTEND Surgery
PROC: HZ2ZZZZ Detoxification Services for Substance Abuse Treatment (ICD-10-PCS; principal; 2022-08-17)
DX: F10.230 Alcohol dependence with withdrawal, uncomplicated (principal); F17.210 Nicotine dependence, cigarettes, uncomplicated; F19.24 Other psychoactive substance dependence with psychoactive substance-induced mood disorder; R73.9 Hyperglycemia, unspecified; R03.0 Elevated blood-pressure reading, without diagnosis of hypertension; G47.00 Insomnia, unspecified; Z86.59 Personal history of other mental and behavioral disorders; Z88.0 Allergy status to penicillin; Z91.010 Allergy to peanuts; Z91.013 Allergy to seafood; Z56.0 Unemployment, unspecified
CPT/HCPCS: 36415; 80053; 85027; 86780; C9803-CS; U0003; U0005

== ENCOUNTER 2022-09-08 17:23 | Emergency (ER) | payer OTHER ==
[2022-09-08 17:36] VITALS: RESP 18; BMI 26.6
[2022-09-08] MEDS ORDERED: SODIUM CHLORIDE 0.9% 500 ML INFUS.BAG IV ONE ×2 (18:11→20:38)
[2022-09-08] MEDS ORDERED: ONDANSETRON 4 MG/2 ML VIAL IVPUSH ONE (18:12)
[2022-09-08] MEDS ORDERED: ACETAMINOPHEN 1000 MG/100 ML BAG IVPB ONE (18:12)
[2022-09-08] MEDS ORDERED: FAMOTIDINE 20 MG/50 ML IVPB 20 MG/50 ML MG IVPB ONE ×2 (18:12→18:47)
[2022-09-08] MEDS ORDERED: LORazepam 2 MG TABLET PO ONE (18:13)
[2022-09-08] MEDS ORDERED: ACETAMINOPHEN 500 MG TABLET (FP) ONE (18:26)
[2022-09-08] MEDS ORDERED: LORazepam 1 MG TABLET ONE (18:46)
[2022-09-08] MEDS ORDERED: ONDANSETRON 4 MG/2 ML VIAL ONE (18:47)
[2022-09-08 19:44] LABS: BASO % 1.7 % (0-2.0); EOS % 1.1 % (0-4.5); HEMATOCRIT 47.8 % (35.4-49); HEMOGLOBIN 15.5 GM/dL (11.7-16.9); LYMPH % 50.9 % (8-40); MCH 29.6 pg (25.7-33.7); MCHC 32.4 g/dl (32.0-35.9); MEAN CELL VOLUME 91.3 fl (80-96); MONO % 4.6 % (3.8-10.2); NEUT % 41.7 % (42.8-82.8); PLATELET COUNT 564 10^3/uL (134-434); RBC 5.23 M/mm3 (4.00-5.60); RDW 14.4 % (11.9-15.9); WHITE BLOOD COUNT 4.4 K/mm3 (4.0-10.0)
[2022-09-08 19:52] LABS: INR 1.15 (0.83-1.09); PROTHROMBIN TIME (PATIENT) 13.2 SEC (9.7-13.0)
[2022-09-08 20:01] LABS: BLOOD UREA NITROGEN 5.2 mg/dL (7-18); CALCIUM 9.4 mg/dL (8.5-10.1)
[2022-09-08 20:02] LABS: ALBUMIN 4.1 g/dl (3.4-5.0)
[2022-09-08 20:05] LABS: CREATININE 0.8 mg/dL (0.55-1.3)
[2022-09-08 20:06] LABS: BILIRUBIN,TOTAL 0.7 mg/dL (0.2-1); TOT PROT 7.7 g/dl (6.4-8.2)
[2022-09-08 20:23] VITALS: BP 129/81; TEMP 99.9
[2022-09-08] MEDS ORDERED: THIAMINE HCL 200 MG/2 ML VIAL IVPB ONE (20:54)
[2022-09-08] MEDS ORDERED: THIAMINE HCL 200 MG/2 ML VIAL ONE (22:24)
[2022-09-08 23:06] VITALS: PULSE 114
== END 2022-09-08 23:17 | disposition home or self-care (01) ==
LOC: JER 17:23
PROC: 3E033GC Introduction of Other Therapeutic Substance into Peripheral Vein, Percutaneous Approach (ICD-10-PCS; principal; 2022-09-08)
DX: F10.239 Alcohol dependence with withdrawal, unspecified (principal); K86.0 Alcohol-induced chronic pancreatitis
CPT/HCPCS: 0241U-QW; 36415; 74177-TC; 80053; 80307; 83690; 85025; 85610; 99285-25; Q9967

== ENCOUNTER 2022-09-09 00:16 | Inpatient (IN) | payer OTHER ==
[2022-09-09 00:37] VITALS: BMI 24.0
[2022-09-09] MEDS ORDERED: LOPERAMIDE HCL 2 MG CAPSULE PO PRN (01:49)
[2022-09-09] MEDS ORDERED: ACETAMINOPHEN 325 MG TABLET (FP) PO PRN (01:49)
[2022-09-09] MEDS ORDERED: POLYETHYLENE GLYCOL (HEALTHYLAX) 3350 17 GM PACKET PO PRN (01:49)
[2022-09-09] MEDS ORDERED: ONDANSETRON *ODT* 4 MG TABLET SL PRN (01:49)
[2022-09-09] MEDS ORDERED: IBUPROFEN 400 MG TABLET (FP) PO PRN (01:49)
[2022-09-09] MEDS ORDERED: DICYCLOMINE HCL 10 MG CAPSULE PO PRN (01:49)
[2022-09-09] MEDS ORDERED: NALOXONE HCL (KLOXXADO) 8 MG SPRAY NS PRN (01:49)
[2022-09-09] MEDS ORDERED: BENZOCAINE/MENTHOL (CHLORASEPTIC ) LOZENGE MM PRN (01:49)
[2022-09-09] MEDS ORDERED: LORazepam 1 MG TABLET PO PRN (01:49)
[2022-09-09] MEDS ORDERED: IBUPROFEN 600 MG TABLET (FP) PO PRN (01:49)
[2022-09-09] MEDS ORDERED: MAGNESIUM HYDROX 2400MG/30ML ORAL SUSPENSION 30 ML CUP PO PRN (01:49)
[2022-09-09] MEDS: METHOCARBAMOL 500 MG TABLET PO PRN ×2 (02:50→10:22)
[2022-09-09] MEDS: LORazepam 2 MG TABLET PO SCH ×4 (05:44→22:45)
[2022-09-09] MEDS: ACETAMINOPHEN 325 MG TABLET (FP) PO PRN ×3 (05:44→22:46)
[2022-09-09] MEDS: NICOTINE 10 MG CARTRIDGE (INHALER) IH PRN ×2 (06:05→22:48)
[2022-09-09] MEDS: MAG HYDROX/AL HYDROX/SIMETH 30 ML UNIT-DOSE CUP PO PRN ×2 (06:51→23:06)
[2022-09-09] MEDS: PRENATAL VITAMINS W/ FOLIC ACID TABLET (FP) PO SCH (10:21)
[2022-09-09] MEDS ORDERED: DICYCLOMINE HCL 10 MG CAPSULE PO ONE (10:49)
[2022-09-09] MEDS: QUEtiapine FUMARATE 50 MG TABLET PO SCH (11:19)
[2022-09-09] MEDS: NICOTINE 21 MG/24 HOURS TOPICAL PATCH TD SCH (11:19)
[2022-09-09] MEDS: BISMUTH SUBSALICYLATE 524 MG/30 ML PO PRN (17:53)
[2022-09-09] MEDS ORDERED: THIAMINE HCL 100 MG TABLET (FP) PO SCH (22:00)
[2022-09-09] MEDS ORDERED: QUEtiapine FUMARATE 100 MG TABLET (FP) PO SCH (22:00)
[2022-09-09] MEDS ORDERED: MELATONIN 5 MG TABLETS PO SCH (22:00)
[2022-09-09] MEDS: FAMOTIDINE 20 MG TABLET PO SCH (22:45)
[2022-09-10] MEDS: LORazepam 1 MG TABLET PO SCH ×3 (06:16→17:41)
[2022-09-10] MEDS: METHOCARBAMOL 500 MG TABLET PO PRN (06:18)
[2022-09-10] MEDS: FAMOTIDINE 20 MG TABLET PO SCH (10:07)
[2022-09-10] MEDS: NICOTINE 21 MG/24 HOURS TOPICAL PATCH TD SCH (10:07)
[2022-09-10] MEDS: QUEtiapine FUMARATE 50 MG TABLET PO SCH (10:08)
[2022-09-10] MEDS: PRENATAL VITAMINS W/ FOLIC ACID TABLET (FP) PO SCH (10:08)
[2022-09-10] MEDS: BISMUTH SUBSALICYLATE 524 MG/30 ML PO PRN (11:01)
[2022-09-10] MEDS: ACETAMINOPHEN 325 MG TABLET (FP) PO PRN (11:02)
[2022-09-10] MEDS ORDERED: hydrOXYzine PAMOATE 25 MG CAPSULE (FP) PO PRN (12:22)
[2022-09-10 14:36] LABS: HEMATOCRIT 43.9 % (35.4-49); HEMOGLOBIN 14.5 GM/dL (11.7-16.9); MCH 30.3 pg (25.7-33.7); MEAN CELL VOLUME 91.9 fl (80-96); MEAN PLT VOLUME 7.8 fl (7.5-11.1); PLATELET COUNT 385 10^3/uL (134-434); RBC 4.78 M/mm3 (4.00-5.60); WHITE BLOOD COUNT 4.4 K/mm3 (4.0-10.0)
[2022-09-10 15:11] LABS: ALBUMIN 3.5 g/dl (3.4-5.0); BLOOD UREA NITROGEN 4.8 mg/dL (7-18)
[2022-09-10 15:14] LABS: CREATININE 0.8 mg/dL (0.55-1.3)
[2022-09-10 15:16] LABS: BILIRUBIN,TOTAL 0.9 mg/dL (0.2-1); TOT PROT 6.6 g/dl (6.4-8.2)
[2022-09-10 15:17] LABS: CALCIUM 9.3 mg/dL (8.5-10.1)
[2022-09-10 17:22] VITALS: BP 135/76; PULSE 114; RESP 16; TEMP 99.1
[2022-09-10] MEDS ORDERED: ARTIFICIAL TEARS (POLYVINYL ALCOHOL) OPTH DROPS OU PRN (17:35)
[2022-09-11] MEDS ORDERED: LORazepam 0.5 MG TABLET PO PRN
[2022-09-11] MEDS ORDERED: LORazepam 0.5 MG TABLET PO SCH (05:00)
[2022-09-12] MEDS ORDERED: LORazepam 0.5 MG TABLET PO ONE (05:00)
== END 2022-09-10 18:08 | disposition left against medical advice (07) | DRG 894 ==
LOC: YASAS 00:16 → Y6N 02:05
PROVIDERS: ADMIT Allergy & Immunology; ATTEND Allergy & Immunology
PROC: HZ2ZZZZ Detoxification Services for Substance Abuse Treatment (ICD-10-PCS; principal; 2022-09-09)
DX: F10.230 Alcohol dependence with withdrawal, uncomplicated (principal); F12.20 Cannabis dependence, uncomplicated; F17.210 Nicotine dependence, cigarettes, uncomplicated; F25.9 Schizoaffective disorder, unspecified; F31.9 Bipolar disorder, unspecified; F41.1 Generalized anxiety disorder; F10.280 Alcohol dependence with alcohol-induced anxiety disorder; F10.282 Alcohol dependence with alcohol-induced sleep disorder; R10.84 Generalized abdominal pain; R11.2 Nausea with vomiting, unspecified; Z88.0 Allergy status to penicillin; Z91.013 Allergy to seafood; Z87.19 Personal history of other diseases of the digestive system
CPT/HCPCS: 36415; 80053; 85027; 86780; C9803-CS; Q0162; U0003; U0005

== ENCOUNTER 2022-10-23 23:29 | Inpatient (IN) | payer OTHER ==
[2022-10-24] MEDS ORDERED: IBUPROFEN 400 MG TABLET (FP) PO PRN (00:09)
[2022-10-24] MEDS ORDERED: ACETAMINOPHEN 325 MG TABLET (FP) PO PRN (00:09)
[2022-10-24] MEDS ORDERED: NALOXONE HCL (KLOXXADO) 8 MG SPRAY NS PRN (00:09)
[2022-10-24] MEDS ORDERED: BENZOCAINE/MENTHOL (CHLORASEPTIC ) LOZENGE MM PRN (00:09)
[2022-10-24] MEDS ORDERED: DICYCLOMINE HCL 10 MG CAPSULE PO PRN (00:09)
[2022-10-24] MEDS ORDERED: MAG HYDROX/AL HYDROX/SIMETH 30 ML UNIT-DOSE CUP PO PRN (00:09)
[2022-10-24] MEDS ORDERED: BISMUTH SUBSALICYLATE 524 MG/30 ML PO PRN (00:09)
[2022-10-24] MEDS ORDERED: POLYETHYLENE GLYCOL (HEALTHYLAX) 3350 17 GM PACKET PO PRN (00:09)
[2022-10-24] MEDS ORDERED: LOPERAMIDE HCL 2 MG CAPSULE PO PRN (00:09)
[2022-10-24] MEDS ORDERED: MAGNESIUM HYDROX 2400MG/30ML ORAL SUSPENSION 30 ML CUP PO PRN (00:09)
[2022-10-24] MEDS ORDERED: ONDANSETRON *ODT* 4 MG TABLET SL PRN (00:09)
[2022-10-24 01:31] VITALS: BMI 22.4
[2022-10-24] MEDS: NICOTINE POLACRILEX 2 MG GUM BUC PRN (05:12)
[2022-10-24] MEDS: PRENATAL VITAMINS W/ FOLIC ACID TABLET (FP) PO SCH (10:46)
[2022-10-24] MEDS: NICOTINE 14 MG/24 HOURS TOPICAL PATCH TD SCH (10:46)
[2022-10-24] MEDS: hydrOXYzine PAMOATE 25 MG CAPSULE (FP) PO PRN ×2 (10:47→17:34)
[2022-10-24] MEDS: NICOTINE 10 MG CARTRIDGE (INHALER) IH PRN ×2 (12:46→17:35)
[2022-10-24] MEDS: METHOCARBAMOL 500 MG TABLET PO PRN ×2 (12:46→17:34)
[2022-10-24] MEDS: ACETAMINOPHEN 325 MG TABLET (FP) PO PRN (14:55)
[2022-10-24] MEDS: THIAMINE HCL 100 MG TABLET (FP) PO SCH (22:43)
[2022-10-24] MEDS: QUEtiapine FUMARATE 100 MG TABLET (FP) PO SCH (22:43)
[2022-10-24] MEDS: MELATONIN 5 MG TABLETS PO SCH (22:44)
[2022-10-25] MEDS: PRENATAL VITAMINS W/ FOLIC ACID TABLET (FP) PO SCH (09:57)
[2022-10-25] MEDS: hydrOXYzine PAMOATE 25 MG CAPSULE (FP) PO PRN ×2 (09:57→22:23)
[2022-10-25] MEDS: QUEtiapine FUMARATE 50 MG TABLET PO SCH (09:57)
[2022-10-25] MEDS: NICOTINE 10 MG CARTRIDGE (INHALER) IH PRN ×2 (09:57→22:24)
[2022-10-25] MEDS: NICOTINE 14 MG/24 HOURS TOPICAL PATCH TD SCH (10:12)
[2022-10-25 13:33] LABS: HEMATOCRIT 44.1 % (35.4-49); HEMOGLOBIN 14.3 GM/dL (11.7-16.9); MCH 31.2 pg (25.7-33.7); MCHC 32.5 g/dl (32.0-35.9); MEAN PLT VOLUME 9.3 fl (7.5-11.1); PLATELET COUNT 202 10^3/uL (134-434); RBC 4.59 M/mm3 (4.00-5.60); RDW 14.1 % (11.9-15.9); WHITE BLOOD COUNT 5.1 K/mm3 (4.0-10.0)
[2022-10-25] MEDS: METHOCARBAMOL 500 MG TABLET PO PRN ×2 (13:33→22:24)
[2022-10-25 13:58] LABS: ALBUMIN 3.2 g/dl (3.4-5.0); BLOOD UREA NITROGEN 7.2 mg/dL (7-18); CALCIUM 8.7 mg/dL (8.5-10.1)
[2022-10-25 14:01] LABS: CREATININE 0.6 mg/dL (0.55-1.3)
[2022-10-25 14:02] LABS: BILIRUBIN,TOTAL 0.7 mg/dL (0.2-1); TOT PROT 5.9 g/dl (6.4-8.2)
[2022-10-25] MEDS: TETRAHYDROZOLINE HCL EYE DROPS OD PRN (14:46)
[2022-10-25] MEDS: IBUPROFEN 600 MG TABLET (FP) PO PRN (18:46)
[2022-10-25] MEDS: MELATONIN 5 MG TABLETS PO SCH (22:22)
[2022-10-25] MEDS: QUEtiapine FUMARATE 100 MG TABLET (FP) PO SCH (22:22)
[2022-10-25] MEDS: THIAMINE HCL 100 MG TABLET (FP) PO SCH (22:23)
[2022-10-26] MEDS: IBUPROFEN 600 MG TABLET (FP) PO PRN (07:21)
[2022-10-26] MEDS: hydrOXYzine PAMOATE 25 MG CAPSULE (FP) PO PRN ×2 (09:32→17:21)
[2022-10-26] MEDS: PRENATAL VITAMINS W/ FOLIC ACID TABLET (FP) PO SCH (09:32)
[2022-10-26] MEDS: QUEtiapine FUMARATE 50 MG TABLET PO SCH (09:32)
[2022-10-26] MEDS: TETRAHYDROZOLINE HCL EYE DROPS OD PRN ×2 (09:33→17:50)
[2022-10-26] MEDS: NICOTINE 14 MG/24 HOURS TOPICAL PATCH TD SCH (09:40)
[2022-10-26] MEDS: NICOTINE 10 MG CARTRIDGE (INHALER) IH PRN ×2 (10:07→19:52)
[2022-10-26] MEDS: NICOTINE POLACRILEX 2 MG GUM BUC PRN ×3 (12:16→22:13)
[2022-10-26] MEDS: ACETAMINOPHEN 325 MG TABLET (FP) PO PRN (15:09)
[2022-10-26] MEDS: MELATONIN 5 MG TABLETS PO SCH (22:10)
[2022-10-26] MEDS: THIAMINE HCL 100 MG TABLET (FP) PO SCH (22:10)
[2022-10-26] MEDS: METHOCARBAMOL 500 MG TABLET PO PRN (22:10)
[2022-10-26] MEDS: QUEtiapine FUMARATE 100 MG TABLET (FP) PO SCH (22:10)
[2022-10-27] MEDS: IBUPROFEN 600 MG TABLET (FP) PO PRN (08:56)
[2022-10-27 09:48] VITALS: PULSE 91; TEMP 98
[2022-10-27] MEDS: NICOTINE 14 MG/24 HOURS TOPICAL PATCH TD SCH (10:10)
[2022-10-27] MEDS: QUEtiapine FUMARATE 50 MG TABLET PO SCH (10:10)
[2022-10-27] MEDS: PRENATAL VITAMINS W/ FOLIC ACID TABLET (FP) PO SCH (10:10)
[2022-10-27] MEDS: NICOTINE 10 MG CARTRIDGE (INHALER) IH PRN (10:11)
[2022-10-27] MEDS: hydrOXYzine PAMOATE 25 MG CAPSULE (FP) PO PRN (10:13)
[2022-10-27] MEDS: NICOTINE POLACRILEX 2 MG GUM BUC PRN (11:09)
[2022-10-27] MEDS: TETRAHYDROZOLINE HCL EYE DROPS OD PRN (11:10)
[2022-10-27 13:23] VITALS: BP 131/93; RESP 17
[2022-10-27] MEDS: METHOCARBAMOL 500 MG TABLET PO PRN (13:26)
[2022-10-27] MEDS: ACETAMINOPHEN 325 MG TABLET (FP) PO PRN (13:27)
== END 2022-10-27 16:00 | disposition other institution (70) | DRG 897 ==
LOC: YASAS 23:29 → Y6N 10-24 01:44 → UNDOADMIN 10-24 01:44
PROVIDERS: ADMIT Allergy & Immunology; ATTEND Surgery
PROC: HZ2ZZZZ Detoxification Services for Substance Abuse Treatment (ICD-10-PCS; principal; 2022-10-24)
DX: F10.230 Alcohol dependence with withdrawal, uncomplicated (principal); F10.24 Alcohol dependence with alcohol-induced mood disorder; F17.213 Nicotine dependence, cigarettes, with withdrawal; F25.9 Schizoaffective disorder, unspecified; K21.9 Gastro-esophageal reflux disease without esophagitis; Z87.19 Personal history of other diseases of the digestive system; Z88.0 Allergy status to penicillin; Z91.013 Allergy to seafood; Z91.010 Allergy to peanuts
CPT/HCPCS: 36415; 80053; 85027; 86780; C9803-CS; U0003; U0005

== ENCOUNTER 2022-10-27 16:35 | Inpatient (IN) | payer OTHER ==
[2022-10-27] MEDS ORDERED: BENZOCAINE/MENTHOL (CHLORASEPTIC ) LOZENGE MM PRN (18:41)
[2022-10-27] MEDS ORDERED: LOPERAMIDE HCL 2 MG CAPSULE PO PRN (18:41)
[2022-10-27] MEDS ORDERED: P-EPHED 60MG/TRIPROLIDI 2.5MG TABLET PO PRN (18:41)
[2022-10-27] MEDS ORDERED: guaiFENesin 200 MG/10 ML 10 ML UNIT-DOSE CUPS PO PRN (18:41)
[2022-10-27] MEDS: MELATONIN 5 MG TABLETS PO PRN (21:02)
[2022-10-27] MEDS: NICOTINE 10 MG CARTRIDGE (INHALER) IH PRN (21:02)
[2022-10-27] MEDS: QUEtiapine FUMARATE 100 MG TABLET (FP) PO SCH (21:02)
[2022-10-27] MEDS: THIAMINE HCL 100 MG TABLET (FP) PO SCH (21:03)
[2022-10-27] MEDS: hydrOXYzine PAMOATE 25 MG CAPSULE (FP) PO PRN (21:03)
[2022-10-28] MEDS: IBUPROFEN 400 MG TABLET (FP) PO PRN ×2 (06:42→13:55)
[2022-10-28] MEDS: NICOTINE 10 MG CARTRIDGE (INHALER) IH PRN ×3 (06:43→15:58)
[2022-10-28] MEDS: hydrOXYzine PAMOATE 25 MG CAPSULE (FP) PO PRN (06:44)
[2022-10-28] MEDS: NICOTINE POLACRILEX 2 MG GUM BUC PRN ×3 (08:17→21:34)
[2022-10-28] MEDS: TETRAHYDROZOLINE HCL EYE DROPS OD PRN (08:17)
[2022-10-28] MEDS: ACETAMINOPHEN 325 MG TABLET (FP) PO PRN ×2 (10:01→20:03)
[2022-10-28] MEDS: PRENATAL VITAMINS W/ FOLIC ACID TABLET (FP) PO SCH (10:03)
[2022-10-28] MEDS: METHOCARBAMOL 500 MG TABLET PO PRN ×2 (13:56→21:34)
[2022-10-28] MEDS: hydrOXYzine PAMOATE 50 MG CAPSULE (FP) PO PRN (20:03)
[2022-10-28] MEDS: THIAMINE HCL 100 MG TABLET (FP) PO SCH (21:34)
[2022-10-28] MEDS: MELATONIN 5 MG TABLETS PO PRN (21:34)
[2022-10-28] MEDS: QUEtiapine FUMARATE 100 MG TABLET (FP) PO SCH (21:34)
[2022-10-29] MEDS: IBUPROFEN 400 MG TABLET (FP) PO PRN ×2 (06:27→15:56)
[2022-10-29] MEDS: hydrOXYzine PAMOATE 50 MG CAPSULE (FP) PO PRN ×3 (06:27→21:14)
[2022-10-29] MEDS: QUEtiapine FUMARATE 25 MG TABLET PO SCH (10:43)
[2022-10-29] MEDS: PRENATAL VITAMINS W/ FOLIC ACID TABLET (FP) PO SCH (10:43)
[2022-10-29] MEDS: NICOTINE POLACRILEX 2 MG GUM BUC PRN (10:44)
[2022-10-29] MEDS: METHOCARBAMOL 500 MG TABLET PO PRN ×2 (10:46→21:14)
[2022-10-29] MEDS: NICOTINE 10 MG CARTRIDGE (INHALER) IH PRN (18:31)
[2022-10-29] MEDS: TETRAHYDROZOLINE HCL EYE DROPS OD PRN (18:36)
[2022-10-29] MEDS: THIAMINE HCL 100 MG TABLET (FP) PO SCH (21:14)
[2022-10-29] MEDS: QUEtiapine FUMARATE 100 MG TABLET (FP) PO SCH (21:14)
[2022-10-30] MEDS: hydrOXYzine PAMOATE 50 MG CAPSULE (FP) PO PRN ×3 (06:32→21:12)
[2022-10-30] MEDS: METHOCARBAMOL 500 MG TABLET PO PRN ×2 (06:32→21:57)
[2022-10-30] MEDS: QUEtiapine FUMARATE 25 MG TABLET PO SCH (09:38)
[2022-10-30] MEDS: NICOTINE 10 MG CARTRIDGE (INHALER) IH PRN ×2 (09:38→21:13)
[2022-10-30] MEDS: PRENATAL VITAMINS W/ FOLIC ACID TABLET (FP) PO SCH (09:38)
[2022-10-30] MEDS: NICOTINE POLACRILEX 2 MG GUM BUC PRN ×2 (10:43→16:53)
[2022-10-30] MEDS: IBUPROFEN 400 MG TABLET (FP) PO PRN (14:28)
[2022-10-30] MEDS: ACETAMINOPHEN 325 MG TABLET (FP) PO PRN (18:11)
[2022-10-30] MEDS: TETRAHYDROZOLINE HCL EYE DROPS OD PRN (18:13)
[2022-10-30] MEDS: THIAMINE HCL 100 MG TABLET (FP) PO SCH (21:11)
[2022-10-30] MEDS: QUEtiapine FUMARATE 100 MG TABLET (FP) PO SCH (21:11)
[2022-10-30] MEDS: MELATONIN 5 MG TABLETS PO PRN (21:11)
[2022-10-31] MEDS: TETRAHYDROZOLINE HCL EYE DROPS OD PRN (06:58)
[2022-10-31] MEDS: QUEtiapine FUMARATE 25 MG TABLET PO SCH (10:58)
[2022-10-31] MEDS: PRENATAL VITAMINS W/ FOLIC ACID TABLET (FP) PO SCH (10:59)
[2022-10-31] MEDS: METHOCARBAMOL 500 MG TABLET PO PRN ×2 (11:00→21:11)
[2022-10-31] MEDS: MAG HYDROX/AL HYDROX/SIMETH 30 ML UNIT-DOSE CUP PO PRN (11:01)
[2022-10-31] MEDS: IBUPROFEN 400 MG TABLET (FP) PO PRN (13:15)
[2022-10-31] MEDS: hydrOXYzine PAMOATE 50 MG CAPSULE (FP) PO PRN ×2 (14:50→21:11)
[2022-10-31] MEDS: NICOTINE POLACRILEX 2 MG GUM BUC PRN (14:51)
[2022-10-31] MEDS: NICOTINE 10 MG CARTRIDGE (INHALER) IH PRN ×2 (16:11→21:13)
[2022-10-31] MEDS: ACETAMINOPHEN 325 MG TABLET (FP) PO PRN (19:35)
[2022-10-31] MEDS: THIAMINE HCL 100 MG TABLET (FP) PO SCH (21:11)
[2022-10-31] MEDS: MELATONIN 5 MG TABLETS PO PRN (21:11)
[2022-10-31] MEDS: QUEtiapine FUMARATE 100 MG TABLET (FP) PO SCH (21:11)
[2022-11-01] MEDS: IBUPROFEN 400 MG TABLET (FP) PO PRN ×2 (06:31→22:15)
[2022-11-01] MEDS: NICOTINE 10 MG CARTRIDGE (INHALER) IH PRN ×3 (06:32→21:03)
[2022-11-01] MEDS: QUEtiapine FUMARATE 25 MG TABLET PO SCH (09:42)
[2022-11-01] MEDS: PRENATAL VITAMINS W/ FOLIC ACID TABLET (FP) PO SCH (09:42)
[2022-11-01] MEDS: METHOCARBAMOL 500 MG TABLET PO PRN ×2 (09:43→21:02)
[2022-11-01] MEDS: MAGNESIUM HYDROX 2400MG/30ML ORAL SUSPENSION 30 ML CUP PO PRN (13:01)
[2022-11-01] MEDS: NICOTINE POLACRILEX 2 MG GUM BUC PRN (13:19)
[2022-11-01] MEDS: hydrOXYzine PAMOATE 50 MG CAPSULE (FP) PO PRN (16:30)
[2022-11-01] MEDS: ACETAMINOPHEN 325 MG TABLET (FP) PO PRN (16:30)
[2022-11-01] MEDS: MELATONIN 5 MG TABLETS PO PRN (21:02)
[2022-11-01] MEDS: THIAMINE HCL 100 MG TABLET (FP) PO SCH (21:02)
[2022-11-01] MEDS: QUEtiapine FUMARATE 100 MG TABLET (FP) PO SCH (21:02)
[2022-11-02] MEDS: NICOTINE POLACRILEX 2 MG GUM BUC PRN ×3 (06:12→17:52)
[2022-11-02] MEDS: IBUPROFEN 400 MG TABLET (FP) PO PRN ×2 (06:12→21:58)
[2022-11-02] MEDS ORDERED: DOCUSATE SODIUM 100 MG CAPSULE (FP) PO PRN (09:27)
[2022-11-02] MEDS: QUEtiapine FUMARATE 25 MG TABLET PO SCH (10:52)
[2022-11-02] MEDS: PRENATAL VITAMINS W/ FOLIC ACID TABLET (FP) PO SCH (10:53)
[2022-11-02] MEDS: NICOTINE 10 MG CARTRIDGE (INHALER) IH PRN ×2 (10:55→17:14)
[2022-11-02] MEDS: METHOCARBAMOL 500 MG TABLET PO PRN (10:55)
[2022-11-02] MEDS: HYDROCORTISONE 2.5% TOPICAL CREAM 30 GM TUBE TP SCH ×2 (10:56→21:56)
[2022-11-02] MEDS: hydrOXYzine PAMOATE 50 MG CAPSULE (FP) PO PRN (13:09)
[2022-11-02] MEDS: POLYETHYLENE GLYCOL (HEALTHYLAX) 3350 17 GM PACKET PO PRN (13:10)
[2022-11-02] MEDS: TETRAHYDROZOLINE HCL EYE DROPS OD PRN (16:06)
[2022-11-02] MEDS: QUEtiapine FUMARATE 50 MG TABLET PO SCH (21:57)
[2022-11-02] MEDS: THIAMINE HCL 100 MG TABLET (FP) PO SCH (21:57)
[2022-11-02] MEDS: MELATONIN 5 MG TABLETS PO PRN (21:57)
[2022-11-03] MEDS: IBUPROFEN 400 MG TABLET (FP) PO PRN ×2 (06:17→17:05)
[2022-11-03] MEDS: METHOCARBAMOL 500 MG TABLET PO PRN ×2 (06:18→21:17)
[2022-11-03] MEDS: hydrOXYzine PAMOATE 50 MG CAPSULE (FP) PO PRN ×2 (10:27→21:17)
[2022-11-03] MEDS: QUEtiapine FUMARATE 50 MG TABLET PO SCH ×2 (10:27→21:17)
[2022-11-03] MEDS: HYDROCORTISONE 2.5% TOPICAL CREAM 30 GM TUBE TP SCH ×2 (10:27→21:18)
[2022-11-03] MEDS: PRENATAL VITAMINS W/ FOLIC ACID TABLET (FP) PO SCH (10:27)
[2022-11-03] MEDS: NICOTINE 10 MG CARTRIDGE (INHALER) IH PRN ×2 (10:28→21:17)
[2022-11-03] MEDS: POLYETHYLENE GLYCOL (HEALTHYLAX) 3350 17 GM PACKET PO PRN (10:53)
[2022-11-03] MEDS: THIAMINE HCL 100 MG TABLET (FP) PO SCH (21:17)
[2022-11-04] MEDS: IBUPROFEN 400 MG TABLET (FP) PO PRN ×2 (06:52→19:05)
[2022-11-04] MEDS: HYDROCORTISONE 2.5% TOPICAL CREAM 30 GM TUBE TP SCH ×2 (09:55→21:11)
[2022-11-04] MEDS: QUEtiapine FUMARATE 50 MG TABLET PO SCH ×2 (09:55→21:11)
[2022-11-04] MEDS: PRENATAL VITAMINS W/ FOLIC ACID TABLET (FP) PO SCH (09:56)
[2022-11-04] MEDS: hydrOXYzine PAMOATE 50 MG CAPSULE (FP) PO PRN ×2 (09:57→21:11)
[2022-11-04] MEDS: NICOTINE 10 MG CARTRIDGE (INHALER) IH PRN ×3 (09:57→19:05)
[2022-11-04] MEDS: METHOCARBAMOL 500 MG TABLET PO PRN ×2 (09:57→21:11)
[2022-11-04] MEDS: NICOTINE POLACRILEX 2 MG GUM BUC PRN (16:28)
[2022-11-04] MEDS: THIAMINE HCL 100 MG TABLET (FP) PO SCH (21:11)
[2022-11-04] MEDS: MELATONIN 5 MG TABLETS PO PRN (21:11)
[2022-11-05] MEDS: ACETAMINOPHEN 325 MG TABLET (FP) PO PRN (06:50)
[2022-11-05] MEDS: hydrOXYzine PAMOATE 50 MG CAPSULE (FP) PO PRN (06:51)
[2022-11-05] MEDS: NICOTINE 10 MG CARTRIDGE (INHALER) IH PRN ×3 (06:52→21:20)
[2022-11-05] MEDS: NICOTINE POLACRILEX 2 MG GUM BUC PRN ×3 (09:12→21:45)
[2022-11-05] MEDS: METHOCARBAMOL 500 MG TABLET PO PRN ×2 (10:16→21:19)
[2022-11-05] MEDS: QUEtiapine FUMARATE 50 MG TABLET PO SCH ×2 (10:16→21:18)
[2022-11-05] MEDS: PRENATAL VITAMINS W/ FOLIC ACID TABLET (FP) PO SCH (10:17)
[2022-11-05] MEDS: HYDROCORTISONE 2.5% TOPICAL CREAM 30 GM TUBE TP SCH ×2 (10:17→21:19)
[2022-11-05] MEDS: IBUPROFEN 400 MG TABLET (FP) PO PRN ×2 (10:17→21:20)
[2022-11-05] MEDS: POLYETHYLENE GLYCOL (HEALTHYLAX) 3350 17 GM PACKET PO PRN (10:18)
[2022-11-05] MEDS: THIAMINE HCL 100 MG TABLET (FP) PO SCH (21:19)
[2022-11-05] MEDS: MELATONIN 5 MG TABLETS PO PRN (21:19)
[2022-11-05] MEDS: MAG HYDROX/AL HYDROX/SIMETH 30 ML UNIT-DOSE CUP PO PRN (22:15)
[2022-11-06] MEDS: IBUPROFEN 400 MG TABLET (FP) PO PRN ×2 (05:56→18:30)
[2022-11-06] MEDS: hydrOXYzine PAMOATE 50 MG CAPSULE (FP) PO PRN ×2 (05:56→18:30)
[2022-11-06] MEDS: PRENATAL VITAMINS W/ FOLIC ACID TABLET (FP) PO SCH (10:11)
[2022-11-06] MEDS: QUEtiapine FUMARATE 50 MG TABLET PO SCH ×2 (10:11→21:38)
[2022-11-06] MEDS: HYDROCORTISONE 2.5% TOPICAL CREAM 30 GM TUBE TP SCH ×2 (10:12→22:31)
[2022-11-06] MEDS: MAG HYDROX/AL HYDROX/SIMETH 30 ML UNIT-DOSE CUP PO PRN (10:12)
[2022-11-06] MEDS: METHOCARBAMOL 500 MG TABLET PO PRN ×2 (10:13→21:38)
[2022-11-06] MEDS: NICOTINE 10 MG CARTRIDGE (INHALER) IH PRN ×3 (10:14→21:39)
[2022-11-06] MEDS: NICOTINE POLACRILEX 2 MG GUM BUC PRN (11:09)
[2022-11-06] MEDS: MELATONIN 5 MG TABLETS PO PRN (21:37)
[2022-11-06] MEDS: THIAMINE HCL 100 MG TABLET (FP) PO SCH (21:37)
[2022-11-07] MEDS: QUEtiapine FUMARATE 100 MG TABLET (FP) PO SCH ×2 (09:52→21:09)
[2022-11-07] MEDS: PRENATAL VITAMINS W/ FOLIC ACID TABLET (FP) PO SCH (09:52)
[2022-11-07] MEDS: HYDROCORTISONE 2.5% TOPICAL CREAM 30 GM TUBE TP SCH ×2 (09:52→21:10)
[2022-11-07] MEDS: hydrOXYzine PAMOATE 50 MG CAPSULE (FP) PO PRN ×2 (09:54→21:09)
[2022-11-07] MEDS: NICOTINE POLACRILEX 2 MG GUM BUC PRN (09:54)
[2022-11-07] MEDS: METHOCARBAMOL 500 MG TABLET PO PRN ×2 (09:54→21:09)
[2022-11-07] MEDS: NICOTINE 10 MG CARTRIDGE (INHALER) IH PRN ×2 (09:54→21:10)
[2022-11-07] MEDS: MAGNESIUM HYDROX 2400MG/30ML ORAL SUSPENSION 30 ML CUP PO PRN (09:55)
[2022-11-07] MEDS: IBUPROFEN 400 MG TABLET (FP) PO PRN (18:46)
[2022-11-07] MEDS: MELATONIN 5 MG TABLETS PO PRN (21:09)
[2022-11-07] MEDS: THIAMINE HCL 100 MG TABLET (FP) PO SCH (21:09)
[2022-11-08] MEDS: PRENATAL VITAMINS W/ FOLIC ACID TABLET (FP) PO SCH (10:16)
[2022-11-08] MEDS: QUEtiapine FUMARATE 100 MG TABLET (FP) PO SCH ×2 (10:18→22:01)
[2022-11-08] MEDS: METHOCARBAMOL 500 MG TABLET PO PRN ×2 (10:19→17:59)
[2022-11-08] MEDS: hydrOXYzine PAMOATE 50 MG CAPSULE (FP) PO PRN (10:19)
[2022-11-08] MEDS: NICOTINE 10 MG CARTRIDGE (INHALER) IH PRN ×2 (10:19→22:01)
[2022-11-08] MEDS: HYDROCORTISONE 2.5% TOPICAL CREAM 30 GM TUBE TP SCH ×2 (10:20→21:58)
[2022-11-08] MEDS: IBUPROFEN 400 MG TABLET (FP) PO PRN (18:00)
[2022-11-08] MEDS ORDERED: QUEtiapine FUMARATE 50 MG TABLET ONE (18:54)
[2022-11-08] MEDS: THIAMINE HCL 100 MG TABLET (FP) PO SCH (22:01)
[2022-11-08] MEDS: MELATONIN 5 MG TABLETS PO PRN (22:01)
[2022-11-09 06:54] VITALS: RESP 18
[2022-11-09] MEDS ORDERED: QUEtiapine FUMARATE 50 MG TABLET ONE (08:44)
[2022-11-09] MEDS: PRENATAL VITAMINS W/ FOLIC ACID TABLET (FP) PO SCH (10:09)
[2022-11-09] MEDS: HYDROCORTISONE 2.5% TOPICAL CREAM 30 GM TUBE TP SCH ×2 (10:10→21:29)
[2022-11-09] MEDS: QUEtiapine FUMARATE 100 MG TABLET (FP) PO SCH ×2 (10:10→21:28)
[2022-11-09] MEDS: METHOCARBAMOL 500 MG TABLET PO PRN ×2 (10:11→21:29)
[2022-11-09] MEDS: NICOTINE 10 MG CARTRIDGE (INHALER) IH PRN ×3 (10:11→21:30)
[2022-11-09] MEDS: NICOTINE POLACRILEX 2 MG GUM BUC PRN ×2 (12:56→17:54)
[2022-11-09] MEDS: IBUPROFEN 400 MG TABLET (FP) PO PRN (17:53)
[2022-11-09] MEDS: hydrOXYzine PAMOATE 50 MG CAPSULE (FP) PO PRN (17:53)
[2022-11-09] MEDS: MELATONIN 5 MG TABLETS PO PRN (21:29)
[2022-11-09] MEDS: THIAMINE HCL 100 MG TABLET (FP) PO SCH (21:29)
[2022-11-10 06:42] VITALS: BP 111/80; PULSE 73; TEMP 98
== END 2022-11-10 09:35 | disposition home or self-care (01) | DRG 895 ==
LOC: YASAS 16:35 → Y3W 16:38
PROVIDERS: ADMIT Allergy & Immunology; ATTEND Psychiatry & Neurology Pain Medicine
PROC: HZ42ZZZ Group Counseling for Substance Abuse Treatment, Cognitive-Behavioral (ICD-10-PCS; principal; 2022-10-29)
DX: F10.20 Alcohol dependence, uncomplicated (principal); F12.20 Cannabis dependence, uncomplicated; F17.210 Nicotine dependence, cigarettes, uncomplicated; F10.282 Alcohol dependence with alcohol-induced sleep disorder; F25.9 Schizoaffective disorder, unspecified; F41.1 Generalized anxiety disorder; F32.A Depression, unspecified; K76.0 Fatty (change of) liver, not elsewhere classified; K21.9 Gastro-esophageal reflux disease without esophagitis; K59.00 Constipation, unspecified; K64.9 Unspecified hemorrhoids; R03.0 Elevated blood-pressure reading, without diagnosis of hypertension; Z88.0 Allergy status to penicillin; Z91.013 Allergy to seafood; Z91.010 Allergy to peanuts

== ENCOUNTER 2022-11-17 19:42 | Inpatient (IN) | payer OTHER ==
[2022-11-17 20:06] VITALS: BMI 23.2
[2022-11-17] MEDS ORDERED: MAGNESIUM HYDROX 2400MG/30ML ORAL SUSPENSION 30 ML CUP PO PRN (20:52)
[2022-11-17] MEDS ORDERED: ONDANSETRON *ODT* 4 MG TABLET SL PRN (20:52)
[2022-11-17] MEDS ORDERED: BENZONATATE 200 MG CAPSULE PO PRN (20:52)
[2022-11-17] MEDS ORDERED: IBUPROFEN 400 MG TABLET (FP) PO PRN (20:52)
[2022-11-17] MEDS ORDERED: NALOXONE HCL (KLOXXADO) 8 MG SPRAY NS PRN (20:52)
[2022-11-17] MEDS ORDERED: POLYETHYLENE GLYCOL (HEALTHYLAX) 3350 17 GM PACKET PO PRN (20:52)
[2022-11-17] MEDS ORDERED: guaiFENesin 600 MG TABLET.ER (FP) PO PRN (20:52)
[2022-11-17] MEDS ORDERED: BENZOCAINE/MENTHOL (CHLORASEPTIC ) LOZENGE MM PRN (20:52)
[2022-11-17] MEDS ORDERED: NALOXONE HCL 0.4 MG/ML VIAL IM PRN (20:52)
[2022-11-17] MEDS ORDERED: MAG HYDROX/AL HYDROX/SIMETH 30 ML UNIT-DOSE CUP PO PRN (20:52)
[2022-11-17] MEDS ORDERED: chlordiazePOXIDE HCL 25 MG CAPSULE PO PRN (20:52)
[2022-11-17] MEDS ORDERED: LOPERAMIDE HCL 2 MG CAPSULE PO PRN (20:52)
[2022-11-17] MEDS ORDERED: DICYCLOMINE HCL 10 MG CAPSULE PO PRN (20:52)
[2022-11-17] MEDS: ACETAMINOPHEN 325 MG TABLET (FP) PO PRN (21:07)
[2022-11-17] MEDS ORDERED: ACETAMINOPHEN 325 MG TABLET (FP) ONE (21:08)
[2022-11-17] MEDS ORDERED: chlordiazePOXIDE HCL 25 MG CAPSULE PO ONE (21:41)
[2022-11-17] MEDS ORDERED: chlordiazePOXIDE HCL 25 MG CAPSULE ONE (21:45)
[2022-11-17] MEDS ORDERED: ONDANSETRON *ODT* 4 MG TABLET ONE (21:58)
[2022-11-17] MEDS: chlordiazePOXIDE HCL 25 MG CAPSULE PO SCH (22:43)
[2022-11-17] MEDS: MELATONIN 5 MG TABLETS PO SCH (22:44)
[2022-11-17] MEDS: THIAMINE HCL 100 MG TABLET (FP) PO SCH (22:51)
[2022-11-17] MEDS: METHOCARBAMOL 500 MG TABLET PO PRN (22:51)
[2022-11-17] MEDS ORDERED: TUBERCULIN PPD 5 TU/0.1ML VIAL ID ONE (23:08)
[2022-11-18] MEDS: IBUPROFEN 600 MG TABLET (FP) PO PRN ×3 (00:01→17:23)
[2022-11-18] MEDS: ACETAMINOPHEN 325 MG TABLET (FP) PO PRN (03:08)
[2022-11-18] MEDS: chlordiazePOXIDE HCL 25 MG CAPSULE PO SCH ×4 (05:09→22:42)
[2022-11-18] MEDS: METHOCARBAMOL 500 MG TABLET PO PRN ×2 (06:33→17:21)
[2022-11-18] MEDS: QUEtiapine FUMARATE 50 MG TABLET PO SCH (10:26)
[2022-11-18] MEDS: NICOTINE 21 MG/24 HOURS TOPICAL PATCH TD SCH (10:26)
[2022-11-18] MEDS: NICOTINE 10 MG CARTRIDGE (INHALER) IH PRN ×3 (10:28→22:47)
[2022-11-18] MEDS: PRENATAL VITAMINS W/ FOLIC ACID TABLET (FP) PO SCH (10:28)
[2022-11-18 10:41] LABS: HEMATOCRIT 48.5 % (35.4-49); MCH 29.7 pg (25.7-33.7); MEAN CELL VOLUME 90.1 fl (80-96); MEAN PLT VOLUME 7.2 fl (7.5-11.1); PLATELET COUNT 454 10^3/uL (134-434); RBC 5.39 M/mm3 (4.00-5.60); RDW 13.7 % (11.9-15.9); WHITE BLOOD COUNT 4.6 K/mm3 (4.0-10.0)
[2022-11-18 10:55] LABS: CALCIUM 9.5 mg/dL (8.5-10.1)
[2022-11-18 10:59] LABS: CREATININE 0.9 mg/dL (0.55-1.3)
[2022-11-18 11:00] LABS: BILIRUBIN,TOTAL 1.1 mg/dL (0.2-1)
[2022-11-18 11:03] LABS: TOT PROT 7.8 g/dl (6.4-8.2)
[2022-11-18] MEDS: NICOTINE POLACRILEX 2 MG GUM BUC PRN ×2 (19:16→22:47)
[2022-11-18] MEDS: THIAMINE HCL 100 MG TABLET (FP) PO SCH (22:43)
[2022-11-18] MEDS: MELATONIN 5 MG TABLETS PO SCH (22:44)
[2022-11-18] MEDS: QUEtiapine FUMARATE 100 MG TABLET (FP) PO SCH (22:45)
[2022-11-19] MEDS: chlordiazePOXIDE HCL 25 MG CAPSULE PO SCH ×6 (06:00→22:46)
[2022-11-19] MEDS: METHOCARBAMOL 500 MG TABLET PO PRN (10:09)
[2022-11-19] MEDS: PRENATAL VITAMINS W/ FOLIC ACID TABLET (FP) PO SCH (10:09)
[2022-11-19] MEDS: QUEtiapine FUMARATE 50 MG TABLET PO SCH (10:09)
[2022-11-19] MEDS: NICOTINE 21 MG/24 HOURS TOPICAL PATCH TD SCH (10:09)
[2022-11-19] MEDS: IBUPROFEN 600 MG TABLET (FP) PO PRN ×2 (10:10→23:34)
[2022-11-19] MEDS: ARTIFICIAL TEARS (POLYVINYL ALCOHOL) OPTH DROPS OU SCH ×4 (13:17→22:48)
[2022-11-19] MEDS: THIAMINE HCL 100 MG TABLET (FP) PO SCH (22:34)
[2022-11-19] MEDS: QUEtiapine FUMARATE 100 MG TABLET (FP) PO SCH ×3 (22:34→22:46)
[2022-11-19] MEDS: SUVOREXANT 10 MG TABLET PO PRN (22:49)
[2022-11-19] MEDS: NICOTINE 10 MG CARTRIDGE (INHALER) IH PRN (22:50)
[2022-11-20] MEDS ORDERED: chlordiazePOXIDE HCL 10 MG CAPSULE PO PRN
[2022-11-20] MEDS: chlordiazePOXIDE HCL 10 MG CAPSULE PO SCH ×4 (05:58→22:10)
[2022-11-20] MEDS: ARTIFICIAL TEARS (POLYVINYL ALCOHOL) OPTH DROPS OU SCH ×3 (05:59→23:17)
[2022-11-20] MEDS: METHOCARBAMOL 500 MG TABLET PO PRN ×2 (06:30→22:09)
[2022-11-20] MEDS: ACETAMINOPHEN 325 MG TABLET (FP) PO PRN (06:30)
[2022-11-20] MEDS: PRENATAL VITAMINS W/ FOLIC ACID TABLET (FP) PO SCH (10:19)
[2022-11-20] MEDS: QUEtiapine FUMARATE 50 MG TABLET PO SCH (10:20)
[2022-11-20] MEDS: NICOTINE 21 MG/24 HOURS TOPICAL PATCH TD SCH (10:20)
[2022-11-20] MEDS: BISMUTH SUBSALICYLATE 524 MG/30 ML PO PRN (14:30)
[2022-11-20] MEDS: NICOTINE POLACRILEX 4 MG GUM BUC PRN (17:35)
[2022-11-20] MEDS: THIAMINE HCL 100 MG TABLET (FP) PO SCH (22:10)
[2022-11-20] MEDS: QUEtiapine FUMARATE 100 MG TABLET (FP) PO SCH (22:10)
[2022-11-20] MEDS: SUVOREXANT 10 MG TABLET PO PRN (22:11)
[2022-11-20] MEDS: NICOTINE 10 MG CARTRIDGE (INHALER) IH PRN (22:12)
[2022-11-21] MEDS: chlordiazePOXIDE HCL 10 MG CAPSULE PO SCH ×2 (05:18→17:58)
[2022-11-21] MEDS: METHOCARBAMOL 500 MG TABLET PO PRN (05:19)
[2022-11-21] MEDS: ARTIFICIAL TEARS (POLYVINYL ALCOHOL) OPTH DROPS OU SCH ×3 (06:28→22:31)
[2022-11-21] MEDS: NICOTINE POLACRILEX 4 MG GUM BUC PRN ×2 (06:29→13:10)
[2022-11-21] MEDS: PRENATAL VITAMINS W/ FOLIC ACID TABLET (FP) PO SCH (10:27)
[2022-11-21] MEDS: QUEtiapine FUMARATE 50 MG TABLET PO SCH (10:27)
[2022-11-21] MEDS: NICOTINE 21 MG/24 HOURS TOPICAL PATCH TD SCH (10:27)
[2022-11-21] MEDS: ACETAMINOPHEN 325 MG TABLET (FP) PO PRN ×2 (10:27→22:29)
[2022-11-21] MEDS: BISMUTH SUBSALICYLATE 524 MG/30 ML PO PRN (18:01)
[2022-11-21 21:39] VITALS: RESP 18
[2022-11-21] MEDS: SUVOREXANT 10 MG TABLET PO PRN (22:29)
[2022-11-21] MEDS: QUEtiapine FUMARATE 100 MG TABLET (FP) PO SCH (22:30)
[2022-11-21] MEDS: THIAMINE HCL 100 MG TABLET (FP) PO SCH (22:30)
[2022-11-21] MEDS: NICOTINE 10 MG CARTRIDGE (INHALER) IH PRN (22:32)
[2022-11-22] MEDS ORDERED: chlordiazePOXIDE HCL 10 MG CAPSULE PO ONE (05:00)
[2022-11-22] MEDS: ARTIFICIAL TEARS (POLYVINYL ALCOHOL) OPTH DROPS OU SCH (06:01)
[2022-11-22 08:55] VITALS: BP 123/63; PULSE 80; TEMP 98
== END 2022-11-22 09:42 | disposition home or self-care (01) | DRG 897 ==
LOC: YASAS 19:42 → Y6N 22:25
PROVIDERS: ADMIT Allergy & Immunology; ATTEND Surgery
PROC: HZ2ZZZZ Detoxification Services for Substance Abuse Treatment (ICD-10-PCS; principal; 2022-11-17)
DX: F10.230 Alcohol dependence with withdrawal, uncomplicated (principal); F12.20 Cannabis dependence, uncomplicated; F17.210 Nicotine dependence, cigarettes, uncomplicated; F10.282 Alcohol dependence with alcohol-induced sleep disorder; F10.280 Alcohol dependence with alcohol-induced anxiety disorder; G47.00 Insomnia, unspecified; K21.9 Gastro-esophageal reflux disease without esophagitis; Z86.59 Personal history of other mental and behavioral disorders; Z87.19 Personal history of other diseases of the digestive system; Z88.0 Allergy status to penicillin; Z91.013 Allergy to seafood; Z86.69 Personal history of other diseases of the nervous system and sense organs
CPT/HCPCS: 36415; 80053; 85027; 86780; C9803-CS; Q0162; U0003; U0005

== ENCOUNTER 2022-11-23 00:46 | Inpatient (IN) | payer OTHER ==
[2022-11-23 01:20] VITALS: BMI 25.5
[2022-11-23] MEDS ORDERED: guaiFENesin 600 MG TABLET.ER (FP) PO PRN (02:06)
[2022-11-23] MEDS ORDERED: LOPERAMIDE HCL 2 MG CAPSULE PO PRN (02:06)
[2022-11-23] MEDS ORDERED: NALOXONE HCL (KLOXXADO) 8 MG SPRAY NS PRN (02:06)
[2022-11-23] MEDS ORDERED: DICYCLOMINE HCL 10 MG CAPSULE PO PRN (02:06)
[2022-11-23] MEDS ORDERED: ONDANSETRON *ODT* 4 MG TABLET SL PRN (02:06)
[2022-11-23] MEDS ORDERED: MAG HYDROX/AL HYDROX/SIMETH 30 ML UNIT-DOSE CUP PO PRN (02:06)
[2022-11-23] MEDS ORDERED: BENZONATATE 200 MG CAPSULE PO PRN (02:06)
[2022-11-23] MEDS ORDERED: MAGNESIUM HYDROX 2400MG/30ML ORAL SUSPENSION 30 ML CUP PO PRN (02:06)
[2022-11-23] MEDS ORDERED: IBUPROFEN 600 MG TABLET (FP) PO PRN (02:06)
[2022-11-23] MEDS ORDERED: NALOXONE HCL 0.4 MG/ML VIAL IM PRN (02:06)
[2022-11-23] MEDS ORDERED: POLYETHYLENE GLYCOL (HEALTHYLAX) 3350 17 GM PACKET PO PRN (02:06)
[2022-11-23] MEDS ORDERED: BISMUTH SUBSALICYLATE 524 MG/30 ML PO PRN (02:06)
[2022-11-23] MEDS ORDERED: BENZOCAINE/MENTHOL (CHLORASEPTIC ) LOZENGE MM PRN (02:06)
[2022-11-23] MEDS: IBUPROFEN 400 MG TABLET (FP) PO PRN (07:29)
[2022-11-23] MEDS: NICOTINE 10 MG CARTRIDGE (INHALER) IH PRN ×3 (10:08→22:20)
[2022-11-23] MEDS: PRENATAL VITAMINS W/ FOLIC ACID TABLET (FP) PO SCH (10:08)
[2022-11-23] MEDS: hydrOXYzine PAMOATE 50 MG CAPSULE (FP) PO PRN ×2 (12:18→22:19)
[2022-11-23] MEDS: ACETAMINOPHEN 325 MG TABLET (FP) PO PRN (13:55)
[2022-11-23] MEDS ORDERED: QUEtiapine FUMARATE 50 MG TABLET PO ONE (17:17)
[2022-11-23] MEDS ORDERED: MELATONIN 5 MG TABLETS PO SCH (22:00)
[2022-11-23] MEDS: MELATONIN 5 MG TABLETS PO SCH (22:16)
[2022-11-23] MEDS: QUEtiapine FUMARATE 100 MG TABLET (FP) PO SCH (22:19)
[2022-11-23] MEDS: THIAMINE HCL 100 MG TABLET (FP) PO SCH (22:19)
[2022-11-23] MEDS: METHOCARBAMOL 500 MG TABLET PO PRN (22:19)
[2022-11-24] MEDS: NICOTINE 10 MG CARTRIDGE (INHALER) IH PRN ×2 (08:57→18:01)
[2022-11-24] MEDS: PRENATAL VITAMINS W/ FOLIC ACID TABLET (FP) PO SCH (10:19)
[2022-11-24] MEDS: QUEtiapine FUMARATE 50 MG TABLET PO SCH (10:19)
[2022-11-24] MEDS: METHOCARBAMOL 500 MG TABLET PO PRN ×2 (10:21→18:02)
[2022-11-24 12:14] LABS: HEMATOCRIT 41.8 % (35.4-49); HEMOGLOBIN 14.4 GM/dL (11.7-16.9); MCH 31.2 pg (25.7-33.7); MCHC 34.4 g/dl (32.0-35.9); MEAN CELL VOLUME 90.8 fl (80-96); MEAN PLT VOLUME 8.3 fl (7.5-11.1); PLATELET COUNT 217 10^3/uL (134-434); RDW 13.6 % (11.9-15.9); WHITE BLOOD COUNT 6.2 K/mm3 (4.0-10.0)
[2022-11-24 12:15] LABS: ALBUMIN 3.3 g/dl (3.4-5.0); CALCIUM 8.6 mg/dL (8.5-10.1)
[2022-11-24 12:16] LABS: BLOOD UREA NITROGEN 10.3 mg/dL (7-18)
[2022-11-24 12:19] LABS: CREATININE 0.6 mg/dL (0.55-1.3)
[2022-11-24 12:20] LABS: BILIRUBIN,TOTAL 0.4 mg/dL (0.2-1); TOT PROT 6.3 g/dl (6.4-8.2)
[2022-11-24] MEDS: ACETAMINOPHEN 325 MG TABLET (FP) PO PRN (13:57)
[2022-11-24] MEDS: IBUPROFEN 400 MG TABLET (FP) PO PRN (18:01)
[2022-11-24] MEDS: QUEtiapine FUMARATE 100 MG TABLET (FP) PO SCH (22:21)
[2022-11-24] MEDS: THIAMINE HCL 100 MG TABLET (FP) PO SCH (22:21)
[2022-11-24] MEDS: MELATONIN 5 MG TABLETS PO SCH (22:21)
[2022-11-24] MEDS: hydrOXYzine PAMOATE 50 MG CAPSULE (FP) PO PRN (22:22)
[2022-11-25] MEDS: METHOCARBAMOL 500 MG TABLET PO PRN (08:59)
[2022-11-25] MEDS: NICOTINE 10 MG CARTRIDGE (INHALER) IH PRN (09:00)
[2022-11-25] MEDS: QUEtiapine FUMARATE 50 MG TABLET PO SCH (09:01)
[2022-11-25] MEDS: IBUPROFEN 400 MG TABLET (FP) PO PRN (09:01)
[2022-11-25] MEDS: PRENATAL VITAMINS W/ FOLIC ACID TABLET (FP) PO SCH (09:01)
[2022-11-25 09:36] VITALS: BP 142/96; PULSE 93; RESP 18; TEMP 97.9
== END 2022-11-25 11:46 | disposition other institution (70) | DRG 897 ==
LOC: YASAS 00:46 → UNDOADMIN 02:31 → Y3N 02:31
PROVIDERS: ADMIT Allergy & Immunology; ATTEND Allergy & Immunology
PROC: HZ2ZZZZ Detoxification Services for Substance Abuse Treatment (ICD-10-PCS; principal; 2022-11-23)
DX: F10.230 Alcohol dependence with withdrawal, uncomplicated (principal); F17.210 Nicotine dependence, cigarettes, uncomplicated; F31.9 Bipolar disorder, unspecified; F19.24 Other psychoactive substance dependence with psychoactive substance-induced mood disorder; G47.00 Insomnia, unspecified; Z86.59 Personal history of other mental and behavioral disorders; Z87.19 Personal history of other diseases of the digestive system; Z88.0 Allergy status to penicillin; Z91.013 Allergy to seafood
CPT/HCPCS: 36415; 80053; 85027; 86780; C9803-CS; U0003; U0005

== ENCOUNTER 2022-12-31 15:26 | Inpatient (IN) | payer OTHER ==
[2022-12-31 15:46] VITALS: BMI 28.6
[2022-12-31] MEDS ORDERED: ONDANSETRON *ODT* 4 MG TABLET SL PRN (16:17)
[2022-12-31] MEDS ORDERED: guaiFENesin 600 MG TABLET.ER (FP) PO PRN (16:17)
[2022-12-31] MEDS ORDERED: BISMUTH SUBSALICYLATE 524 MG/30 ML PO PRN (16:17)
[2022-12-31] MEDS ORDERED: IBUPROFEN 400 MG TABLET (FP) PO PRN (16:17)
[2022-12-31] MEDS ORDERED: BENZOCAINE/MENTHOL (CHLORASEPTIC ) LOZENGE MM PRN (16:17)
[2022-12-31] MEDS ORDERED: DICYCLOMINE HCL 10 MG CAPSULE PO PRN (16:17)
[2022-12-31] MEDS ORDERED: ACETAMINOPHEN 325 MG TABLET (FP) PO PRN (16:17)
[2022-12-31] MEDS ORDERED: MAGNESIUM HYDROX 2400MG/30ML ORAL SUSPENSION 30 ML CUP PO PRN (16:17)
[2022-12-31] MEDS ORDERED: POLYETHYLENE GLYCOL (HEALTHYLAX) 3350 17 GM PACKET PO PRN (16:17)
[2022-12-31] MEDS ORDERED: P-EPHED 60MG/TRIPROLIDI 2.5MG TABLET PO PRN (16:17)
[2022-12-31] MEDS ORDERED: MAG HYDROX/AL HYDROX/SIMETH 30 ML UNIT-DOSE CUP PO PRN (16:17)
[2022-12-31] MEDS ORDERED: BENZONATATE 200 MG CAPSULE PO PRN (16:17)
[2022-12-31] MEDS ORDERED: LOPERAMIDE HCL 2 MG CAPSULE PO PRN (16:17)
[2022-12-31] MEDS ORDERED: IBUPROFEN 600 MG TABLET (FP) PO ONE (18:23)
[2022-12-31] MEDS ORDERED: hydrOXYzine PAMOATE 25 MG CAPSULE (FP) PO ONE (18:24)
[2022-12-31] MEDS: IBUPROFEN 600 MG TABLET (FP) PO PRN (18:28)
[2022-12-31] MEDS: hydrOXYzine PAMOATE 25 MG CAPSULE (FP) PO PRN (18:30)
[2022-12-31] MEDS: diazePAM 5 MG TABLET PO PRN (20:03)
[2022-12-31] MEDS: NICOTINE POLACRILEX 2 MG GUM BUC PRN ×2 (20:22→22:30)
[2022-12-31] MEDS: ACETAMINOPHEN 325 MG TABLET (FP) PO PRN (20:24)
[2022-12-31] MEDS: THIAMINE HCL 100 MG TABLET (FP) PO SCH (22:28)
[2022-12-31] MEDS: MELATONIN 5 MG TABLETS PO SCH (22:28)
[2023-01-01] MEDS: diazePAM 5 MG TABLET PO PRN (07:51)
[2023-01-01] MEDS: ACETAMINOPHEN 325 MG TABLET (FP) PO PRN ×2 (07:54→18:27)
[2023-01-01 09:19] VITALS: RESP 18
[2023-01-01] MEDS: QUEtiapine FUMARATE 25 MG TABLET PO SCH (10:02)
[2023-01-01] MEDS: NICOTINE POLACRILEX 2 MG GUM BUC PRN ×2 (10:02→12:26)
[2023-01-01] MEDS: PRENATAL VITAMINS W/ FOLIC ACID TABLET (FP) PO SCH (10:03)
[2023-01-01 12:24] LABS: HEMATOCRIT 41.3 % (35.4-49); HEMOGLOBIN 14.3 GM/dL (11.7-16.9); MCH 30.5 pg (25.7-33.7); MCHC 34.7 g/dl (32.0-35.9); MEAN PLT VOLUME 7.5 fl (7.5-11.1); PLATELET COUNT 304 10^3/uL (134-434); WHITE BLOOD COUNT 6.1 K/mm3 (4.0-10.0)
[2023-01-01] MEDS: IBUPROFEN 600 MG TABLET (FP) PO PRN ×2 (12:25→21:57)
[2023-01-01 12:30] LABS: ALBUMIN 3.5 g/dl (3.4-5.0); BLOOD UREA NITROGEN 12.5 mg/dL (7-18)
[2023-01-01 12:33] LABS: CREATININE 0.8 mg/dL (0.55-1.3)
[2023-01-01 12:35] LABS: BILIRUBIN,TOTAL 0.5 mg/dL (0.2-1); TOT PROT 6.6 g/dl (6.4-8.2)
[2023-01-01] MEDS: hydrOXYzine PAMOATE 25 MG CAPSULE (FP) PO PRN (14:09)
[2023-01-01] MEDS ORDERED: METHOCARBAMOL 500 MG TABLET PO PRN (17:54)
[2023-01-01] MEDS: MELATONIN 5 MG TABLETS PO SCH (21:58)
[2023-01-01] MEDS: THIAMINE HCL 100 MG TABLET (FP) PO SCH (21:58)
[2023-01-01] MEDS ORDERED: QUEtiapine FUMARATE 100 MG TABLET (FP) PO SCH (22:00)
[2023-01-02] MEDS: diazePAM 5 MG TABLET PO PRN (00:49)
[2023-01-02] MEDS: QUEtiapine FUMARATE 25 MG TABLET PO SCH (09:41)
[2023-01-02] MEDS: PRENATAL VITAMINS W/ FOLIC ACID TABLET (FP) PO SCH (09:41)
[2023-01-02 10:38] VITALS: BP 127/86; PULSE 87; TEMP 97
== END 2023-01-02 09:51 | disposition home or self-care (01) | DRG 897 ==
LOC: YASAS 15:26 → Y6N 17:02
PROVIDERS: ADMIT Allergy & Immunology; ATTEND Surgery
PROC: HZ2ZZZZ Detoxification Services for Substance Abuse Treatment (ICD-10-PCS; principal; 2022-12-31)
DX: F10.230 Alcohol dependence with withdrawal, uncomplicated (principal); F19.282 Other psychoactive substance dependence with psychoactive substance-induced sleep disorder; F12.20 Cannabis dependence, uncomplicated; F17.210 Nicotine dependence, cigarettes, uncomplicated; F25.9 Schizoaffective disorder, unspecified; Z87.19 Personal history of other diseases of the digestive system; Z88.0 Allergy status to penicillin; Z91.013 Allergy to seafood
CPT/HCPCS: 36415; 80053; 85027; 86780; C9803-CS; U0003; U0005

== ENCOUNTER 2023-01-04 08:00 | Inpatient (IN) | payer OTHER ==
[2023-01-04 04:49] VITALS: BMI 27.5
[2023-01-04] MEDS ORDERED: LOPERAMIDE HCL 2 MG CAPSULE PO PRN (10:07)
[2023-01-04] MEDS ORDERED: guaiFENesin 600 MG TABLET.ER (FP) PO PRN (10:07)
[2023-01-04] MEDS ORDERED: POLYETHYLENE GLYCOL (HEALTHYLAX) 3350 17 GM PACKET PO PRN (10:07)
[2023-01-04] MEDS ORDERED: NALOXONE HCL (KLOXXADO) 8 MG SPRAY NS PRN (10:07)
[2023-01-04] MEDS ORDERED: COLLOIDAL OATMEAL 1 BAR EACH TP PRN (10:07)
[2023-01-04] MEDS ORDERED: IBUPROFEN 600 MG TABLET (FP) PO PRN (10:07)
[2023-01-04] MEDS ORDERED: NALOXONE HCL 0.4 MG/ML VIAL IM PRN (10:07)
[2023-01-04] MEDS ORDERED: NICOTINE 10 MG CARTRIDGE (INHALER) IH PRN (10:07)
[2023-01-04] MEDS ORDERED: MAGNESIUM HYDROX 2400MG/30ML ORAL SUSPENSION 30 ML CUP PO PRN (10:07)
[2023-01-04] MEDS ORDERED: BENZOCAINE/MENTHOL (CHLORASEPTIC ) LOZENGE MM PRN (10:07)
[2023-01-04] MEDS ORDERED: MAG HYDROX/AL HYDROX/SIMETH 30 ML UNIT-DOSE CUP PO PRN (10:07)
[2023-01-04] MEDS ORDERED: BENZONATATE 200 MG CAPSULE PO PRN (10:07)
[2023-01-04] MEDS ORDERED: AMMONIUM LACTATE 12% LOTION 225 GM BOTTLE TP PRN (10:07)
[2023-01-04] MEDS ORDERED: IBUPROFEN 400 MG TABLET (FP) PO PRN (10:07)
[2023-01-04] MEDS ORDERED: NICOTINE POLACRILEX 2 MG GUM ONE (10:39)
[2023-01-04] MEDS ORDERED: NICOTINE 21 MG/24 HOURS TOPICAL PATCH ONE (10:39)
[2023-01-04] MEDS ORDERED: IBUPROFEN 600 MG TABLET (FP) PO ONE (10:40)
[2023-01-04] MEDS: NICOTINE 21 MG/24 HOURS TOPICAL PATCH TD SCH (10:47)
[2023-01-04] MEDS: NICOTINE POLACRILEX 2 MG GUM BUC PRN ×3 (10:49→18:33)
[2023-01-04] MEDS: hydrOXYzine PAMOATE 25 MG CAPSULE (FP) PO PRN (11:53)
[2023-01-04] MEDS: ACETAMINOPHEN 325 MG TABLET (FP) PO PRN ×2 (12:45→17:24)
[2023-01-04 14:54] LABS: POTASSIUM 4.1 mmol/L (3.5-5.1)
[2023-01-04 14:58] LABS: CALCIUM 9.6 mg/dL (8.5-10.1)
[2023-01-04 15:00] LABS: ALBUMIN 4.1 g/dl (3.4-5.0); BLOOD UREA NITROGEN 11.6 mg/dL (7-18)
[2023-01-04 15:03] LABS: BILIRUBIN,TOTAL 0.6 mg/dL (0.2-1); CREATININE 0.8 mg/dL (0.55-1.3)
[2023-01-04 15:06] LABS: HEMATOCRIT 44.9 % (35.4-49); HEMOGLOBIN 15.2 GM/dL (11.7-16.9); MCH 30.2 pg (25.7-33.7); MCHC 33.9 g/dl (32.0-35.9); MEAN CELL VOLUME 89.1 fl (80-96); MEAN PLT VOLUME 7.7 fl (7.5-11.1); PLATELET COUNT 374 10^3/uL (134-434); RBC 5.04 M/mm3 (4.00-5.60); WHITE BLOOD COUNT 7.4 K/mm3 (4.0-10.0)
[2023-01-04 15:23] LABS: SYPHILIS W/ RPR CONF NON-REACTIVE (NONREACTIVE)
[2023-01-04] MEDS: METHOCARBAMOL 500 MG TABLET PO PRN (21:23)
[2023-01-04] MEDS: MELATONIN 5 MG TABLETS PO SCH (21:23)
[2023-01-04] MEDS: THIAMINE HCL 100 MG TABLET (FP) PO SCH (21:23)
[2023-01-04] MEDS: QUEtiapine FUMARATE 100 MG TABLET (FP) PO SCH (21:24)
[2023-01-05] MEDS: hydrOXYzine PAMOATE 25 MG CAPSULE (FP) PO PRN ×3 (07:12→19:27)
[2023-01-05] MEDS: QUEtiapine FUMARATE 50 MG TABLET PO SCH (11:04)
[2023-01-05] MEDS: PRENATAL VITAMINS W/ FOLIC ACID TABLET (FP) PO SCH (11:04)
[2023-01-05] MEDS: METHOCARBAMOL 500 MG TABLET PO PRN ×2 (11:05→21:17)
[2023-01-05] MEDS: NICOTINE POLACRILEX 2 MG GUM BUC PRN ×4 (11:06→22:09)
[2023-01-05] MEDS: NICOTINE 21 MG/24 HOURS TOPICAL PATCH TD SCH (11:07)
[2023-01-05] MEDS: ACETAMINOPHEN 325 MG TABLET (FP) PO PRN ×2 (16:02→21:18)
[2023-01-05 19:13] LABS: PH,URINE 5.5 (5.0-8.0); URINE APPEARANCE CLEAR; URINE BILIRUBIN NEGATIVE (NEGATIVE); URINE COLOR YELLOW; URINE GLUCOSE (UA) NEGATIVE (NEGATIVE); URINE KETONE NEGATIVE (NEGATIVE); URINE LEUK ESTERASE NEGATIVE (NEGATIVE); URINE NITRITE NEGATIVE (NEGATIVE); URINE PROTEIN NEGATIVE (NEGATIVE); URINE UROBILINOGEN 0.2 mg/dL (0.2-1.0)
[2023-01-05] MEDS: QUEtiapine FUMARATE 100 MG TABLET (FP) PO SCH (21:17)
[2023-01-05] MEDS: MELATONIN 5 MG TABLETS PO SCH (21:17)
[2023-01-05] MEDS: THIAMINE HCL 100 MG TABLET (FP) PO SCH (21:17)
[2023-01-06] MEDS: hydrOXYzine PAMOATE 25 MG CAPSULE (FP) PO PRN ×2 (02:00→13:03)
[2023-01-06 07:26] VITALS: BP 138/79; PULSE 89; RESP 16; TEMP 97.5
[2023-01-06] MEDS: NICOTINE 21 MG/24 HOURS TOPICAL PATCH TD SCH (09:50)
[2023-01-06] MEDS: QUEtiapine FUMARATE 50 MG TABLET PO SCH (09:50)
[2023-01-06] MEDS: PRENATAL VITAMINS W/ FOLIC ACID TABLET (FP) PO SCH (09:51)
[2023-01-06] MEDS: METHOCARBAMOL 500 MG TABLET PO PRN (09:52)
[2023-01-06] MEDS: ACETAMINOPHEN 325 MG TABLET (FP) PO PRN (11:23)
[2023-01-06] MEDS: NICOTINE POLACRILEX 2 MG GUM BUC PRN (11:24)
== END 2023-01-06 16:24 | disposition left against medical advice (07) | DRG 894 ==
LOC: YASAS 08:00 → Y5N 10:55
PROVIDERS: ADMIT Allergy & Immunology; ATTEND Psychiatry & Neurology Pain Medicine
PROC: HZ42ZZZ Group Counseling for Substance Abuse Treatment, Cognitive-Behavioral (ICD-10-PCS; principal; 2023-01-04)
DX: F10.20 Alcohol dependence, uncomplicated (principal); F13.20 Sedative, hypnotic or anxiolytic dependence, uncomplicated; F12.20 Cannabis dependence, uncomplicated; F17.210 Nicotine dependence, cigarettes, uncomplicated; F10.282 Alcohol dependence with alcohol-induced sleep disorder; F19.24 Other psychoactive substance dependence with psychoactive substance-induced mood disorder; F31.9 Bipolar disorder, unspecified; F41.8 Other specified anxiety disorders; K21.9 Gastro-esophageal reflux disease without esophagitis; Z87.19 Personal history of other diseases of the digestive system; Z88.0 Allergy status to penicillin; Z91.010 Allergy to peanuts; Z91.013 Allergy to seafood
CPT/HCPCS: 36415; 80053; 81003; 85027; 86780; 86803; 87811; C9803-CS; U0003; U0005

== ENCOUNTER 2023-01-10 21:19 | Inpatient (IN) | payer OTHER ==
[2023-01-10 22:11] VITALS: BMI 28.0
[2023-01-10] MEDS ORDERED: BISMUTH SUBSALICYLATE 524 MG/30 ML PO PRN (22:26)
[2023-01-10] MEDS ORDERED: MELATONIN 5 MG TABLETS PO PRN (22:26)
[2023-01-10] MEDS ORDERED: MAG HYDROX/AL HYDROX/SIMETH 30 ML UNIT-DOSE CUP PO PRN (22:26)
[2023-01-10] MEDS ORDERED: IBUPROFEN 400 MG TABLET (FP) PO PRN (22:26)
[2023-01-10] MEDS ORDERED: ONDANSETRON *ODT* 4 MG TABLET SL PRN (22:26)
[2023-01-10] MEDS ORDERED: MAGNESIUM HYDROX 2400MG/30ML ORAL SUSPENSION 30 ML CUP PO PRN (22:26)
[2023-01-10] MEDS ORDERED: P-EPHED 60MG/TRIPROLIDI 2.5MG TABLET PO PRN (22:26)
[2023-01-10] MEDS ORDERED: DICYCLOMINE HCL 10 MG CAPSULE PO PRN (22:26)
[2023-01-10] MEDS ORDERED: BENZOCAINE/MENTHOL (CHLORASEPTIC ) LOZENGE MM PRN (22:26)
[2023-01-10] MEDS ORDERED: LOPERAMIDE HCL 2 MG CAPSULE PO PRN (22:26)
[2023-01-10] MEDS ORDERED: NICOTINE POLACRILEX 2 MG GUM BUC PRN (22:26)
[2023-01-10] MEDS ORDERED: guaiFENesin 600 MG TABLET.ER (FP) PO PRN (22:26)
[2023-01-10] MEDS ORDERED: POLYETHYLENE GLYCOL (HEALTHYLAX) 3350 17 GM PACKET PO PRN (22:26)
[2023-01-10] MEDS ORDERED: BENZONATATE 200 MG CAPSULE PO PRN (22:26)
[2023-01-10] MEDS: hydrOXYzine PAMOATE 25 MG CAPSULE (FP) PO PRN (23:50)
[2023-01-10] MEDS: METHOCARBAMOL 500 MG TABLET PO PRN (23:50)
[2023-01-11] MEDS: IBUPROFEN 600 MG TABLET (FP) PO PRN ×2 (02:18→11:29)
[2023-01-11] MEDS: ACETAMINOPHEN 325 MG TABLET (FP) PO PRN ×2 (08:38→16:23)
[2023-01-11] MEDS ORDERED: NICOTINE 7 MG/24 HOURS TOPICAL PATCH TD SCH (10:00)
[2023-01-11] MEDS ORDERED: PRENATAL VITAMINS W/ FOLIC ACID TABLET (FP) PO SCH (10:00)
[2023-01-11] MEDS: METHOCARBAMOL 500 MG TABLET PO PRN ×2 (11:28→17:27)
[2023-01-11] MEDS: hydrOXYzine PAMOATE 25 MG CAPSULE (FP) PO PRN (12:12)
[2023-01-11] MEDS ORDERED: TETRAHYDROZOLINE HCL EYE DROPS OU PRN (13:56)
[2023-01-11] MEDS ORDERED: NICOTINE 14 MG/24 HOURS TOPICAL PATCH TD SCH (14:03)
[2023-01-11 16:56] VITALS: BP 125/95; PULSE 77; RESP 18; TEMP 98.1
[2023-01-11] MEDS ORDERED: QUEtiapine FUMARATE 100 MG TABLET (FP) PO SCH (22:00)
[2023-01-11] MEDS ORDERED: THIAMINE HCL 100 MG TABLET (FP) PO SCH (22:00)
== END 2023-01-11 19:45 | disposition home or self-care (01) | DRG 897 ==
LOC: YASAS 21:19 → Y6N 22:47
PROVIDERS: ADMIT Allergy & Immunology; ATTEND Surgery
PROC: HZ2ZZZZ Detoxification Services for Substance Abuse Treatment (ICD-10-PCS; principal; 2023-01-10)
DX: F10.230 Alcohol dependence with withdrawal, uncomplicated (principal); F12.20 Cannabis dependence, uncomplicated; F17.210 Nicotine dependence, cigarettes, uncomplicated; F10.282 Alcohol dependence with alcohol-induced sleep disorder; F25.9 Schizoaffective disorder, unspecified; F41.9 Anxiety disorder, unspecified; F32.A Depression, unspecified; Z87.19 Personal history of other diseases of the digestive system; Z88.0 Allergy status to penicillin; Z91.013 Allergy to seafood
CPT/HCPCS: C9803-CS; U0003; U0005

== ENCOUNTER 2023-01-26 07:58 | Inpatient (IN) | payer OTHER ==
[2023-01-26 08:50] VITALS: BMI 28.3
[2023-01-26] MEDS ORDERED: AMMONIUM LACTATE 12% LOTION 225 GM BOTTLE TP PRN (09:15)
[2023-01-26] MEDS ORDERED: BENZONATATE 200 MG CAPSULE PO PRN (09:15)
[2023-01-26] MEDS ORDERED: COLLOIDAL OATMEAL 1 BAR EACH TP PRN (09:15)
[2023-01-26] MEDS ORDERED: IBUPROFEN 400 MG TABLET (FP) PO PRN (09:15)
[2023-01-26] MEDS ORDERED: LOPERAMIDE HCL 2 MG CAPSULE PO PRN (09:15)
[2023-01-26] MEDS ORDERED: POLYETHYLENE GLYCOL (HEALTHYLAX) 3350 17 GM PACKET PO PRN (09:15)
[2023-01-26] MEDS ORDERED: MAG HYDROX/AL HYDROX/SIMETH 30 ML UNIT-DOSE CUP PO PRN (09:15)
[2023-01-26] MEDS ORDERED: ACETAMINOPHEN 325 MG TABLET (FP) PO PRN (09:15)
[2023-01-26] MEDS ORDERED: BENZOCAINE/MENTHOL (CHLORASEPTIC ) LOZENGE MM PRN (09:15)
[2023-01-26] MEDS ORDERED: guaiFENesin 600 MG TABLET.ER (FP) PO PRN (09:15)
[2023-01-26] MEDS ORDERED: NALOXONE HCL 0.4 MG/ML VIAL IM PRN (09:15)
[2023-01-26] MEDS ORDERED: NALOXONE HCL (KLOXXADO) 8 MG SPRAY NS PRN (09:15)
[2023-01-26] MEDS ORDERED: IBUPROFEN 600 MG TABLET (FP) PO PRN (09:15)
[2023-01-26] MEDS ORDERED: MAGNESIUM HYDROX 2400MG/30ML ORAL SUSPENSION 30 ML CUP PO PRN (09:15)
[2023-01-26] MEDS ORDERED: NICOTINE 21 MG/24 HOURS TOPICAL PATCH ONE (10:16)
[2023-01-26] MEDS ORDERED: IBUPROFEN 600 MG TABLET (FP) PO ONE (10:16)
[2023-01-26] MEDS: PRENATAL VITAMINS W/ FOLIC ACID TABLET (FP) PO SCH (10:19)
[2023-01-26] MEDS: NICOTINE 21 MG/24 HOURS TOPICAL PATCH TD SCH (10:19)
[2023-01-26] MEDS: hydrOXYzine PAMOATE 25 MG CAPSULE (FP) PO PRN ×2 (11:02→21:07)
[2023-01-26] MEDS: METHOCARBAMOL 500 MG TABLET PO PRN ×2 (11:02→21:06)
[2023-01-26 11:51] LABS: HEMATOCRIT 39.2 % (35.4-49); HEMOGLOBIN 13.6 GM/dL (11.7-16.9); MCH 31.3 pg (25.7-33.7); MCHC 34.7 g/dl (32.0-35.9); MEAN CELL VOLUME 90.1 fl (80-96); MEAN PLT VOLUME 8.4 fl (7.5-11.1); PLATELET COUNT 419 10^3/uL (134-434); RBC 4.35 M/mm3 (4.00-5.60)
[2023-01-26 12:03] LABS: POTASSIUM 3.7 mmol/L (3.5-5.1)
[2023-01-26 12:17] LABS: CALCIUM 9.7 mg/dL (8.5-10.1)
[2023-01-26 12:19] LABS: ALBUMIN 3.4 g/dl (3.4-5.0); BLOOD UREA NITROGEN 4.9 mg/dL (7-18)
[2023-01-26 12:21] LABS: CREATININE 0.7 mg/dL (0.55-1.3)
[2023-01-26 12:23] LABS: BILIRUBIN,TOTAL 0.5 mg/dL (0.2-1); TOT PROT 6.6 g/dl (6.4-8.2)
[2023-01-26] MEDS: NICOTINE POLACRILEX 2 MG GUM BUC PRN (12:28)
[2023-01-26 13:05] LABS: SYPHILIS W/ RPR CONF NON-REACTIVE (NONREACTIVE)
[2023-01-26] MEDS: THIAMINE HCL 100 MG TABLET (FP) PO SCH (21:06)
[2023-01-26] MEDS: QUEtiapine FUMARATE 100 MG TABLET (FP) PO SCH (21:07)
[2023-01-26] MEDS ORDERED: MELATONIN 5 MG TABLETS PO SCH (22:00)
[2023-01-27] MEDS: METHOCARBAMOL 500 MG TABLET PO PRN ×2 (06:15→21:06)
[2023-01-27] MEDS: hydrOXYzine PAMOATE 25 MG CAPSULE (FP) PO PRN ×2 (06:15→21:07)
[2023-01-27 06:36] VITALS: RESP 16
[2023-01-27] MEDS: NICOTINE 21 MG/24 HOURS TOPICAL PATCH TD SCH (09:43)
[2023-01-27] MEDS: PRENATAL VITAMINS W/ FOLIC ACID TABLET (FP) PO SCH (09:44)
[2023-01-27] MEDS: NICOTINE POLACRILEX 2 MG GUM BUC PRN (09:45)
[2023-01-27 11:30] LABS: PH,URINE 5.5 (5.0-8.0); URINE APPEARANCE CLEAR; URINE BILIRUBIN NEGATIVE (NEGATIVE); URINE COLOR YELLOW; URINE GLUCOSE (UA) NEGATIVE (NEGATIVE); URINE KETONE NEGATIVE (NEGATIVE); URINE LEUK ESTERASE NEGATIVE (NEGATIVE); URINE NITRITE NEGATIVE (NEGATIVE); URINE PROTEIN NEGATIVE (NEGATIVE); URINE UROBILINOGEN 0.2 mg/dL (0.2-1.0)
[2023-01-27] MEDS: QUEtiapine FUMARATE 50 MG TABLET PO SCH (12:34)
[2023-01-27] MEDS: QUEtiapine FUMARATE 100 MG TABLET (FP) PO SCH (21:06)
[2023-01-27] MEDS: THIAMINE HCL 100 MG TABLET (FP) PO SCH (21:06)
[2023-01-28] MEDS: METHOCARBAMOL 500 MG TABLET PO PRN (06:40)
[2023-01-28 06:41] VITALS: BP 120/85; PULSE 73; TEMP 97.8
[2023-01-28] MEDS: NICOTINE POLACRILEX 2 MG GUM BUC PRN (09:10)
[2023-01-28] MEDS: NICOTINE 21 MG/24 HOURS TOPICAL PATCH TD SCH (09:48)
[2023-01-28] MEDS: PRENATAL VITAMINS W/ FOLIC ACID TABLET (FP) PO SCH (09:48)
[2023-01-28] MEDS: QUEtiapine FUMARATE 50 MG TABLET PO SCH (09:48)
== END 2023-01-28 12:43 | disposition left against medical advice (07) | DRG 894 ==
LOC: YASAS 07:58 → Y3E 10:07
PROVIDERS: ADMIT Allergy & Immunology; ATTEND Psychiatry & Neurology Pain Medicine
PROC: HZ42ZZZ Group Counseling for Substance Abuse Treatment, Cognitive-Behavioral (ICD-10-PCS; principal; 2023-01-26)
DX: F10.20 Alcohol dependence, uncomplicated (principal); F19.282 Other psychoactive substance dependence with psychoactive substance-induced sleep disorder; F17.210 Nicotine dependence, cigarettes, uncomplicated; F10.280 Alcohol dependence with alcohol-induced anxiety disorder; F10.282 Alcohol dependence with alcohol-induced sleep disorder; F10.24 Alcohol dependence with alcohol-induced mood disorder; F31.9 Bipolar disorder, unspecified; F41.9 Anxiety disorder, unspecified; K21.9 Gastro-esophageal reflux disease without esophagitis; Z87.19 Personal history of other diseases of the digestive system; Z88.0 Allergy status to penicillin; Z91.013 Allergy to seafood
CPT/HCPCS: 36415; 80053; 81003; 85027; 86780; 86803; 87811; C9803-CS; U0003; U0005

== ENCOUNTER 2023-02-17 08:20 | Emergency (ER) | payer OTHER ==
[2023-02-17 08:31] VITALS: BP 155/91; PULSE 108; RESP 18; TEMP 98.2; BMI 27.3
[2023-02-17] MEDS ORDERED: chlordiazePOXIDE HCL 25 MG CAPSULE PO ONE (09:08)
[2023-02-17] MEDS ORDERED: chlordiazePOXIDE HCL 25 MG CAPSULE ONE (09:09)
== END 2023-02-17 09:33 | disposition home or self-care (01) ==
LOC: JER 08:20
DX: F41.9 Anxiety disorder, unspecified (principal); R11.0 Nausea; F10.230 Alcohol dependence with withdrawal, uncomplicated
CPT/HCPCS: 99283-25

== ENCOUNTER 2023-02-17 11:37 | Inpatient (IN) | payer OTHER ==
[2023-02-17 12:58] VITALS: BMI 26.2
[2023-02-17] MEDS ORDERED: MAGNESIUM HYDROX 2400MG/30ML ORAL SUSPENSION 30 ML CUP PO PRN (14:20)
[2023-02-17] MEDS ORDERED: IBUPROFEN 400 MG TABLET (FP) PO PRN (14:20)
[2023-02-17] MEDS ORDERED: ONDANSETRON *ODT* 4 MG TABLET SL PRN (14:20)
[2023-02-17] MEDS ORDERED: BENZONATATE 200 MG CAPSULE PO PRN (14:20)
[2023-02-17] MEDS ORDERED: POLYETHYLENE GLYCOL (HEALTHYLAX) 3350 17 GM PACKET PO PRN (14:20)
[2023-02-17] MEDS ORDERED: P-EPHED 60MG/TRIPROLIDI 2.5MG TABLET PO PRN (14:20)
[2023-02-17] MEDS ORDERED: DICYCLOMINE HCL 10 MG CAPSULE PO PRN (14:20)
[2023-02-17] MEDS ORDERED: BENZOCAINE/MENTHOL (CHLORASEPTIC ) LOZENGE MM PRN (14:20)
[2023-02-17] MEDS ORDERED: MAG HYDROX/AL HYDROX/SIMETH 30 ML UNIT-DOSE CUP PO PRN (14:20)
[2023-02-17] MEDS ORDERED: NICOTINE POLACRILEX 4 MG GUM BUC PRN (14:20)
[2023-02-17] MEDS ORDERED: BISMUTH SUBSALICYLATE 524 MG/30 ML PO PRN (14:20)
[2023-02-17] MEDS ORDERED: LOPERAMIDE HCL 2 MG CAPSULE PO PRN (14:20)
[2023-02-17] MEDS ORDERED: guaiFENesin 600 MG TABLET.ER (FP) PO PRN (14:20)
[2023-02-17] MEDS ORDERED: METOPROLOL TARTRATE 25 MG TABLET (FP) PO ONE (16:00)
[2023-02-17] MEDS ORDERED: diazePAM 5 MG TABLET PO ONE (16:00)
[2023-02-17] MEDS: IBUPROFEN 600 MG TABLET (FP) PO PRN (17:26)
[2023-02-17] MEDS: NICOTINE 10 MG CARTRIDGE (INHALER) IH PRN (17:27)
[2023-02-17] MEDS: NICOTINE 14 MG/24 HOURS TOPICAL PATCH TD SCH (17:27)
[2023-02-17] MEDS: THIAMINE HCL 100 MG TABLET (FP) PO SCH (22:44)
[2023-02-17] MEDS: QUEtiapine FUMARATE 100 MG TABLET (FP) PO SCH (22:44)
[2023-02-17] MEDS: diazePAM 5 MG TABLET PO PRN (22:44)
[2023-02-17] MEDS: MELATONIN 5 MG TABLETS PO SCH (22:45)
[2023-02-17] MEDS: CYCLOBENZAPRINE HCL 10 MG TABLET (FP) PO PRN (22:48)
[2023-02-17] MEDS: diazePAM 5 MG TABLET PO SCH (23:40)
[2023-02-18] MEDS: diazePAM 5 MG TABLET PO SCH ×4 (05:22→22:39)
[2023-02-18] MEDS: ACETAMINOPHEN 325 MG TABLET (FP) PO PRN (05:22)
[2023-02-18] MEDS: CYCLOBENZAPRINE HCL 10 MG TABLET (FP) PO PRN ×2 (08:14→22:41)
[2023-02-18] MEDS: PRENATAL VITAMINS W/ FOLIC ACID TABLET (FP) PO SCH (10:35)
[2023-02-18] MEDS: NICOTINE 14 MG/24 HOURS TOPICAL PATCH TD SCH (10:37)
[2023-02-18] MEDS: IBUPROFEN 600 MG TABLET (FP) PO PRN (13:34)
[2023-02-18] MEDS: diazePAM 5 MG TABLET PO PRN (13:35)
[2023-02-18] MEDS: MELATONIN 5 MG TABLETS PO SCH (22:39)
[2023-02-18] MEDS: THIAMINE HCL 100 MG TABLET (FP) PO SCH (22:39)
[2023-02-18] MEDS: QUEtiapine FUMARATE 100 MG TABLET (FP) PO SCH (22:39)
[2023-02-19] MEDS: diazePAM 5 MG TABLET PO SCH ×3 (06:11→22:06)
[2023-02-19] MEDS: PRENATAL VITAMINS W/ FOLIC ACID TABLET (FP) PO SCH (10:17)
[2023-02-19] MEDS: NICOTINE 14 MG/24 HOURS TOPICAL PATCH TD SCH (10:17)
[2023-02-19] MEDS: CYCLOBENZAPRINE HCL 10 MG TABLET (FP) PO PRN ×2 (10:19→22:08)
[2023-02-19] MEDS: ACETAMINOPHEN 325 MG TABLET (FP) PO PRN ×2 (10:20→18:06)
[2023-02-19] MEDS: NICOTINE POLACRILEX 4 MG GUM BUC PRN ×2 (12:58→19:48)
[2023-02-19] MEDS: NICOTINE 10 MG CARTRIDGE (INHALER) IH PRN (18:07)
[2023-02-19] MEDS: diazePAM 5 MG TABLET PO PRN (18:07)
[2023-02-19] MEDS: THIAMINE HCL 100 MG TABLET (FP) PO SCH (22:05)
[2023-02-19] MEDS: QUEtiapine FUMARATE 100 MG TABLET (FP) PO SCH (22:05)
[2023-02-19] MEDS: MELATONIN 5 MG TABLETS PO SCH (22:05)
[2023-02-20] MEDS: diazePAM 5 MG TABLET PO PRN ×2 (01:53→13:46)
[2023-02-20] MEDS: IBUPROFEN 600 MG TABLET (FP) PO PRN ×2 (01:54→22:33)
[2023-02-20] MEDS: diazePAM 5 MG TABLET PO SCH ×2 (06:05→17:09)
[2023-02-20] MEDS: CYCLOBENZAPRINE HCL 10 MG TABLET (FP) PO PRN ×2 (06:07→17:13)
[2023-02-20] MEDS: PRENATAL VITAMINS W/ FOLIC ACID TABLET (FP) PO SCH (09:56)
[2023-02-20] MEDS: NICOTINE 14 MG/24 HOURS TOPICAL PATCH TD SCH (10:00)
[2023-02-20] MEDS: ACETAMINOPHEN 325 MG TABLET (FP) PO PRN (13:47)
[2023-02-20] MEDS: NICOTINE POLACRILEX 4 MG GUM BUC PRN (13:53)
[2023-02-20] MEDS: MELATONIN 5 MG TABLETS PO SCH (22:31)
[2023-02-20] MEDS: THIAMINE HCL 100 MG TABLET (FP) PO SCH (22:31)
[2023-02-20] MEDS: QUEtiapine FUMARATE 100 MG TABLET (FP) PO SCH (22:31)
[2023-02-20] MEDS ORDERED: cloNIDine HCL 0.1 MG TABLET PO ONE (23:15)
[2023-02-21] MEDS ORDERED: diazePAM 5 MG TABLET PO ONE (06:00)
[2023-02-21] MEDS: CYCLOBENZAPRINE HCL 10 MG TABLET (FP) PO PRN (06:28)
[2023-02-21] MEDS ORDERED: QUEtiapine FUMARATE 50 MG TABLET PO SCH (10:00)
[2023-02-21] MEDS: NICOTINE 14 MG/24 HOURS TOPICAL PATCH TD SCH (10:51)
[2023-02-21] MEDS: PRENATAL VITAMINS W/ FOLIC ACID TABLET (FP) PO SCH (10:51)
[2023-02-21 13:14] VITALS: BP 126/78; PULSE 95; RESP 18; TEMP 96.8
[2023-02-21] MEDS: NICOTINE POLACRILEX 4 MG GUM BUC PRN (14:33)
[2023-02-21] MEDS: IBUPROFEN 600 MG TABLET (FP) PO PRN (14:34)
== END 2023-02-21 15:45 | disposition home or self-care (01) | DRG 897 ==
LOC: YASAS 11:37 → Y6N 15:18
PROVIDERS: ADMIT Allergy & Immunology; ATTEND Allergy & Immunology
PROC: HZ2ZZZZ Detoxification Services for Substance Abuse Treatment (ICD-10-PCS; principal; 2023-02-17)
DX: F10.230 Alcohol dependence with withdrawal, uncomplicated (principal); F17.210 Nicotine dependence, cigarettes, uncomplicated; F25.9 Schizoaffective disorder, unspecified; F41.9 Anxiety disorder, unspecified; F32.A Depression, unspecified; Z87.19 Personal history of other diseases of the digestive system; Z88.0 Allergy status to penicillin; Z91.013 Allergy to seafood
CPT/HCPCS: 87635

== ENCOUNTER 2023-03-01 00:50 | Inpatient (IN) | payer OTHER ==
[2023-03-01 01:24] VITALS: BMI 28.5
[2023-03-01] MEDS ORDERED: NICOTINE 10 MG CARTRIDGE (INHALER) IH PRN (02:11)
[2023-03-01] MEDS ORDERED: NALOXONE HCL 0.4 MG/ML VIAL IM PRN (02:11)
[2023-03-01] MEDS ORDERED: BENZOCAINE/MENTHOL (CHLORASEPTIC ) LOZENGE MM PRN (02:11)
[2023-03-01] MEDS ORDERED: BENZONATATE 200 MG CAPSULE PO PRN (02:11)
[2023-03-01] MEDS ORDERED: DICYCLOMINE HCL 10 MG CAPSULE PO PRN (02:11)
[2023-03-01] MEDS ORDERED: MAGNESIUM HYDROX 2400MG/30ML ORAL SUSPENSION 30 ML CUP PO PRN (02:11)
[2023-03-01] MEDS ORDERED: IBUPROFEN 400 MG TABLET (FP) PO PRN (02:11)
[2023-03-01] MEDS ORDERED: NALOXONE HCL (KLOXXADO) 8 MG SPRAY NS PRN (02:11)
[2023-03-01] MEDS ORDERED: guaiFENesin 600 MG TABLET.ER (FP) PO PRN (02:11)
[2023-03-01] MEDS ORDERED: ONDANSETRON *ODT* 4 MG TABLET SL PRN (02:11)
[2023-03-01] MEDS ORDERED: LOPERAMIDE HCL 2 MG CAPSULE PO PRN (02:11)
[2023-03-01] MEDS ORDERED: BISMUTH SUBSALICYLATE 524 MG/30 ML PO PRN (02:11)
[2023-03-01] MEDS ORDERED: POLYETHYLENE GLYCOL (HEALTHYLAX) 3350 17 GM PACKET PO PRN (02:11)
[2023-03-01] MEDS ORDERED: ACETAMINOPHEN 325 MG TABLET (FP) PO PRN (02:11)
[2023-03-01] MEDS: diazePAM 5 MG TABLET PO SCH ×4 (04:04→22:30)
[2023-03-01] MEDS: METHOCARBAMOL 500 MG TABLET PO PRN ×2 (06:11→22:29)
[2023-03-01] MEDS: diazePAM 5 MG TABLET PO PRN ×2 (07:56→14:42)
[2023-03-01] MEDS: NICOTINE 21 MG/24 HOURS TOPICAL PATCH TD SCH (10:57)
[2023-03-01] MEDS: PRENATAL VITAMINS W/ FOLIC ACID TABLET (FP) PO SCH (10:59)
[2023-03-01] MEDS: IBUPROFEN 600 MG TABLET (FP) PO PRN (17:23)
[2023-03-01] MEDS: NICOTINE POLACRILEX 4 MG GUM BUC PRN (17:25)
[2023-03-01] MEDS: QUEtiapine FUMARATE 100 MG TABLET (FP) PO SCH (22:29)
[2023-03-01] MEDS: MELATONIN 5 MG TABLETS PO SCH (22:29)
[2023-03-01] MEDS: THIAMINE HCL 100 MG TABLET (FP) PO SCH (22:29)
[2023-03-02] MEDS: diazePAM 5 MG TABLET PO SCH ×3 (05:56→22:10)
[2023-03-02] MEDS: METHOCARBAMOL 500 MG TABLET PO PRN ×3 (05:59→22:09)
[2023-03-02 10:42] LABS: HEMATOCRIT 45.7 % (35.4-49); HEMOGLOBIN 14.9 GM/dL (11.7-16.9); MCH 30.4 pg (25.7-33.7); MCHC 32.5 g/dl (32.0-35.9); MEAN CELL VOLUME 93.5 fl (80-96); MEAN PLT VOLUME 8.2 fl (7.5-11.1); PLATELET COUNT 360 10^3/uL (134-434); RBC 4.89 M/mm3 (4.00-5.60); RDW 14.1 % (11.9-15.9); WHITE BLOOD COUNT 6.3 K/mm3 (4.0-10.0)
[2023-03-02] MEDS: PRENATAL VITAMINS W/ FOLIC ACID TABLET (FP) PO SCH (10:43)
[2023-03-02] MEDS: NICOTINE 21 MG/24 HOURS TOPICAL PATCH TD SCH (10:43)
[2023-03-02 10:49] LABS: POTASSIUM 4.1 mmol/L (3.5-5.1)
[2023-03-02 10:55] LABS: CALCIUM 9.4 mg/dL (8.5-10.1)
[2023-03-02 10:57] LABS: ALBUMIN 3.3 g/dl (3.4-5.0); BLOOD UREA NITROGEN 7.6 mg/dL (7-18)
[2023-03-02 10:59] LABS: CREATININE 0.6 mg/dL (0.55-1.3)
[2023-03-02 11:01] LABS: BILIRUBIN,TOTAL 0.6 mg/dL (0.2-1); TOT PROT 6.4 g/dl (6.4-8.2)
[2023-03-02] MEDS: NICOTINE POLACRILEX 4 MG GUM BUC PRN (13:20)
[2023-03-02] MEDS: MAG HYDROX/AL HYDROX/SIMETH 30 ML UNIT-DOSE CUP PO PRN (14:27)
[2023-03-02] MEDS: diazePAM 5 MG TABLET PO PRN (19:08)
[2023-03-02] MEDS: MELATONIN 5 MG TABLETS PO SCH (22:09)
[2023-03-02] MEDS: QUEtiapine FUMARATE 100 MG TABLET (FP) PO SCH (22:09)
[2023-03-02] MEDS: THIAMINE HCL 100 MG TABLET (FP) PO SCH (22:12)
[2023-03-03] MEDS: diazePAM 5 MG TABLET PO SCH ×2 (05:44→17:28)
[2023-03-03] MEDS: METHOCARBAMOL 500 MG TABLET PO PRN ×3 (05:44→17:27)
[2023-03-03] MEDS: IBUPROFEN 600 MG TABLET (FP) PO PRN ×2 (05:45→19:10)
[2023-03-03] MEDS: PRENATAL VITAMINS W/ FOLIC ACID TABLET (FP) PO SCH (10:17)
[2023-03-03] MEDS: NICOTINE 21 MG/24 HOURS TOPICAL PATCH TD SCH (10:17)
[2023-03-03] MEDS: diazePAM 5 MG TABLET PO PRN ×2 (11:56→21:18)
[2023-03-03] MEDS: NICOTINE POLACRILEX 4 MG GUM BUC PRN (17:31)
[2023-03-03] MEDS: MAG HYDROX/AL HYDROX/SIMETH 30 ML UNIT-DOSE CUP PO PRN (22:06)
[2023-03-03] MEDS: THIAMINE HCL 100 MG TABLET (FP) PO SCH (22:06)
[2023-03-03] MEDS: QUEtiapine FUMARATE 100 MG TABLET (FP) PO SCH (22:06)
[2023-03-03] MEDS: MELATONIN 5 MG TABLETS PO SCH (22:06)
[2023-03-04] MEDS: METHOCARBAMOL 500 MG TABLET PO PRN (05:53)
[2023-03-04] MEDS ORDERED: diazePAM 5 MG TABLET PO ONE (06:00)
[2023-03-04 07:11] VITALS: RESP 18
[2023-03-04 09:14] VITALS: BP 139/97; PULSE 90; TEMP 96.9
[2023-03-04] MEDS: NICOTINE 21 MG/24 HOURS TOPICAL PATCH TD SCH (10:42)
[2023-03-04] MEDS: PRENATAL VITAMINS W/ FOLIC ACID TABLET (FP) PO SCH (10:42)
== END 2023-03-04 09:32 | disposition home or self-care (01) | DRG 897 ==
LOC: YASAS 00:50 → Y6N 02:56
PROVIDERS: ADMIT Allergy & Immunology; ATTEND Allergy & Immunology
PROC: HZ2ZZZZ Detoxification Services for Substance Abuse Treatment (ICD-10-PCS; principal; 2023-03-01)
DX: F10.230 Alcohol dependence with withdrawal, uncomplicated (principal); F17.210 Nicotine dependence, cigarettes, uncomplicated; F10.24 Alcohol dependence with alcohol-induced mood disorder; F10.282 Alcohol dependence with alcohol-induced sleep disorder; F31.9 Bipolar disorder, unspecified; F25.9 Schizoaffective disorder, unspecified; F41.9 Anxiety disorder, unspecified; F32.A Depression, unspecified; Z87.19 Personal history of other diseases of the digestive system; Z88.0 Allergy status to penicillin; Z91.013 Allergy to seafood
CPT/HCPCS: 36415; 80053; 85027; 86780; 87635; 87811

== ENCOUNTER 2023-10-11 02:21 | Inpatient (IN) | payer OTHER ==
[2023-10-11 02:40] VITALS: BMI 25.4
[2023-10-11] MEDS ORDERED: NALOXONE HCL 0.4 MG/ML VIAL IM PRN (03:00)
[2023-10-11] MEDS ORDERED: POLYETHYLENE GLYCOL (HEALTHYLAX) 3350 17 GM PACKET PO PRN (03:00)
[2023-10-11] MEDS ORDERED: MAGNESIUM HYDROX 2400MG/30ML ORAL SUSPENSION 30 ML CUP PO PRN (03:00)
[2023-10-11] MEDS ORDERED: BISMUTH SUBSALICYLATE 524 MG/30 ML PO PRN (03:00)
[2023-10-11] MEDS ORDERED: DICYCLOMINE HCL 10 MG CAPSULE PO PRN (03:00)
[2023-10-11] MEDS ORDERED: NALOXONE HCL (KLOXXADO) 8 MG SPRAY NS PRN (03:00)
[2023-10-11] MEDS ORDERED: LOPERAMIDE HCL 2 MG CAPSULE PO PRN (03:00)
[2023-10-11] MEDS ORDERED: BENZOCAINE/MENTHOL (CHLORASEPTIC ) LOZENGE MM PRN (03:00)
[2023-10-11] MEDS ORDERED: guaiFENesin 600 MG TABLET.ER (FP) PO PRN (03:00)
[2023-10-11] MEDS ORDERED: IBUPROFEN 400 MG TABLET (FP) PO PRN (03:00)
[2023-10-11] MEDS ORDERED: chlordiazePOXIDE HCL 25 MG CAPSULE PO PRN (03:42)
[2023-10-11] MEDS: chlordiazePOXIDE HCL 25 MG CAPSULE PO SCH (04:03)
[2023-10-11] MEDS: TRIMETHOBENZAMIDE HCL 200MG/2ML INJ IM ONE (04:09)
[2023-10-11] MEDS: METHOCARBAMOL 500 MG TABLET PO PRN (05:00)
[2023-10-11] MEDS: NICOTINE POLACRILEX 2 MG GUM BUC PRN (07:11)
[2023-10-11] MEDS: hydrOXYzine PAMOATE 25 MG CAPSULE (FP) PO PRN (07:11)
[2023-10-11] MEDS: MAG HYDROX/AL HYDROX/SIMETH 30 ML UNIT-DOSE CUP PO PRN (07:21)
[2023-10-11] MEDS: ONDANSETRON *ODT* 4 MG TABLET SL PRN (07:38)
[2023-10-11] MEDS ORDERED: TRIMETHOBENZAMIDE HCL 200MG/2ML INJ IM PRN (09:46)
[2023-10-11] MEDS: amLODIPine BESYLATE 5 MG TABLET (FP) PO SCH (10:17)
[2023-10-11] MEDS: PRENATAL VITAMINS W/ FOLIC ACID TABLET (FP) PO SCH (10:17)
[2023-10-11] MEDS: FAMOTIDINE 20 MG TABLET PO SCH (10:17)
[2023-10-11] MEDS: NICOTINE 21 MG/24 HOURS TOPICAL PATCH TD SCH (10:21)
[2023-10-11] MEDS: IBUPROFEN 600 MG TABLET (FP) PO PRN (20:14)
[2023-10-11] MEDS: QUEtiapine FUMARATE 50 MG TABLET PO SCH (22:00)
[2023-10-11] MEDS: THIAMINE HCL 100 MG TABLET (FP) PO SCH (22:00)
[2023-10-11] MEDS: MELATONIN 5 MG TABLETS PO SCH (22:01)
[2023-10-12] MEDS: chlordiazePOXIDE HCL 25 MG CAPSULE PO SCH (05:42)
[2023-10-12 12:12] LABS: HEMATOCRIT 51.4 % (35.4-49); HEMOGLOBIN 17.5 GM/dL (11.7-16.9); MCH 30.4 pg (25.7-33.7); MCHC 34.1 g/dl (32.0-35.9); MEAN CELL VOLUME 89.1 fl (80-96); MEAN PLT VOLUME 8.5 fl (7.5-11.1); PLATELET COUNT 165 10^3/uL (134-434); RBC 5.76 M/mm3 (4.00-5.60); RDW 14.3 % (11.9-15.9); WHITE BLOOD COUNT 5.2 K/mm3 (4.0-10.0)
[2023-10-12 14:07] LABS: POTASSIUM 3.2 mmol/L (3.5-5.1)
[2023-10-12 14:21] LABS: CALCIUM 9.6 mg/dL (8.5-10.1)
[2023-10-12 14:22] LABS: ALBUMIN 3.7 g/dl (3.4-5.0); BLOOD UREA NITROGEN 8.4 mg/dL (7-18)
[2023-10-12 14:23] LABS: TOT PROT 7.2 g/dl (6.4-8.2)
[2023-10-12 14:24] LABS: CREATININE 0.9 mg/dL (0.55-1.3)
[2023-10-12 14:25] LABS: BILIRUBIN,TOTAL 2.3 mg/dL (0.2-1)
[2023-10-12] MEDS: MAGNESIUM HYDROX 2400MG/30ML ORAL SUSPENSION 30 ML CUP PO ONE (16:01)
[2023-10-12] MEDS: BENZONATATE 200 MG CAPSULE PO PRN (21:12)
[2023-10-12] MEDS: ACETAMINOPHEN 325 MG TABLET (FP) PO PRN (21:14)
[2023-10-13] MEDS ORDERED: chlordiazePOXIDE HCL 10 MG CAPSULE PO PRN
[2023-10-13] MEDS: chlordiazePOXIDE HCL 10 MG CAPSULE PO SCH (05:48)
[2023-10-13] MEDS: POTASSIUM CHLORIDE ORAL LIQUID 20 MEQ/15 ML PO SCH (10:15)
[2023-10-14] MEDS: chlordiazePOXIDE HCL 10 MG CAPSULE PO SCH (06:00)
[2023-10-14] MEDS ORDERED: NICOTINE POLACRILEX 4 MG GUM BUC PRN (09:31)
[2023-10-14] MEDS: TETRAHYDROZOLINE HCL EYE DROPS OU PRN (11:31)
[2023-10-14 17:21] VITALS: BP 151/90; PULSE 105; RESP 16; TEMP 97.3
[2023-10-15] MEDS ORDERED: chlordiazePOXIDE HCL 10 MG CAPSULE PO ONE (05:00)
== END 2023-10-14 18:05 | disposition other institution (70) | DRG 897 ==
LOC: YASAS 02:21 → Y6N 03:37
PROVIDERS: ADMIT Allergy & Immunology; ATTEND Allergy & Immunology
PROC: HZ2ZZZZ Detoxification Services for Substance Abuse Treatment (ICD-10-PCS; principal; 2023-10-11)
DX: F10.230 Alcohol dependence with withdrawal, uncomplicated (principal); F17.210 Nicotine dependence, cigarettes, uncomplicated; F25.0 Schizoaffective disorder, bipolar type; F10.282 Alcohol dependence with alcohol-induced sleep disorder; F10.24 Alcohol dependence with alcohol-induced mood disorder; E87.6 Hypokalemia; K21.9 Gastro-esophageal reflux disease without esophagitis; K59.00 Constipation, unspecified; Z87.19 Personal history of other diseases of the digestive system; Z59.00 Homelessness unspecified; Z88.0 Allergy status to penicillin; Z56.0 Unemployment, unspecified
CPT/HCPCS: 36415; 80053; 80307; 82247; 84132; 85027; 86780; 87635; Q0162

== ENCOUNTER 2023-10-14 18:19 | Inpatient (IN) | payer OTHER ==
[2023-10-14] MEDS ORDERED: LOPERAMIDE HCL 2 MG CAPSULE PO PRN (19:33)
[2023-10-14] MEDS ORDERED: P-EPHED 60MG/TRIPROLIDI 2.5MG TABLET PO PRN (19:33)
[2023-10-14] MEDS ORDERED: guaiFENesin 600 MG TABLET.ER (FP) PO PRN (19:33)
[2023-10-14] MEDS ORDERED: BENZONATATE 200 MG CAPSULE PO PRN (19:33)
[2023-10-14] MEDS ORDERED: BENZOCAINE/MENTHOL (CHLORASEPTIC ) LOZENGE MM PRN (19:33)
[2023-10-14] MEDS: QUEtiapine FUMARATE 50 MG TABLET PO SCH (21:30)
[2023-10-14] MEDS: MELATONIN 5 MG TABLETS PO SCH (21:30)
[2023-10-14] MEDS: THIAMINE HCL 100 MG TABLET (FP) PO SCH (21:31)
[2023-10-14] MEDS: METHOCARBAMOL 500 MG TABLET PO PRN (21:43)
[2023-10-15] MEDS: IBUPROFEN 400 MG TABLET (FP) PO PRN (06:19)
[2023-10-15] MEDS: PRENATAL VITAMINS W/ FOLIC ACID TABLET (FP) PO SCH (10:22)
[2023-10-15] MEDS: NICOTINE POLACRILEX 4 MG GUM BUC PRN (11:55)
[2023-10-15] MEDS: MAG HYDROX/AL HYDROX/SIMETH 30 ML UNIT-DOSE CUP PO PRN (13:14)
[2023-10-16] MEDS: hydrOXYzine PAMOATE 50 MG CAPSULE (FP) PO PRN (14:21)
[2023-10-17] MEDS: MAGNESIUM HYDROX 2400MG/30ML ORAL SUSPENSION 30 ML CUP PO PRN (06:41)
[2023-10-18] MEDS: QUEtiapine FUMARATE 100 MG TABLET (FP) PO SCH (21:18)
[2023-10-19] MEDS: NICOTINE 21 MG/24 HOURS TOPICAL PATCH TD PRN (10:44)
[2023-10-20] MEDS: POLYETHYLENE GLYCOL (HEALTHYLAX) 3350 17 GM PACKET PO PRN (11:41)
[2023-10-20] MEDS: QUEtiapine FUMARATE 50 MG TABLET PO SCH (14:03)
[2023-10-21] MEDS: HYDROCORTISONE 2.5% TOPICAL CREAM 30 GM TUBE TP PRN (21:08)
[2023-10-22] MEDS: TETRAHYDROZOLINE HCL EYE DROPS OU PRN (09:57)
[2023-10-22 12:02] LABS: INR 1.04 (0.83-1.09); PROTHROMBIN TIME (PATIENT) 12.1 SEC (9.7-13.0)
[2023-10-23] MEDS: LACTULOSE 20 GM/30 ML UDC (FOR ORAL USE ONLY) PO SCH (13:55)
[2023-10-25] MEDS: METHOCARBAMOL 500 MG TABLET PO PRN (09:46)
[2023-11-03] MEDS: ACETAMINOPHEN 325 MG TABLET (FP) PO PRN (09:54)
[2023-11-07 07:15] VITALS: RESP 18
[2023-11-08 06:39] VITALS: BP 135/88; PULSE 89; TEMP 97.5
== END 2023-11-08 11:15 | disposition home or self-care (01) | DRG 895 ==
LOC: YASAS 18:19 → Y3E 18:21 → Y3W 18:24
PROVIDERS: ADMIT Allergy & Immunology; ATTEND Psychiatry & Neurology Pain Medicine
PROC: HZ42ZZZ Group Counseling for Substance Abuse Treatment, Cognitive-Behavioral (ICD-10-PCS; principal; 2023-10-14)
DX: F10.20 Alcohol dependence, uncomplicated (principal); E72.20 Disorder of urea cycle metabolism, unspecified; F17.210 Nicotine dependence, cigarettes, uncomplicated; F10.282 Alcohol dependence with alcohol-induced sleep disorder; F10.24 Alcohol dependence with alcohol-induced mood disorder; F31.9 Bipolar disorder, unspecified; F25.9 Schizoaffective disorder, unspecified; F41.9 Anxiety disorder, unspecified; K21.9 Gastro-esophageal reflux disease without esophagitis; M79.10 Myalgia, unspecified site; Z87.19 Personal history of other diseases of the digestive system; Z56.0 Unemployment, unspecified; Z88.0 Allergy status to penicillin
CPT/HCPCS: 36415; 82140; 82652; 83735; 85610

== ENCOUNTER 2023-12-15 19:46 | Inpatient (IN) | payer OTHER ==
[2023-12-15 21:20] VITALS: BMI 28.1
[2023-12-15] MEDS ORDERED: TRIMETHOBENZAMIDE HCL 200MG/2ML INJ IM ONE (22:00)
[2023-12-15] MEDS: TRIMETHOBENZAMIDE HCL 200MG/2ML INJ IM ONE (22:13)
[2023-12-15] MEDS ORDERED: LOPERAMIDE HCL 2 MG CAPSULE PO PRN (22:46)
[2023-12-15] MEDS ORDERED: MAG HYDROX/AL HYDROX/SIMETH 30 ML UNIT-DOSE CUP PO PRN (22:46)
[2023-12-15] MEDS ORDERED: POLYETHYLENE GLYCOL (HEALTHYLAX) 3350 17 GM PACKET PO PRN (22:46)
[2023-12-15] MEDS ORDERED: IBUPROFEN 400 MG TABLET (FP) PO PRN (22:46)
[2023-12-15] MEDS ORDERED: BENZOCAINE/MENTHOL (CHLORASEPTIC ) LOZENGE MM PRN (22:46)
[2023-12-15] MEDS ORDERED: MAGNESIUM HYDROX 2400MG/30ML ORAL SUSPENSION 30 ML CUP PO PRN (22:46)
[2023-12-15] MEDS ORDERED: BISMUTH SUBSALICYLATE 524 MG/30 ML PO PRN (22:46)
[2023-12-15] MEDS ORDERED: guaiFENesin 600 MG TABLET.ER (FP) PO PRN (22:46)
[2023-12-15] MEDS ORDERED: BENZONATATE 200 MG CAPSULE PO PRN (22:46)
[2023-12-15] MEDS ORDERED: ACETAMINOPHEN 325 MG TABLET (FP) ONE (23:01)
[2023-12-15] MEDS: ACETAMINOPHEN 325 MG TABLET (FP) PO ONE (23:04)
[2023-12-15] MEDS: chlordiazePOXIDE HCL 25 MG CAPSULE PO SCH (23:33)
[2023-12-16] MEDS: propRANOLol HCL 10 MG TABLET PO ONE (00:18)
[2023-12-16] MEDS: IBUPROFEN 600 MG TABLET (FP) PO PRN (05:47)
[2023-12-16] MEDS: METHOCARBAMOL 500 MG TABLET PO PRN (07:09)
[2023-12-16] MEDS: NICOTINE POLACRILEX 2 MG GUM BUC PRN (07:10)
[2023-12-16] MEDS: PRENATAL VITAMINS W/ FOLIC ACID TABLET (FP) PO SCH (10:35)
[2023-12-16] MEDS: cloNIDine HCL 0.1 MG TABLET PO ONE (11:49)
[2023-12-16 11:54] LABS: HEMATOCRIT 47.7 % (35.4-49); MCH 29.8 pg (25.7-33.7); MCHC 33.6 g/dl (32.0-35.9); MEAN CELL VOLUME 88.8 fl (80-96); MEAN PLT VOLUME 7.1 fl (7.5-11.1); PLATELET COUNT 416 10^3/uL (134-434); RBC 5.37 M/mm3 (4.00-5.60); RDW 15.8 % (11.9-15.9)
[2023-12-16] MEDS: ONDANSETRON *ODT* 4 MG TABLET SL PRN (11:56)
[2023-12-16 12:19] LABS: CALCIUM 9.7 mg/dL (8.5-10.1)
[2023-12-16 12:20] LABS: ALBUMIN 3.8 g/dl (3.4-5.0); BLOOD UREA NITROGEN 8.9 mg/dL (7-18)
[2023-12-16 12:23] LABS: CREATININE 0.8 mg/dL (0.55-1.3)
[2023-12-16 12:24] LABS: BILIRUBIN,TOTAL 1.5 mg/dL (0.2-1)
[2023-12-16] MEDS: ACETAMINOPHEN 325 MG TABLET (FP) PO PRN (14:15)
[2023-12-16] MEDS: chlordiazePOXIDE HCL 25 MG CAPSULE PO PRN (18:25)
[2023-12-16] MEDS: MELATONIN 5 MG TABLETS PO SCH (22:36)
[2023-12-16] MEDS: THIAMINE HCL 100 MG TABLET (FP) PO SCH (22:36)
[2023-12-17] MEDS: chlordiazePOXIDE HCL 25 MG CAPSULE PO SCH (05:31)
[2023-12-17] MEDS: DICYCLOMINE HCL 10 MG CAPSULE PO PRN (09:12)
[2023-12-17] MEDS: QUEtiapine FUMARATE 100 MG TABLET (FP) PO SCH (22:15)
[2023-12-18] MEDS ORDERED: chlordiazePOXIDE HCL 10 MG CAPSULE PO PRN
[2023-12-18] MEDS: chlordiazePOXIDE HCL 10 MG CAPSULE PO SCH (05:42)
[2023-12-19] MEDS: chlordiazePOXIDE HCL 10 MG CAPSULE PO SCH (06:00)
[2023-12-19] MEDS: amLODIPine BESYLATE 10 MG TABLET (FP) PO SCH (17:57)
[2023-12-20] MEDS: chlordiazePOXIDE HCL 10 MG CAPSULE PO ONE (06:00)
[2023-12-20 08:57] VITALS: BP 118/69; PULSE 67; RESP 18; TEMP 97.6
== END 2023-12-20 09:48 | disposition other institution (70) | DRG 897 ==
LOC: YASAS 19:46 → Y3N 22:45
PROVIDERS: ADMIT Allergy & Immunology; ATTEND Surgery
PROC: HZ2ZZZZ Detoxification Services for Substance Abuse Treatment (ICD-10-PCS; principal; 2023-12-15)
DX: F10.230 Alcohol dependence with withdrawal, uncomplicated (principal); Z59.01 Sheltered homelessness; F12.20 Cannabis dependence, uncomplicated; F17.210 Nicotine dependence, cigarettes, uncomplicated; F25.9 Schizoaffective disorder, unspecified; F41.8 Other specified anxiety disorders; G47.00 Insomnia, unspecified; Z87.19 Personal history of other diseases of the digestive system; Z88.0 Allergy status to penicillin; Z91.199 Patient's noncompliance with other medical treatment and regimen due to unspecified reason
CPT/HCPCS: 36415; 80053; 80307; 85027; 86780; Q0162

== ENCOUNTER 2024-01-04 09:39 | Inpatient (IN) | payer OTHER ==
[2024-01-04] MEDS ORDERED: DICYCLOMINE HCL 10 MG CAPSULE PO PRN (10:13)
[2024-01-04] MEDS ORDERED: LOPERAMIDE HCL 2 MG CAPSULE PO PRN (10:13)
[2024-01-04] MEDS ORDERED: NALOXONE HCL (KLOXXADO) 8 MG SPRAY NS PRN (10:13)
[2024-01-04] MEDS ORDERED: NALOXONE HCL 0.4 MG/ML VIAL IM PRN (10:13)
[2024-01-04] MEDS ORDERED: BENZOCAINE/MENTHOL (CHLORASEPTIC ) LOZENGE MM PRN (10:13)
[2024-01-04] MEDS ORDERED: POLYETHYLENE GLYCOL (HEALTHYLAX) 3350 17 GM PACKET PO PRN (10:13)
[2024-01-04] MEDS ORDERED: BENZONATATE 200 MG CAPSULE PO PRN (10:13)
[2024-01-04] MEDS ORDERED: guaiFENesin 600 MG TABLET.ER (FP) PO PRN (10:13)
[2024-01-04 10:28] VITALS: BMI 26.6
[2024-01-04] MEDS ORDERED: TRIMETHOBENZAMIDE HCL 200MG/2ML INJ IM ONE (10:32)
[2024-01-04] MEDS: TRIMETHOBENZAMIDE HCL 200MG/2ML INJ IM ONE (10:44)
[2024-01-04] MEDS: PRENATAL VITAMINS W/ FOLIC ACID TABLET (FP) PO SCH (11:44)
[2024-01-04] MEDS: NICOTINE 21 MG/24 HOURS TOPICAL PATCH TD SCH (11:47)
[2024-01-04] MEDS: METHOCARBAMOL 500 MG TABLET PO PRN (11:47)
[2024-01-04] MEDS: chlordiazePOXIDE HCL 25 MG CAPSULE PO SCH (11:48)
[2024-01-04] MEDS: ACETAMINOPHEN 325 MG TABLET (FP) PO PRN (13:30)
[2024-01-04] MEDS: NICOTINE POLACRILEX 2 MG GUM BUC PRN (13:31)
[2024-01-04] MEDS: ONDANSETRON *ODT* 4 MG TABLET SL PRN (15:24)
[2024-01-04] MEDS: IBUPROFEN 600 MG TABLET (FP) PO PRN (17:53)
[2024-01-04] MEDS: MAG HYDROX/AL HYDROX/SIMETH 30 ML UNIT-DOSE CUP PO PRN (20:06)
[2024-01-04] MEDS: chlordiazePOXIDE HCL 25 MG CAPSULE PO PRN (20:06)
[2024-01-04] MEDS: THIAMINE 100 MG TABLET PO SCH (22:31)
[2024-01-04] MEDS: MELATONIN 5 MG TABLETS PO SCH (22:31)
[2024-01-04] MEDS: MAGNESIUM HYDROX 2400MG/30ML ORAL SUSPENSION 30 ML CUP PO PRN (22:34)
[2024-01-05 08:22] LABS: CHLORIDE 90 mmol/L (98-107); POTASSIUM 3.5 mmol/L (3.5-5.1); SODIUM 132 mmol/L (136-145)
[2024-01-05 08:26] LABS: ANION GAP 8 mmol/L (4-13); CALCIUM 10.4 mg/dL (8.5-10.1); CO2 34 mmol/L (21-32); GLUCOSE,RANDOM 141 mg/dL (74-106)
[2024-01-05 08:27] LABS: ALBUMIN 4.1 g/dl (3.4-5.0); BLOOD UREA NITROGEN 10.6 mg/dL (7-18)
[2024-01-05 08:29] LABS: SGPT/ALT 62 U/L (13-61)
[2024-01-05 08:30] LABS: SGOT/AST 51 U/L (15-37)
[2024-01-05 08:31] LABS: BILIRUBIN,TOTAL 2.3 mg/dL (0.2-1); TOT PROT 8.1 g/dl (6.4-8.2)
[2024-01-05 08:32] LABS: ALK PHOS 95 U/L (45-117)
[2024-01-05 08:41] LABS: HEMATOCRIT 48.7 % (35.4-49); HEMOGLOBIN 16.8 GM/dL (11.7-16.9); MCH 30.5 pg (25.7-33.7); MCHC 34.4 g/dl (32.0-35.9); MEAN CELL VOLUME 88.6 fl (80-96); PLATELET COUNT 400 10^3/uL (134-434); RDW 14.5 % (11.9-15.9); WHITE BLOOD COUNT 5.9 K/mm3 (4.0-10.0)
[2024-01-05] MEDS: QUEtiapine FUMARATE 100 MG TABLET (FP) PO SCH (22:41)
[2024-01-06] MEDS: chlordiazePOXIDE HCL 25 MG CAPSULE PO SCH (05:27)
[2024-01-06] MEDS: hydrOXYzine PAMOATE 25 MG CAPSULE (FP) PO PRN (14:43)
[2024-01-06] MEDS: BISMUTH SUBSALICYLATE 262 MG/15 ML BTL PO PRN (19:06)
[2024-01-06] MEDS: TETRAHYDROZOLINE HCL EYE DROPS OU SCH (22:41)
[2024-01-07] MEDS ORDERED: chlordiazePOXIDE HCL 10 MG CAPSULE PO PRN
[2024-01-07] MEDS: chlordiazePOXIDE HCL 10 MG CAPSULE PO SCH (05:42)
[2024-01-07 09:37] VITALS: RESP 18
[2024-01-08] MEDS: chlordiazePOXIDE HCL 10 MG CAPSULE PO SCH (06:13)
[2024-01-08] MEDS: IBUPROFEN 400 MG TABLET (FP) PO PRN (09:39)
[2024-01-08] MEDS: amLODIPine BESYLATE 5 MG TABLET (FP) PO SCH (19:08)
[2024-01-09] MEDS: chlordiazePOXIDE HCL 10 MG CAPSULE PO ONE (06:12)
[2024-01-09 08:47] VITALS: BP 142/89; PULSE 85; TEMP 97.1
== END 2024-01-09 09:05 | disposition other institution (70) | DRG 897 ==
LOC: YASAS 09:39 → Y3N 10:31
PROVIDERS: ADMIT Allergy & Immunology; ATTEND Surgery
PROC: HZ2ZZZZ Detoxification Services for Substance Abuse Treatment (ICD-10-PCS; principal; 2024-01-04)
DX: F10.230 Alcohol dependence with withdrawal, uncomplicated (principal); F17.210 Nicotine dependence, cigarettes, uncomplicated; F25.0 Schizoaffective disorder, bipolar type; F10.24 Alcohol dependence with alcohol-induced mood disorder; I10 Essential (primary) hypertension; K21.9 Gastro-esophageal reflux disease without esophagitis; G47.00 Insomnia, unspecified; Z88.0 Allergy status to penicillin; Z59.02 Unsheltered homelessness
CPT/HCPCS: 36415; 80053; 80305; 80307; 85027; 86780; 93005; 93010; Q0162

== ENCOUNTER 2024-02-10 16:11 | Inpatient (IN) | payer OTHER ==
[2024-02-10 16:57] VITALS: BMI 27.3
[2024-02-10] MEDS ORDERED: LOPERAMIDE HCL 2 MG CAPSULE PO PRN (17:03)
[2024-02-10] MEDS ORDERED: BENZONATATE 200 MG CAPSULE PO PRN (17:03)
[2024-02-10] MEDS ORDERED: BENZOCAINE/MENTHOL (CHLORASEPTIC ) LOZENGE MM PRN (17:03)
[2024-02-10] MEDS ORDERED: POLYETHYLENE GLYCOL (HEALTHYLAX) 3350 17 GM PACKET PO PRN (17:03)
[2024-02-10] MEDS ORDERED: guaiFENesin 600 MG TABLET.ER (FP) PO PRN (17:03)
[2024-02-10] MEDS ORDERED: IBUPROFEN 400 MG TABLET (FP) PO PRN (17:03)
[2024-02-10] MEDS ORDERED: chlordiazePOXIDE HCL 25 MG CAPSULE PO PRN (17:04)
[2024-02-10] MEDS ORDERED: TRIMETHOBENZAMIDE HCL 200MG/2ML INJ IM ONE (17:20)
[2024-02-10] MEDS: TRIMETHOBENZAMIDE HCL 200MG/2ML INJ IM ONE (17:37)
[2024-02-10] MEDS: hydrOXYzine PAMOATE 50 MG CAPSULE (FP) PO PRN (18:25)
[2024-02-10] MEDS: NICOTINE POLACRILEX 2 MG GUM BUC PRN (18:26)
[2024-02-10] MEDS: ONDANSETRON *ODT* 4 MG TABLET SL PRN (18:32)
[2024-02-10] MEDS: chlordiazePOXIDE HCL 25 MG CAPSULE PO ONE (19:04)
[2024-02-10] MEDS: ACETAMINOPHEN 325 MG TABLET (FP) PO PRN (20:20)
[2024-02-10] MEDS: BISMUTH SUBSALICYLATE 524 MG/30 ML PO PRN (20:22)
[2024-02-10] MEDS: chlordiazePOXIDE HCL 25 MG CAPSULE PO SCH (22:34)
[2024-02-10] MEDS: THIAMINE 100 MG TABLET PO SCH (22:34)
[2024-02-10] MEDS: QUEtiapine FUMARATE 50 MG TABLET PO SCH (22:34)
[2024-02-10] MEDS: MELATONIN 5 MG TABLETS PO SCH (22:36)
[2024-02-10] MEDS: TETRAHYDROZOLINE HCL EYE DROPS OU PRN (22:36)
[2024-02-11] MEDS: METHOCARBAMOL 500 MG TABLET PO PRN (05:45)
[2024-02-11] MEDS: PRENATAL VITAMINS W/ FOLIC ACID TABLET (FP) PO SCH (10:27)
[2024-02-11] MEDS: NICOTINE 14 MG/24 HOURS TOPICAL PATCH TD SCH (11:57)
[2024-02-11] MEDS: BACITRACIN 0.9 GM PACKET TP SCH (13:33)
[2024-02-11] MEDS: cloNIDine HCL 0.1 MG TABLET PO PRN (13:51)
[2024-02-11] MEDS: IBUPROFEN 600 MG TABLET (FP) PO PRN (13:51)
[2024-02-11 15:15] LABS: HEMATOCRIT 48.7 % (35.4-49); HEMOGLOBIN 16.5 GM/dL (11.7-16.9); MCH 30.3 pg (25.7-33.7); MEAN CELL VOLUME 89.2 fl (80-96); PLATELET COUNT 383 10^3/uL (134-434); RBC 5.46 M/mm3 (4.00-5.60); RDW 13.5 % (11.9-15.9); WHITE BLOOD COUNT 7.7 K/mm3 (4.0-10.0)
[2024-02-11 15:18] LABS: POTASSIUM 3.8 mmol/L (3.5-5.1)
[2024-02-11 15:21] LABS: ALBUMIN 4.7 g/dl (3.4-5.0)
[2024-02-11 15:25] LABS: TOT PROT 8.8 g/dl (6.4-8.2)
[2024-02-11 15:26] LABS: BILIRUBIN,TOTAL 2.3 mg/dL (0.2-1); CREATININE 2.1 mg/dL (0.55-1.3)
[2024-02-11 17:45] LABS: HIV INTERPRETATION NEGATIVE (NEGATIVE)
[2024-02-11] MEDS: MAG HYDROX/AL HYDROX/SIMETH 30 ML UNIT-DOSE CUP PO PRN (18:16)
[2024-02-12] MEDS: chlordiazePOXIDE HCL 25 MG CAPSULE PO SCH (05:46)
[2024-02-12] MEDS: MAGNESIUM HYDROX 2400MG/30ML ORAL SUSPENSION 30 ML CUP PO PRN (05:49)
[2024-02-12] MEDS: DICYCLOMINE HCL 10 MG CAPSULE PO PRN (11:09)
[2024-02-13] MEDS ORDERED: chlordiazePOXIDE HCL 10 MG CAPSULE PO PRN
[2024-02-13] MEDS: chlordiazePOXIDE HCL 10 MG CAPSULE PO SCH (05:34)
[2024-02-13 14:18] LABS: POTASSIUM 3.5 mmol/L (3.5-5.1)
[2024-02-13 14:24] LABS: BLOOD UREA NITROGEN 17.2 mg/dL (7-18); CALCIUM 8.9 mg/dL (8.5-10.1)
[2024-02-13 14:28] LABS: BILIRUBIN,TOTAL 0.8 mg/dL (0.2-1)
[2024-02-13 14:41] LABS: ALBUMIN 3.6 g/dl (3.4-5.0)
[2024-02-13] MEDS: QUEtiapine FUMARATE 100 MG TABLET (FP) PO SCH (22:24)
[2024-02-14] MEDS: chlordiazePOXIDE HCL 10 MG CAPSULE PO SCH (05:39)
[2024-02-14] MEDS ORDERED: IBUPROFEN 400 MG TABLET (FP) PO ONE (13:45)
[2024-02-14] MEDS: IBUPROFEN 400 MG TABLET (FP) PO ONE (13:53)
[2024-02-14] MEDS: chlordiazePOXIDE HCL 10 MG CAPSULE PO ONE (13:53)
[2024-02-14] MEDS: NICOTINE POLACRILEX 2 MG LOZENGE BC PRN (22:04)
[2024-02-15] MEDS: chlordiazePOXIDE HCL 10 MG CAPSULE PO ONE (05:45)
[2024-02-15 06:01] VITALS: RESP 18
[2024-02-15 08:41] VITALS: BP 134/69; PULSE 63; TEMP 98.2
== END 2024-02-15 09:20 | disposition other institution (70) | DRG 897 ==
LOC: YASAS 16:11 → Y6N 17:13
PROVIDERS: ADMIT Allergy & Immunology; ATTEND Surgery
PROC: HZ2ZZZZ Detoxification Services for Substance Abuse Treatment (ICD-10-PCS; principal; 2024-02-10)
DX: F10.230 Alcohol dependence with withdrawal, uncomplicated (principal); Z59.00 Homelessness unspecified; F17.210 Nicotine dependence, cigarettes, uncomplicated; F25.9 Schizoaffective disorder, unspecified; F10.282 Alcohol dependence with alcohol-induced sleep disorder; K21.9 Gastro-esophageal reflux disease without esophagitis; N28.9 Disorder of kidney and ureter, unspecified; R74.01 Elevation of levels of liver transaminase levels; Z87.19 Personal history of other diseases of the digestive system; Z88.0 Allergy status to penicillin
CPT/HCPCS: 36415; 80053; 80305; 80307; 82140; 85027; 86780; 86803; 87389; Q0162

== ENCOUNTER 2024-06-19 12:07 | Inpatient (IN) | payer OTHER ==
[2024-06-19 12:37] VITALS: BMI 30.4
[2024-06-19] MEDS ORDERED: MAG HYDROX/AL HYDROX/SIMETH 30 ML UNIT-DOSE CUP PO PRN (13:04)
[2024-06-19] MEDS ORDERED: BISMUTH SUBSALICYLATE 262 MG/15 ML BTL PO PRN (13:04)
[2024-06-19] MEDS ORDERED: POLYETHYLENE GLYCOL (HEALTHYLAX) 3350 17 GM PACKET PO PRN (13:04)
[2024-06-19] MEDS ORDERED: MAGNESIUM HYDROX 2400MG/30ML ORAL SUSPENSION 30 ML CUP PO PRN (13:04)
[2024-06-19] MEDS ORDERED: IBUPROFEN 400 MG TABLET (FP) PO PRN (13:04)
[2024-06-19] MEDS ORDERED: DICYCLOMINE HCL 10 MG CAPSULE PO PRN (13:04)
[2024-06-19] MEDS ORDERED: BENZOCAINE/MENTHOL (CHLORASEPTIC ) LOZENGE MM PRN (13:04)
[2024-06-19] MEDS ORDERED: LOPERAMIDE HCL 2 MG CAPSULE PO PRN (13:04)
[2024-06-19] MEDS ORDERED: ONDANSETRON *ODT* 4 MG TABLET SL PRN (13:04)
[2024-06-19] MEDS ORDERED: NICOTINE POLACRILEX 2 MG LOZENGE BC PRN (13:04)
[2024-06-19] MEDS ORDERED: guaiFENesin 600 MG TABLET.ER (FP) PO PRN (13:04)
[2024-06-19] MEDS ORDERED: BENZONATATE 200 MG CAPSULE PO PRN (13:04)
[2024-06-19] MEDS: ACETAMINOPHEN 325 MG TABLET (FP) PO PRN (16:52)
[2024-06-19] MEDS: hydrOXYzine PAMOATE 25 MG CAPSULE (FP) PO PRN (16:53)
[2024-06-19] MEDS: THIAMINE 100 MG TABLET PO SCH (22:33)
[2024-06-19] MEDS: MELATONIN 5 MG TABLETS PO SCH (22:33)
[2024-06-19] MEDS: METHOCARBAMOL 500 MG TABLET PO PRN (22:35)
[2024-06-19] MEDS: NICOTINE POLACRILEX 2 MG GUM BUC PRN (22:36)
[2024-06-20] MEDS: chlordiazePOXIDE HCL 25 MG CAPSULE PO ONE (09:00)
[2024-06-20] MEDS: chlordiazePOXIDE HCL 25 MG CAPSULE PO SCH (10:07)
[2024-06-20] MEDS: PRENATAL VITAMINS W/ FOLIC ACID TABLET (FP) PO SCH (10:09)
[2024-06-20] MEDS: IBUPROFEN 600 MG TABLET (FP) PO PRN (10:10)
[2024-06-20] MEDS: NICOTINE 21 MG/24 HOURS TOPICAL PATCH TD SCH (11:07)
[2024-06-20] MEDS: risperiDONE 1 MG TABLET PO SCH (11:07)
[2024-06-20 11:31] LABS: POTASSIUM 4.1 mmol/L (3.5-5.1)
[2024-06-20 11:34] LABS: HEMATOCRIT 51.7 % (35.4-49); HEMOGLOBIN 17.5 GM/dL (11.7-16.9); MCH 29.1 pg (25.7-33.7); MCHC 33.9 g/dl (32.0-35.9); MEAN CELL VOLUME 85.8 fl (80-96); MEAN PLT VOLUME 8.6 fl (7.5-11.1); PLATELET COUNT 338 10^3/uL (134-434); RBC 6.03 M/mm3 (4.00-5.60); RDW 14.6 % (11.9-15.9); WHITE BLOOD COUNT 5.2 K/mm3 (4.0-10.0)
[2024-06-20 11:38] LABS: ALBUMIN 4.1 g/dl (3.4-5.0); CALCIUM 9.8 mg/dL (8.5-10.1)
[2024-06-20 11:39] LABS: BLOOD UREA NITROGEN 5.9 mg/dL (7-18)
[2024-06-20 11:42] LABS: BILIRUBIN,TOTAL 0.8 mg/dL (0.2-1); CREATININE 0.7 mg/dL (0.55-1.3); TOT PROT 7.6 g/dl (6.4-8.2)
[2024-06-21] MEDS: QUEtiapine FUMARATE 50 MG TABLET PO SCH (00:09)
[2024-06-21] MEDS: chlordiazePOXIDE HCL 25 MG CAPSULE PO PRN (06:49)
[2024-06-21] MEDS: NICOTINE POLACRILEX 4 MG GUM BUC PRN (22:31)
[2024-06-22] MEDS: chlordiazePOXIDE HCL 25 MG CAPSULE PO SCH (05:50)
[2024-06-22 12:47] VITALS: BP 130/76; PULSE 105; RESP 18; TEMP 97.6
[2024-06-22] MEDS: NALOXONE (NYS OPIOID OVERDOSE PROGRAM) 4 MG/0.1 ML SPRAY NS ONE (14:14)
[2024-06-23] MEDS ORDERED: chlordiazePOXIDE HCL 10 MG CAPSULE PO PRN
[2024-06-23] MEDS ORDERED: chlordiazePOXIDE HCL 10 MG CAPSULE PO SCH (05:00)
[2024-06-24] MEDS ORDERED: chlordiazePOXIDE HCL 10 MG CAPSULE PO SCH (05:00)
[2024-06-25] MEDS ORDERED: chlordiazePOXIDE HCL 10 MG CAPSULE PO ONE (05:00)
== END 2024-06-22 14:20 | disposition home or self-care (01) | DRG 897 ==
LOC: YASAS 12:07 → Y6N 14:19 → UNDODISIN 06-21 02:02
PROVIDERS: ADMIT Allergy & Immunology; ATTEND Surgery
PROC: HZ2ZZZZ Detoxification Services for Substance Abuse Treatment (ICD-10-PCS; principal; 2024-06-19)
DX: F10.230 Alcohol dependence with withdrawal, uncomplicated (principal); Z59.01 Sheltered homelessness; F12.20 Cannabis dependence, uncomplicated; F17.210 Nicotine dependence, cigarettes, uncomplicated; F10.282 Alcohol dependence with alcohol-induced sleep disorder; F25.9 Schizoaffective disorder, unspecified; K21.9 Gastro-esophageal reflux disease without esophagitis; Z87.19 Personal history of other diseases of the digestive system; Z86.69 Personal history of other diseases of the nervous system and sense organs; Z88.0 Allergy status to penicillin
CPT/HCPCS: 36415; 80053; 80305; 85027

== ENCOUNTER 2024-07-03 00:57 | Inpatient (IN) | payer OTHER ==
[2024-07-03 01:22] VITALS: BMI 29.0
[2024-07-03] MEDS ORDERED: NALOXONE (NARCAN) HCL 4 MG/0.1 ML SPRAY NS PRN (03:18)
[2024-07-03] MEDS ORDERED: NALOXONE (NYS OPIOID OVERDOSE PROGRAM) 4 MG/0.1 ML SPRAY NS PRN (03:18)
[2024-07-03] MEDS ORDERED: MAGNESIUM HYDROX 2400MG/30ML ORAL SUSPENSION 30 ML CUP PO PRN (03:18)
[2024-07-03] MEDS ORDERED: ACETAMINOPHEN 325 MG TABLET (FP) PO PRN (03:18)
[2024-07-03] MEDS ORDERED: BISMUTH SUBSALICYLATE 524 MG/30 ML PO PRN (03:18)
[2024-07-03] MEDS ORDERED: guaiFENesin 600 MG TABLET.ER (FP) PO PRN (03:18)
[2024-07-03] MEDS ORDERED: ONDANSETRON *ODT* 4 MG TABLET SL PRN (03:18)
[2024-07-03] MEDS ORDERED: BENZOCAINE/MENTHOL (CHLORASEPTIC ) LOZENGE MM PRN (03:18)
[2024-07-03] MEDS ORDERED: BENZONATATE 200 MG CAPSULE PO PRN (03:18)
[2024-07-03] MEDS ORDERED: LOPERAMIDE HCL 2 MG CAPSULE PO PRN (03:18)
[2024-07-03] MEDS ORDERED: MAG HYDROX/AL HYDROX/SIMETH 30 ML UNIT-DOSE CUP PO PRN (03:18)
[2024-07-03] MEDS ORDERED: POLYETHYLENE GLYCOL (HEALTHYLAX) 3350 17 GM PACKET PO PRN (03:18)
[2024-07-03] MEDS ORDERED: DICYCLOMINE HCL 10 MG CAPSULE PO PRN (03:18)
[2024-07-03] MEDS: NALTREXONE HCL 50 MG TABLET PO ONE (09:55)
[2024-07-03] MEDS: PRENATAL VITAMINS W/ FOLIC ACID TABLET (FP) PO SCH (10:26)
[2024-07-03] MEDS: chlordiazePOXIDE HCL 25 MG CAPSULE PO SCH (10:27)
[2024-07-03] MEDS: NICOTINE 21 MG/24 HOURS TOPICAL PATCH TD SCH (10:31)
[2024-07-03] MEDS: METHOCARBAMOL 500 MG TABLET PO PRN (17:11)
[2024-07-03] MEDS: MELATONIN 5 MG TABLETS PO SCH (22:33)
[2024-07-03] MEDS: risperiDONE 1 MG TABLET PO SCH (22:33)
[2024-07-03] MEDS: THIAMINE 100 MG TABLET PO SCH (22:33)
[2024-07-03] MEDS: QUEtiapine FUMARATE 100 MG TABLET (FP) PO SCH (22:35)
[2024-07-03] MEDS: QUEtiapine FUMARATE 50 MG TABLET PO SCH (22:35)
[2024-07-03] MEDS: IBUPROFEN 400 MG TABLET (FP) PO PRN (23:15)
[2024-07-04] MEDS: NALTREXONE HCL 50 MG TABLET PO SCH (10:45)
[2024-07-05] MEDS: chlordiazePOXIDE HCL 25 MG CAPSULE PO SCH (05:55)
[2024-07-05] MEDS: chlordiazePOXIDE HCL 25 MG CAPSULE PO PRN (13:18)
[2024-07-05] MEDS: NICOTINE POLACRILEX 2 MG GUM BUC PRN (13:57)
[2024-07-05] MEDS: IBUPROFEN 600 MG TABLET (FP) PO PRN (22:08)
[2024-07-06] MEDS ORDERED: chlordiazePOXIDE HCL 10 MG CAPSULE PO PRN
[2024-07-06] MEDS: chlordiazePOXIDE HCL 10 MG CAPSULE PO SCH (05:48)
[2024-07-06] MEDS: hydrOXYzine PAMOATE 25 MG CAPSULE (FP) PO PRN (06:12)
[2024-07-06 09:37] VITALS: RESP 18
[2024-07-06 11:32] LABS: BASO % 0.7 % (0-2.0); EOS % 6.8 % (0-4.5); HEMATOCRIT 47.5 % (35.4-49); HEMOGLOBIN 15.4 GM/dL (11.7-16.9); MCHC 32.5 g/dl (32.0-35.9); MEAN CELL VOLUME 89.2 fl (80-96); MEAN PLT VOLUME 8.6 fl (7.5-11.1); MONO % 5.8 % (3.8-10.2); NEUT % 43.7 % (42.8-82.8); PLATELET COUNT 281 10^3/uL (134-434); RBC 5.32 M/mm3 (4.00-5.60); RDW 15.2 % (11.9-15.9); WHITE BLOOD COUNT 5.7 K/mm3 (4.0-10.0)
[2024-07-06 11:34] LABS: POTASSIUM 3.7 mmol/L (3.5-5.1)
[2024-07-06 11:39] LABS: CALCIUM 9.2 mg/dL (8.5-10.1)
[2024-07-06 11:40] LABS: ALBUMIN 3.8 g/dl (3.4-5.0); BLOOD UREA NITROGEN 9.1 mg/dL (7-18)
[2024-07-06 11:43] LABS: CREATININE 0.8 mg/dL (0.55-1.3)
[2024-07-06 11:45] LABS: BILIRUBIN,TOTAL 0.4 mg/dL (0.2-1); TOT PROT 6.6 g/dl (6.4-8.2)
[2024-07-06 13:09] VITALS: BP 111/61; PULSE 60; TEMP 97.5
[2024-07-07] MEDS ORDERED: chlordiazePOXIDE HCL 10 MG CAPSULE PO SCH (05:00)
[2024-07-08] MEDS ORDERED: chlordiazePOXIDE HCL 10 MG CAPSULE PO ONE (05:00)
== END 2024-07-06 06:45 | disposition left against medical advice (07) | DRG 894 ==
LOC: YASAS 00:57 → Y3N 03:27
PROVIDERS: ADMIT Allergy & Immunology; ATTEND Surgery
PROC: HZ2ZZZZ Detoxification Services for Substance Abuse Treatment (ICD-10-PCS; principal; 2024-07-03)
DX: F10.230 Alcohol dependence with withdrawal, uncomplicated (principal); K86.1 Other chronic pancreatitis; Z59.01 Sheltered homelessness; F17.210 Nicotine dependence, cigarettes, uncomplicated; F25.9 Schizoaffective disorder, unspecified; F10.282 Alcohol dependence with alcohol-induced sleep disorder; F12.20 Cannabis dependence, uncomplicated; F31.9 Bipolar disorder, unspecified; G47.00 Insomnia, unspecified
CPT/HCPCS: 36415; 80053; 80305; 85025; 86780; 93005; 93010

== ENCOUNTER 2024-10-24 19:17 | Emergency (ER) | payer OTHER ==
[2024-10-24 19:23] VITALS: BP 146/90; PULSE 84; RESP 18; TEMP 98; BMI 25.5
== END 2024-10-24 19:56 | disposition home or self-care (01) ==
LOC: JER 19:17
DX: F10.90 Alcohol use, unspecified, uncomplicated (principal); Y90.9 Presence of alcohol in blood, level not specified
CPT/HCPCS: 99283-25